=== PATIENT | male | born 1940 | race Caucasian/White ===

== ENCOUNTER → 2017-01-02 | Outpatient (CLI) | payer OTHER ==
[~2017-01-02] MED LIST: CALC-393 PO; CHOL100027 PO; CHOL2000 PO; CLC100 PO; CYAN500T PO; FERR1TAB13 PO; FLM4 PO; FOLI800T PO; LEVO75TA5 PO; MRLP17 PO; VITAMIN B12 PO; ZNTT/150 PO
[2017-01-02 12:23] LABS: BASO % 0.6 %; BASO ABS # 0.04 K/uL (0-0.2); COMPLETE YES; EOS % 1.9 %; HEMATOCRIT 43.3 % (42-52); IG% 0.2 %; LYMPH % 28.8 %; LYMPH ABS # 1.85 K/uL (1.2-3.4); MEAN CELL VOLUME 99.5 fL (80-100); MEAN CORPUSCULAR HEMOGLOBIN 33.8 pg (25-34); MEAN CORPUSCULAR HGB CONC 33.9 g/dl (32-36); MEAN PLATELET VOLUME 9.6 fL (7.4-10.4); MONO % 10.6 %; NEUT % 57.9 %; PLATELET COUNT 229 K/uL (130-400); RED BLOOD COUNT 4.35 M/uL (4.7-6.1); WHITE BLOOD COUNT 6.42 K/uL (4.8-10.8)
[2017-01-02 13:05] LABS: BLOOD UREA NITROGEN 15 mg/dl (7-18); BUN/CREATININE RATIO 16.1 (10-20); CALCIUM 8.5 mg/dl (8.5-10.1); CARBON DIOXIDE 28 mmol/L (21-32); CHLORIDE 109 mmol/L (98-107); CREATININE 0.94 mg/dl (0.60-1.40); GLUCOSE 113 mg/dl (70-99); POTASSIUM 4.1 mmol/L (3.5-5.1); SODIUM 142 mmol/L (136-145)
== END | disposition home or self-care (01) ==
LOC: C.LAB1850 09:56
PROVIDERS: ATTEND Internal Medicine
DX: D64.9 Anemia, unspecified (principal); N20.0 Calculus of kidney

== ENCOUNTER → 2017-01-09 | Outpatient (CLI) | payer OTHER ==
[2017-01-09 14:51] LABS: ALB/GLOB RATIO 1.5 (0.9-2); ALKALINE PHOSPHATASE 60 U/L (45-117); ALT/SGPT 27 U/L (12-78); AST/SGOT 20 U/L (15-37); BLOOD UREA NITROGEN 21 mg/dl (7-18); BUN/CREATININE RATIO 21.4 (10-20); CALCIUM 8.7 mg/dl (8.5-10.1); CARBON DIOXIDE 28 mmol/L (21-32); CHLORIDE 108 mmol/L (98-107); GLUCOSE 95 mg/dl (70-99); MAGNESIUM 2.2 mg/dl (1.8-2.4); POTASSIUM 4.3 mmol/L (3.5-5.1); SODIUM 142 mmol/L (136-145)
[2017-01-09 15:02] LABS: C-REACTIVE PROTEIN < 0.29 mg/dl (0-0.29)
== END | disposition home or self-care (01) ==
LOC: C.LAB1850 12:40
PROVIDERS: ATTEND Internal Medicine
DX: R06.02 Shortness of breath (principal); R19.7 Diarrhea, unspecified

== ENCOUNTER → 2017-03-16 | Outpatient (CLI) | payer OTHER ==
--- NOTE | 2017-03-16 11:55 | DIAGNOSTIC IMAGING REPORT ---
FLUOROSCOPIC SMALL BOWEL FOLLOW-THROUGH CLINICAL HISTORY: Chronic diarrhea. COMPARISON STUDY: Abdominal CT dated 07/30/2015. TECHNIQUE: An abdominal education director radiograph was performed. The patient consumed several of thin barium and a small follow-through was performed. Overhead radiographs and spot compression images were obtained. FINDINGS: The abdominal education director radiograph shows a nonobstructed abdominal bowel gas pattern. Stomach changes seen in the pelvis. There are small pelvic phleboliths. The skeletal structures are osteopenic. The bony structures appear intact. On the small bowel follow-through, there is normal transit time with contrast identified in the colon at 90 minutes. There is a large hiatal hernia, with the majority the stomach located in the right thoracic cavity. The duodenum is normal in configuration. No bowel obstruction is seen. The small bowel mucosal pattern is normal. There is a 12 mm filling defects suggested within a proximal loop of jejunum. This could not the corroborated on the spot compression views and may represent a gas bubble. A polyp is considered less likely. There is no evidence of stricture or annular mass. The distal/terminal ileum are normal in appearance on the spot compression views. Fluoroscopy time: 1.8 minutes. Fluoroscopic images: 9 IMPRESSION: 1. Large hiatal hernia with the majority of the stomach located in the thoracic cavity. 2. No bowel obstruction. 3. There is a 12 mm filling defects suggested within a proximal loop of jejunum. This could not the corroborated on the spot compression views and may represent a gas bubble. A polyp is not excluded. Electronically signed by: Steven Mittal M.D. 03/16/2017 11:54 AM Dictated Date/Time: 03/16/2017 11:46 AM
== END | disposition home or self-care (01) ==
LOC: C.RAD 09:33
PROVIDERS: ATTEND Internal Medicine Gastroenterology
DX: R19.7 Diarrhea, unspecified (principal); K44.9 Diaphragmatic hernia without obstruction or gangrene; K90.0 Celiac disease

== ENCOUNTER → 2017-04-24 | Day surgery (SDC) | payer OTHER ==
[~2017-04-24] VITALS: Ht 177.8 cm; Wt 91.0 kg
[2017-04-24 08:44] VITALS: BP 123/62; PULSE 65; TEMP 36.5; O2SAT 98; Ht 177.8 cm; Wt 91.0 kg
[2017-04-24 12:04] VITALS: BP 114/57; PULSE 57; TEMP 36.4; O2SAT 96
--- NOTE | 2017-04-30 13:33 | OPERATIVE REPORT ---
DATE OF OPERATION: 04/24/2017 PROCEDURE: Hydrogen breath test for lactose intolerance. DESCRIPTION OF PROCEDURE: The patient presented to the medical treatment unit and consumed 25 grams of lactose. The patient had hydrogen levels performed at 60 minute intervals for 200 minutes. His baseline hydrogen was 7 with a CO2 level of 3.2. His maximum hydrogen level during the entire time did not exceed 7 and CO2 remained normal in the 3 range. He reported no symptoms during the test. IMPRESSION: The patient has a negative breath test for lactose intolerance. I attest to the content of the Intraoperative Record and any orders documented therein. Any exception s are noted below.
== END | disposition home or self-care (01) ==
LOC: C.MTU 08:07
PROVIDERS: ATTEND Internal Medicine Gastroenterology
DX: R19.7 Diarrhea, unspecified (principal)

== ENCOUNTER → 2017-05-22 | Outpatient (CLI) | payer OTHER ==
[~2017-05-22] MED LIST changes: -CHOL100027 PO; -CLC100 PO; -FLM4 PO; -MRLP17 PO; -VITAMIN B12 PO
== END | disposition home or self-care (01) ==
LOC: C.MAMM 08:16
PROVIDERS: ATTEND Internal Medicine Gastroenterology
DX: K90.0 Celiac disease (principal); M85.88 Other specified disorders of bone density and structure, other site

== ENCOUNTER → 2017-07-04 | Outpatient (CLI) | payer OTHER ==
[2017-07-04 10:12] LABS: BASO % 0.6 %; BASO ABS # 0.04 K/uL (0-0.2); COMPLETE YES; EOS % 3.1 %; HEMATOCRIT 42.8 % (42-52); IG% 0.2 %; LYMPH % 35.3 %; LYMPH ABS # 2.18 K/uL (1.2-3.4); MEAN CELL VOLUME 98.6 fL (80-100); MEAN CORPUSCULAR HEMOGLOBIN 33.4 pg (25-34); MEAN CORPUSCULAR HGB CONC 33.9 g/dl (32-36); MEAN PLATELET VOLUME 9.8 fL (7.4-10.4); MONO % 12.6 %; NEUT % 48.2 %; PLATELET COUNT 208 K/uL (130-400); RED BLOOD COUNT 4.34 M/uL (4.7-6.1); WHITE BLOOD COUNT 6.18 K/uL (4.8-10.8)
[2017-07-04 10:40] LABS: ALT/SGPT 22 U/L (12-78); AST/SGOT 17 U/L (15-37); BLOOD UREA NITROGEN 21 mg/dl (7-18); BUN/CREATININE RATIO 20.8 (10-20); CALCIUM 8.4 mg/dl (8.5-10.1); CARBON DIOXIDE 25 mmol/L (21-32); CHLORIDE 108 mmol/L (98-107); CREATININE 0.99 mg/dl (0.60-1.40); FERRITIN 68.8 ng/ml (8.0-388.0); GLUCOSE 104 mg/dl (70-99); POTASSIUM 4.1 mmol/L (3.5-5.1); SODIUM 141 mmol/L (136-145)
[2017-07-04 10:43] LABS: ALB/GLOB RATIO 1.3 (0.9-2); ALKALINE PHOSPHATASE 72 U/L (45-117); TOTAL IRON BINDING CAPACITY 275 mcg/dl (250-450)
== END | disposition home or self-care (01) ==
LOC: C.LAB1850 08:46
PROVIDERS: ATTEND Internal Medicine
DX: D64.9 Anemia, unspecified (principal); N20.0 Calculus of kidney; E03.9 Hypothyroidism, unspecified; N40.0 Benign prostatic hyperplasia without lower urinary tract symptoms

== ENCOUNTER → 2017-11-09 | Outpatient (CLI) | payer OTHER ==
[~2017-11-09] MED LIST changes: +RANI150T85 PO; -ZNTT/150 PO
--- NOTE | 2017-11-09 09:19 | DIAGNOSTIC IMAGING REPORT ---
L KNEE 3 VIEWS CLINICAL HISTORY: Left knee pain COMPARISON: None. DISCUSSION: No acute fractures are visualized. There is moderate narrowing of the medial joint compartment. Degenerative changes are present within the patellofemoral joint. There is fragmentation the superior lateral patellar pole. 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 IMPRESSION: 1. No acute fractures 2. Moderate osteoarthritic changes 3. Bipartite patella Electronically signed by: Taco Estrada M.D. 11/09/2017 9:18 AM Dictated Date/Time: 11/09/2017 9:17 AM
== END | disposition home or self-care (01) ==
LOC: C.RAD1850 09:00
PROVIDERS: ATTEND Internal Medicine
DX: M17.12 Unilateral primary osteoarthritis, left knee (principal); Q74.1 Congenital malformation of knee

== ENCOUNTER 2019-02-13 04:45 | Inpatient (IN) ==
[2019-02-13] MEDS ORDERED: GI COCKTAIL ED USE PO ONE (05:08)
[2019-02-13 05:30] LABS: Basophils # (auto) 0.02 K/uL (0-0.2); Basophils % (auto) 0.2 %; Eosinophils # (auto) 0.13 K/uL (0-0.5); Eosinophils % (auto) 1.3 %; Hematocrit (blood only) 42.5 % (42-52); Hemoglobin 14.8 g/dL (14.0-18.0); Immature Granulocytes # (auto) 0.01 K/uL (0.00-0.02); Immature Granulocytes % (auto) 0.1 %; Lymphocytes # (auto) 1.83 K/uL (1.2-3.4); Lymphocytes % (auto) 18.9 %; Mean Corpuscular Hgb Conc 34.8 g/dL (32-36); Mean Corpuscular Volume 99.1 fL (80-100); Mean Platelet Volume 9.5 fL (7.4-10.4); Monocytes # (auto) 0.86 K/uL (0.11-0.59); Monocytes % (auto) 8.9 %; Neutrophils # (auto) 6.84 K/uL (1.4-6.5); Neutrophils % (auto) 70.6 %; Platelet Count 225 K/uL (130-400); RDW Coefficient of Variation 12.2 % (11.5-14.5); RDW Standard Deviation 43.5 fL (36.4-46.3); Red Blood Count 4.29 M/uL (4.7-6.1); White Blood Count 9.69 K/uL (4.8-10.8)
[2019-02-13 05:47] LABS: Alanine Aminotransferase 17 U/L (12-78); Albumin Level 3.8 gm/dl (3.4-5.0); Aspartate Aminotransferase 14 U/L (15-37); BUN Creatinine Ratio 20.9 (10-20); Blood Urea Nitrogen 22 mg/dl (7-18); Carbon Dioxide 26 mmol/L (21-32); Chloride 105 mmol/L (98-107); Creatinine Clr Calc Pharmacy 68.3 ml/min; Est GFR (African American) 80.5; Est GFR (Non-African American) 69.4; Glucose 121 mg/dl (70-99); Potassium 3.9 mmol/L (3.5-5.1); Sodium 138 mmol/L (136-145)
[2019-02-13 05:52] LABS: Albumin Globulin Ratio 1.3 (0.9-2); Alkaline Phosphatase 69 U/L (45-117); Bilirubin,Total 1.1 mg/dl (0.2-1); Globulin 2.9 gm/dl (2.5-4.0); Total Protein 6.7 gm/dl (6.4-8.2); Troponin I < 0.015 ng/ml (0-0.045)
--- NOTE | 2019-02-13 06:52 | XRay Report ---
XR abdomen 2V w PA chest HISTORY: 78 years-old Male epigastric pain/ CP acute epigastric abdominal pain with acute atypical c hest pain COMPARISON: Chest CT of same day TECHNIQUE: PA view the chest with erect and supine views of the abdomen FINDINGS: There is a very large hiatal hernia with majority of the stomach appearing to be within the thoracic cavity. Cardiomediastinal and hilar silhouettes are within normal limits. No pneumothorax, pleural ef fusion or overt pulmonary edema. Right lung base consolidative opacities are likely secondary to comp ressive atelectasis with the hiatal hernia. Degenerative changes of the shoulders and spine. IMPRESSION: Very large hiatal hernia with right lung base atelectasis. The above report was generated using voice recognition software. It may contain grammatical, syntax o r spelling errors. Electronically signed by: Anival Caceres M.D. 02/13/2019 6:51 AM
[2019-02-13 07:04] LABS: Appearance Urine Clear (Clear); Bilirubin Urine Negative (Negative); Blood Urine Negative (Negative); Color Urine Yellow; Glucose Urine UA Negative (Negative); Ketones Urine Trace (Negative); Leukocyte Esterase Urine Negative (Negative); Nitrite Urine Negative (Negative); Protein Urine Negative (Negative); Specific Gravity Urine 1.022 (1.000-1.030); Urobilinogen Urine Negative (Negative); pH Urine 6.5 (4.5-7.5)
--- NOTE | 2019-02-13 08:03 | CT Scan Report ---
CT chest wo con CT DOSE: 716.44 mGy.cm CLINICAL HISTORY: 78 years-old Male with eval hiatal hernia. Acute chest pain with hiatal hernia TECHNIQUE: Multiaxial CT images of the chest were performed without contrast. A dose lowering techni que was utilized adhering to the principles of ALARA. COMPARISON: Acute abdominal series radiographs of same day at 5:40 AM FINDINGS: Heterogeneous appearance of the thyroid. Mildly prominent paratracheal and subcarinal lymph nodes are likely reactive measuring up to 8 mm. Heart is normal in size without pericardial effusion. Coronary arterial calcifications are noted. No thoracic aortic aneurysm. Trace right pleural effusion. No pneumothorax. The left lung is generally clear. There is no overt pu lmonary edema. Benign-appearing 2 mm fissural lymph node about the left major fissure. Linear subsegm ental consolidation about the right upper and lower lobes suggests atelectasis. There are no suspicio us pulmonary nodules or masses. Central airways appear to be patent. There is a very large hiatal hernia with majority of the stomach within the thoracic cavity. The stom ach is debris filled and distended with wall thickening noted at the diaphragmatic hiatus where there is abrupt narrowing (image 227 series 4) about the distal gastric body/antrum. Perigastric inflammat ory stranding is also noted with trace free fluid. Additionally, there are scattered foci of pneumope ritoneum surrounding the hiatal hernia. Additional scattered foci of pneumoperitoneum throughout the liver. Site of perforation is not definitively seen. Renal sinus cysts noted about the left kidney. T here are a few hypodense lesions noted about the liver measuring up to 2.4 cm suggestive of probable cysts. Soft tissues are unremarkable. Multilevel facet arthrosis. Degenerative changes of the shoulde rs are also noted. IMPRESSION: 1. Very large hiatal hernia with the majority of the stomach within the thoracic cavity. The stomach is distended and debris-filled and there is marked narrowing about the distal gastric body/antrum at the diaphragmatic hiatus with associated wall thickening, inflammatory stranding and trace fluid with in this distribution it is suggestive of gastric outlet obstruction. Additionally, small volume pneum operitoneum surrounds the hernia sac extending into the abdominal right upper quadrant suggestive of associated gastric perforation. Surgical consultation is needed. 2. Trace right pleural effusion with compressive atelectasis/scarring about the right lung base. Findings were discussed with Dr. Snyder on 02/13/2019 at 7:55 AM Electronically signed by: Anival Caceres M.D. 02/13/2019 8:01 AM
--- NOTE | 2019-02-13 08:38 | Surgery Consultation ---
Date of Consultation February 13, 2019 Assessment & Plan (1) Hernia, hiatal: Clinically the patient looks well and is not in distress. I have seen the patient and discussed his case with Dr. Snyder and Dr Cole. We do not feel the patient needs emergency operation. Dr. Cole will discuss the case with the medical team and the patient will likely be admitted to the hospital and the decision for surgery will be made depending on the patient's progress. History of Present Illness History of Present Illness Called to see the patient in the emergency room for possible gastric perforation. Patient has a history of known hiatal hernia and recently has been having more reflux and now some pain in the chest. His cardiac work-up is negative for he underwent chest CAT scan which showed a very large hiatal hernia almost the entire stomach in the chest. There is concern for extraluminal gas and possible perforation of the stomach. The patient's vital signs are stable his heart rate is normal his white blood c ell count is normal. Allergies Allergy/AdvReac Type Severity Reaction Status Date / Time No Known Allergies Allergy Verified 02/13/19 05:17 Home Medications Home Medications Medication Instructions Recorded Confirmed Type Macular Health Formula 1 cap PO QAM 01/03/19 02/13/19 History calcium carbonate [Calcium 600] 600 mg PO QAM 01/03/19 02/13/19 History cholecalciferol (vitamin D3) 2,000 unit PO QAM 01/03/19 02/13/19 History [Vitamin D3] cyanocobalamin (vitamin B-12) 500 mcg PO QAM 01/03/19 02/13/19 History [Vitamin B-12] ferrous sulfate [Iron (ferrous 325 mg PO QAM 01/03/19 02/13/19 History sulfate)] folic acid 0.8 mg PO QAM 01/03/19 02/13/19 History levothyroxine 88 mcg PO HS 01/03/19 02/13/19 History ranitidine HCl 150 mg PO HS 01/03/19 02/13/19 History tramadol 50 mg PO Q6H PRN #10 tab 01/08/19 02/13/19 Rx Patient History Medical History Anemia Celiac disease GERD (gastroesophageal reflux disease) History of colon polyps Hypothyroidism Kidney stones Surgical History History of colonoscopy History of esophagogastroduodenoscopy (EGD) History of hammertoe correction bilt feet History of tooth extraction History of umbilical hernia repair Family History Other No family history of adverse response to anesthesia Social History Preferred Language: Nigerian Communication Ability: Effective Beliefs That Will Affect Care: None Current Living Situation: Spouse Feels Safe at Home: Yes Smoking Status: Never smoker Second Hand Exposure: No Hx Alcohol Use: Yes Alcohol type: wine Hx Substance Use: No Review of Systems Review of Systems: All systems reviewed & are unremarkable except as noted in HPI & below Physical Exam Physical Exam: Currently the patient is in his ER bed awake and alert in no distress. He actually appears normal. His vital signs are stable with a normal heart rate. His HEENT exam is grossly normal his neck is supple sclera are anicteric. He is breathing comfortable his heart rate is normal his abdomen sh ows some mild distention . His extremities are warm and well-perfused. He is awake and alert Results & Data Vital Signs (Past 12 Hours) Vital Signs Temp Pulse Pulse Resp BP BP Pulse Ox 02/13/19 07:49 64 17 123/77 96 02/13/19 06:47 88 18 124/78 95 02/13/19 04:51 36.7 C 89 20 144/70 H 95 I have reviewed his CAT scan and report.
--- NOTE | 2019-02-13 08:38 | Emergency Department Note ---
Entered by Leon Hector acting as a scribe for History of Present Illness General Chief complaint: GI Assessment Stated complaint: HEARTBURN Time Seen by Provider: 02/13/19 04:54 Source: patient History of Present Illness Provider complaint: chest pressure Onset (ago): day(s) 6 Location: chest Pain Consistency: + constant Quality: + other (pressure) Relieved By: + none Exacerbated By: + none Associated symptoms: + denies other symptoms; no nausea/vomiting and no shortness of breath The patient is a 78 y/o male who presents to the emergency department for evaluation of intermittent chest pressure that began 6 days ago that became worse last evening. The patient states that he has had a hiatal hernia for years for which he takes a daily medication for management which is normally successful. He notes that this time he has taken two ranitidine without relief of the pressure. The patient reports that he cannot find a position that is comfortable for him. The patient denies nausea, shortness of breath, urinary symptoms, bowel symptoms, leg swelling, and any other symptoms. Home Medications Home Medications Medication Instructions Recorded Confirmed Type Macular Health Formula 1 cap PO COUNTS INCLUDE 234 BEDS AT [facility] 01/03/19 02/13/19 History calcium carbonate [Calcium 600] 600 mg PO COUNTS INCLUDE 234 BEDS AT THE [facility] 01/03/19 02/13/19 History cholecalciferol (vitamin D3) 2,000 unit PO COUNTS INCLUDE 234 BEDS AT THE [facility] 01/03/19 02/13/19 History [Vitamin D3] cyanocobalamin (vitamin B-12) 500 mcg PO COUNTS INCLUDE 234 BEDS AT THE [facility] 01/03/19 02/13/19 History [Vitamin B-12] ferrous sulfate [Iron (ferrous 325 mg PO COUNTS INCLUDE 234 BEDS AT THE [facility] 01/03/19 02/13/19 History sulfate)] folic acid 0.8 mg PO COUNTS INCLUDE 234 BEDS AT THE [facility] 01/03/19 02/13/19 History levothyroxine 88 mcg PO 01/03/19 02/13/19 History ranitidine HCl 150 mg PO 01/03/19 02/13/19 History tramadol 50 mg PO Q6H PRN #10 tab 01/08/19 02/13/19 Rx Allergies Allergy/AdvReac Type Severity Reaction Status Date / Time gluten Allergy Mild Gastrointestinal Verified 02/13/19 08:46 Upset Past Med/Surg History Medical History Anemia Celiac disease GERD (gastroesophageal reflux disease) History of colon polyps Hypothyroidism Kidney stones Surgical History History of colonoscopy History of esophagogastroduodenoscopy (EGD) History of hammertoe correction bilt feet History of tooth extraction History of umbilical hernia repair Family History Father Dementia Mother Breast cancer Other No family history of adverse response to anesthesia Social History Preferred Language: Croatian Communication Ability: Effective Beliefs That Will Affect Care: None Current Living Situation: Spouse 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 Other Information That Helps Us Care for You: No Feels Safe at Home: Yes Safety Concerns: Feels Safe At This Time Smoking Status: Never smoker Second Hand Exposure: No Hx Alcohol Use: Yes (Occasional. ) Alcohol type: wine Hx Substance Use: No Review of Systems See HPI for pertinent positives & negatives. and A total of 10 systems reviewed and were otherwise negative Physical Exam Vital Signs Vital Signs - 24 hr 02/13/19 04:51 02/13/19 05:08 02/13/19 06:47 Temperature 36.7 C Temperature Source Oral Sepsis Recent Fever Within 48 Hours No Sepsis Action Taken by Nursing No Action Required Pulse Rate 89 Pulse Rate [Left Radial] 88 Pulse Rhythm Regular Pulse Rhythm [Left Radial] Pulse Strength Normal Respiratory Rate 20 18 Respiratory Effort / Characteristics Non-Labored Spontaneous Non-Labored Respiratory Depth Normal Normal Respiratory Pattern Regular Regular Blood Pressure 144/70 H Blood Pressure [Left Arm] 124/78 Blood Pressure Mean 94 Blood Pressure Mean [Left Arm] 93 Blood Pressure Position Sitting Blood Pressure Position [Left Arm] Pulse Oximetry 95 95 Oxygen Delivery Method Room Air Room Air 02/13/19 07:49 02/13/19 08:44 Temperature Temperature Source Sepsis Recent Fever Within 48 Hours Sepsis Action Taken by Nursing Pulse Rate Pulse Rate [Left Radial] 64 74 Pulse Rhythm Pulse Rhythm [Left Radial] Regular Pulse Strength Respiratory Rate 17 16 Respiratory Effort / Characteristics Non-Labored Respiratory Depth Normal Respiratory Pattern Regular Blood Pressure Blood Pressure [Left Arm] 123/77 131/77 Blood Pressure Mean Blood Pressure Mean [Left Arm] 92 95 Blood Pressure Position Blood Pressure Position [Left Arm] Sitting Pulse Oximetry 96 96 Oxygen Delivery Method Room Air Room Air HEENT: Head - normocephalic and atraumatic Pupils are equal, round, and reactive to light. Extraocular eye muscles are intact, and sclera are anicteric. Nose - moist nasal mucosa without discharge. Mouth - moist buccal mucosa. Oropharynx is nonerythematous and there is no tonsillar exudate or edema noted. Neck: Supple; no JVD, nuchal rigidity, cervical lymphadenopathy. Heart: Regular rate and rhythm. There is a normal S1 and S2 with no murmurs, clicks, or gallops appreciated. Lungs: Clear to auscultation bilaterally with no wheezes, rales, or rhonchi. Abdomen: Soft, completely nontender, nondistended, with good bowel sounds. There are no palpable pulsatile masses or hepatosplenomegaly. There is no guarding, rigidity, or rebound noted. Extremities: No evidence of cyanosis, clubbing, or edema. There are easily palpable peripheral pulses. Skin: warm and dry with good turgor and no rashes. Course 0502: Past medical records reviewed. The patient was evaluated in room B12. A complete history and physical exam was performed. An IV lock was initiated and labs were drawn as above. A twelve-lead EKG was obtained as described above. The patient had a chest x-ray as described below. 0508: I ordered a GI cocktail ED use 1 dose PO. 0557: I informed the patient that he will need to have a CT done. He states that the GI cocktail did seem to help his symptoms. 0800: I updated the patient on his results. The patient will be kept n.p.o. He was started on a normal saline drip 0801: I spoke with Dr. Janeth RAVI-Surgeon, he will talk with Dr. Mitchell. 0812: I discussed the results with the patient and Dr. Garcia at bedside. Dr. Cole will evaluate the patient for further management. 0840: I discussed the case with Dr. Cole. He has evaluated the patient and will discuss the case with the [facility] for admission. Reevaluation(s) Reevaluation #1: I spoke with Dr. Janeth RAVI-Surgeon, he will talk with Dr. Mitchell. Time: 08:01 Reevaluation #2: Dr. Cole will evaluate the patient for further management. Time: 08:12 Administered Medications Sodium Chloride (Nss 1000ml) 1,000 mls @ 125 mls/hr IV .Q8H PRIYANK Stop: 03/15/19 08:14 Last Admin: 02/13/19 15:51 Dose: 125 mls/hr Documented by: [id number] Infusion: 02/13/19 15:51 Dose: 125 mls/hr Documented by: [id number] Admin: 02/13/19 08:43 Dose: 125 mls/hr Documented by: [id number] Famotidine 20 mg/ Syringe 5 mls @ 2.5 mls/min IV BID PRIYANK Stop: 03/15/19 11:29 Last Admin: 02/13/19 20:17 Dose: 2.5 mls/min Documented by: [id number] Admin: 02/13/19 12:19 Dose: 2.5 mls/min Documented by: [id number] Discontinued Medications Al Hydrox/Mg Hydrox/Simethicone () 1 dose PO ONE ONE Stop: 02/13/19 05:09 Last Admin: 02/13/19 05:21 Dose: 1 dose Documented by: [id number] Medical Decision Making Differential Diagnosis Differential diagnosis: GERD, Esophagitis, cardiac ischemia, hiatal hernia, gastritis. Medical Records Attestation: I reviewed the patient's medical records. Home Medications Current Medication List: was personally reviewed by me Laboratory Data Attestation: I reviewed the patient's lab results. Result diagrams: 02/13/19 05:19 02/13/19 05:19 Lab Results 02/13/19 02/13/19 02/13/19 Range/Units 05:19 05:19 06:55 WBC 9.69 (4.8-10.8) K/uL RBC 4.29 L (4.7-6.1) M/uL Hgb 14.8 (14.0-18.0) g/dL Hct 42.5 (42-52) % MCV 99.1 (80-100) fL MCH 34.5 H (25-34) pg MCHC 34.8 (32-36) g/dL RDW Std Deviation 43.5 (36.4-46.3) fL RDW Coeff of Paula 12.2 (11.5-14.5) % Plt Count 225 (130-400) K/uL MPV 9.5 (7.4-10.4) fL Immature Gran % (Auto) 0.1 % Neut % (Auto) 70.6 % Lymph % (Auto) 18.9 % Lumpkin % (Auto) 8.9 % Eos % (Auto) 1.3 % Baso % (Auto) 0.2 % Immature Gran # (Auto) 0.01 (0.00-0.02) K/uL Neut # (Auto) 6.84 H (1.4-6.5) K/uL Lymph # (Auto) 1.83 (1.2-3.4) K/uL [place]kin # (Auto) 0.86 H (0.11-0.59) K/uL Eos # (Auto) 0.13 (0-0.5) K/uL Baso # (Auto) 0.02 (0-0.2) K/uL Sodium 138 (136-145) mmol/L Potassium 3.9 (3.5-5.1) mmol/L Chloride 105 (98-107) mmol/L Carbon Dioxide 26 (21-32) mmol/L Anion Gap 7.0 (3-11) BUN 22 H (7-18) mg/dl Creatinine 1.04 (0.6-1.4) mg/dl Est Cr Clr Drug Dosing 68.3 ml/min Est GFR ( Amer) 80.5 Est GFR (Non-Af Amer) 69.4 BUN/Creatinine Ratio 20.9 H (10-20) Glucose 121 H (70-99) mg/dl Calcium 9.0 (8.5-10.1) mg/dl Total Bilirubin 1.1 H (0.2-1) mg/dl AST 14 L (15-37) U/L ALT 17 (12-78) U/L Alkaline Phosphatase 69 (45-117) U/L Troponin I < 0.015 (0-0.045) ng/ml Total Protein 6.7 (6.4-8.2) gm/dl Albumin 3.8 (3.4-5.0) gm/dl Globulin 2.9 (2.5-4.0) gm/dl Albumin/Globulin Ratio 1.3 (0.9-2) Lipase 118 (73-393) U/L Urine Color Yellow Urine Appearance Clear (Clear) Urine pH 6.5 (4.5-7.5) Ur Specific Spencer 1.022 (1.000-1.030) Urine Protein Negative (Negative) Urine Glucose (UA) Negative (Negative) Urine Ketones Trace H (Negative) Urine Blood Negative (Negative) Urine Nitrite Negative (Negative) Urine Bilirubin Negative (Negative) Urine Urobilinogen Negative (Negative) Ur Leukocyte Esterase Negative (Negative) Imaging Data Attestation: I personally reviewed and interpreted this imaging study as follows: My Impression: Chest x-ray showed drastically worsened hiatal hernia, with debris frilled stomach. Radiologist's Impression: Radiology results as stated below per my review and the radiologist's interpretation: CT chest wo con CT DOSE: 716.44 mGy.cm CLINICAL HISTORY: 78 years-old Male with eval hiatal hernia. Acute chest pain with hiatal hernia TECHNIQUE: Multiaxial CT images of the chest were performed without contrast. A dose lowering technique was utilized adhering to the principles of ALARA. COMPARISON: Acute abdominal series radiographs of same day at 5:40 AM FINDINGS: Heterogeneous appearance of the thyroid. Mildly prominent paratracheal and subcarinal lymph nodes are likely reactive measuring up to 8 mm. Heart is normal in size without pericardial effusion. Coronary arterial calcifications are noted. No thoracic aortic aneurysm. Trace right pleural effusion. No pneumothorax. The left lung is generally clear. There is no overt pulmonary edema. Benign-appearing 2 mm fissural lymph node about the left major fissure. Linear subsegmental consolidation about the right upper and lower lobes suggests atelectasis. There are no suspicious pulmonary nodules or masses. Central airways appear to be patent. There is a very large hiatal hernia with majority of the stomach within the thoracic cavity. The stomach is debris filled and distended with wall thickening noted at the diaphragmatic hiatus where there is abrupt narrowing (image 227 series 4) about the distal gastric body/antrum. Perigastric inflammatory stranding is also noted with trace free fluid. Additionally, there are scattered foci of pneumoperitoneum surrounding the hiatal hernia. Additional scattered foci of pneumoperitoneum throughout the liver. Site of perforation is not definitively seen. Renal sinus cysts noted about the left kidney. There are a few hypodense lesions noted about the liver measuring up to 2.4 cm suggestive of probable cysts. Soft tissues are unremarkable. Multilevel facet arthrosis. Degenerative changes of the shoulders are also noted. IMPRESSION: 1. Very large hiatal hernia with the majority of the stomach within the thoracic cavity. The stomach is distended and debris-filled and there is marked narrowing about the distal gastric body/antrum at the diaphragmatic hiatus with associated wall thickening, inflammatory stranding and trace fluid within this distribution it is suggestive of gastric outlet obstruction. Additionally, small volume pneumoperitoneum surrounds the hernia sac extending into the abdominal right upper quadrant suggestive of associated gastric perforation. Surgical consulta tion is needed. 2. Trace right pleural effusion with compressive atelectasis/scarring about the right lung base. Findings were discussed with Dr. Snyder on 02/13/2019 at 7:55 AM Electronically signed by: Anival Caceres M.D. 02/13/2019 8:01 AM ECG Data Attestation: I personally reviewed and interpreted this ECG as follows: Indication: chest pain Rate (beats per minute): 81 Rhythm: normal sinus Findings: no acute ischemic change and no ectopy Blood Pressure Blood Pressure Findings: Normal blood pressure MDM Narrative The patient is a 78 y/o male who presents to the emergency department for evaluation of intermittent chest pressure that began 6 days ago that became worse last evening. The patient has a history of hiatal hernia for which she has taken ranitidine regularly for many years. Over the past 6 days, the patient has noticed that his GERD symptoms do not seem to be treated with the ranitidine. He has doubled up his dose with no improvement in his symptoms. On chest x-ray, there was obvious worsening of the hiatal hernia. The patient went for CT scan of the chest which showed significant hiatal hernia with a debris-filled stomach and signs of gastric outlet obstruction. There was questionable pneumoperitoneum. The patient was kept n.p.o. and started on a normal saline drip. This case was discussed emergently with Dr. Garcia and Dr. Cole. They both came to the emergency department to evaluate the patient. The patient will be admitted. Impression & Plan Gastric perforation, Gastric outlet obstruction, Hernia, hiatal Critical Care Time Critical Care Time: Yes Total Critical Care Time: 70 I have personally spent 70 minutes of critical care time in the direct management of this patient. This includes bedside care, interpretation of diagnostic studies, and testing, discussion with consultants, patient, and family members, and other required patient management activities. This 70 minutes is in excess of all separately billable procedures. Discharge Plan Visit Data *Final* Discharge Date/Time: 02/13/19 10:48 Chief Complaint: GI Assessment Stated Complaint: HEARTBURN ED Provider: Alejandrina Snyder Discharge Problem: Gastric perforation, Gastric outlet obstruction, Hernia, hiatal Patient Disposition: Admitted As Inpatient Discharge Instructions Interventions: ED Discharge Assessment Last Done: 02/13/19 10:48 The scribe's documentation has been prepared under my direction and personally reviewed by me in its entirety. I confirm that the note above accurately re flects all work, treatment, procedures, and medical decision making performed by me.
[2019-02-13] MEDS: SODIUM CHLORIDE 0.9% 1000ML 1,000 ML IV SCH ×3 (08:43→23:17)
--- NOTE | 2019-02-13 10:01 | History & Physical Report ---
Date of Service February 13, 2019 Assessment & Plan (1) Hernia, hiatal: - Presented with acute symptoms likely related to hiatal hernia. - CT chest showed very large hiatal hernia with majority of stomach within the thoracic cavity. - Dr. Cole consulted -- will continue to follow, may be require inpt intervention pending hospital course. - Strict NPO; IV fluids at 125 cc/hr. - Will also consult [facility] due to h/o Celiac disease. - EKG pending; does have chronic SOB with exertion, consider cardiology consult for preop work up -- Trop was negative. (2) Celiac disease: - Follows with [facility], will consult as inpt. - Hold home vitamin supplementation due to NPO status. (3) Anemia: - Hgb is currently stable; holding home supplementation while NPO. (4) Hypothyroidism: - Continue Levothyroxine -- 44 mcg IV daily. - TSH was 2.470. (5) GERD (gastroesophageal reflux disease): - Famotidine 20 mg IV BID due to NPO status. (6) Carpal tunnel syndrome: - S/p right carpal tunnel release on 01/08/19. (7) DVT prophylaxis: - SCDs; holding pharmacologic ppx for procedure. Dispo: Med/surg with tele for evaluation/treatment of large hiatal hernia. History of Present Illness Chief Complaint: Abdominal/Chest Pressure Primary Care Provider: Sathya Padron MD Mr. Stern is a 78 year old male with past medical history of Celiac disease, GERD, Hypothyroidism, Carpal Tunnel Syndrome, Hiatal Hernia who presented to the ER with abdominal/chest pressure. He developed insomnia along with chest pressure starting Sunday evening. He had intermittent symptoms over the last few days; pressure started to increase last evening prior to patient presenting to the ER. He denies direct chest pressure but does have chronic shortness of breath -- SOB occurs with exertion, denies SOB at rest. Denies URI symptoms, LE edema, nausea/vomiting, lower abdominal pain, dysuria or hematuria. Pt. is having regular BMs -- last BM was yesterday. 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 ER course: CT chest showed very large hiatal hernia with majority of stomach within the thoracic cavity. Dr. Cole was consulted -- will admit for further evaluation, maintain NPO status and consider surgery as inpatient if necessary. Allergies Allergy/AdvReac Type Severity Reaction Status Date / Time gluten Allergy Mild Gastrointestinal Verified 02/13/19 08:46 Upset Home Medications Home Medications Medication Instructions Recorded Confirmed Type Macular Health Formula 1 cap PO QAM 01/03/19 02/13/19 History calcium carbonate [Calcium 600] 600 mg PO QAM 01/03/19 02/13/19 History cholecalciferol (vitamin D3) 2,000 unit PO [facility] 01/03/19 02/13/19 History [Vitamin D3] cyanocobalamin (vitamin B-12) 500 mcg PO QAM 01/03/19 02/13/19 History [Vitamin B-12] ferrous sulfate [Iron (ferrous 325 mg PO [facility] 01/03/19 02/13/19 History sulfate)] folic acid 0.8 mg PO QAM 01/03/19 02/13/19 History levothyroxine 88 mcg PO HS 01/03/19 02/13/19 History ranitidine HCl 150 mg PO HS 01/03/19 02/13/19 History tramadol 50 mg PO Q6H PRN #10 tab 01/08/19 02/13/19 Rx Past Med/Surg History Medical History Anemia Celiac disease GERD (gastroesophageal reflux disease) History of colon polyps Hypothyroidism Kidney stones Surgical History History of colonoscopy History of esophagogastroduodenoscopy (EGD) History of hammertoe correction bilt feet History of tooth extraction History of umbilical hernia repair Family History Father Dementia Mother Breast cancer Other No family history of adverse response to anesthesia Social History Preferred Language: Pry[place]in[place] Communication Ability: Effective Beliefs That Will Affect Care: None Current Living Situation: Spouse 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 Other Information That Helps Us Care for You: No Feels Safe at Home: Yes Safety Concerns: Feels Safe At This Time Smoking Status: Never smoker Second Hand Exposure: No Hx Alcohol Use: Yes (Occasional. ) Alcohol type: wine Hx Substance Use: No Review of Systems Review of Systems: All systems reviewed & are unremarkable except as noted in HPI & below Constitutional: no fever, no chills, no fatigue, no weakness and no anorexia Ear, Nose, Mouth, Throat: no nasal congestion and no nasal discharge Respiratory: + dyspnea on exertion (Chronic ); no cough, no dyspnea and no wheezing Cardiovascular: + chest pain (Chest pressure related to hernia. ); no chest pain at rest, no chest pain with activity, no radiating jaw, neck or arm pain, no palpitations, no lightheadedness, no syncope and no edema Gastrointestinal: + abdominal pain (Related to hernia. ); no nausea, no vomiting, no constipation and no diarrhea/loose stools Genitourinary: no difficulty urinating Musculoskeletal: no back pain and no joint pain Integumentary: no non-healing lesions Neurologic: no dizziness Allergy / Immunological: no rash Physical Exam Physical Exam: General: Resting comfortably in no apparent distress HEENT: NC/AT; PERRLA with EOMI; [place] conjunctiva, MMM. No erythema of posterior pharynx Neck: Supple and nontender Cardiac: RRR Lungs: CTA bilaterally Abdomen: Bowel normoactive X 4; Mild distention, non tender to light palpation. Extremities: Warm. No edema present Neuro: No focal weakness Skin: No rash Results & Data Vital Signs (Past 12 Hours) Vital Signs Temp Pulse Pulse Resp BP BP Pulse Ox 02/13/19 08:44 74 16 131/77 96 02/13/19 07:49 64 17 123/77 96 02/13/19 06:47 88 18 124/78 95 02/13/19 04:51 36.7 C 89 20 144/70 H 95 Laboratory Results 02/13/19 02/13/19 02/13/19 Range/Units 06:55 05:19 05:19 WBC 9.69 (4.8-10.8) K/uL RBC 4.29 L (4.7-6.1) M/uL Hgb 14.8 (14.0-18.0) g/dL Hct 42.5 (42-52) % MCV 99.1 (80-100) fL MCH 34.5 H (25-34) pg MCHC 34.8 (32-36) g/dL RDW Std Deviation 43.5 (36.4-46.3) fL RDW Coeff of Paula 12.2 (11.5-14.5) % Plt Count 225 (130-400) K/uL MPV 9.5 (7.4-10.4) fL Immature Gran % (Auto) 0.1 % Neut % (Auto) 70.6 % Lymph % (Auto) 18.9 % [place] % (Auto) 8.9 % Eos % (Auto) 1.3 % Baso % (Auto) 0.2 % Immature Gran # (Auto) 0.01 (0.00-0.02) K/uL Neut # (Auto) 6.84 H (1.4-6.5) K/uL Lymph # (Auto) 1.83 (1.2-3.4) K/uL [place] # (Auto) 0.86 H (0.11-0.59) K/uL Eos # (Auto) 0.13 (0-0.5) K/uL Baso # (Auto) 0.02 (0-0.2) K/uL Sodium 138 (136-145) mmol/L Potassium 3.9 (3.5-5.1) mmol/L Chloride 105 (98-107) mmol/L Carbon Dioxide 26 (21-32) mmol/L Anion Gap 7.0 (3-11) BUN 22 H (7-18) mg/dl Creatinine 1.04 (0.6-1.4) mg/dl Est Cr Clr Drug Dosing 68.3 ml/min Est GFR ( Amer) 80.5 Est GFR (Non-Af Amer) 69.4 BUN/Creatinine Ratio 20.9 H (10-20) Glucose 121 H (70-99) mg/dl Calcium 9.0 (8.5-10.1) mg/dl Total Bilirubin 1.1 H (0.2-1) mg/dl AST 14 L (15-37) U/L ALT 17 (12-78) U/L Alkaline Phosphatase 69 (45-117) U/L Troponin I < 0.015 (0-0.045) ng/ml Total Protein 6.7 (6.4-8.2) gm/dl Albumin 3.8 (3.4-5.0) gm/dl Globulin 2.9 (2.5-4.0) gm/dl Albumin/Globulin Ratio 1.3 (0.9-2) Lipase 118 (73-393) U/L Urine Color Yellow Urine Appearance Clear (Clear) Urine pH 6.5 (4.5-7.5) Ur Specific [place] 1.022 (1.000-1.030) Urine Protein Negative (Negative) Urine Glucose (UA) Negative (Negative) Urine Ketones Trace H (Negative) Urine Blood Negative (Negative) Urine Nitrite Negative (Negative) Urine Bilirubin Negative (Negative) Urine Urobilinogen Negative (Negative) Ur Leukocyte Esterase Negative (Negative) Code Status & VTE Plan Code Status FULL CODE VTE Prophylaxis Plan VTE Prophylaxis will be ordered: No Supervising Physician Co-Signing Physician Notes PA Supervision Note: I personally saw and examined the patient. I verified all novak points and agree with CARI Hanks with the following exceptions and/or additions: Patient presenting with worsening feeling of pressure up into his chest and neck and worsening GERD symptoms. He was found on imaging to have a very large hiatal hernia with almost his entire stomach in the intrathoracic region and it was full of stomach contents. There is also question of pneumoperitoneum seen on imaging by radiology. He was seen urgently in consultation with general surgery and then thoracic surgery who did not think he had a surgical emergency, however warranted admission for further observation and likely planned hernia repair. History otherwise as above ROS as Vitals reviewed Gen: AAOx3, NAD HEENT: Anicteric sclerae, EOMI CV: RRR no mgr nl S1S2 Pulm: CTAB no wcr Abd: +BS soft NT ND no masses or hernias palpable Ext: No edema, 2+ DP pulses Skin: No rashes, warm/dry Neuro: Full strength throughout ECG normal sinus rhythm without ischemic changes, normal axis Labs reviewed CT of the chest personally reviewed by me and shows a large intrathoracic stomach mostly in the right side of the thorax 78-year-old male here with hypothyroidism, history of GERD, here with large hiatal hernia that is now symptomatic -Appreciate thoracic surgery and general surgery consultations, GI consultation appreciated as well -Keeping n.p.o., hydrated with IV fluids, IV Pepcid -Planning likely for robotic assisted minimally invasive hiatal hernia repair with thoracic surgery in the next few days. DVT prophylaxis-SCDs PG Care Time/CCT Total # of Minutes Spent Total Time Spent with Patient: Total time spent is greater than 50% in coordination of care (as documented) at patient's floor/unit and/or counseling patient:
[2019-02-13] MEDS ORDERED: ACETAMINOPHEN 65 ML IV PRN (11:13)
[2019-02-13] MEDS ORDERED: FAMOTIDINE 20MG/5ML IV PUSH IV SCH (11:13)
[2019-02-13] MEDS: FAMOTIDINE 20 MG in SYRINGE 3 ML IV SCH ×2 (12:19→20:17)
--- NOTE | 2019-02-13 16:09 | Gastrointestinal Consultation ---
Date of Consultation February 13, 2019 Assessment & Plan (1) Hernia, hiatal: I feel this needs to be fixed prior to discharge or he may experience a surgical emergency. Told patient I feel he needs surgery prior to DC and he wants to proceed. No role for endoscopy in setting of possible gastric p erforation. Timing of surgery per surgeons. Per my discussion with Dr Porter, the PA discussed the case with Dr Cole who will be seeing the patient and considering repair of HH. gastric outlet obstruction--from HH, see above, If develops n/v would place NG and put on LIS celiac disease--well controlled and this diagnosis should have no bearing on decision to proceed with surgery. Gluten free diet when taking po. No additional recommendations and decisions of timing of surgery to made by others so will will sign off. Please call for further questions. History of Present Illness Reason for Consultation: Large Hiatal hernia Requesting Physician: CARI Tellez Attending Physician: Nakita Porter MD History of Present Illness CC reflux HPI Reviewed this EMR and [facility] EMR for GI pertinent data. Pt with longstanding celiac disease (40 years) stable on gluten free diet at present. A couple years ago he was having unexplained diarrhea. An EGD 06/2017 large HH and random duod bx neg for active celiac diseaes. [place] to TI with random bx normall and path neg for microscopic colitis. He was ultimately found to have small bowel bacterial overgrowth which required 2 rounds of abx and no probllems since. Last OV with DR Jimenez 01/2018. He states long history of hiatal hernia with GERD symptoms controlled well on randitine. He states 6 days ago more reflux, early satiety and feeling of fullness up in throat not relieved with incread zantac. No severe pain in abdomen or chest. He came to ER and chest CT c/w distended stomach almost all in chest with narrowing at diaphragm, stomcah full of food/fluid and suggestion of contained gastric perforation. He was seen by general surgery who felt no emergent surgery needed. Allergies Allergy/AdvReac Type Severity Reaction Status Date / Time gluten Allergy Mild Gastrointestinal Verified 02/13/19 08:46 Upset Home Medications Home Medications Medication Instructions Recorded Confirmed Type Macular Health Formula 1 cap PO QAM 01/03/19 02/13/19 History calcium carbonate [Calcium 600] 600 mg PO QAM 01/03/19 02/13/19 History cholecalciferol (vitamin D3) 2,000 unit PO QAM 01/03/19 02/13/19 History [Vitamin D3] cyanocobalamin (vitamin B-12) 500 mcg PO QAM 01/03/19 02/13/19 History [Vitamin B-12] ferrous sulfate [Iron (ferrous 325 mg PO QAM 01/03/19 02/13/19 History sulfate)] folic acid 0.8 mg PO QAM 01/03/19 02/13/19 History levothyroxine 88 mcg PO HS 01/03/19 02/13/19 History ranitidine HCl 150 mg PO HS 01/03/19 02/13/19 History tramadol 50 mg PO Q6H PRN #10 tab 01/08/19 02/13/19 Rx Patient History Medical History Anemia Celiac disease GERD (gastroesophageal reflux disease) History of colon polyps Hypothyroidism Kidney stones Surgical History History of colonoscopy History of esophagogastroduodenoscopy (EGD) History of hammertoe correction bilt feet History of tooth extraction History of umbilical hernia repair Family History Father Dementia Mother Breast cancer Other No family history of adverse response to anesthesia Social History Preferred Language: Irish Communication Ability: Effective Beliefs That Will Affect Care: None Current Living Situation: Spouse 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 Other Information That Helps Us Care for You: No Feels Safe at Home: Yes Safety Concerns: Feels Safe At This Time Smoking Status: Never smoker Second Hand Exposure: No Hx Alcohol Use: Yes (Occasional. ) Alcohol type: wine Hx Substance Use: No Review of Systems Review of Systems: All systems reviewed & are unremarkable except as noted in HPI & below Physical Exam Constitutional: WD/WN, vitals as above Eyes: PERRL, conjunctivae normal, anicteric sclerae ENMT: external ear and nose normal, oropharynx normal Neck: normal visual inspection and trachea midline Respiratory: normal respiratory effort, lungs clear to auscultation Cardiovascular: RRR, no murmur, no edema Gastrointestinal (Abdomen): normal bowel sounds, soft, nontender, no hepatosplenomegaly Neurologic: PERRL, EOMI, accommodation nl, no face palsy, no dysarthria Psychiatric: A+Ox3, euthymic affect Results & Data Vital Signs (Past 12 Hours) Vital Signs Temp Pulse Pulse Resp BP BP Pulse Ox 02/13/19 15:45 66 02/13/19 15:08 36.4 C L 60 20 121/77 96 02/13/19 11:13 36.6 C 57 L 59 L 18 136/75 94 02/13/19 10:19 67 15 118/78 97 02/13/19 08:44 74 16 131/77 96 02/13/19 07:49 64 17 123/77 96 02/13/19 06:47 88 18 124/78 95 02/13/19 04:51 36.7 C 89 20 144/70 H 95
--- NOTE | 2019-02-13 21:31 | Consultation Report ---
DATE OF CONSULTATION: 02/13/2019 REASON FOR CONSULTATION: Large hiatal hernia. 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 There is a question about a perforation in the stomach noted on CT. I was not impressed. I was asked to see this patient in consultation to see whether or not a repair would be offered. I discussed this case in detail with Dr. Garcia as well as Dr. Alejandrina Snyder. I also discussed this with Zainab Sutherland, who has kindly agreed to admit the patient for [facility]'s hospitalist service. Mr. Stern is actually a very healthy 78-year-old male who has been told for many years that he has a large hiatal hernia. He has been treated with H2 blockers, which have worked well for him. Over the last week he had pain which resolved with ranitidine. He took extra doses. This occurred a couple of times until last night when it did not improve. He underwent a CT scan this morning and stated that after drinking the contrast he felt much better when he laid down and the pain resolved. He has a huge hernia. The patient has had no fevers, no chills, no nausea or vomiting. In fact, states he is hungry enough to eat something now. I was asked to evaluate from a surgical standpoint by Dr. Garcia. PAST MEDICAL HISTORY: 1. Questionable history of celiac disease. 2. Gastroesophageal reflux disease with known large hiatal hernia. 3. Anemia. 4. History of colon polyps. 5. Hypothyroidism. 6. History of nephrolithiasis. 7. History of an umbilical hernia. 8. Small bowel bacterial overgrowth. PAST SURGICAL HISTORY: 1. Upper endoscopy. 2. Colonoscopy. 3. History of teeth extraction. 4. Umbilical herniorrhaphy. 5. Correction of hammertoes. 6. Right carpal tunnel release. MEDICATIONS: 1. Synthroid. 2. Ranitidine. 3. Tramadol. 4. Ferrous sulfate. ALLERGIES: No known drug allergies. SOCIAL HISTORY: The patient is originally from [place], attended [employer]; however, he did research and lived near [place], [place]. 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 The patient's 2 sons live out of [facility], one in [place], one in [facility]. The patient has never smoked cigarettes. He does drink wine occasionally. He lives with his . He is physically active. FAMILY MEDICAL HISTORY: His two children and his single granddaughter are healthy. REVIEW OF SYSTEMS: The patient really has been in his usual state of health until the last week as noted in the history of present illness. He has had no weight changes. He has had no diarrhea, nausea, or vomiting. He has had some right leg swelling and was found to have a Estrada cyst. He has been wearing a stocking with good results. He is doing well with his celiac disease which is a bit interesting. He has had diarrhea too, but he was told it was not a celiac disease but bacterial overgrowth and this was treated with p.o. Bactrim, which has helped him. He also has some arthritic complaints but otherwise has no visual or auditory symptoms recently. He has had no skin breakdown. He denies palpitations or chest pain. PHYSICAL EXAMINATION: GENERAL: This is a 5-feet 10-inch 199-pound male who is awake, alert and oriented. HEENT: His extraocular movements are intact. Pupils are equal, round and reactive. Sclerae are anicteric. He has one denture plate, but his other teeth are in place and he has no oral mucosal lesions. Tongue is midline. NECK: Supple. He has no carotid bruits or neck vein distention. LUNGS: Clear. HEART: He has a regular rate and rhythm of his heart. LYMPHATICS: He has no axillary or supraclavicular lymphadenopathy. ABDOMEN: Soft, nontender. He does have bowel sounds. It is a bit protuberant and a bit tympanitic, but nontender. He has no fluid wave. EXTREMITIES: He has good femoral pulses. I can palpate pedal pulses. He has trace edema on the right side with some venous stasis changes in his lower legs, but no wound breakdown. He has no joint effusions. NEUROLOGIC: He is completely intact. ASSESSMENT AND PLAN: Large hiatal hernia. I do not think this patient has a perforation. We will admit him and follow him. I am going to keep him n.p.o. as the stomach is completely full on CT. We will get an x-ray in the morning and follow labs. This patient should be offered a minimally invasive hiatal hernia repair.
[2019-02-14 07:06] LABS: Hematocrit (blood only) 40.6 % (42-52); Hemoglobin 13.7 g/dL (14.0-18.0); Mean Corpuscular Hgb Conc 33.7 g/dL (32-36); Mean Corpuscular Volume 99.8 fL (80-100); Mean Platelet Volume 9.5 fL (7.4-10.4); Platelet Count 190 K/uL (130-400); RDW Coefficient of Variation 12.1 % (11.5-14.5); Red Blood Count 4.07 M/uL (4.7-6.1); White Blood Count 6.62 K/uL (4.8-10.8)
[2019-02-14 07:48] LABS: BUN Creatinine Ratio 14.7 (10-20); Calcium 8.2 mg/dl (8.5-10.1); Creatinine Clr Calc Pharmacy 71.7 ml/min; Est GFR (African American) 85.4; Est GFR (Non-African American) 73.7; Magnesium 2.1 mg/dl (1.8-2.4); Potassium 4.3 mmol/L (3.5-5.1)
[2019-02-14] MEDS: FAMOTIDINE 20 MG in SYRINGE 3 ML IV SCH (07:48)
[2019-02-14] MEDS: SODIUM CHLORIDE 0.9% 1000ML 1,000 ML IV SCH (07:48)
[2019-02-14] MEDS ORDERED: LEVOTHYROXINE SODIUM 44 MCG in SYRINGE 0 ML IV SCH (09:00)
--- NOTE | 2019-02-14 09:06 | XRay Report ---
XR chest 2V routine CLINICAL HISTORY: hiatal hernia dizziness COMPARISON STUDY: 02/13/2019 FINDINGS: Large fixed hiatal hernia. This is unchanged from the prior study. Atelectatic change right base is slightly improved. Left lung remains clear. Pulmonary apices are clear. IMPRESSION: 1. Large fixed hiatal hernia. 2. Atelectasis right base slightly improved from the prior exam. The above report was generated using voice recognition software. It may contain grammatical, syntax or spelling errors. Electronically signed by: Monty Baldwin M.D. 02/14/2019 9:05 AM
--- NOTE | 2019-02-14 14:12 | Hospitalist Progress Note ---
Date of Service February 14, 2019 Assessment & Plan (1) Hernia, hiatal: - Presented with acute symptoms likely related to hiatal hernia. - CT chest showed very large hiatal hernia with majority of stomach within the thoracic cavity. - Dr. Cole consulted -- will continue to follow, may be require inpt intervention. - Strict NPO; IV fluids at 80 cc/hr. - Also consulted [facility], recommend surgery prior to discharge. - EKG with no acute abnormalities; does have chronic SOB with exertion, otherwise no concerning symptoms that would lead to high risk operation. (2) Celiac disease: - Follows with [facility], consulted as noted above. - Hold home vitamin supplementation due to NPO status. (3) Anemia: - Hgb is stable; holding home supplementation while NPO. (4) Hypothyroidism: - Continue Levothyroxine -- 44 mcg IV daily. - TSH was 2.470. (5) GERD (gastroesophageal reflux disease): - Famotidine 20 mg IV BID (NPO status) (6) Carpal tunnel syndrome: - S/p right carpal tunnel release on 01/08/19. (7) DVT prophylaxis: - SCDs; holding pharmacologic ppx for procedure. Dispo: Med/surg with tele for evaluation/treatment of large hiatal hernia. Subjective Pt. is stable overall -- he denies abd pain, chest pressure that occurred at home. He is passing gas but has not had a BM in 2 days. Denies SOB, chest pain, N/V. Review of Systems Review of Systems: All systems reviewed & are unremarkable except as noted in HPI & below Constitutional: no fever, no chills, no fatigue and no weakness Respiratory: no cough, no dyspnea, no dyspnea on exertion and no wheezing Cardiovascular: no chest pain, no palpitations and no edema Gastrointestinal: + constipation; no abdominal pain, no nausea and no vomiting Genitourinary: no difficulty urinating Musculoskeletal: no back pain and no joint pain Integumentary: no non-healing lesions Physical Exam Physical Exam: General: Resting comfortably in no apparent distress HEENT: NC/AT; PERRLA with EOMI; [place] conjunctiva, MMM. No erythema of posterior pharynx Neck: Supple and nontender Cardiac: RRR Lungs: CTA bilaterally Abdomen: Bowel normoactive X 4; Nontender to palpation. Extremities: Warm. No edema present Neuro: No focal weakness Skin: No rash Results & Data Vital Signs (Past 12 Hours) Vital Signs Temp Pulse Pulse Resp BP Pulse Ox 02/14/19 11:49 61 02/14/19 11:24 36.6 C 61 18 117/71 96 02/14/19 07:08 36.8 C 56 L 20 122/74 94 02/14/19 03:19 36.7 C 62 16 108/66 95 Laboratory Results 02/14/19 02/14/19 Range/Units 06:21 06:21 WBC 6.62 (4.8-10.8) K/uL RBC 4.07 L (4.7-6.1) M/uL Hgb 13.7 L (14.0-18.0) g/dL Hct 40.6 L (42-52) % MCV 99.8 (80-100) fL MCH 33.7 (25-34) pg MCHC 33.7 (32-36) g/dL RDW Std Deviation 44.0 (36.4-46.3) fL RDW Coeff of Paula 12.1 (11.5-14.5) % Plt Count 190 (130-400) K/uL MPV 9.5 (7.4-10.4) fL Sodium 141 (136-145) mmol/L Potassium 4.3 (3.5-5.1) mmol/L Chloride 109 H (98-107) mmol/L Carbon Dioxide 28 (21-32) mmol/L Anion Gap 4.0 (3-11) BUN 15 (7-18) mg/dl Creatinine 0.99 (0.6-1.4) mg/dl Est Cr Clr Drug Dosing 71.7 ml/min Est GFR ( Amer) 85.4 Est GFR (Non-Af Amer) 73.7 BUN/Creatinine Ratio 14.7 (10-20) Glucose 73 (70-99) mg/dl Calcium 8.2 L (8.5-10.1) mg/dl Magnesium 2.1 (1.8-2.4) mg/dl PG Care Time/CCT Total # of Minutes Spent Total Time Spent with Patient: Total time spent is greater than 50% in coordination of care (as documented) at patient's floor/unit and/or counseling patient:
--- NOTE | 2019-02-14 18:16 | Discharge Summary ---
Date of Service February 14, 2019 Admission HPI Per Admitting Provider Mr. Stern is a 78 year old male with past medical history of Celiac disease, GERD, Hypothyroidism, Carpal Tunnel Syndrome, Hiatal Hernia who presented to the ER with abdominal/chest pressure. He developed insomnia along with chest pressure starting Sunday evening. He had intermittent symptoms over the last few days; pressure started to increase last evening prior to patient presenting to the ER. He denies direct chest pressure but does have chronic shortness of breath -- SOB occurs with exertion, denies SOB at rest. Denies URI symptoms, LE edema, nausea/vomiting, lower abdominal pain, dysuria or hematuria. Pt. is having regular BMs -- last BM was yesterday. 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 ER course: CT chest showed very large hiatal hernia with majority of stomach within the thoracic cavity. Dr. Cole was consulted -- will admit for further evaluation, maintain NPO status and consider surgery as inpatient if necessary. Admission Exam Per Admitting Provider General: Resting comfortably in no apparent distress HEENT: NC/AT; PERRLA with EOMI; [place] conjunctiva, MMM. No erythema of posterior pharynx Neck: Supple and nontender Cardiac: RRR Lungs: CTA bilaterally Abdomen: Bowel normoactive X 4; Mild distention, non tender to light palpation. Extremities: Warm. No edema present Neuro: No focal weakness Skin: No rash Principal Diagnosis Large Hiatal Hernia Discharge Exam General: Resting comfortably in no apparent distress HEENT: NC/AT; PERRLA with EOMI; [place] conjunctiva, MMM. No erythema of posterior pharynx Neck: Supple and nontender Cardiac: RRR Lungs: CTA bilaterally Abdomen: Bowel normoactive X 4; Nontender to palpation. Extremities: Warm. No edema present Neuro: No focal weakness Skin: No rash Discharge Data Allergies Allergy/AdvReac Type Severity Reaction Status Date / Time gluten Allergy Mild Gastrointestinal Verified 02/13/19 08:46 Upset Consultations 02/13/19 08:15 ED Decision to Admit Stat 02/13/19 09:52 Consult Gastroenterology Routine Consult Thoracic Surgery Routine Ordered Studies 02/13/19 05:56 CT chest wo con Urgent 02/14/19 CXR Hospital Course (1) Hernia, hiatal: Presented with acute symptoms likely related to hiatal hernia. CT chest showed very large hiatal hernia with majority of stomach within the thoracic cavity. Dr. Cole consulted; will f/u for surgery on Sunday02/17/19. Strict NPO at admission; will discharge home on clear liquid diet. Also consulted [facility], appreciate input. EKG with no acute abnormalities; does have chronic SOB with exertion, otherwise no concerning symptoms that would lead to high risk operation. (2) Celiac disease: Follows with [facility], consulted as noted above. Held home vitamin supplementation due to NPO status, resume at discharge. (3) Anemia: Hgb is stable; held home supplementation while inpt. (4) Hypothyroidism: Continued Levothyroxine -- 44 mcg IV daily was provided here but can convert to po med upon discharge TSH was 2.470. (5) GERD (gastroesophageal reflux disease): Famotidine 20 mg IV BID (NPO status) was provided but can take po meds upon discharge (6) Carpal tunnel syndrome: S/p right carpal tunnel release on 01/08/19. (7) DVT prophylaxis: SCDs; held pharmacologic ppx for procedure. Discharged to home on 02/14/19. Will need to f/u for surgery on Sunday. Total Time Total Time Spent Total Time Spent (In Minutes): >30 minutes Total Time Includes: Examination of the Patient, Discharge Planning, Medication Reconciliation, Communication With Other Providers and Other Discharge Plan Discharge Items Patient Disposition: Home - Self-Care Reason For Visit: HIATAL HERNIA Discharge Diagnosis: Large Hiatal Hernia Condition: Fair Discharge Goals: Decrease discomfort, Improve disease control, Improve function, Increase independence and Therapeutic intervention Activity: As commented below Exercise/Sports: Wait until after follow-up appointment Non-emergency contact: Primary Care Provider and Surgeon Call non-emergency contact if: you have any medication questions, your symptoms worsen, your pain is not controlled, your pain is worsening, your pain is un usual for you, your pain is concerning for you and you have a fever Follow-up/Referrals: Sathya Padron MD [Primary Care Provider] - Diet: Clear liquid Addtl Provider Instructions: 1. Large Hiatal Hernia * You will need to follow up for surgery on Sunday02/17/19. * Continue a strict clear liquid diet at home. * Drink plenty of fluids to avoid dehydration. * Continue home medications as prescribed. Prescriptions: Continued levothyroxine 88 mcg Tablet 88 mcg PO HS RF: 0 cyanocobalamin (vitamin B-12) [Vitamin B-12] 500 mcg Tablet 500 mcg PO QAM RF: 0 ferrous sulfate [Iron (ferrous sulfate)] 325 mg (65 mg iron) Tablet 325 mg PO QAM RF: 0 ranitidine HCl 150 mg Tablet 150 mg PO HS RF: 0 folic acid 800 mcg Tablet 0.8 mg PO QAM RF: 0 cholecalciferol (vitamin D3) [Vitamin D3] 2,000 unit Tablet 2,000 unit PO QAM RF: 0 Macular Health Formula 5-1-7.5 mg Capsule 1 cap PO QAM RF: 0 Discontinued calcium carbonate [Calcium 600] 600 mg calcium (1,500 mg) Tablet 600 mg PO QAM RF: 0 tramadol 50 mg tablet 50 mg PO Q6H PRN (Reason: pain) Qty: 10 RF: 0 No Action calcium carbonate [Calcium 600] 600 mg calcium (1,500 mg) Tablet 600 mg PO DAILY RF: 0 Stand-Alone Forms: [facility] Discharge Orders: Discharge Order (Routine); Ordered 02/14/19 Ordered By: Zainab Hanks Admission Data Admit Date/Time: 02/13/19 09:49 Attending Provider: Nakita Porter Admit Provider: Nakita Porter Primary Care Provider: Sathya Padron Other Providers: Watson Cole ; Isidro Rodriguez ; Jonathan Garcia Service: Telemetry Medical Other Interventions: Discharge Summary Assessment (RN) Last Done: 02/14/19 18:16 Pending Studies at Discharge: No DC Date/Time DO NOT enter until pt leaves facility: 02/14/19 19:30 Supervising Physician Co-Signing Physician Notes PA Supervision Note: I personally saw and examined the patient. I verified all novak points and agree with CARI Hanks with the following exceptions and/or additions: Pt feeling very well, no further chest or neck pressure. He is tolerating clear liquids diet. No chest pain or SOB, no abd pain. I discussed his case with Thoracic Surgery-he is stable for dc to home with plans to return for hiatal hernia repair early next week. He is quite active, can easily achieve 4 METs, has no significant cardiac history, and is at average perioperative CV risk for this intermediate risk procedure. Vitals reviewed RRR no mgr CTAB no wcr, breathing unlabored Abd +BS soft NT ND Ext no calf edema or tenderness Stable for dc to home on liquids diet
--- NOTE | 2019-02-14 19:29 | Progress Note ---
DATE: 02/14/2019 I saw the patient today. He feels better. I looked at his x-ray and his stomach is decompressed with less distention and less food. I had a long talk with them. I think this patient can go home. I have scheduled him for a robotic laparoscopic fundoplication and hiatal hernia repair on 02/17/2019. I have given him my cell phone number and told him to call me if he runs into problems, which I do not think he will. I have asked him to limit his diet to clears and a soft diet. He is to resume his other medications. We have him on the schedule in 3 days for this repair. He and I had a long talk about risks and benefits including esophageal perforations, bleeding and gastric distention. He understands. He admittedly is concerned about this and would like it addressed. We will carry this out on 02/17/2019.
== END 2019-02-14 19:30 | disposition home or self-care (01) | DRG 392 ==
LOC: ED 04:45 → 2W 09:49
DX: R06.02 Shortness of breath; K66.8 Other specified disorders of peritoneum; Z79.899 Other long term (current) drug therapy; D64.9 Anemia, unspecified; E03.9 Hypothyroidism, unspecified; K21.9 Gastro-esophageal reflux disease without esophagitis; K44.0 Diaphragmatic hernia with obstruction, without gangrene; K90.0 Celiac disease

== ENCOUNTER 2019-02-17 10:52 | Inpatient (IN) ==
--- NOTE | 2019-02-17 09:28 | Anesthesiology Consultation ---
Date of Service February 17, 2019 Assessment & Plan (1) Encounter for pre-operative examination: Chart Review Chart Review: Acceptable Risk for Surgery Consults Requested none ASA ASA2 Proposed Anesthesia Anesthesia Type: General Risk / Benefits Reviewed With: PT / POA / Parent / Guardian, Accepts Plan and Informed Consent Obtained History Surgery Operation Date: 02/17/19 13:00 Proposed Procedures p Robotic Laparoscopic Fundoplication, Repair of Hiatal Hernia, - Watson Cole MD, FACS s Esophagogastroduodenoscopy - Watson Cole MD, FACS Allergies Allergy/AdvReac Type Severity Reaction Status Date / Time gluten Allergy Mild Gastrointestinal Verified 02/13/19 08:46 Upset Medications Home Medications Medication Instructions Recorded Confirmed Last Taken Macular Health Formula 1 cap PO QA 01/03/19 02/17/19 02/16/19 07:30 cholecalciferol (vitamin D3) 2,000 unit PO QAM 01/03/19 02/17/19 02/16/19 07:30 [Vitamin D3] cyanocobalamin (vitamin B-12) 500 mcg PO QAM 01/03/19 02/17/19 02/16/19 07:30 [Vitamin B-12] ferrous sulfate [Iron (ferrous 325 mg PO QAM 01/03/19 02/17/19 02/16/19 07:30 sulfate)] folic acid 0.8 mg PO QAM 01/03/19 02/17/19 02/16/19 07:30 levothyroxine 88 mcg PO 01/03/19 02/17/19 02/16/19 22:00 ranitidine HCl 150 mg PO 01/03/19 02/17/19 02/16/19 22:00 calcium carbonate [Calcium 600] 600 mg PO DAILY 02/17/19 02/17/19 02/16/19 07:30 Past Medical History Medical History Anemia Celiac disease GERD (gastroesophageal reflux disease) History of colon polyps Hypothyroidism Kidney stones Exercise / Class Metabolic Activity II 4-5 Yardwork/Stairs/Walk up hill Past Family History Family History Father Dementia Mother Breast cancer Other No family history of adverse response to anesthesia Past Surgical History Surgical History History of carpal tunnel surgery of right wrist (Acute) History of colonoscopy History of esophagogastroduodenoscopy (EGD) History of hammertoe correction bilt feet History of tooth extraction History of umbilical hernia repair Past Anesthesia History No Hx of Anesthesia Complications and No Family Hx of Anesthesia Complications History of PONV No Hx of PONV and No Hx of Motion Sickness Social History Smoking Status: Never smoker Hx Alcohol Use: Yes (Occasional. ) Alcohol type: wine alcohol intake frequency: holidays/special occasions only Hx Substance Use: No substance use type: does not use Physical Exam Vital Signs Last Vital Signs Temp 98.2 F 02/17/19 11:28 Pulse 64 02/17/19 11:28 Resp 18 02/17/19 11:28 BP 127/86 02/17/19 11:28 Pulse Ox 94 02/17/19 11:28 ENMT Mouth: no dentition abnormality Thyromental Distance: > or= 3.5 Finger Breadths Mallampati Class: II Neck normal visual inspection Respiratory normal respiratory effort Auscultation: lungs clear to auscultation bilaterally Cardiovascular Rate/Rhythm: regular rate and regular rhythm Vessels: no carotid bruit Testing Laboratory Results Laboratory Tests 02/14/19 02/14/19 06:21 06:21 WBC 6.62 Hgb 13.7 L Plt Count 190 Sodium 141 Potassium 4.3 Chloride 109 H Carbon Dioxide 28 BUN 15 Creatinine 0.99 Glucose 73 Electrocardiogram Date: 02/13/19 Normal sinus rhythm, rate 61 bpm Normal ECG When compared with ECG of 13-FEB-2019 05:08, No significant change was found Confirmed by Paul Van ([id number]) on 02/13/2019 10:33:16 PM Other Testing Chest CT 02/13/19 1. Very large hiatal hernia with the majority of the stomach within the thoracic cavity. The stomach is distended and debris-filled and there is marked narrowing about the distal gastric body/antrum at the diaphragmatic hiatus with associated wall thickening, inflammatory stranding and trace fluid within this distribution it is suggestive of gastric outlet obstruction. Additionally, small volume pneumoperitoneum surrounds the hernia sac extending into the abdominal right upper quadrant suggestive of associated gastric perforation. Surgical consultation is needed. 2. Trace right pleural effusion with compressive atelectasis/scarring about the right lung base.
--- NOTE | 2019-02-17 10:04 | History & Physical Report ---
Date of Service February 17, 2019 Assessment & Plan (1) Hernia, hiatal: I am going to offer this patient a robot-assisted laparoscopic fundoplication. He has minimal symptoms of dysphasia or reflux. We will offer him a repair. We discussed Herberth osteoplasty's as well as gastropexy's. I may offer him a partial or a floppy Naomi complete fundoplication depending on what we see at the time of surgery. He is well aware of the risk including esophageal perforation, bleeding, poor gastric emptying afterwards, and wound infections. We also discussed deep vein thrombosis and the need to ambulate. We discussed the postoperative course and expected outcomes. He understands. We will proceed today on 02/17/2019. 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 Sathya Padron. He is also followed by Dr. Mickey Jimenez from gastroenterology standpoint. Patient has an interesting gastroenterology history. 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 Patient has a known history of a large hiatal hernia. For the last week or so the patient has noted episodes where he gets a tightness in his chest and is unable to swallow. This then resolves. It does not appear that he has torsion radiographically but his symptoms are quite worrisome. A CT scan was performed which suggested a perforation a few days ago however I did not agree and clinically he looks so good that I allowed him to be discharged and brought him back today for an elective robot-assisted laparoscopic fundoplication. He denies dysphasia unless he is having 1 of these episodes. He had this about 3 times in the last 10 days. Otherwise the patient is quite healthy given his age. We are going to offer him a robot-assisted laparoscopic fundoplication. We will determine whether to do a partial or full wrap at the time of surgery. Primary Care Provider: Sathya Padron MD Allergies Allergy/AdvReac Type Severity Reaction Status Date / Time gluten Allergy Mild Gastrointestinal Verified 02/13/19 08:46 Upset Home Medications Home Medications Medication Instructions Recorded Confirmed Type Macular Health Formula 1 cap PO QAM 01/03/19 02/13/19 History cholecalciferol (vitamin D3) 2,000 unit PO QAM 01/03/19 02/13/19 History [Vitamin D3] cyanocobalamin (vitamin B-12) 500 mcg PO QAM 01/03/19 02/13/19 History [Vitamin B-12] ferrous sulfate [Iron (ferrous 325 mg PO QAM 01/03/19 02/13/19 History sulfate)] folic acid 0.8 mg PO QAM 01/03/19 02/13/19 History levothyroxine 88 mcg PO HS 01/03/19 02/13/19 History ranitidine HCl 150 mg PO HS 01/03/19 02/13/19 History Past Med/Surg History Family History Father Dementia Mother Breast cancer Other No family history of adverse response to anesthesia Social History Preferred Language: Czech Communication Ability: Effective Beliefs That Will Affect Care: None Current Living Situation: Spouse 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 Feels Safe at Home: Yes Smoking Status: Never smoker Second Hand Exposure: No Hx Alcohol Use: Yes (Occasional. ) Alcohol type: wine Hx Substance Use: No Review of Systems Review of Systems: All systems reviewed & are unremarkable except as noted in HPI & below I had a long talk with the patient last night on the phone. He has been out of the hospital for about 48 hours. He was quite hungry and I told him to stay on a liquid diet. He had no further episodes of tightness in his chest. He had no palpitations. He denies shortness of breath. He has been having flatus and has moved his bowels. He has had no urinary symptoms. He said no skin breakdown. He had no visual auditory symptoms. Denies any neurologic symptoms such as amorous fugax or transient ischemic attacks. Physical Exam Physical Exam: This is a 5 foot 10 inch 199 pound male who wears glasses. He is awake alert and oriented. Extraocular movements are intact. Pupils equally round reactive. He has no evidence of scleral injection or icterus. He has an upper denture plate but his lower teeth are in good repair. His neck is supple. His tongue is midline. He has no carotid bruits. I detect no supra clavicular cervical lymphadenopathy or neck vein distention. His lungs are completely clear. Specifically, he has good breath sounds in his right base. His abdomen is soft and nontender. He has good bowel sounds. He has no evidence of ascites or hepato-splenomegaly.. He has trace edema of his right lower extremity. He has some fullness in his right popliteal fossa. (The patient has been recently diagnosed with a Estrada's cyst in his right popliteal fossa). He has good peripheral pulses. He also has some mild venous stasis changes in both lower legs but his skin is intact. Neurologically cranial nerves II through XII are intact. He has no focal deficits. He is alert oriented and conversive.
[~2019-02-17 10:52] MED LIST changes: -CALC-393 PO; -CHOL2000 PO; -CYAN500T PO; +DEXAMETHASONE SOD INJ 4 MG/ML VIAL ONE; -FERR1TAB13 PO; -FOLI800T PO; +GLYCOPYRROLATE 0.2 MG/ML VIAL ONE; -LEVO75TA5 PO; +LIDOCAINE HCL 2% 2 ML VIAL/AMP(20MG/ML) INFIL ONE; +MIDAZOLAM HCL 1 MG/ML 2ML VIAL ONE; +NEOSTIGMINE METHYLSULFATE 5 MG/5 ML SYR ONE; +ONDANSETRON INJ 2 MG/ML 2 ML VIAL ONE; +PROPOFOL IV EMULSION 10 MG/ML 20 ML VIAL IV ONE; -RANI150T85 PO; +fentaNYL citrate 100 MCG/2 ML VIAL ONE
[2019-02-17] MEDS ORDERED: SODIUM CHLORIDE 0.9% PF 50 ML VIAL ONE (11:52)
[2019-02-17] MEDS ORDERED: BUPIVACAINE 0.5 % 5 MG/1 ML MPF 30ML VIAL ONE (11:52)
[2019-02-17] MEDS ORDERED: BUPIVACAINE LIPOSOME 1.3% 266 MG/20 ML VIAL ONE (11:52)
[2019-02-17] MEDS ORDERED: MIDAZOLAM HCL 1 MG/ML 2ML VIAL ONE (12:11)
[2019-02-17] MEDS ORDERED: ONDANSETRON INJ 2 MG/ML 2 ML VIAL IV PRN (12:24)
[2019-02-17] MEDS ORDERED: ePHEDrine sulfate 50 MG/ML AMP IV PRN (12:24)
[2019-02-17] MEDS ORDERED: fentaNYL citrate 100 MCG/2 ML VIAL IV PRN (12:24)
[2019-02-17] MEDS ORDERED: ATROPINE SULFATE 0.1 MG/ML 10ML SYR IV PRN (12:24)
[2019-02-17] MEDS ORDERED: CEFAZOLIN 2,000 MG/15 ML IV PUSH IV ONE (12:36)
[2019-02-17] MEDS ORDERED: SUCCINYLCHOLINE CHLORIDE 20 MG/ML 10 ML VIAL ONE (12:38)
[2019-02-17] MEDS ORDERED: PHENYLEPHRINE HCL 10 MG/ML VIAL ONE ×2 (12:40→16:40)
[2019-02-17] MEDS ORDERED: ROCURONIUM BROMIDE 10 MG/ML 5 ML VIAL ONE ×5 (13:23→15:47)
[2019-02-17] MEDS ORDERED: CEFAZOLIN 2000MG 2,000 MG/15 ML SYR IV ONE (13:50)
[2019-02-17] MEDS ORDERED: ONDANSETRON INJ 2 MG/ML 2 ML VIAL ONE (14:48)
[2019-02-17] MEDS ORDERED: fentaNYL citrate 100 MCG/2 ML VIAL ONE (14:49)
[2019-02-17] MEDS ORDERED: ePHEDrine sulfate 50 MG/ML AMP ONE (17:54)
[2019-02-17] MEDS ORDERED: DEXAMETHASONE SOD INJ 4 MG/ML VIAL ONE ×2 (18:14)
--- NOTE | 2019-02-17 18:29 | Post Operative Brief Note ---
Immediate Post Op Note v1 Date of Surgery February 17, 2019 Pre & Post Diagnosis Operation Date: 02/17/19 13:00 Pre-Op Diagnosis: Hiatal Hernia Post-Op Diagnosis: Hiatal Hernia Procedure Operation Date: 02/17/19 13:00 Actual Procedures p Robotic-assisted Laparoscopic Naomi Fundoplication, Repair of Hiatal Hernia with a Bioabsorbable Patch, Gastropexy - Watson Cole MD, FACS s Esophagogastroduodenoscopy - Watson Cole MD, FACS Surgeon Watson Cole MD, FACS Interventional Radiology Tech Camila ALCALA Estimated Blood Loss 50 Findings Consistent with Post-Op Diagnosis Drains Lujan Catheter (16fr lujan catheter placed by ST Evan, without difficulty; lujan demonstrates clear yellow urine. Output measured and recorded by anesthesia. )
[2019-02-17] MEDS ORDERED: METOCLOPRAMIDE HCL INJ 5 MG/ML 2 ML VIAL IV ONE (18:45)
--- NOTE | 2019-02-17 18:58 | XRay Report ---
XR chest 1V portable HISTORY: s/p hiatal hernia repair COMPARISON: Chest 02/14/2019. FINDINGS: The heart is normal in size. Large gas bubble overlying the mediastinum. This measures 20 c m. Trace pneumomediastinum and a small amount of subcutaneous gas within the left neck favors postope rative change. No pneumothorax. Trace left pleural effusion. Hazy appearance to the right mid lung zo ruchi likely due to mass effect from the large gas bubble. IMPRESSION: 1. A 20 cm gas bubble overlying the mediastinum. This may represent a gas-filled cavity status post r epair of the hiatal hernia. Follow-up recommended to exclude the less likely possibility of a residua l hernia. 2. Hazy appearance to the right midlung zone. This favors atelectasis from the mass effect of the lar ge gas bubble. 3. Trace left pleural effusion. 4. Left neck subcutaneous emphysema and trace pneumomediastinum likely postoperative. Electronically signed by: Fitz Martin M.D. 02/17/2019 6:57 PM
--- NOTE | 2019-02-17 19:25 | Anesthesiology Progress Note ---
Date of Service February 17, 2019 Anesthesia Post Procedure Vital Signs Vital Signs: Temp Pulse Pulse Resp BP Pulse Ox 02/17/19 19:15 94 H 23 133/85 99 02/17/19 19:05 93 H 21 141/89 H 98 02/17/19 18:55 96 H 20 129/89 100 02/17/19 18:45 103 H 19 137/99 99 02/17/19 18:37 36.2 C L 106 H 18 131/80 100 02/17/19 11:28 36.8 C 64 18 127/86 94 Transfer of Care Handoff Completed per policy Notes Mental Status: alert / awake / arousable and participated in evaluation Patient Amnestic to Procedure: Yes Nausea / Vomiting: adequately controlled Pain: adequately controlled Airway Patency, RR, SpO2: stable & adequate BP & HR: stable & adequate Hydration State: stable & adequate Anesthetic Complications: no major complications apparent
[2019-02-17] MEDS ORDERED: OXYCODONE HCL IR 5 MG TAB (IMMEDIATE RELEASE) PO PRN (19:50)
[2019-02-17] MEDS: D5W AND 1/2NSS 1,000 ML IV SCH (20:22)
[2019-02-17] MEDS: ACETAMINOPHEN 1,000 MG/100 ML VIAL IV SCH (20:46)
[2019-02-17] MEDS: DOCUSATE SODIUM 100 MG CAP PO SCH (20:55)
[2019-02-17] MEDS: TAMSULOSIN HCL 0.4 MG CAP PO SCH (20:58)
[2019-02-17] MEDS: LEVOTHYROXINE SODIUM 88 MCG TABLET PO SCH (20:58)
[2019-02-17 21:00] LABS: INR 1.1 (0.9-1.1); Prothrombin Time 10.9 Seconds (9.0-12.0)
[2019-02-18] MEDS: ONDANSETRON INJ 2 MG/ML 2 ML VIAL IV SCH ×7 (00:18→23:55)
--- NOTE | 2019-02-18 00:48 | Operative Report ---
DATE OF OPERATION: 02/17/2019 DATE OF PROCEDURE: 02/17/2019 PREOPERATIVE DIAGNOSIS: Large hiatal hernia. POSTOPERATIVE DIAGNOSIS: Incarcerated giant paraesophageal hernia. PROCEDURE PERFORMED: 1. Robotic-assisted laparoscopic repair of paraesophageal hernia. 2. Reinforcement of crural repair with OviTex bioabsorbable mesh. 3. Floppy Naomi fundoplication. 4. Gastropexy. 5. On table esophagoscopy. SURGEON: Watson Cole MD CAMP[place] ATTENDANT: CARI Bateman (Mr. Moncada was present for the entire case and was at the patient's bedside while I was at the console). ANESTHESIA: General anesthesia with endotracheal intubation. 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 About 10 days prior to surgery, he noted pain with difficulty swallowing. He had some mild reflux symptoms chronically. I saw the patient in the hospital last week and set him up for a robot-assisted laparoscopic repair today. The repair was difficult due to the huge size of the hernia also. This was a paraesophageal hernia. His stomach appeared to be volvulized. It did appear to be viable. This was a meticulous takedown of a huge hernia sac. We had plenty of esophagus in the abdomen. We did perform a crural repair. There was some mild tension to this, but he had good tissues along the diaphragmatic crura. I did reinforce this with an OviTex bioabsorbable mesh. I was quite happy and did a floppy Naomi repair; however, when I performed an upper endoscopy even though I was able to get to the GE junction easily, I was unhappy as I felt he may have torsed the stomach. I could not get into the antrum very well. For this reason, I went back and laparoscopically did a gastropexy to the anterior abdominal wall. I then rescoped him and it looked better, although was still some mucosal irregularities along the distal esophagus, especially the stomach; however, it all appeared viable. We did not have a leak. The patient tolerated it well with negligible blood loss and was extubated in the room. DESCRIPTION OF PROCEDURE: The patient was brought to operating room and laid in supine position. General anesthesia induced and endotracheal intubation performed with single lumen tube. After the patient had been prepped and draped, appropriate timeout was called. Six incisions were made. A 12 mm incision was made in the midline above the umbilicus and then another 15 mm incision was made in the left paraumbilical area. Two 8 mm incisions made in the midclavicular line just below the costal margin. Two 5 mm incisions were made more laterally and distally. The one on the right was for the pretzel liver retractor to retract the liver and the left was for the 5 mm grasper. The patient was then placed in a marked reverse Trendelenburg. CO2 was insufflated into the abdomen and the robot was docked. After positioning the liver retractor, we had excellent exposure of a huge hiatal defect. Almost the entire stomach was in the chest and I was a bit surprised to see that it was sigmoid shape and appeared to be volvulized. The tissue appeared good, however. I started off with the vessel sealer and took down the short gastrics and the greater curvature was completely freed up. This brought me down to the left diaphragmatic crura and I took down the sac at this point, and worked my way in and actually we had excellent exposure, I was able to take this down very nicely. I could see the esophagus nicely. Care was taken to avoid injury to this. I then pulled this back. I went around the esophagus and the esophagus was actually in a correct position. We really did not have much of a sliding component to this hernia. I put a [place] drain around this and using retraction, I freed it up far up into the mediastinum. I then took down the all attachments posteriorly and freed up the sac from posteriorly. I then freed up the rather large component of the sac, then went over to the right. I took this off in 3 pieces, but I was able to get this off nicely with care taken to avoid really even manipulating the esophagus very much. We had this completely freed up, we had at least 4-5 cm of esophagus below the crura. Diaphragmatic crura had a huge defect. Using 0 silk, I repaired this in [id number] fashion for about 4 sutures to completely reapproximate this. The repair was under a little more tension due to its size, but it was not too tight. I then cut a piece of OviTex mesh which is absorbable and I sutured it around the repair in a "U" fashion around the new hiatus. At this time, we had freed up plenty of stomach and I was able to do a floppy Naomi, which had 3 sutures. This actually worked out nicely because there was stomach between the patch and the esophagus. I was quite happy with the appearance of this. It laid very nicely, and was under no tension. I then performed an upper endoscopy and I was quite concerned because the mucosa was fairly hemorrhagic at the GE junction; however, upon getting through, I had difficulty retroflexing the scope and seeing the pylorus. It appeared to me that the antrum may have some torsion. For this reason, I used a laparoscope and tacked the stomach to the anterior abdominal wall for gastropexy. I also put one more suture and to make sure we did not have twisting of the GE junction. This was between the right crura and the right fundus wrap. We then assessed this and there was no leaking of air when we insufflated air when we performed the upper endoscopy. Upon looking in the stomach, we were able to retroflex now and the pylorus looked fine and the repair looked fine. Dr. Mikey Maharaj was also present and agreed with this assessment on the endoscopy. We then irrigated out the stomach. We had negligible blood loss. The hernia sac had been delivered off the field. We closed the 12 mm and 15 mm incisions with #1 PDS. All the incisions were then closed with 4-0 Monocryl in running subcuticular fashion. The patient had negligible blood loss and tolerated it well. I attest to the content of the Intraoperative Record and any orders documented therein. Any exceptions are noted below. MADINA
[2019-02-18] MEDS: METOCLOPRAMIDE HCL INJ 5 MG/ML 2 ML VIAL IV SCH ×2 (03:52→13:23)
[2019-02-18] MEDS: ACETAMINOPHEN 1,000 MG/100 ML VIAL IV SCH ×3 (05:35→20:26)
[2019-02-18] MEDS: D5W AND 1/2NSS 1,000 ML IV SCH ×2 (06:51→16:44)
--- NOTE | 2019-02-18 07:05 | XRay Report ---
XR chest 1V portable CLINICAL HISTORY: 78 years-old Male presenting with s/p katty. TECHNIQUE: Portable upright AP view of the chest was obtained. COMPARISON: 02/17/2019. FINDINGS: Atherosclerosis of the aortic arch. Cardiac silhouette enlarged. Low lung volumes. Extensive opacity in the right mid to lower lung and less extensive opacity at the left lung base. Radiolucency project ing over the cardiac silhouette may represent pneumomediastinum, pneumopericardium, or hiatal hernia. No large effusion though trace effusions may be present. No large pneumothorax. Degenerative changes of the left glenohumeral joint. IMPRESSION: 1. Radiolucency projecting over the cardiac silhouette may represent pneumomediastinum, pneumoperica rdium, or, less likely, residual hiatal hernia. As this is decreasing in prominence, decreasing posto perative pneumomediastinum is most likely. 2. Extensive bibasilar atelectasis greater on the right. 3. Possible trace bilateral pleural effusions. Electronically signed by: Terry Abel M.D. 02/18/2019 7:04 AM
--- NOTE | 2019-02-18 07:53 | Anesthesiology Progress Note ---
Date of Service February 18, 2019 Anesthesia Post Procedure Vital Signs Vital Signs: Temp Pulse Pulse Resp BP BP Pulse Ox 02/18/19 07:32 36.9 C 88 16 110/70 93 02/18/19 06:59 37.2 C 79 16 110/64 93 02/18/19 05:35 02/18/19 04:55 116/73 92 02/18/19 04:50 37.2 C 89 16 116/73 89 L 02/18/19 02:55 37 C 86 18 128/73 91 02/18/19 01:05 92 02/18/19 00:50 37 C 83 16 126/71 95 02/18/19 00:20 02/17/19 22:54 36.9 C 99 H 18 113/74 95 02/17/19 22:31 95 02/17/19 22:30 98 H 126/71 83 L 02/17/19 21:50 36.8 C 97 H 17 126/73 95 02/17/19 20:52 36.5 C 103 H 17 133/80 95 02/17/19 20:20 36.6 C 105 H 20 120/71 98 02/17/19 19:50 36.5 C 103 H 20 136/81 99 02/17/19 19:35 36.6 C 99 H 25 H 136/90 99 02/17/19 19:25 95 H 20 135/90 99 02/17/19 19:15 94 H 23 133/85 99 02/17/19 19:05 93 H 21 141/89 H 98 02/17/19 18:55 96 H 20 129/89 100 02/17/19 18:45 103 H 19 137/99 99 02/17/19 18:37 36.2 C L 106 H 18 131/80 100 02/17/19 11:28 36.8 C 64 18 127/86 94 Pulse Ox 02/18/19 07:32 02/18/19 06:59 02/18/19 05:35 91 02/18/19 04:55 02/18/19 04:50 02/18/19 02:55 02/18/19 01:05 02/18/19 00:50 02/18/19 00:20 92 02/17/19 22:54 02/17/19 22:31 02/17/19 22:30 02/17/19 21:50 02/17/19 20:52 02/17/19 20:20 02/17/19 19:50 99 02/17/19 19:35 02/17/19 19:25 02/17/19 19:15 02/17/19 19:05 02/17/19 18:55 02/17/19 18:45 02/17/19 18:37 02/17/19 11:28 Pain Intensity Abdomen: Pain Intensity: 0 Upper Chest: Pain Intensity: 0 Notes Mental Status: alert / awake / arousable and participated in evaluation Patient Amnestic to Procedure: Yes Nausea / Vomiting: adequately controlled Pain: adequately controlled Airway Patency, RR, SpO2: stable & adequate BP & HR: stable & adequate Hydration State: stable & adequate Anesthetic Complications: no major complications apparent and Pt Satisfied with anesthetic care
--- NOTE | 2019-02-18 08:51 | Fluoroscopy Report ---
SINGLE CONTRAST ESOPHAGRAM CLINICAL HISTORY: Postoperative examination. History of hiatal hernia with gastric volvulus status p ost surgical repair. COMPARISON STUDY: Chest CT dated 02/13/2019. TECHNIQUE: A single contrast esophagram is performed with the patient consuming several sepsis of Opt iray 300. Multiple spot images of the esophagus are acquired at a lateral chest radiograph is include d. FINDINGS: The patient swallowed Optiray without difficulty. The esophagus appears distended, and ther e is delayed clearance of contrast from the distal esophagus. The gastroesophageal junction is patent . There is a large gastric bubble which contains an air contrast level. This appears to be located at the level of the diaphragm posterior to the heart, and the exact location in relationship to the deep phragm is unclear. There is delayed clearance from the proximal stomach. The distal stomach and duode num do fill with contrast. There is no evidence of leakage. Pneumoperitoneum is noted on the lateral chest view. Fluoroscopy time: 1.2 minutes. Fluoroscopic images: 11 IMPRESSION: 1. There is distention of the esophagus which does completely clear of contrast. 2. No leakage is seen postoperatively. 3. There is a large gastric bubble which contains an air contrast level. This appears to be located a t the level of the diaphragm and posterior to the heart, and the exact location in relationship to th e diaphragm cannot be delineated. This was discussed with the surgeon at the time of the examination and the patient will undergo CT for further assessment. Electronically signed by: Steven Mittal M.D. 02/18/2019 8:49 AM
--- NOTE | 2019-02-18 09:47 | CT Scan Report ---
CT SCAN OF THE CHEST WITHOUT IV CONTRAST CLINICAL HISTORY: Hiatal hernia with gastric volvulus status post surgical repair. COMPARISON STUDY: Chest CT dated 02/13/2019. Chest x-ray dated 02/18/2019. Esophagram dated 02/18/2019. TECHNIQUE: CT scan of the thorax was performed from the thoracic inlet to the upper abdomen. Images are reviewed in the axial, sagittal, and coronal planes. IV contrast was not administered for this ex amination. A dose lowering technique was utilized adhering to the principles of ALARA. The examinati on is degraded by streak artifact from contrast within the stomach. CT DOSE: 750.84 mGycm FINDINGS: Esophagus and stomach: The esophagus is distended and contains an air contrast level. The gastroesoph ageal junction is located above the diaphragm. There appears to be a large hiatal hernia with an air contrast level, with over half the stomach apparently located above the diaphragm. The distal stomac h is clearly located below the diaphragm and the duodenum is normal in configuration. There is wall t hickening of the stomach at the esophageal hiatus. Enteric contrast is seen within the duodenum and p roximal small bowel loops. There is questionable extraluminal contrast versus unusual artifact seen a long the diaphragm bilaterally on axial images #[id number], left greater than right. Thyroid: Imaged portions of the thyroid gland are normal in size and attenuation. Thoracic aorta: The thoracic aorta is normal in caliber and demonstrates bovine variant arch anatomy. Heart: The heart is enlarged and without pericardial effusion. There is pneumopericardium. The nicholson ry arteries are densely calcified. The pulmonary trunk is dilated measuring up to 4.0 cm in diameter. This suggests pulmonary artery hypertension. Lungs and pleural spaces: Evaluation of the lung parenchyma is degraded by motion artifact. There are trace left and small right pleural effusions with dense bibasilar consolidation. The right pleural e ffusion appears hyperdense. Foci of hyperdense contrast are present within the lung parenchyma bilate rally, likely related to aspiration. Mediastinum: There are numerous small foci of pneumomediastinum which extends into the lower neck. No mediastinal adenopathy is seen. Bianca: Not well assessed without IV contrast. Axillae: There is no axillary lymphadenopathy. Upper abdomen: The partially imaged kidneys demonstrate cortical atrophy. Numerous parapelvic cysts a re seen on the left. Pneumoperitoneum is identified below the diaphragm. A 2.3 cm cyst is again seen in the left hepatic lobe. Skeletal structures: The skeletal structures are osteopenic. Degenerative change and hyperkyphosis ar e noted in the thoracic spine. 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 No lytic or blasti c bony lesions are seen. IMPRESSION: 1. The esophagus is distended and the gastroesophageal junction is located above the diaphragm. 2. The proximal stomach is distended with an air contrast level. Although difficult to definitively l ocalize, this appears to be located above the diaphragm and is concerning for recurrent hiatal hernia . 3. The distal stomach and duodenum are located below the diaphragm, and there is contrast within the distal stomach and visualized proximal small bowel. 4. There is questionable artifact versus a small amount of extraluminal contrast seen bilaterally tori ng the diaphragm. No clear site of leakage is identified, and given the degree of motion on the exami nation artifact is favored. Clinical correlation will be essential. 5. There are small right and trace left pleural effusions. The right pleural effusion appears hyperde nse, likely representing blood products. 6. Pneumomediastinum, pneumopericardium, and pneumoperitoneum are identified. These are likely expect ed postoperative findings. 7. There is dense bibasilar consolidation which likely represents atelectasis. Hyperdensity within th e atelectatic lung is new from previous and may represent aspirated contrast. 8. There is wall thickening with surrounding inflammation involving the stomach at the level of the d iaphragm. This is likely an expected postoperative finding. 9. Cardiomegaly with evidence of pulmonary artery hypertension. 10. Additional findings as above. Electronically signed by: Steven Mittal M.D. 02/18/2019 9:46 AM
[2019-02-18] MEDS: DOCUSATE SODIUM 100 MG CAP PO SCH ×2 (10:34→20:29)
[2019-02-18] MEDS: ENOXAPARIN INJ 40 MG/0.4 ML SYR SQ SCH (10:34)
[2019-02-18] MEDS: MoRPHine SULFATE 2 MG/ML CARP IV PRN ×4 (13:20→23:59)
[2019-02-18] MEDS ORDERED: SODIUM CHLORIDE 0.9% 1000ML 500 ML IV ONE (13:39)
--- NOTE | 2019-02-18 17:12 | Progress Note ---
DATE: 02/18/2019 Mr. Stern was seen today. He has been ambulating in the hallway. He is on room air now. He is hungry and has tolerated liquids. We obtained a barium swallow which shows no evidence of extravasation. There is no hold up in the GE junction. This patient had a huge hernia. We repaired his diaphragmatic hernia and the hiatus came together nicely; we did patch this. It appears now part of the stomach is above the hiatus; however, we did a lot of dissection in there and I think we need to let this settle down. He has no reflux currently. I am going to let him settle down and keep him on clear liquids for the next day or so. We will check an x-ray tomorrow. I had a long talk with the patient and his . Depending on how things look if we were going to take him back and re-repair this diaphragmatic hernia I would want to do it sooner rather than later; however, I am not convinced we have that. I reviewed these films with multiple radiologists and it is not quite clear, although it certainly appears to be above the diaphragm. It is important to remember the diaphragmatic hiatus is abnormal. He also looks quite good. We will check an x-ray with labs in the morning.
[2019-02-18] MEDS: LEVOTHYROXINE SODIUM 88 MCG TABLET PO SCH (20:30)
[2019-02-18] MEDS: TAMSULOSIN HCL 0.4 MG CAP PO SCH (20:30)
[2019-02-19] MEDS: D5W AND 1/2NSS 1,000 ML IV SCH (01:27)
[2019-02-19] MEDS: MoRPHine SULFATE 2 MG/ML CARP IV PRN ×2 (04:36→22:43)
[2019-02-19] MEDS: ONDANSETRON INJ 2 MG/ML 2 ML VIAL IV SCH ×3 (04:36→13:13)
[2019-02-19] MEDS: ACETAMINOPHEN 1,000 MG/100 ML VIAL IV SCH ×3 (05:26→20:26)
[2019-02-19 05:50] LABS: Hematocrit (blood only) 38.7 % (42-52); Hemoglobin 13.5 g/dL (14.0-18.0); Mean Corpuscular Hgb Conc 34.9 g/dL (32-36); Mean Platelet Volume 9.7 fL (7.4-10.4); Platelet Count 161 K/uL (130-400); RDW Coefficient of Variation 12.6 % (11.5-14.5); RDW Standard Deviation 44.8 fL (36.4-46.3); Red Blood Count 3.95 M/uL (4.7-6.1); White Blood Count 24.76 K/uL (4.8-10.8)
[2019-02-19] MEDS ORDERED: ALBUTEROL 0.083% NEBU SOLN 3 ML VIAL NEB STA (06:45)
[2019-02-19] MEDS ORDERED: FUROSEMIDE 20 MG in SYRINGE 0 ML IV ONE (06:52)
--- NOTE | 2019-02-19 07:10 | XRay Report ---
SINGLE VIEW CHEST CLINICAL HISTORY: Status post Naomi fundoplication. FINDINGS: An AP, portable, upright chest radiograph is compared to chest x-ray and chest CT dated 02/18. The examination is degraded by portable technique and patient rotation. The cardiomediastinal silhouette is unremarkable noting pneumopericardium. There are layering pleural effusions with bibas ilar consolidation. No pneumothorax is seen. The skeletal structures are osteopenic. The bony thorax is grossly intact. 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 Intraperitoneal free air is se en below the right hemidiaphragm. Subcutaneous emphysema is noted on the left chest wall. A large gas tric bubble projects posterior to the heart. IMPRESSION: 1. A large gastric bubble projects posterior to the cardiac silhouette. 2. Layering pleural effusions with bibasilar consolidation. Electronically signed by: Steven Mittal M.D. 02/19/2019 7:09 AM
[2019-02-19 07:25] LABS: BUN Creatinine Ratio 19.7 (10-20); Calcium 8.5 mg/dl (8.5-10.1); Est GFR (African American) 69.1; Est GFR (Non-African American) 59.6; Potassium 4.3 mmol/L (3.5-5.1)
[2019-02-19] MEDS: DOCUSATE SODIUM 100 MG CAP PO SCH ×2 (08:04→20:26)
[2019-02-19] MEDS: ENOXAPARIN INJ 40 MG/0.4 ML SYR SQ SCH (08:04)
[2019-02-19] MEDS ORDERED: FUROSEMIDE 40 MG/4 ML VIAL IV ONE ×2 (08:09→08:26)
[2019-02-19] MEDS ORDERED: ASPIRIN CHEW 324 MG PO STA (08:10)
[2019-02-19] MEDS ORDERED: ASPIRIN 81 MG CHEW ONE (08:13)
[2019-02-19] MEDS ORDERED: AMIODARONE 150MG / 100ML D5W IV ONE (08:24)
[2019-02-19] MEDS ORDERED: AMIODARONE 360MG / 200ML D5W IV ONE (08:25)
[2019-02-19] MEDS ORDERED: MIDAZOLAM HCL 1 MG/ML 2ML VIAL ONE (08:25)
[2019-02-19] MEDS ORDERED: HEPARIN SOD (PORCINE) 1000 UNIT/ML 10 ML VIAL ONE (08:25)
[2019-02-19] MEDS ORDERED: NiCARDipine HCL INJ 2.5 MG/ML 10 ML AMP ONE (08:25)
[2019-02-19] MEDS ORDERED: fentaNYL citrate 100 MCG/2 ML VIAL ONE (08:25)
--- NOTE | 2019-02-19 08:34 | Cardiology Consultation ---
Date of Consultation February 19, 2019 Assessment & Plan (1) ST elevation MD (STEMI): He became diaphoretic with worsening shortness of breath this morning and has ST elevations throughout the precordium. Concerning for ST-elevation myocardial infarction. mft, Dr. Bruce, was immediately notified and he is being taken emergently to the greens laborer for coronary angiography. Risks and benefits of cardiac catheterization were discussed with him in detail, including PCI. He was agreeable to undergo the procedure. Aspirin 324 mg p.o. x1 given stat. Stat echo ordered and performed at the bedside. Cardiac catheterization was performed by Dr. Bruce and he was found to have [id number] nonobstructive CAD, without occlusive lesion. ECG findings may be due to pericardial inflammation. (2) Acute diastolic CHF (congestive heart failure): He appears hypervolemic and in mild distress. Lasix 40 mg IV x1 given while on the third floor just prior to transfer to the greens laborer. LVEDP was mildly elevated in the greens laborer. He was given additional Lasix IV 40 mg while in the greens laborer. (3) Ventricular tachycardia: Brief episodes of nonsustained ventricular tachycardia noted during echocardiogram. Would recommend beta-neil. Check electrolytes. (4) Atrial fibrillation with rapid ventricular response: He appeared to be in atrial fibrillation based on echo telemetry. Recommend repeating ECG and placed on telemetry following cardiac catheterization. Consider amiodarone IV, which can be done in the cardiac catheterization lab with Dr. Bruce. This occurred during the echocardiogram as he was in sinus rhythm earlier this morning during ECG. Could be postop AFib or due to his acute process this morning. When he returned to the ICU, telemetry demonstrated sinus tachycardia. Would continue IV amiodarone today and will consider transitioning to p.o. and the next day or so depending on a arrhythmia burden. Amiodarone will not likely be a long-term medication but possibly over the next 1-2 months for postop atrial fibrillation. (5) SOB (shortness of breath): He appears to be in acute diastolic CHF, which could be related to ischemia based on ECG findings. Cardiac catheterization as noted above. Diuretic given as above. Disposition: Highly complex medical issues. Patient care was discussed with Dr. Cole. Patient's , Ana Paula, was noted via telephone personally to let her know that he was going to the cardiac catheterization lab. Cardiology will co ntinue to follow. Recommended ICU following cardiac catheterization. Addendum: Following cardiac catheterization, while in the ICU, he appeared much more comfortable and was starting to diurese. He was noted to be in sinus rhythm. His was present at the bedside. Any questions were answered. Patient care also discussed with nursing staff and Mr. Marshall other critical care team. 65 minutes critical care time spent, with the majority of that time spent coordinating care including recommending/coordinating emergent cardiac catheterization. History of Present Illness Reason for Consultation: Diaphoresis and ECG changes Requesting Physician: Dr. Cole Attending Physician: Watson Cole MD, [facility] History of Present Illness Mr. Stern is a pleasant 78-year-old gentleman who was admitted on 02/17/2019 for hiatal hernia repair, who underwent robotic assisted laparoscopic repair of paraesophageal hernia and Naomi fundoplication. He had been diagnosed with incarcerated giant paraesophageal hernia. He underwent his surgical procedure on 02/17/2019. This morning he was found to be diaphoretic and short of breath by nursing staff. He underwent an ECG which demonstrated anterior ST elevations but otherwise sinus tachycardia. ST elevations were new compared to 02/13/2019 ECG. Within minutes of the consultation, he was evaluated and was found to be sitting upright in bed with some degree of respiratory distress. His oxygen saturation was acceptable on supplemental oxygen. He stated that he hurt all over. He specifically mentioned his left shoulder and his back. He denied chest discomfort. When asked how long he has been in pain, he stated that he has been in pain it would not further specify. He acknowledged that he was short of breath but states that he has been short of breath, once again not specifying when it acutely worsened. He was diaphoretic. He stated that he cannot get comfortable. He denied history of cardiac dise ase, hypertension, dyslipidemia, or diabetes. Stat echo was ordered immediately when his ECG was noted. Dr. Bruce of interventional Cardiology was also notified of the ECG findings. While we were coordinating care for the greens laborer, the stat echo was being performed. LV systolic function looks normal on preliminary review. Review of systems: As above. Review of systems otherwise negative/unremarkable. Family history: No known premature CAD. Social history: He denies tobacco, alcohol, or drug abuse. He is and lives at home with his . Two sons. Unaccompanied. Allergies Allergy/AdvReac Type Severity Reaction Status Date / Time gluten Allergy Mild Gastrointestinal Verified 02/13/19 08:46 Upset Home Medications Home Medications Medication Instructions Recorded Confirmed Type Macular Health Formula 1 cap PO QAM 01/03/19 02/17/19 History cholecalciferol (vitamin D3) 2,000 unit PO QAM 01/03/19 02/17/19 History [Vitamin D3] cyanocobalamin (vitamin B-12) 500 mcg PO QAM 01/03/19 02/17/19 History [Vitamin B-12] ferrous sulfate [Iron (ferrous 325 mg PO QAM 01/03/19 02/17/19 History sulfate)] folic acid 0.8 mg PO QAM 01/03/19 02/17/19 History levothyroxine 88 mcg PO HS 01/03/19 02/17/19 History ranitidine HCl 150 mg PO HS 01/03/19 02/17/19 History calcium carbonate [Calcium 600] 600 mg PO DAILY 02/17/19 02/17/19 History Patient History Medical History Anemia Celiac disease GERD (gastroesophageal reflux disease) History of colon polyps Hypothyroidism Kidney stones Surgical History History of carpal tunnel surgery of right wrist (Acute) History of colonoscopy History of esophagogastroduodenoscopy (EGD) History of hammertoe correction bilt feet History of tooth extraction History of umbilical hernia repair Family History Father Dementia Mother Breast cancer Other No family history of adverse response to anesthesia Social History Preferred Language: Kuwaiti Communication Ability: Effective Beliefs That Will Affect Care: None marital status: Current Living Situation: Spouse 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 Other Information That Helps Us Care for You: No Feels Safe at Home: Yes Safety Concerns: Feels Safe At This Time Smoking Status: Never smoker Second Hand Exposure: No Hx Alcohol Use: Yes Alcohol type: wine Hx Substance Use: No Physical Exam Physical Exam: Gen.: Mild respiratory distress. Alert. HEENT: Anicteric sclera. Neck: Difficult exam. No bruits. Normal carotid upstrokes bilaterally. Cardiac: PMI was nonpalpable. No ventricular heave. Regular. Normal S1-S2. No audible murmurs, rubs, or gallops. Pulmonary: Decreased breath sounds at bases, right moreso than left. Mild expiratory wheezing diffusely. Abdomen: Soft, nontender, nondistended, with hypo-active bowel sounds. No bruits noted. Extremities: 2+ radial pulses bilaterally. 2+ posterior tibialis pulses bilaterally. No edema or cyanosis. No palpable cords Psychiatric: Affect appears appropriate. Results & Data Vital Signs (Past 12 Hours) Vital Signs Temp Pulse Resp BP BP Pulse Ox Pulse Ox 02/19/19 07:06 36.6 C 102 H 22 123/78 92 02/19/19 06:52 108 H 22 91 02/19/19 06:44 109 H 30 H 91 02/18/19 23:45 93 02/18/19 23:35 93 02/18/19 23:30 36.8 C 97 H 18 118/85 89 L Laboratory Results Laboratory Results - last 24 hr 02/19/19 02/19/19 02/19/19 05:31 05:38 05:38 WBC 24.76 H RBC 3.95 L Hgb 13.5 L Hct 38.7 L MCV 98.0 MCH 34.2 H MCHC 34.9 RDW Std Deviation 44.8 RDW Coeff of Paula 12.6 Plt Count 161 MPV 9.7 Sodium 136 Potassium 4.3 Chloride 105 Carbon Dioxide 24 Anion Gap 7.0 BUN 23 H Creatinine 1.18 Est Cr Clr Drug Dosing 55.0 Est GFR ( Amer) 69.1 Est GFR (Non-Af Amer) 59.6 BUN/Creatinine Ratio 19.7 Glucose 155 H Calcium 8.5 Magnesium 1.7 L Troponin I 0.021 Diagnostic Findings ECG personally reviewed: ECG 02/19/2019 at 7:22 a.m.: Sinus tachycardia with PACs at [address] elevation, new from 02/13/2019. ECG 02/19/2019 at 7:23 a.m.: Sinus tachycardia with PACs at [address] elevation. Cardiac 02/19/2019: Mid LAD 30-40%. Mild diffuse disease within circumflex. Mid to distal RCA 20-30%. LVEDP 17. Atrial fibrillation with rapid ventricular response. Medications Administered Current Inpatient Medications Docusate Sodium (Colace) 100 mg PO BID [facility] Stop: 03/19/19 20:59 Last Admin: 02/19/19 08:04 Dose: 100 mg Documented by: Enoxaparin Sodium (Lovenox) 40 mg SQ QAM [facility]IYANK Stop: 03/20/19 08:59 Last Admin: 02/19/19 08:04 Dose: 40 mg Documented by: Acetaminophen (Ofirmev) 1,000 mg in 100 mls @ 400 mls/hr IV Q8H PRIYANK; Protocol Stop: 03/19/19 20:59 Last Infusion: 02/19/19 05:44 Dose: Infused Documented by: Levothyroxine Sodium (Synthroid) 88 mcg PO [facility] Stop: 03/19/19 20:59 Last Admin: 02/18/19 20:30 Dose: 88 mcg Documented by: Morphine Sulfate (Morphine Sulfate) 1 - 2 mg IV Q1H PRN PRN Reason: Pain Stop: 03/03/19 19:49 Last Admin: 02/19/19 04:36 Dose: 2 mg Documented by: Ondansetron HCl (Zofran) 4 mg IV Q4 [facility] Stop: 03/20/19 00:00 Last Admin: 02/19/19 08:04 Dose: 4 mg Documented by: Oxycodone HCl (Roxicodone Immediate Rel) 5 mg PO Q6H PRN PRN Reason: Pain Stop: 03/03/19 19:49 Last Admin: 02/18/19 10:36 Dose: 5 mg Documented by: Ranitidine HCl (Zantac) 150 mg PO [facility] Stop: 03/19/19 20:59 Last Admin: 02/18/19 20:30 Dose: 150 mg Documented by: Tamsulosin HCl (Flomax) 0.4 mg PO [facility] Stop: 03/19/19 20:59 Last Admin: 02/18/19 20:30 Dose: 0.4 mg Documented by:
--- NOTE | 2019-02-19 08:48 | Post Anesthesia Assessment ---
Date of Service February 19, 2019 Post Sedation Assessment Vital Signs Temp Pulse Resp BP BP Pulse Ox Pulse Ox 02/19/19 07:06 36.6 C 102 H 22 123/78 92 02/19/19 06:52 108 H 22 91 02/19/19 06:44 109 H 30 H 91 02/18/19 23:45 93 02/18/19 23:35 93 02/18/19 23:30 36.8 C 97 H 18 118/85 89 L 02/18/19 19:12 37.1 C 105 H 20 129/80 95 02/18/19 15:43 36.4 C L 93 H 17 131/76 94 02/18/19 11:08 36.7 C 81 17 118/68 96 Recovery Score Activity: Moves 4 extremities Respiration: Deep Breath/Cough Circulation: +/-20% PreAnes Value Consciousness: Arouseable (by name) Oxygen Saturation: O2 needed for >90% Post Anesthesia Score: 8 Discharge Sedation Level of Care: Fast Track Phase II Post Sedation Plan On clinical assessment, the patient appears to have tolerated the sedation without complications. Patient is recovering as anticipated. Patient will continue to be monitored by nursing and may be discharged when sedation discharge criteria are met per below protocol. Upon Completions of procedure and additional 15 minutes continue every 5 minute vital signs and the P.A.R. score; then discharge to a Phase I or Fast Track to Phase II per the following guidelines: * Discharge Patient to appropriate Phase II area if PAR is 8 or greater or return to pre- procedure baseline. The post - procedure orders will be as directed. * If PAR score is less than 8 or not return to pre-procedure baseline then patient will follow Phase I monitoring till PAR is reached for Phase II. The Phase I may be done in procedure room or may call to secure a Phase I area. * If naloxone or flumazenil are used for reversal, hold in Phase I for continued monitoring from when last reversal dose was given for a minimum of 60 minutes or longer pending the nurse and/or physician discretion of patient condition before discharge to Phase II. Please call the Sedation Physician to re-evaluate and complete post-note for discharge to Phase II area. Do NOT discharge from procedure sedation or Phase 1 until post- sedation evaluation note is complete by procedure /sedation MD Sedation Discharge Instructions to be given to the patient at discharge to home.
--- NOTE | 2019-02-19 08:48 | Pre Anesthesia Assessment ---
Date of Service February 19, 2019 Pre Sedation Assessment Vital Signs Temp Pulse Resp BP BP Pulse Ox Pulse Ox 02/19/19 07:06 36.6 C 102 H 22 123/78 92 02/19/19 06:52 108 H 22 91 02/19/19 06:44 109 H 30 H 91 02/18/19 23:45 93 02/18/19 23:35 93 02/18/19 23:30 36.8 C 97 H 18 118/85 89 L 02/18/19 19:12 37.1 C 105 H 20 129/80 95 02/18/19 15:43 36.4 C L 93 H 17 131/76 94 02/18/19 11:08 36.7 C 81 17 118/68 96 Cardiovascular RRR, no murmur, no edema Respiratory normal respiratory effort, lungs clear to auscultation Pre-Sedation Airway Assessment Smoking Status: Never smoker Hx Sleep Apnea: No Hx Difficult Intubation: No Short, Thick Neck: No Thyromental Distance: > or= 3.5 Finger Breadths Oral Cavity: + WNL Mallampati Class: II Procedure Planning Contraindications for Sedation: none Current Medications Reviewed: Yes Notes The planned sedation has been discussed with the patient. Informed Consent was obtained. I have identified the patient, determined the appropriateness of sedation and have assessed the patient immediately prior to the procedure. All medicine(s) and interventions are by my order.
--- NOTE | 2019-02-19 08:58 | Cardiac Catheterization ---
Cardiac Cath Procedure Full Procedure Date February 19, 2019 Pre-Procedure Diagnosis Pre-Procedure Diagnosis: STEMI AUC Score AUC Score: 9 Post-Procedure Diagnosis Post-Procedure Diagnosis: Moderate CAD Procedure(s) Performed Procedure(s) Performed: Coronary Angiography and Left Heart Cath Wet Wash Assembler Silas Bruce MD Bead Flipper(s) Isaiah Estimated Blood Loss Estimated Blood Loss: 5 Medication(s) Medication(s): Fentanyl, Heparin, Lidocaine 1%, Nicardipine, Nitroglycerin and Versed Summary of Findings Indication: Suspected ACS Access: 6Fr slender right radial artery Catheters: [place] Findings: LM: Calcified, luminal irregularities LAD: Moderate caliber vessel, heavily calcified, 30-40% mid segment disease, distal luminal irregularities LCx: Moderate caliber, mild diffuse disease. RCA: Dominant, proximal to mid luminal irregularities, 20-30% late-mid to distal stenosis. RPDA without significant disease LVEDP: 17 Summary: 1. Mild to moderate non-obstructive coronary artery disease 2. Borderline elevated LV filling pressures. 3. Atrial fibrillation with RVR Recommendations: - Given 40 IV lasix in medical lab technologist - Started on IV amiodarone - Transfer to ICU for further management Hemodynamics Rest Ao:: -- Final Ao: -- LV: -- Recommendations Recommendations: Medical Therapy and/or Counseling Specimens Specimens: None Radiation Exposure (mGy) 570 Contrast (mls) 40 Fluids (cc crystalloids) Fluids (cc crystalloids): none Drains Drains: moderate Anesthesia none Procedural Complication(s) None Disposition ICU ACC Data: Leakage Tester Cardiac Status Clinical evaluation leading to the procedure CAD Presenation: STEMI Anginal Classification: CCS IV Heart Failure: No Cardiogenic Shock within 24 Hours: No Cardiac Arrest within 24 Hours: No Imaging Studies Past 6 Months: Yes Stress Studies Past 6 Months: No Diagnostic Physicians Name: Silas Bruce MD Status: Emergency Closure Device Percutaneous Entry Location: Radial Closure Device: Radial Band Recommendations: Medical Therapy and/or Counseling Intraprocedure Events Significant Disection: No Perforation: No
[2019-02-19 09:10] LABS: Magnesium 1.7 mg/dl (1.8-2.4); Troponin I 0.021 ng/ml (0-0.045)
[2019-02-19] MEDS ORDERED: MAGNESIUM SULFATE / D5W 1 GM/100 ML BAG IV ONE (09:30)
--- NOTE | 2019-02-19 09:56 | Critical Care Consultation ---
Date of Consultation February 19, 2019 Assessment & Plan (1) Admitted to intensive care unit: Reason Critically Ill: STEMI requiring Coronary Angiography and Left Heart Cath PLAN: NEURO ICU CAM: NEGATIVE -No other acute concerns CARDIO -ECHO read pending -Acute diastolic CHF- IV Lasix 40 mg x2. Will cont monitor volume status and diurese as needed -Afib with RVR- per Cardiology, appeared to be in Afib on ECHO tele. Unclear etiology: post op vs acute. Received IV Amio in laboratory specialist, will cont. Will cont monitor on tele. Repeat EKG in AM. NSR at present -V tach- noted brief episodes, nonsustained during ECHO. Will cont monitor on tele as above. Can consider BB moving forward if persists PULM -Sating well on 4L Oxymask. Normally does not use supplemental O2 at home. Will titrate to maintain O2>92% -SOB from AM resolved, likely 2/2 acute diastolic CHF. Now s/p Lasix x2 as above -No other acute concerns GI -GERD- Cont Zantac 150 -No other acute concerns RENAL/ -Cr Stable, at baseline -No lyte abnormalities, cont trend daily -No other acute concerns ID -No concern for infectious etiology at present -Cont monitor fever curve. Afebrile at present -No other acute concerns HEME -Stable H/H. No concern for acute bleeding. Will cont trend daily -No other acute concerns ENDO -Hyperglycemia ICU protocol -Hypothyroidism- cont synthroid 88 mcg LINES: PIV x2, Hughes DVT Prophylaxis: Lovenox Full Code Dispo: ICU Supervising Physician Co-Signing Physician Notes Dr. Ramires was resident physician during care of patient. I separately evaluated patient for novak portions of the history and the exam. I was present during the critical portion of medical decision making, and I discussed the case with the resident. I generally agree with the findings and plan. S/P cardiac cath s/p post-oper hiatal hernia repair. Afib initially with conversion to normal sinus later. History of Present Illness Attending Physician: Watson Cole MD, FACS 78 y/o M with known h/o large hiatal hernia. The week leading up to admission, pt had noted episodes where he gets a tightness in his chest and is unable to swallows, which then resolves. Pt underwent elective robot-assisted laparoscopic fundoplication 7/8. Today 02/19, reports that pt became diaphoretic with worsening SOB this morning and EKG revealed that he had ST elevations throughout the precordium. Concerning for ST-elevation myocardial infarction. rheostat assembler, Dr. Bruce, was immediately notified and pt was taken emergently to the laboratory specialist for coronary angiography. Cath revealed mild to moderate non-obstructive coronary artery disease, borderline elevated LV filling pressures. Pt given 40 mg IV Lasix in laboratory specialist (also given 40 before going down to laboratory specialist), started on IV amiodarone for A fib w/ RVR, and transferred to ICU for further management. In ICU, pt states that he feels much improved from this AM. Denies any CP, palpitations, SOB, dyspnea, orthopnea, syncope. Pt has no other acute concerns or complaints. Allergies Allergy/AdvReac Type Severity Reaction Status Date / Time gluten Allergy Mild Gastrointestinal Verified 02/13/19 08:46 Upset Home Medications Home Medications Medication Instructions Recorded Confirmed Type Macular Health Formula 1 cap PO QAM 01/03/19 02/17/19 History cholecalciferol (vitamin D3) 2,000 unit PO QAM 01/03/19 02/17/19 History [Vitamin D3] cyanocobalamin (vitamin B-12) 500 mcg PO QAM 01/03/19 02/17/19 History [Vitamin B-12] ferrous sulfate [Iron (ferrous 325 mg PO QAM 01/03/19 02/17/19 History sulfate)] folic acid 0.8 mg PO QAM 01/03/19 02/17/19 History levothyroxine 88 mcg PO HS 01/03/19 02/17/19 History ranitidine HCl 150 mg PO HS 01/03/19 02/17/19 History calcium carbonate [Calcium 600] 600 mg PO DAILY 02/17/19 02/17/19 History Patient History Medical History Anemia Celiac disease GERD (gastroesophageal reflux disease) History of colon polyps Hypothyroidism Kidney stones Surgical History History of carpal tunnel surgery of right wrist (Acute) History of colonoscopy History of esophagogastroduodenoscopy (EGD) History of hammertoe correction bilt feet History of tooth extraction History of umbilical hernia repair Family History Father Dementia Mother Breast cancer Other No family history of adverse response to anesthesia Social History Preferred Language: Arabic Communication Ability: Effective Beliefs That Will Affect Care: None marital status: Current Living Situation: Spouse 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 Other Information That Helps Us Care for You: No Feels Safe at Home: Yes Safety Concerns: Feels Safe At This Time Smoking Status: Never smoker Second Hand Exposure: No Hx Alcohol Use: Yes Alcohol type: wine Hx Substance Use: No Review of Systems Review of Systems: A 10 pt ROS was reviewed and is unremarkable unless otherwise noted in HPI and below. Physical Exam Constitutional: WD/WN, vitals as above ENMT: external ear and nose normal, oropharynx normal Respiratory: normal respiratory effort, lungs clear to auscultation Cardiovascular: RRR, no murmur, no edema Gastrointestinal (Abdomen): normal bowel sounds, soft, nontender, no hepatosplenomegaly Skin: no rashes, warm and dry Psychiatric: A+Ox3, euthymic affect Lymphatic: mild venous stasis changes in LE b/l Results & Data Vital Signs (Past 12 Hours) Vital Signs Temp Pulse Resp BP BP Pulse Ox Pulse Ox 02/19/19 09:14 115 H 24 107/69 94 02/19/19 08:59 36.9 C 103 H 18 144/93 H 95 02/19/19 07:06 36.6 C 102 H 22 123/78 92 02/19/19 06:52 108 H 22 91 02/19/19 06:44 109 H 30 H 91 02/18/19 23:45 93 02/18/19 23:35 93 02/18/19 23:30 36.8 C 97 H 18 118/85 89 L Laboratory Results Laboratory Results - last 24 hr 02/19/19 02/19/19 02/19/19 05:31 05:38 05:38 WBC 24.76 H RBC 3.95 L Hgb 13.5 L Hct 38.7 L MCV 98.0 MCH 34.2 H MCHC 34.9 RDW Std Deviation 44.8 RDW Coeff of Paula 12.6 Plt Count 161 MPV 9.7 Sodium 136 Potassium 4.3 Chloride 105 Carbon Dioxide 24 Anion Gap 7.0 BUN 23 H Creatinine 1.18 Est Cr Clr Drug Dosing 55.0 Est GFR ( Amer) 69.1 Est GFR (Non-Af Amer) 59.6 BUN/Creatinine Ratio 19.7 Glucose 155 H Calcium 8.5 Magnesium 1.7 L Troponin I 0.021 Medications Administered Current Inpatient Medications Docusate Sodium (Colace) 100 mg PO BID [facility] Stop: 03/19/19 20:59 Last Admin: 02/19/19 08:04 Dose: 100 mg Documented by: Enoxaparin Sodium (Lovenox) 40 mg SQ QAM [facility] Stop: 03/20/19 08:59 Last Admin: 02/19/19 08:04 Dose: 40 mg Documented by: Acetaminophen (Ofirmev) 1,000 mg in 100 mls @ 400 mls/hr IV Q8H [facility]; Protocol Stop: 03/19/19 20:59 Last Infusion: 02/19/19 05:44 Dose: Infused Documented by: Magnesium Sulfate/Dextrose (Magnesium Sulfate / D5w) 1 gm in 100 mls @ 100 mls/hr IV ONE ONE Stop: 02/19/19 10:29 Levothyroxine Sodium (Synthroid) 88 mcg PO [facility] Stop: 03/19/19 20:59 Last Admin: 02/18/19 20:30 Dose: 88 mcg Documented by: Morphine Sulfate (Morphine Sulfate) 1 - 2 mg IV Q1H PRN PRN Reason: Pain Stop: 03/03/19 19:49 Last Admin: 02/19/19 04:36 Dose: 2 mg Documented by: Ondansetron HCl (Zofran) 4 mg IV Q4 [facility] Stop: 03/20/19 00:00 Last Admin: 02/19/19 08:04 Dose: 4 mg Documented by: Oxycodone HCl (Roxicodone Immediate Rel) 5 mg PO Q6H PRN PRN Reason: Pain Stop: 03/03/19 19:49 Last Admin: 02/18/19 10:36 Dose: 5 mg Documented by: Ranitidine HCl (Zantac) 150 mg PO [facility] Stop: 03/19/19 20:59 Last Admin: 02/18/19 20:30 Dose: 150 mg Documented by: Tamsulosin HCl (Flomax) 0.4 mg PO [facility] Stop: 03/19/19 20:59 Last Admin: 02/18/19 20:30 Dose: 0.4 mg Documented by: Resident Activity Tracking Resident Involvement: Resident Care Provided Care Provided: Adult Hospital Medicine
--- NOTE | 2019-02-19 10:09 | Anesthesiology Progress Note ---
Date of Service February 19, 2019 Subjective I spoke with the patient and his after his cardiac catheterization. The patient was resting in bed, and he did not appear to be in distress. The patient stated that he was continuing to have trouble taking deep breaths. He denied any pain. He otherwise had no complaints. The patient will be kept in ICU for closer monitoring. Physical Exam Vital Signs: Last Vital Signs Temp 98.4 F 02/19/19 08:59 Pulse 104 H 02/19/19 09:29 Resp 20 02/19/19 09:29 BP 118/82 02/19/19 09:29 Pulse Ox 95 02/19/19 09:29 Results & Data Medications Administered Docusate Sodium (Colace) 100 mg PO BID [facility] Stop: 03/19/19 20:59 Last Admin: 02/19/19 08:04 Dose: 100 mg Documented by: [id number] Admin: 02/18/19 20:29 Dose: 100 mg Documented by: [id number] Admin: 02/18/19 10:34 Dose: 100 mg Documented by: [id number] Admin: 02/17/19 20:55 Dose: 100 mg Documented by: [id number] Enoxaparin Sodium (Lovenox) 40 mg SQ QAM [facility] Stop: 03/20/19 08:59 Last Admin: 02/19/19 08:04 Dose: 40 mg Documented by: [id number] Admin: 02/18/19 10:34 Dose: 40 mg Documented by: [id number] Acetaminophen (Ofirmev) 1,000 mg in 100 mls @ 400 mls/hr IV Q8H [facility]; Protocol Stop: 03/19/19 20:59 Last Infusion: 02/19/19 05:44 Dose: 0 mls/hr Documented by: [id number] Admin: 02/19/19 05:26 Dose: 400 mls/hr Documented by: [id number] Infusion: 02/18/19 20:48 Dose: 0 mls/hr Documented by: [id number] Admin: 02/18/19 20:26 Dose: 400 mls/hr Documented by: [id number] Infusion: 02/18/19 13:52 Dose: 0 mls/hr Documented by: [id number] Admin: 02/18/19 13:32 Dose: 400 mls/hr Documented by: [id number] Infusion: 02/18/19 06:10 Dose: 0 mls/hr Documented by: [id number] Admin: 02/18/19 05:35 Dose: 400 mls/hr Documented by: [id number] Infusion: 02/17/19 21:06 Dose: 0 mls/hr Documented by: [id number] Admin: 02/17/19 20:46 Dose: 400 mls/hr Documented by: [id number] Levothyroxine Sodium (Synthroid) 88 mcg PO HS [facility] Stop: 03/19/19 20:59 Last Admin: 02/18/19 20:30 Dose: 88 mcg Documented by: [id number] Admin: 02/17/19 20:58 Dose: 88 mcg Documented by: [id number] Morphine Sulfate (Morphine Sulfate) 1 - 2 mg IV Q1H PRN PRN Reason: Pain Stop: 03/03/19 19:49 Last Admin: 02/19/19 04:36 Dose: 2 mg Documented by: [id number] Admin: 02/18/19 23:59 Dose: 2 mg Documented by: [id number] Admin: 02/18/19 20:36 Dose: 2 mg Documented by: [id number] Admin: 02/18/19 15:50 Dose: 2 mg Documented by: [id number] Admin: 02/18/19 13:20 Dose: 2 mg Documented by: [id number] Ondansetron HCl (Zofran) 4 mg IV Q4 [facility] Stop: 03/20/19 00:00 Last Admin: 02/19/19 08:04 Dose: 4 mg Documented by: [id number] Admin: 02/19/19 04:36 Dose: 4 mg Documented by: [id number] Admin: 02/18/19 23:55 Dose: 4 mg Documented by: [id number] Admin: 02/18/19 20:17 Dose: 4 mg Documented by: [id number] Admin: 02/18/19 15:50 Dose: 4 mg Documented by: [id number] Admin: 02/18/19 13:20 Dose: Not Given Documented by: [id number] Admin: 02/18/19 10:34 Dose: 4 mg Documented by: [id number] Admin: 02/18/19 03:52 Dose: 4 mg Documented by: [id number] Admin: 02/18/19 00:18 Dose: 4 mg Documented by: [id number] Oxycodone HCl (Roxicodone Immediate Rel) 5 mg PO Q6H PRN PRN Reason: Pain Stop: 03/03/19 19:49 Last Admin: 02/18/19 10:36 Dose: 5 mg Documented by: [id number] Ranitidine HCl (Zantac) 150 mg PO [facility] Stop: 03/19/19 20:59 Last Admin: 02/18/19 20:30 Dose: 150 mg Documented by: [id number] Admin: 02/17/19 20:56 Dose: 150 mg Documented by: [id number] Tamsulosin HCl (Flomax) 0.4 mg PO [facility] Stop: 03/19/19 20:59 Last Admin: 02/18/19 20:30 Dose: 0.4 mg Documented by: [id number] Admin: 02/17/19 20:58 Dose: Not Given Documented by: [id number]
[2019-02-19] MEDS ORDERED: POLYETHYLENE (MIRALAX) 17 GM PACK PO PRN (12:11)
[2019-02-19] MEDS ORDERED: AMIODARONE IV BOLUS / DRIP IV STA (14:17)
[2019-02-19] MEDS: AMIODARONE / D5W 360 MG/200 ML BAG IV SCH (14:32)
[2019-02-19] MEDS ORDERED: ONDANSETRON INJ 2 MG/ML 2 ML VIAL IV PRN (15:20)
--- NOTE | 2019-02-19 17:04 | Progress Note ---
DATE: 02/19/2019 I saw Mr. Stern early this morning after the nurse called and told me that he had become hypoxic. We did an EKG and he was in sinus rhythm, but had some precordial ST elevations, which were quite concerning. The patient was diaphoretic and was requiring more oxygen. X-ray was not much different, although he appeared to have a bit more fluid on the right. It should be noted that the patient has been swallowing clear liquids. It is also very important to note on this patient's chest x-ray that the contrast in his stomach has completely emptied. Dr. Van kindly took this patient to the cath suite and cathed him and his coronaries were clean. I discussed this in detail with the patient and his . The patient is currently in the intensive care unit but has just finished lunch and looks better to me. We are diuresing him and he is responding quite nicely. We will keep a close eye on Mr. Stern. I do not think we are going to end up taking him back to the operating room, but I will see how he looks over the next few days. I am quite encouraged by the fact that he is not having reflux and is swallowing well. MADINA
[2019-02-19] MEDS: LEVOTHYROXINE SODIUM 88 MCG TABLET PO SCH (20:23)
[2019-02-19] MEDS: TAMSULOSIN HCL 0.4 MG CAP PO SCH (20:24)
[2019-02-20] MEDS: AMIODARONE / D5W 360 MG/200 ML BAG IV SCH ×2 (01:47→14:24)
[2019-02-20] MEDS: ACETAMINOPHEN 1,000 MG/100 ML VIAL IV SCH ×2 (04:35→13:00)
[2019-02-20 05:32] LABS: BUN Creatinine Ratio 23.6 (10-20); Calcium 8.4 mg/dl (8.5-10.1); Creatinine Clr Calc Pharmacy 52.8 ml/min; Est GFR (African American) 65.7; Est GFR (Non-African American) 56.7; Potassium 4.1 mmol/L (3.5-5.1)
[2019-02-20 07:42] LABS: Hematocrit (blood only) 35.5 % (42-52); Hemoglobin 12.5 g/dL (14.0-18.0); Mean Corpuscular Volume 97.3 fL (80-100); Mean Platelet Volume 10.1 fL (7.4-10.4); Platelet Count 156 K/uL (130-400); RDW Coefficient of Variation 12.7 % (11.5-14.5); RDW Standard Deviation 45.1 fL (36.4-46.3); Red Blood Count 3.65 M/uL (4.7-6.1); White Blood Count 19.25 K/uL (4.8-10.8)
--- NOTE | 2019-02-20 07:42 | Critical Care Progress Note ---
Date of Service February 20, 2019 Assessment & Plan (1) Admitted to intensive care unit: Reason Critically Ill: STEMI requiring Coronary Angiography and Left Heart Cath PLAN: NEURO ICU CAM: NEGATIVE -No other acute concerns CARDIO -ECHO read pending -Acute diastolic CHF- IV Lasix 40 mg x2. Will cont monitor volume status and diurese as needed -Afib with RVR- per Cardiology, appeared to be in Afib on ECHO tele. Unclear etiology: post op vs acute. 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 Will cont monitor on tele. Repeat EKG in AM. NSR at present -V tach- noted brief episodes, nonsustained during ECHO. Will cont monitor on tele as above. -Start 3.125 of Coreg BID -Continue IV amiodarone at present moment, defer decision to continue to cardiology PULM -Sating well on 4L Oxymask. Normally does not use supplemental O2 at home. Will titrate to maintain O2>92% Suspect patient may be aspirating secondary to eating too quickly. -Discussed with Dr. Cole, patient passed barium swallow and barium no longer on chest x-ray today I think he just has delayed gastric emptying GI -GERD- Cont Zantac 150 -No other acute concerns -Reglan 10 mg p.o. 3 times daily for 1 week in hopes to assist with gastric emptying Constipation -Dulcolax and MiraLAX today RENAL/ -Cr Stable, at baseline -No lyte abnormalities, cont trend daily -No other acute concerns ID -Possible mediastinal air however patient had surgical procedure in area we will continue to observe HEME -Stable H/H. No concern for acute bleeding. Will cont trend daily -No other acute concerns -Lovenox DVT prophylaxis ENDO -Hyperglycemia ICU protocol -Hypothyroidism- cont synthroid 88 mcg LINES: PIV x2, Hughes DVT Prophylaxis: Lovenox Full Code Dispo: Patient stable for downgrade out of ICU Supervising Physician Co-Signing Physician Notes Dr. Ramires was resident physician during care of patient. I separately evaluated patient for novak portions of the history and the exam. I was present during the critical portion of medical decision making, and I discussed the case with the resident. I generally agree with the findings and plan. S/P cardiac cath s/p post-operative hiatal hernia repair. Afib initially with conversion to normal sinus later. Clinical update 1515: Updated family, and patient with regards to concern for chemical pneumonitis with aspiration and needing to allow time for patient to move food down his esophagus and to remain upright for at least 30 minutes after meals and snacks. Will remain on amiodarone started Coreg 3.125, he is able to speak in complete sentences tolerating nasal cannula and is stable for downgrade to telemetry status. Subjective Complaint of shortness of breath and pain with swallowing. Physical Exam Constitutional: WD/WN, vitals as above ENMT: external ear and nose normal, oropharynx normal Respiratory: normal respiratory effort, lungs clear to auscultation Cardiovascular: RRR, no murmur, no edema Gastrointestinal (Abdomen): normal bowel sounds, soft, nontender, no hepatosplenomegaly Skin: no rashes, warm and dry Psychiatric: A+Ox3, euthymic affect Results & Data Vital Signs (Past 12 Hours) Vital Signs Temp Pulse Resp BP Pulse Ox 02/20/19 06:00 74 19 99/57 L 96 02/20/19 05:00 36.9 C 79 21 112/63 93 02/20/19 04:00 76 20 111/65 95 02/20/19 03:00 76 24 102/63 97 02/20/19 02:00 80 21 130/68 94 02/20/19 01:00 73 29 H 105/61 95 02/20/19 00:00 72 25 H 97/63 L 95 02/19/19 23:00 37 C 80 19 108/65 93 02/19/19 22:00 81 23 112/65 94 02/19/19 21:30 82 22 94 02/19/19 21:01 93 H 27 H 138/74 93 02/19/19 20:00 82 19 100/61 94 Resident Activity Tracking Resident Involvement: Resident Care Provided Care Provided: Adult Hospital Medicine
[2019-02-20 08:02] LABS: Mean Corpuscular Hgb Conc 35.2 g/dL (32-36)
[2019-02-20 08:03] LABS: Basophils # (auto) 0.01 K/uL (0-0.2); Basophils % (auto) 0.1 %; Immature Granulocytes # (auto) 0.56 K/uL (0.00-0.02); Immature Granulocytes % (auto) 2.9 %; Lymphocytes # (auto) 0.95 K/uL (1.2-3.4); Lymphocytes % (auto) 4.9 %; Monocytes # (auto) 1.71 K/uL (0.11-0.59); Monocytes % (auto) 8.9 %; Neutrophils # (auto) 16.02 K/uL (1.4-6.5); Neutrophils % (auto) 83.2 %
--- NOTE | 2019-02-20 08:47 | XRay Report ---
XR chest 1V portable CLINICAL HISTORY: Shortness of breath. Recent hiatal hernia repair. COMPARISON STUDY: Chest CT February 18, 2019 and chest radiograph February 19, 2019. FINDINGS: Oral contrast is noted within portions of the colon from previous swallow. Lucency projecti ng over the cardiac silhouette likely reflects gas within the stomach which was shown on prior exam. Pneumomediastinum has diminished. There is no pneumothorax. There are small bilateral pleural effusio ns with perihilar and bibasilar airspace opacities which have progressed. IMPRESSION: 1. Interval decrease in pneumomediastinum. Lucency projecting of the cardiac silhouette likely reflec ts gas within the stomach which was shown on prior exam. 2. Increasing perihilar and bibasilar airspace opacities which may reflect pneumonia, pulmonary edema or atelectasis. 3. Small bilateral pleural effusions. Electronically signed by: Cristian Miller M.D. 02/20/2019 8:46 AM
[2019-02-20] MEDS: ENOXAPARIN INJ 40 MG/0.4 ML SYR SQ SCH (09:15)
[2019-02-20] MEDS: DOCUSATE SODIUM 100 MG CAP PO SCH ×2 (09:22→21:28)
[2019-02-20] MEDS ORDERED: BISACODYL 5 MG TABEC PO ONE (11:41)
[2019-02-20] MEDS ORDERED: SOD PHOSPHATE/SOD BIPHOSPHATE ENEMA 132 ML BTL PR STA (11:41)
--- NOTE | 2019-02-20 13:59 | Cardiology Progress Note ---
Date of Service February 20, 2019 Assessment & Plan (1) Acute diastolic CHF (congestive heart failure): LVEDP was only mildly elevated yesterday. He remains 6.2 L positive throughout his hospital stay in regards to fluid balance. Will give another dose of Lasix 40 mg IV x1. Would try to keep slightly negative fluid balance. Monitor renal function and electrolytes closely. His degree of LVEDP, does not match his chest x-ray and degree of symptoms that he exhibited yesterday. Low-sodium diet. Strict I&Os. Daily weights. (2) Ventricular tachycardia: Brief episodes of nonsustained ventricular tachycardia noted during echocardiogram. Low-dose beta-neil initiated today by critical care team. (3) Atrial fibrillation with rapid ventricular response: Noted on telemetry on 02/19/2019. He converted to sinus rhythm on amiodarone. Continue IV amiodarone for today. Will likely convert to p.o. tomorrow and probably continue treatment for 1-2 months following hospitalization. Atrial fibrillation may be due to postoperative state. Anticoagulation therapy not necessary at this time in this regard. (4) SOB (shortness of breath): Likely multifactorial. There is concern for pneumonitis, when discussing with Dr. Jimenez of the critical care team. Mildly elevated LVEDP and positive fluid balance, however LVEDP elevation would not likely account for his degree of distress yesterday or his chest x-ray findings. Will give another dose of Lasix today. Monitor renal function and electrolytes carefully. Disposition: Cardiology will continue to follow. Patient care discussed with Dr. Jimenez of the critical care team. (5) ST elevation: Subjective His breathing is a bit worse now than it was yesterday afternoon, but overall still better than yesterday morning. He denies chest pain, syncope, near- syncope, palpitations, or edema. Spoke with Dr. Jimenez of the critical care team who stated that while eating, it was noted that he was coughing yesterday and there was concern for aspiration. Patient has also not had a bowel movement for greater than 1 week. Review of systems: As above. Physical Exam Physical Exam: Gen.: Mild respiratory distress. Alert. HEENT: Anicteric sclera. Neck: no significant JVD. Cardiac: Regular. Normal S1-S2. No audible murmurs, rubs, or gallops. Pulmonary: Decreased breath sounds at bases, right moreso than left. Mild expiratory wheezing diffusely. Abdomen: Soft, nontender, nondistended. Abdomen is quiet. No bruits noted. Extremities: No edema or cyanosis. No palpable cords Psychiatric: Affect appears appropriate. Results & Data Vital Signs (Past 12 Hours) Vital Signs Temp Pulse Resp BP Pulse Ox 02/20/19 11:00 88 22 124/65 94 02/20/19 10:00 88 25 H 107/64 94 02/20/19 09:00 88 32 H 118/74 93 02/20/19 08:00 36.6 C 92 H 30 H 93 02/20/19 07:00 78 26 H 116/74 92 02/20/19 06:00 74 19 99/57 L 96 02/20/19 05:00 36.9 C 79 21 112/63 93 02/20/19 04:00 76 20 111/65 95 02/20/19 03:00 76 24 102/63 97 02/20/19 02:00 80 21 130/68 94 Intake & Output 02/18/19 02/19/19 02/20/19 02/21/19 06:59 06:59 06:59 06:59 Intake Total 4200 / 4200 2788.333 / 2788.333 2067.875 / 2067.875 340 / 340 Output Total 930 / 930 600 / 600 1450 / 1450 180 / 180 Balance 3270 / 3270 2188.333 / 2188.333 617.875 / 617.875 160 / 160 Weight 86.863 kg 91.8 kg Laboratory Results Laboratory Results - last 24 hr 02/19/19 02/19/19 02/20/19 15:05 20:46 04:49 WBC RBC Hgb Hct MCV MCH MCHC RDW Std Deviation RDW Coeff of Paula Plt Count MPV Immature Gran % (Auto) Neut % (Auto) Lymph % (Auto) [place] % (Auto) Eos % (Auto) Baso % (Auto) Immature Gran # (Auto) Neut # (Auto) Lymph # (Auto) [place] # (Auto) Eos # (Auto) Baso # (Auto) Sodium 133 L Potassium 4.1 Chloride 101 Carbon Dioxide 25 Anion Gap 7.0 BUN 29 H Creatinine 1.23 Est Cr Clr Drug Dosing 52.8 Est GFR ( Amer) 65.7 Est GFR (Non-Af Amer) 56.7 BUN/Creatinine Ratio 23.6 H Glucose 116 H POC Glucose 114 H Calcium 8.4 L Magnesium 2.0 Troponin I 0.025 02/20/19 02/20/19 04:55 11:41 WBC 19.25 H RBC 3.65 L Hgb 12.5 L Hct 35.5 L MCV 97.3 MCH 34.2 H MCHC 35.2 RDW Std Deviation 45.1 RDW Coeff of Paula 12.7 Plt Count 156 MPV 10.1 Immature Gran % (Auto) 2.9 Neut % (Auto) 83.2 Lymph % (Auto) 4.9 [place] % (Auto) 8.9 Eos % (Auto) 0.0 Baso % (Auto) 0.1 Immature Gran # (Auto) 0.56 H Neut # (Auto) 16.02 H Lymph # (Auto) 0.95 L [place] # (Auto) 1.71 H Eos # (Auto) 0.00 Baso # (Auto) 0.01 Sodium Potassium Chloride Carbon Dioxide Anion Gap BUN Creatinine Est Cr Clr Drug Dosing Est GFR ( Amer) Est GFR (Non-Af Amer) BUN/Creatinine Ratio Glucose POC Glucose 106 H Calcium Magnesium Troponin I Diagnostic Findings Chest x-ray 02/20/2019 personally reviewed: Airspace opacities. As per Radiology there is interval decrease in pneumomediastinum. Increasing Perihilar and bibasilar airspace opacities. Small bilateral pleural effusions. Telemetry personally reviewed: Sinus rhythm. No arrhythmia. Echo 02/19/2019: Normal LV size, wall motion, systolic function. EF 65-70%. Mild LVH. No significant valvular abnormalities visualized. Medications Administered Current Inpatient Medications Carvedilol (Coreg) 3.125 mg PO BID [facility] Stop: 03/22/19 20:59 Docusate Sodium (Colace) 100 mg PO BID [facility] Stop: 03/19/19 20:59 Last Admin: 02/20/19 09:22 Dose: 100 mg Documented by: Enoxaparin Sodium (Lovenox) 40 mg SQ QAM [facility] Stop: 03/20/19 08:59 Last Admin: 02/20/19 09:15 Dose: 40 mg Documented by: Acetaminophen (Ofirmev) 1,000 mg in 100 mls @ 400 mls/hr IV Q8H [facility]; Protocol Stop: 03/19/19 20:59 Last Infusion: 02/20/19 13:24 Dose: Infused Documented by: Amiodarone HCl/Dextrose (Nexterone / D5w) 360 mg in 200 mls @ 16.667 mls/hr IV .Q12H [facility] Stop: 03/21/19 14:24 Last Admin: 02/20/19 01:47 Dose: 0.5 mg/min, 16.7 mls/hr Documented by: Furosemide 40 mg/ Syringe 4 mls @ 4 mls/min IV ONE ONE Stop: 02/20/19 13:53 Levothyroxine Sodium (Synthroid) 88 mcg PO [facility] Stop: 03/19/19 20:59 Last Admin: 02/19/19 20:23 Dose: 88 mcg Documented by: Morphine Sulfate (Morphine Sulfate) 1 - 2 mg IV Q1H PRN PRN Reason: Pain Stop: 03/03/19 19:49 Last Admin: 02/19/19 22:43 Dose: 2 mg Documented by: Ondansetron HCl (Zofran) 4 mg IV Q4 PRN PRN Reason: Nausea Stop: 03/20/19 00:00 Oxycodone HCl (Roxicodone Immediate Rel) 5 mg PO Q6H PRN PRN Reason: Pain Stop: 03/03/19 19:49 Last Admin: 02/18/19 10:36 Dose: 5 mg Documented by: Polyethylene Glycol (Miralax Powder Packet) 17 gm PO DAILY PRN PRN Reason: Constipation Stop: 03/21/19 12:10 Last Admin: 02/19/19 20:26 Dose: 17 gm Documented by: Ranitidine HCl (Zantac) 150 mg PO [facility] Stop: 03/19/19 20:59 Last Admin: 02/19/19 20:23 Dose: 150 mg Documented by: Tamsulosin HCl (Flomax) 0.4 mg PO [facility] Stop: 03/19/19 20:59 Last Admin: 02/19/19 20:24 Dose: 0.4 mg Documented by:
[2019-02-20] MEDS ORDERED: FUROSEMIDE 40 MG in SYRINGE 0 ML IV ONE (14:15)
--- NOTE | 2019-02-20 19:30 | Progress Note ---
DATE: 02/20/2019 Mr. Stern has a few problems. He has complained of shortness of breath. He has no difficulty swallowing. He occasionally will have coughing, but I do not believe this patient is aspirating. We saw no evidence of that on the barium swallow. He has been in a sinus rhythm since yesterday; still on an amiodarone drip. I had a long talk with the patient and his . He has hypoactive bowel sounds, but his x-ray shows he has air in his colon. He did respond to a Fleet enema with a very hard bowel movement. This has happened to him in the past. He has asked another enema be given and we will comply. X-ray shows that he still has decreased lung volumes and small pleural effusions, but his gastric bubble is smaller. I am still concerned about his abdomen, but at this point there is just not enough evidence for me to do anything more aggressive such as take him back and I do not think a CAT scan would be helpful. He had atrial fibrillation yesterday and had a long operation 3 days ago. I think that we should give him time to recover from this. I discussed this in detail with the patient and his .
[2019-02-20] MEDS ORDERED: LORazepam 0.25 MG/0.5 ML VIAL IV STA (21:11)
[2019-02-20] MEDS ORDERED: LORazepam 0.25 MG/0.5 ML VIAL IV PRN (21:12)
[2019-02-20] MEDS: LEVOTHYROXINE SODIUM 88 MCG TABLET PO SCH (21:28)
[2019-02-20] MEDS: TAMSULOSIN HCL 0.4 MG CAP PO SCH (21:28)
[2019-02-20] MEDS: CARVEDILOL 3.125 MG TAB PO SCH (21:29)
[2019-02-21] MEDS: AMIODARONE / D5W 360 MG/200 ML BAG IV SCH ×2 (01:40→13:55)
[2019-02-21 06:28] LABS: Basophils # (auto) 0.01 K/uL (0-0.2); Hematocrit (blood only) 37.6 % (42-52); Hemoglobin 13.8 g/dL (14.0-18.0); Immature Granulocytes # (auto) 0.06 K/uL (0.00-0.02); Immature Granulocytes % (auto) 0.3 %; Lymphocytes % (auto) 2.3 %; Mean Corpuscular Volume 95.7 fL (80-100); Mean Platelet Volume 10.5 fL (7.4-10.4); Monocytes # (auto) 1.87 K/uL (0.11-0.59); Monocytes % (auto) 8.7 %; Neutrophils # (auto) 19.15 K/uL (1.4-6.5); Neutrophils % (auto) 88.7 %; Platelet Count 200 K/uL (130-400); RDW Coefficient of Variation 12.8 % (11.5-14.5); RDW Standard Deviation 44.6 fL (36.4-46.3); Red Blood Count 3.93 M/uL (4.7-6.1); White Blood Count 21.59 K/uL (4.8-10.8)
[2019-02-21 06:30] LABS: Mean Corpuscular Hgb Conc 36.7 g/dL (32-36)
[2019-02-21 06:37] LABS: BUN Creatinine Ratio 31.1 (10-20); Calcium 9.3 mg/dl (8.5-10.1); Creatinine Clr Calc Pharmacy 62.2 ml/min; Est GFR (African American) 71.2; Est GFR (Non-African American) 61.5; Potassium 3.9 mmol/L (3.5-5.1)
--- NOTE | 2019-02-21 07:03 | History & Physical Bridge Note ---
Date of Service February 21, 2019 History & Physical Bridge Note I have examined the patient, reviewed the History & Physical and in the interval since the performance of the History & Physical I have noted the following changes of clinical significance: no changes noted
--- NOTE | 2019-02-21 07:17 | XRay Report ---
XR chest 1V portable HISTORY: 78 years-old Male post-op postoperative exam. No acute chest complaints COMPARISON: Chest radiograph 02/20/2019 TECHNIQUE: Portable AP view of the chest FINDINGS: Cardiac silhouette is enlarged. Decreased pneumomediastinum. Hypoinflated lungs. Small pleural effusi ons with persistent perihilar and bibasilar opacities. No definite pneumothorax identified. Lucency p rojecting over the central chest is likely air within the stomach. Degenerative changes of the should ers and spine. IMPRESSION: 1. Cardiomegaly with hypoinflation. 2. Small pleural effusions with unchanged perihilar and bibasilar opacities. 3. Trace pneumomediastinum. The above report was generated using voice recognition software. It may contain grammatical, syntax o r spelling errors. Electronically signed by: Anival Caceres M.D. 02/21/2019 7:15 AM
[2019-02-21] MEDS: POTASSIUM CHLORIDE 10 MEQ in D5W AND 1/2NSS 1,000 ML IV SCH (07:32)
[2019-02-21] MEDS: DOCUSATE SODIUM 100 MG CAP PO SCH ×2 (07:32→20:27)
[2019-02-21] MEDS: CARVEDILOL 3.125 MG TAB PO SCH ×2 (07:32→20:27)
--- NOTE | 2019-02-21 07:56 | XRay Report ---
KUB CLINICAL HISTORY: confirm placement of NG COMPARISON STUDY: Abdominal series February 13, [address] February 18, 2019. FINDINGS: Oral contrast within portions of the colon from prior barium swallow is noted. The colon is mildly distended. Nasogastric tube is coiled projecting over the left lower hemithorax. When correla ting with prior CT, tip is likely within the intrathoracic portion of the stomach. Bibasilar opacitie s and bilateral effusions are partially imaged on this exam. Lucency projects over the lower mediasti num. IMPRESSION: 1. Nasogastric tube coiled with tip projecting over the left lower hemithorax. Tip likely within the intrathoracic portion of the stomach. 2. Mild colonic distention. Electronically signed by: Cristian Miller M.D. 02/21/2019 7:54 AM
[2019-02-21] MEDS: ENOXAPARIN INJ 40 MG/0.4 ML SYR SQ SCH (09:47)
--- NOTE | 2019-02-21 15:52 | Critical Care Progress Note ---
Date of Service February 21, 2019 Assessment & Plan (1) Acute respiratory failure with hypoxia: NEURO ICU CAM: NEGATIVE -No other acute concerns CARDIO -ECHO read pending -Acute diastolic CHF- IV Lasix 40 mg x2. Will cont monitor volume status and diurese as needed -Afib with RVR- per Cardiology, appeared to be in Afib on ECHO tele. no indication for systemic anticoagulation -3.125 of Coreg BID -Continue IV amiodarone per cardiology PULM -Sating well on 4L Oxymask. Normally does not use supplemental O2 at home. Will titrate to maintain O2>92% abd distended. Gas in colon on KUB -Discussed with Dr. Cole, NG placed to assist with decompression GI -GERD- Cont Zantac 150 -No other acute concerns -Reglan 10 mg p.o. 3 times daily for 1 week in hopes to assist with gastric emptying Constipation -GI consult ordered by Dr. Cole RENAL/ -Cr Stable, at baseline ENDO -Hyperglycemia ICU protocol -Hypothyroidism- cont synthroid 88 mcg LINES: PIV x2, Hughes DVT Prophylaxis: Lovenox Full Code I discussed with Dr. Cole. Patient mildly increased work of breathing yesterday, however, oxygen requirements unchanged. I agree with decompression of stomach, and constipation may be early ileus, and this can certainly compromise his respiratory mechanics. Cough present. Critical Care will sign off, please call for any changes in patient condition or continued respiratory compromise. Present on Admission?: No Subjective I was asked to see the patient today for increasing work of breathing. Slept poorly last night. Review of Systems Respiratory: as per Subjective / HPI, + cough, + pain on inspiration and + pain with cough Cardiovascular: + chest pain with activity Gastrointestinal: + constipation pain with swallowing Physical Exam Respiratory: normal respiratory effort and + tactile fremitus; no respiratory distress, no labored breathing, no retractions, does not use accessory muscles, no hyperresonance to percussion, no cough, not tachypneic, no grunting, no tripod positioning, no stridor and no paradoxical chest wall movement Auscultation: + bronchovesicular breath sounds Cardiovascular: Rate/Rhythm: regular rate Heart Sounds: normal S1 and normal S2 Musculoskeletal: +1 edema Results & Data Vital Signs (Past 12 Hours) Vital Signs Temp Pulse Pulse Resp BP BP Pulse Ox 02/21/19 15:11 36.8 C 88 24 130/83 93 02/21/19 11:35 36.9 C 89 28 H 131/80 91 02/21/19 08:00 86 02/21/19 07:07 37.1 C 92 H 25 H 108/74 92 02/21/19 04:40 37.3 C 88 22 125/77 92
--- NOTE | 2019-02-21 17:11 | Cardiology Progress Note ---
Date of Service February 21, 2019 Assessment & Plan (1) Acute diastolic CHF (congestive heart failure): LVEDP was only mildly elevated yesterday. He remains 6.3 L positive throughout his hospital stay in regards to fluid balance. Would be cautious with IV fluid administration. Will give another dose of Lasix 40 mg IV x1 now. Would try to keep his fluid balance negative each day. Monitor renal function and electrolytes closely. His degree of LVEDP during cardiac catheterization, does not match his chest x-ray and degree of symptoms that he has exhibited. Low-sodium diet. Strict I&Os. Daily weights. (2) Ventricular tachycardia: Brief episodes of nonsustained ventricular tachycardia noted during echocardiogram. Beta-neil currently on hold as he is NPO. He is also on amiodarone. (3) Atrial fibrillation with rapid ventricular response: Noted on telemetry on 02/19/2019. He converted to sinus rhythm on amiodarone. Recommend transitioning to p.o. amiodarone when okay with primary service. Would recommend amiodarone 200 mg twice daily for now but if he has recurrent atrial fibrillation, would continue loading dose. Because he is currently NPO, discussed with Dr. Cole, can continue IV amiodarone today. Atrial fibrillation may be due to postoperative state. Anticoagulation therapy not necessary at this time in this regard. (4) SOB (shortness of breath): Likely multifactorial. There is concern for pneumonitis, when discussing with Dr. Jimenez of the critical care team yesterday. Mildly elevated LVEDP and positive fluid balance, however LVEDP elevation would not likely account for his degree of distress yesterday or his chest x-ray findings. Will give another dose of Lasix today as he does appear mildly hypervolemic on exam and has positive fluid balance during this hospital stay of 6.3 L. Monitor renal function and electrolytes carefully. Disposition: I will be away from hospital for the next 2 days, please call Dr. Jaramillo for any questions or concerns. Patient care discussed with nursing staff and Dr. Cole. (5) ST elevation: Subjective He continues to feel short of breath. Overnight he had chest pain and worsening shortness of breath. Since then he has had an NG-tube placed to suction. He feels a little bit better with this. He has been receiving IV fluids throughout the day. He is now NPO. He denies syncope, near-syncope, palpitations, or worsening edema. Review of systems: As above. Physical Exam Physical Exam: Gen.: Mild respiratory distress. Alert. HEENT: Anicteric sclera. Neck: Mild JVD. Cardiac: Regular. Normal S1-S2. No audible murmurs, rubs, or gallops. Pulmonary: Decreased breath sounds at bases to mid lung holloway, right more so than left. Abdomen: Soft, nontender, nondistended. Abdomen is quiet. No bruits noted. Extremities: Trace bilateral lower extremity edema. No cyanosis. Psychiatric: Affect appears appropriate. Results & Data Vital Signs (Past 12 Hours) Vital Signs Temp Pulse Pulse Resp BP Pulse Ox 02/21/19 15:11 36.8 C 88 24 130/83 93 02/21/19 11:35 36.9 C 89 28 H 131/80 91 02/21/19 08:00 86 02/21/19 07:07 37.1 C 92 H 25 H 108/74 92 Intake & Output 02/19/19 02/20/19 02/21/19 02/22/19 06:59 06:59 06:59 06:59 Intake Total 2788.333 / 2788.333 2067.875 / 2067.875 1328.153 / 1328.153 282.082 / 282.082 Output Total 600 / 600 1450 / 1450 1156 / 1156 250 / 250 Balance 2188.333 / 2188.333 617.875 / 617.875 172.153 / 172.153 32.082 / 32.082 Weight 91.8 kg Laboratory Results Laboratory Results - last 24 hr 02/21/19 02/21/19 05:39 06:13 WBC 21.59 H RBC 3.93 L Hgb 13.8 L Hct 37.6 L MCV 95.7 MCH 35.1 H MCHC 36.7 H RDW Std Deviation 44.6 RDW Coeff of Paula 12.8 Plt Count 200 MPV 10.5 H Immature Gran % (Auto) 0.3 Neut % (Auto) 88.7 Lymph % (Auto) 2.3 [place] % (Auto) 8.7 Eos % (Auto) 0.0 Baso % (Auto) 0.0 Immature Gran # (Auto) 0.06 H Neut # (Auto) 19.15 H Lymph # (Auto) 0.50 L [place] # (Auto) 1.87 H Eos # (Auto) 0.00 Baso # (Auto) 0.01 Sodium 135 L Potassium 3.9 Chloride 102 Carbon Dioxide 27 Anion Gap 6.0 BUN 36 H Creatinine 1.15 Est Cr Clr Drug Dosing 62.2 Est GFR ( Amer) 71.2 Est GFR (Non-Af Amer) 61.5 BUN/Creatinine Ratio 31.1 H Glucose 125 H Calcium 9.3 Diagnostic Findings Telemetry personally reviewed: Sinus rhythm. Chest x-ray 02/21/2019: Hypoinflation. Small pleural effusions with perihilar and bibasilar opacities per Radiology.: ECG 02/21/2019: Normal sinus rhythm [address] elevation. Medications Administered Current Inpatient Medications Carvedilol (Coreg) 3.125 mg PO BID PRIYANK Stop: 03/22/19 20:59 Last Admin: 02/21/19 07:32 Dose: Not Given Documented by: Docusate Sodium (Colace) 100 mg PO BID PRIYANK Stop: 03/19/19 20:59 Last Admin: 02/21/19 07:32 Dose: Not Given Documented by: Enoxaparin Sodium (Lovenox) 40 mg SQ QAM [facility] Stop: 03/20/19 08:59 Last Admin: 02/21/19 09:47 Dose: 40 mg Documented by: Amiodarone HCl/Dextrose (Nexterone / D5w) 360 mg in 200 mls @ 16.667 mls/hr IV .Q12H [facility] Stop: 03/21/19 14:24 Last Admin: 02/21/19 13:55 Dose: 0.5 mg/min, 16.7 mls/hr Documented by: Lorazepam (Ativan) 0.25 mg in 0.5 mls @ 0.5 mls/min IV Q8H PRN PRN Reason: Anxiety Stop: 03/22/19 21:11 Potassium Chloride 10 meq/ (Dextrose/Sodium Chloride) 1,005 mls @ 80 mls/hr IV .[id number] [facility] Stop: 03/23/19 06:59 Last Admin: 02/21/19 07:32 Dose: 80 mls/hr Documented by: Levothyroxine Sodium 44 mcg/ (Syringe) 2.2 mls @ 2 mls/min IV HS PRIYANK Stop: 03/23/19 20:59 Ranitidine HCl 50 mg/ Dextrose 102 mls @ 200 mls/hr IV Q12 PRIYANK Stop: 03/23/19 08:59 Last Infusion: 02/21/19 10:52 Dose: Infused Documented by: Furosemide 40 mg/ Syringe 4 mls @ 4 mls/min IV ONE ONE Stop: 02/21/19 17:05 Ondansetron HCl (Zofran) 4 mg IV Q4 PRN PRN Reason: Nausea Stop: 03/20/19 00:00 Oxycodone HCl (Roxicodone Immediate Rel) 5 mg PO Q6H PRN PRN Reason: Pain Stop: 03/03/19 19:49 Last Admin: 02/18/19 10:36 Dose: 5 mg Documented by: Polyethylene Glycol (Miralax Powder Packet) 17 gm PO DAILY PRN PRN Reason: Constipation Stop: 03/21/19 12:10 Last Admin: 02/19/19 20:26 Dose: 17 gm Documented by: Tamsulosin HCl (Flomax) 0.4 mg PO [facility] Stop: 03/19/19 20:59 Last Admin: 02/20/19 21:28 Dose: 0.4 mg Documented by:
--- NOTE | 2019-02-21 17:13 | Progress Note ---
DATE: 02/21/2019 Mr. Stern was seen early this morning. The nurses called, they were quite concerned about him. On 4 liters of O2, his sats were in the low 90s; however, he simply could not catch his breath subjectively despite Ativan. He did not complain of pain. I am quite concerned about him on postoperative day #4. He has a distended abdomen, but has air all the way down to the colon. There is no evidence of a pneumothorax. The patient has been swallowing well; however, it appears that he may be getting a bit dry with BUN, creatinine and hemoglobin going up. For this reason, an NG tube was placed. Even though we have not drained much fluid, I believe it has drained air because he feels better. I had a very long discussion with the patient and his . He is moving air, but not as well as we would like. His abdomen is soft and his incisions are clean. He has a heart rate in the 80s and is in sinus rhythm. He did have a temperature of 37.3, his blood pressure has been fine. We made him n.p.o. after the NG tube was placed and started IV fluids on him. I remain quite concerned about him, but I do not think there is an indication to return this patient to the operating room and discussed this in detail with the patient and his . We will have Dr. Jimenez continue to follow him and continue to watch him in the intensive care setting.
[2019-02-21] MEDS ORDERED: FUROSEMIDE 40 MG in SYRINGE 0 ML IV ONE (17:15)
--- NOTE | 2019-02-21 17:58 | Consultation Report ---
DATE OF CONSULTATION: 02/21/2019 GASTROINTESTINAL CONSULTATION REASON FOR EVALUATION: Shortness of breath and gas distention following fundoplication. HISTORY OF PRESENT ILLNESS: The patient is a 78-year-old who had a known large hiatal hernia with symptoms consistent with intermittent gastric torsion. He has had periods of time where he was unable to swallow and he underwent a robotic-assisted laparoscopic fundoplication and repair of a diaphragmatic hernia on 02/17. Two days ago, the patient began experiencing shortness of breath and was in atrial fibrillation. This resolved with amiodarone, which he continues. He also had some intermittent episodes of ventricular tachycardia, which resolved and he is now taking a beta neil. He underwent an urgent cardiac cath, which showed some lypr-ox-wllsdwjw coronary disease but no blockages or evidence of an acute ND. He continues to be short of breath and was transferred to the intensive care unit, but is now back in the monitored unit. He continues to be short of breath. X-rays of the abdomen showed colonic distention in the transverse, splenic flexure and descending colon, but no major gas in the stomach or small intestine. He had a nasogastric tube placed earlier today in the right nostril. Subsequent KUB showed the tip of the nasogastric tube to be coiled back in the esophagus and not entering the stomach and the nasogastric output today has been very minimal. Also of note is that when he started having shortness of breath, his white count has gone up to the 20,000 range. PAST MEDICAL HISTORY: Remarkable for celiac disease and small bowel bacterial overgrowth, hypothyroidism, acid reflux. MEDICATIONS AT HOME: Vitamin D, vitamin B12, iron, folic acid, thyroxine and ranitidine. ALLERGIES: GLUTEN. FAMILY HISTORY: Mother has dementia, mother had breast cancer. SOCIAL HISTORY: The patient is and lives with his spouse. 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 Never smoked. Drinks alcohol occasionally. CURRENT REVIEW OF SYSTEMS: Shortness of breath at rest and surgical incisional pain. PHYSICAL EXAMINATION: GENERAL: The patient appears short of breath at rest. VITAL SIGNS: Respiratory rate is 24, blood pressure is 130/83, pulse 88, O2 saturation is 93% with a 5-liter nasal cannula in place. Fluid balance over the last 5 days is +6.2 liters. White count is 21.59, hemoglobin 13.8, platelets are 200,000. On physical exam, I tried to reposition his nasogastric tube into the stomach, but it would not pass through the lower esophageal sphincter and I eventually removed it as there is not really any gas in his stomach on his x-rays. NECK: Shows significantly distended jugular veins in the upright position. ABDOMEN: Shows robotic incisions which are clean and dry. There is just mild surgical tenderness throughout the abdomen. The abdomen is slightly distended but not markedly so. IMPRESSION AND PLAN: The patient has had some shortness of breath and some cardiac arrhythmias following his surgery. These cardiac arrhythmias have been corrected. He does appear to be volume overloaded based on his fluid balances recorded as well as his neck vein distention on physical examination. His chest x-ray, however, does not really show a lot of pulmonary edema. I am not overtly impressed with the amount of air in his digestive tract. There is some in the transverse and left side of the colon, but it is not a large amount that I would expect would cause this degree of shortness of breath. Since there is nothing in his upper digestive tract gas-henriquez, I have recommended discontinuing the nasogastric tube and placing a rectal tube to see if that will help decompress some of his gas in the lower digestive tract. We will recheck his abdominal film tomorrow and recommend continuing fluid diuresis per cardiology. I will continue to follow the patient.
[2019-02-21] MEDS: TAMSULOSIN HCL 0.4 MG CAP PO SCH (20:27)
[2019-02-21] MEDS: LEVOTHYROXINE SODIUM 44 MCG in SYRINGE 0 ML IV SCH (21:23)
[2019-02-21] MEDS ORDERED: MoRPHine SULFATE 2 MG/ML CARP ONE (22:38)
[2019-02-22] MEDS: AMIODARONE / D5W 360 MG/200 ML BAG IV SCH ×2 (02:01→13:48)
[2019-02-22 06:35] LABS: Hematocrit (blood only) 35.6 % (42-52); Hemoglobin 12.7 g/dL (14.0-18.0); Mean Corpuscular Hgb Conc 35.7 g/dL (32-36); Mean Corpuscular Volume 95.2 fL (80-100); Platelet Count 202 K/uL (130-400); RDW Coefficient of Variation 13.1 % (11.5-14.5); RDW Standard Deviation 45.2 fL (36.4-46.3); Red Blood Count 3.74 M/uL (4.7-6.1); White Blood Count 16.91 K/uL (4.8-10.8)
[2019-02-22 07:07] LABS: Albumin Level 2.1 gm/dl (3.4-5.0); BUN Creatinine Ratio 48.3 (10-20); Calcium 9.4 mg/dl (8.5-10.1); Creatinine Clr Calc Pharmacy 72.3 ml/min; Est GFR (African American) 86.5; Est GFR (Non-African American) 74.6; Phosphorus 2.4 mg/dl (2.5-4.9); Potassium 3.8 mmol/L (3.5-5.1)
--- NOTE | 2019-02-22 07:24 | XRay Report ---
XR KUB/Abdomen 1 view CLINICAL HISTORY: 78 years-old Male presenting with assess GI gas. TECHNIQUE: Single supine view of the abdomen was obtained. COMPARISON: 02/21/2019. FINDINGS: Gaseous distended bowel injecting over the epigastrium and mediastinum likely large hiatal hernia. Or al contrast noted within the large bowel, which is mildly distended. The ascending colon measures 10 cm in diameter.. No bowel obstruction. Suture material projects over the pelvis and right lower quadr ant likely indicating prior hernia repair. No gross pneumoperitoneum align for supine technique. The nasogastric tube has been removed. Allowing for bowel gas and stool, no calcifications to suggest nephrolithiasis. Degenerative changes of the spine. Pleural effusions greater on the right. Basilar atelectasis suspec heber also greater on the right. IMPRESSION: 1. Large hiatal hernia. 2. No bowel obstruction. Findings may suggest colonic ileus though the apparent degree of distention could be due to magnification. 3. Removal of the nasogastric tube. 4. Bilateral pleural effusions and bibasilar atelectasis right greater than left. Electronically signed by: Terry Abel M.D. 02/22/2019 7:22 AM
[2019-02-22] MEDS: DOCUSATE SODIUM 100 MG CAP PO SCH ×2 (08:19→21:13)
[2019-02-22] MEDS: CARVEDILOL 3.125 MG TAB PO SCH ×2 (08:19→20:30)
[2019-02-22] MEDS: ENOXAPARIN INJ 40 MG/0.4 ML SYR SQ SCH ×2 (08:21→09:07)
[2019-02-22] MEDS ORDERED: IOVERSOL 100ml IV PRN (08:54)
--- NOTE | 2019-02-22 09:23 | CT Scan Report ---
CT abd pelvis IV con only CLINICAL HISTORY: 78 years-old Male presenting with Abdominal distension/resp distress. TECHNIQUE: Multidetector CT of the abdomen and pelvis was performed after the administration of intra venous contrast. IV contrast: 94 mL of Optiray 320. One or more dose lowering techniques were used co nsistent with the principles of ALARA (as low as reasonably achievable), including automatic exposure control, mA or kV adjustment to individual patient size, and/or use of iterative reconstruction. COMPARISON: 07/30/2015. CT DOSE (mGy.cm): The estimated cumulative dose is 1892.23. FINDINGS: Pediatric Physiatrist topogram: Unremarkable. Lung bases: The left atrium is moderately compressed along the posterior wall.. Coronary artery calci fication. Resolution of pneumopericardium. An air-fluid level within the posterior mediastinum is con tiguous with the presumed recurrent hernia. Moderate right and [id number] left pleural effusio ns. Extensive bibasilar atelectasis which has increased from prior. Liver: Normal morphology. Multiple well-defined lesions likely hepatic cysts. Patent hepatic vasculat ure. Biliary: No intrahepatic or extrahepatic biliary ductal dilatation. Hyperdensity within the gallbladd er could suggest underlying gallbladder sludge. No evidence of tension within the physiologically dis tended gallbladder. Trace wall thickening likely also within the physiologic range. Pancreas: Moderate parenchymal atrophy. Spleen: Normal. Adrenal glands: Normal. Kidneys and ureters: Multiple parapelvic cysts on the left. Simple cyst in the right kidney. No nephr olithiasis or hydronephrosis. Ureters nondistended. Bladder: Bladder incompletely decompressed with a Hughes catheter. Circumferential bladder wall thicke tata suggested. Intraluminal gas related to catheterization. Pelvic organs: Prostate enlargement likely secondary to benign prostatic hyperplasia. Bowel: A rectal tube is in place, which abnormally distends the rectal wall and a splayed configurati on best appreciated on sagittal reformatted image. Presumably the wall is intact though severely thin anna. An intact wall is not definitively confirmed, however, the absence of surrounding inflammatory c hange suggests an intact wall. Oral contrast has transited to the left colon. Distention of the trans verse and right colon. The appendix is not visualized. Small bowel is also nonobstructed. Large recur rent hiatal hernia. The gastric wall within the thoracic cavity is severely thinned concerning for pe rforation. There is focal narrowing presumably at the diaphragmatic hiatus at the C series 7 image 71 ). Peritoneal cavity: Trace fluid in the pelvis is high density raising concern for dilute extravasated oral contrast. No free intraperitoneal gas though there is gas along the inguinal canals and superfic ially in the lower abdominal wall. Lymph nodes: No enlarged lymph nodes in the abdomen or pelvis. Vasculature: Atherosclerosis of the normal caliber abdominal aorta. IVC patent. Abdominal wall: Few foci of gas in the inferior abdominal wall as mentioned which are not contained w ithin the inguinal canals. Additional sites of infiltration in the subcutaneous tissue of anterior ab dominal wall may relate to medication menstruation. Mild body wall edema is noted. Musculoskeletal: Degenerative changes of the spine. IMPRESSION: 1. Recurrent large hiatal hernia. Air-fluid level within the posterior mediastinum contiguous with t he presumed recurrent hernia is suspicious for a gastric perforation of the herniated portion. 2. Bibasilar pleural effusions and extensive atelectasis with mass effect on the heart. 3. High density fluid in the pelvis. This can be seen in the setting of hemoperitoneum or extravasat ed oral contrast. This is favored to represent extravasated oral contrast though the site of extravas ation is not evident. 4. Unusual appearance of the rectal tube which distends the rectal wall. The configuration is concer tata for perforation of the rectum though there is no secondary inflammatory evidence to suggest perf oration. More likely this is distending the rectum and thinning the wall. 5. No bowel obstruction. Mildly distended colon may suggest colonic ileus. 6. Gallbladder sludge or vicarious excretion of contrast. Electronically signed by: Terry Abel M.D. 02/22/2019 9:21 AM
--- NOTE | 2019-02-22 09:32 | CT Scan Report ---
CT chest w con CLINICAL HISTORY: 78 years-old Male presenting with Worsening respiratory distress. TECHNIQUE: Multidetector CT imaging of the chest was performed after the administration of intravenou s contrast. IV contrast: 94 mL of Optiray 320. One or more dose lowering techniques were used consist ent with the principles of ALARA (as low as reasonably achievable), including automatic exposure cont rol, mA or kV adjustment to individual patient size, and/or use of iterative reconstruction. COMPARISON: 02/18/2019. CT DOSE (mGy.cm): The estimated cumulative dose is 1892.23 mGy.cm. FINDINGS: Shook Machine Operator topogram: Unremarkable. Soft tissues: Normal thyroid and thoracic inlet. No axillary, supraclavicular, mediastinal, or hilar lymphadenopathy. Trace atherosclerosis of the aorta. Main pulmonary artery enlarged measuring 3.9 cm in diameter. There is anterior displacement of the heart with mildly increased mass effect on the pos terior wall of the left atrium. Coronary artery calcification. Trace residual pneumopericardium. Sign ificant interval increase in bilateral pleural effusions, moderate on the right and small to moderate on the left. There is also a loculated air-fluid level in the posterior mediastinum. The reported Ni ssen hernia repair appears to have failed with recurrent herniation of the stomach. However, the intr athoracic portion of the stomach demonstrates an abnormal wall with pathologic thinning highly suspic ious for perforation. Furthermore, the continuity of the air-fluid level in the posterior mediastinum is further evidence of gastric perforation. It is difficult to connect the hernia sac with the dista l esophagus. Infiltration at the aortic hiatus may be postsurgical. Lungs and airways: No pneumothorax. The appearance of the airways may relate to an expiratory phase o f respiration versus mass effect from the hernia sac. Interval development of extensive atelectasis i ncreased over the degree of atelectasis on the prior exam primarily affecting the lower lobes. No foc al infiltrate in the aerated portion of the lungs. Musculoskeletal: Degenerative changes of the glenohumeral joints and spine. IMPRESSION: 1. Recurrent hernia sac with large air-fluid level in the posterior mediastinum/hernia sac. These fi ndings combined with an abnormally thin walled appearance of the intrathoracic stomach are highly con cerning for gastric perforation. Surgical consultation is advised. 2. Bilateral pleural effusions and increased bibasilar atelectasis. 3. Slight increased mass effect on the left atrium with persistent anterior displacement of the hear t. Near complete resolution of pneumopericardium. 4. Pulmonary artery hypertension. 5. Please see separately dictated CT of the abdomen and pelvis for additional findings that require attention. These findings were discussed with Dr. Carlos by Dr. Abel on 02/22/2019 9:31 AM. Electronically signed by: Terry Abel M.D. 02/22/2019 9:31 AM
--- NOTE | 2019-02-22 09:35 | Critical Care Progress Note ---
Date of Service February 22, 2019 Assessment & Plan (1) Admitted to intensive care unit: Reason Critically Ill: Acute respiratory failure PLAN: NEURO ICU CAM: NEGATIVE -No other acute concerns CARDIO -ECHO reviewed -Acute diastolic CHF- Remains over 6L positive fluid balance. Will cont monitor volume status and diurese as needed -Afib with RVR- per Cardiology, appeared to be in Afib on ECHO tele. No indication for systemic anticoagulation -3.125 of Coreg BID on hold while NPO -Continue IV amiodarone per cardiology PULM -Oxygen requirements have largely remained unchanged; however, pt noted to have increased WOB/SOB. This is likely multifactorial: constipation/early ileus, fluid overload -PleurX placed today to drain large right-sided fluid collection. Pt states that breathing is 'a lot better' s/p procedure -starting IV Zosyn, pleural fluid cx pending -Sating well on 6L Oxymask. Normally does not use supplemental O2 at home. Will titrate to maintain O2>92% -abd distended. Gas in colon on KUB -Discussed with GI, rectal tube to help decompress some of gas in lower digestive tract. Will likely remove soon given that it is in a difficult anatomic location as seen on CT GI -low sodium diet (when not NPO) given fluid balance -GERD- Cont Zantac 150 -Reglan 10 mg p.o. 3 times daily for 1 week in hopes to assist with gastric emptying RENAL/ -Cr Stable, at baseline ID -Zosyn as above -Cont trend fever curve. Afebrile at present ENDO -Hyperglycemia ICU protocol -Hypothyroidism- cont synthroid 88 mcg LINES: PIV x2, Hughes DVT Prophylaxis: Lovenox Full Code DISPO: ICU Supervising Physician Co-Signing Physician Notes Dr. Ramires was resident physician during care of patient. I separately evaluated patient for novak portions of the history and the exam. I was present during the critical portion of medical decision making, and I discussed the case with the resident. I generally agree with the findings and plan. I have personally spent 40 minutes of critical care time in the direct management of this patient. This is a life/limb threatening event. This includes time spent evaluating patient, direct bedside care, chart review, placing orders, interpretation of diagnostic studies, discussion with consultants, patient, and/or family members regarding treatment decisions, as well as other required patient management activities. This time is exclusive of all separately billable procedures, and teaching time and separate from and in addition to any other critical care service time. Subjective 78 y/o M found in bed this AM resting comfortably in NAD. No acute overnight events. Reports breathing feels about the same as yesterday. Pt does still appear to be belly breathing, sating well. PleurX done today, pt tolerated well. States that breathing much improved s/p procedure. No other acute concerns or complaints. Review of Systems Review of Systems: All systems reviewed & are unremarkable except as noted in HPI & below Physical Exam Constitutional: WD/WN, vitals as above ENMT: external ear and nose normal, oropharynx normal Respiratory: belly breathing Cardiovascular: RRR, no murmur, no edema Gastrointestinal (Abdomen): normal bowel sounds, soft, nontender, no hepatosplenomegaly Skin: no rashes, warm and dry Psychiatric: A+Ox3, euthymic affect Results & Data Vital Signs (Past 12 Hours) Vital Signs Temp Pulse Resp BP Pulse Ox 02/22/19 07:36 36.8 C 83 28 H 152/89 H 91 02/22/19 03:30 36.4 C L 77 26 H 110/72 94 02/21/19 23:02 37.0 C 86 34 H 138/83 92 Laboratory Results Laboratory Results - last 24 hr 02/22/19 02/22/19 05:58 05:58 WBC 16.91 H RBC 3.74 L Hgb 12.7 L Hct 35.6 L MCV 95.2 MCH 34.0 MCHC 35.7 RDW Std Deviation 45.2 RDW Coeff of Paula 13.1 Plt Count 202 MPV 10.0 Sodium 137 Potassium 3.8 Chloride 101 Carbon Dioxide 27 Anion Gap 9.0 BUN 48 H Creatinine 0.98 Est Cr Clr Drug Dosing 72.3 Est GFR ( Amer) 86.5 Est GFR (Non-Af Amer) 74.6 BUN/Creatinine Ratio 48.3 H Glucose 130 H Calcium 9.4 Phosphorus 2.4 L Albumin 2.1 L Medications Administered Current Inpatient Medications Carvedilol (Coreg) 3.125 mg PO BID [facility] Stop: 03/22/19 20:59 Last Admin: 02/22/19 08:19 Dose: Not Given Documented by: Docusate Sodium (Colace) 100 mg PO BID PRIYANK Stop: 03/19/19 20:59 Last Admin: 02/22/19 08:19 Dose: Not Given Documented by: Enoxaparin Sodium (Lovenox) 40 mg SQ QAM PRIYANK Stop: 03/20/19 08:59 Last Admin: 02/22/19 09:07 Dose: Not Given Documented by: Amiodarone HCl/Dextrose (Nexterone / D5w) 360 mg in 200 mls @ 16.667 mls/hr IV .Q12H PRIYANK Stop: 03/21/19 14:24 Last Admin: 02/22/19 02:01 Dose: 0.5 mg/min, 16.7 mls/hr Documented by: Lorazepam (Ativan) 0.25 mg in 0.5 mls @ 0.5 mls/min IV Q8H PRN PRN Reason: Anxiety Stop: 03/22/19 21:11 Potassium Chloride 10 meq/ (Dextrose/Sodium Chloride) 1,005 mls @ 80 mls/hr IV .[id number] [facility] Stop: 03/23/19 06:59 Last Admin: 02/22/19 09:42 Dose: Not Given Documented by: Levothyroxine Sodium 44 mcg/ (Syringe) 2.2 mls @ 2 mls/min IV HS [facility] Stop: 03/23/19 20:59 Last Admin: 02/21/19 21:23 Dose: 2 mls/min Documented by: Ranitidine HCl 50 mg/ Dextrose 102 mls @ 200 mls/hr IV Q12 PRIYANK Stop: 03/23/19 08:59 Last Infusion: 02/22/19 09:07 Dose: Infused Documented by: Ioversol (Optiray 320 100ml) 94 ml IV ONCE PRN PRN Reason: Interaction Checking Stop: 02/26/19 08:53 Last Admin: 02/22/19 08:55 Dose: 94 ml Documented by: Morphine Sulfate (Morphine Sulfate) 1 - 2 mg IV Q1H PRN PRN Reason: Shortness Of Breath Stop: 03/07/19 22:24 Ondansetron HCl (Zofran) 4 mg IV Q4 PRN PRN Reason: Nausea Stop: 03/20/19 00:00 Oxycodone HCl (Roxicodone Immediate Rel) 5 mg PO Q6H PRN PRN Reason: Pain Stop: 03/03/19 19:49 Last Admin: 02/18/19 10:36 Dose: 5 mg Documented by: Polyethylene Glycol (Miralax Powder Packet) 17 gm PO DAILY PRN PRN Reason: Constipation Stop: 03/21/19 12:10 Last Admin: 02/19/19 20:26 Dose: 17 gm Documented by: Tamsulosin HCl (Flomax) 0.4 mg PO HS PRIYANK Stop: 03/19/19 20:59 Last Admin: 02/21/19 20:27 Dose: Not Given Documented by: PG Care Time/CCT Critical Care Time: Yes Total Critical Care Time: 40 Resident Activity Tracking Resident Involvement: Resident Care Provided Care Provided: Adult Hospital Medicine
[2019-02-22] MEDS: POTASSIUM CHLORIDE 10 MEQ in D5W AND 1/2NSS 1,000 ML IV SCH ×2 (09:41→09:42)
[2019-02-22] MEDS: NORMOSOL-R 1,000 ML IV SCH (10:12)
--- NOTE | 2019-02-22 10:51 | Progress Note ---
DATE: 02/22/2019 ADDENDUM: I have reviewed the CT scan of the chest, abdomen and pelvis with Dr. Abel and Dr. Isidro Jimenez. Dr Cole is in the OR w another pt.I requested the patient be transferred to the unit this morning after my clinical examination and consultation. The repeat CT scan of the chest, abdomen and pelvis could suggest a gastric perforation given that the air-fluid level shows a very poorly demarcated line and border with the gastric silhouette with an air-fluid level spanning the posterior mediastinum /and/or pleural space. .This could reside in the pleural space itself thus would require drainage and diagnostic evaluation(transudate vs exudate?) I wonder about a micro- perforation from recurrent volvulous and torsion (an ischemic cause for perforation), but would like to run the films by Dr. Cole. He is in the operating room currently. I spoke with Dr. Jimenez who will be discussing the case with Dr. Cole momentarily. The bilateral pleural effusions with compressive atelectasis are no doubt contributing to his worsening respiratory distress. The rectal tube also appears to be in a somewhat difficult anatomic location and probably needs to be removed. In any event, I suspect the patient may require an exploratory procedure or at the very least a thoracentesis on the right or pleurx catheter placement or even thorascopic procedure. If the fluid is not sterile than the source and etiology of the bacterial seeding would warrant further scrutiny. MADINA
[2019-02-22] MEDS: MoRPHine SULFATE 2 MG/ML CARP IV PRN ×2 (12:11→20:38)
--- NOTE | 2019-02-22 12:14 | XRay Report ---
XR chest 1V portable CLINICAL HISTORY: 78 years-old Male presenting with s/p pleurx. TECHNIQUE: Portable upright AP view of the chest was obtained. COMPARISON: 02/21/2019. FINDINGS: There has been interval placement of a right pleural drain gas and fluid containing collection projec ting over the mid chest. Low lung volumes. Prominence of the thoracic aorta and cardiac silhouette as on prior. Extensive right mid to lower lung opacity with poor aeration as well as left lower lung op acity with poor aeration. No large pneumothorax. Degenerative changes of the shoulders and spine. Mil dly distended gas containing colon below the diaphragm. IMPRESSION: 1. Interval placement of a right pleural catheter within the gas and fluid containing thoracic colle ction. 2. Extensive bibasilar atelectasis. Electronically signed by: Terry Abel M.D. 02/22/2019 12:12 PM
--- NOTE | 2019-02-22 12:34 | Progress Note ---
DATE: 02/22/2019 Mr. Stern was seen today. Dr. Carlos kindly evaluated him and is concerned. We have discussed this. I have also discussed this with Dr. Jaramillo and Dr. Van from cardiology standpoint. Dr. Carlos saw him and has moved him down to the intensive care unit. I would have to disagree that the patient has evidence of a gastric perforation. His stomach looks very good to me. I am more concerned about his esophagus. We are going to drain this large right-sided fluid collection. It is actually in the mediastinum, but it is pushing on his lung. I am going to place a PleurX catheter and attached it to a Pleur-evac. I had a long discussion with the patient and his and his son. He actually does not look as bad now as he did this morning. The patient does wax and wane. It is also important to note that the patient has no small bowel dilatation. He does have some colonic dilatation with some contrast in his colon, but his stomach is completely decompressed. I tacked his stomach to the abdominal wall and this looks very good going up to the wrap. If the patient does have a perforation, it is from his esophagus which is concerning; however, this fluid has been there since right after surgery and was still at its base, although I think it has been causing a problem. I am going to drain this today after reviewing his CT scan. The patient, his and his son are in agreement.
--- NOTE | 2019-02-22 13:10 | Progress Note ---
DATE: 02/22/2019 SUBJECTIVE: The patient developed worsening shortness of breath this morning and was transferred to the intensive care unit. He had a chest and abdomen CT scan, which was interpreted by the radiologist, showing herniation of the stomach into the chest; however, the surgeon has demonstrated on the films that the stomach is tacked to the anterior abdominal wall and that the space is evacuated in the chest appears to be the hernia sac that has not been decompressed by expanding lung now that his stomach has been moved down to the abdominal cavity. The patient underwent a thoracentesis and placement of a chest tube at the bedside by Dr. Cole this morning. He had some brown liquid removed from this apparent hernia sac post-chest tube. Chest x-ray does show some decompression of that space with the chest tube in a drain site. There was fair amount of air that was evacuated from the site as well. The patient continues to be short of breath and having some right-sided chest pain at the time and will be getting some IV morphine. IMPRESSION: The patient has residual hernia sac in the chest cavity with air and fluid in it that it was tapped this morning and a chest tube left in place to drain it. Hopefully, the lung will expand into the space and will be able to breathe better. It does not appear that the stomach has herniated back into the chest as previously interpreted on the films. The fluid that was removed will be sent for analysis and I will continue to follow the patient.
[2019-02-22 13:12] LABS: Amylase Pleural Fluid 14 U/L; Glucose Pleural Fluid < 1 mg/dl; LDH Pleural Fluid 2482 U/L; Total Protein Pleural Fluid 3.3 g/dl
[2019-02-22 13:38] LABS: Appearance Pleural Fluid CLOUDY; Color Pleural Fluid AMBER; Mononuclear WBC Pleural 15.6 %; Polynuclear WBC Pleural 84.4 %; RBC Pleural Fluid (A) < 3000 /uL; Source Pleural Fluid RIGHT LUNG; WBC Pleural Fluid (A) 23 /uL
[2019-02-22] MEDS ORDERED: PIPERACILL/TAZOBAC CONSULT ACTIVE PRN (14:03)
[2019-02-22] MEDS ORDERED: PIPERACILLIN/TAZOBACTAM 3.375 GM in DEXTROSE 5% 100 ML IV SCH (14:15)
[2019-02-22] MEDS ORDERED: PIPERACILLIN/TAZOBACTAM 4.5 GM in DEXTROSE 5% 100 ML IV ONE (14:45)
[2019-02-22 20:06] LABS: iSTAT Allen Test Pass; iSTAT Arterial Blood Gas HCO3 29 meg/L (19-24); iSTAT Arterial Blood Gas pCO2 37 mmHg (35-46); iSTAT Arterial Blood Gas pH 7.51 (7.35-7.45); iSTAT Carbon Dioxide 31 mEq/l (24-31); iSTAT Hematocrit 34 % (42-52); iSTAT Hemoglobin 11.6 g/dl (14.0-18.0); iSTAT Potassium 3.4 mEq/L (3.3-5.0); iSTAT Site L Radial; iSTAT Sodium 135 mEq/L (135-144)
[2019-02-22] MEDS: PIPERACILLIN/TAZOBACTAM 4.5 GM in DEXTROSE 5% 100 ML IV SCH (20:16)
[2019-02-22] MEDS: LEVOTHYROXINE SODIUM 44 MCG in SYRINGE 0 ML IV SCH (20:35)
[2019-02-22] MEDS ORDERED: BISACODYL 10 MG SUPP PR STA (20:49)
[2019-02-22] MEDS: TAMSULOSIN HCL 0.4 MG CAP PO SCH (21:11)
--- NOTE | 2019-02-22 21:14 | Consultation Report ---
DATE OF CONSULTATION: 02/22/2019 REASON FOR CONSULTATION: Recent dyspnea post repair of paraesophageal hernia. 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 The patient states he has had a hiatal hernia for many years, was on ranitidine successfully, but the 2 tablets did not relieve his symptoms, and he became uncomfortable. He was short of breath at that time as well and had this chest pressure and was seen in the Emergency Room. Had a past history of anemia, celiac disease, GERD, colonic polyps, hypothyroidism and renal lithiasis as well as having undergone hammertoe correction for both feet and umbilical hernia repair. Initially, GI cocktail was given to him without efficacy and initially Dr. Jonathan Garcia of [facility] physician group general surgery and Dr. Cole was consulted. CAT scan of the chest done initially showed a very large hiatal hernia with the majority of the stomach within the thoracic cavity. The stomach was distended with debris filled material with marked narrowing about distal gastric body/antrum at the diaphragmatic hiatus with associated wall thickening, inflammatory stranding and trace fluid within this distribution suggestive of gastric outlet obstruction, small volume pneumoperitoneum surrounding the hernia sac extending into the abdominal right upper quadrant was noted suggestive of associated gastric perforation. Trace right pleural effusion with compressive atelectasis at the right lung base was noted. 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 The patient was admitted onto the hospitalist service. Dr. Cole did not feel the patient had had a gastric perforation. Dr. Isidro Rodriguez from GI was consulted. He did not feel there was a role for endoscopy for possible gastric perforation at that time. On 02/14/2019, the patient underwent decompression with less distention and was scheduled for robotic laparoscopic fundoplication and hiatal hernia repair on 02/17/2019. He was evaluated by anesthesia without issue on 02/17/2019 and admitted back to the hospital on 02/17/2019 for the procedure. Other alternatives including Herberth osteoplasty or gastropexy was also offered. Procedure was carried out with repair of the hiatal hernia and a laparoscopic Naomi fundoplication performed with a Bioabsorbable patch and gastropexy with EGD performed on 02/17/2019 at 1300. There was reinforcement of the crural repair with OviTex bioabsorbable mesh. The repair was difficult due to the size of the paraesophageal hernia. The stomach appeared to be volvulized, but viable with a meticulous takedown of the huge hernia sac performed. A crural repair was performed. The EGD was performed post repair with no difficulty or signs of gastric outlet obstruction. The EGD was performed because of concerns that the mucosa was hemorrhagic at the GE junction and he felt that the antrum may have had some torsion and thus used laparoscope to tack the stomach to the anterior abdominal wall for gastropexy. A suture was also utilized to make sure there was no twisting at the GE junction. That suture was between the right crura and the right fundus wrap. Postoperatively, the patient was mildly tachycardic. Saturations appeared adequate low flow O2. He was ambulating in the hallway later on within 24 hours, felt hungry. There was concern that the stomach appeared above the hiatus upon a possible diaphragmatic hernia, but it was unclear whether that existed. The patient was then seen on the by Dr. Van from cardiology when he became diaphoretic with worsening shortness of breath that morning with ST elevation throughout the precordium. Dr. Bruce was notified. 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 Aspirin was given. He found mild to moderate nonobstructive coronary artery disease without occlusive lesion. EKG findings were felt to be secondary to pericardial inflammation. He appeared to be hypovolemic and in mild distress, was given IV Lasix and the LVEDP was mildly elevated in the fish hatchery laborer. He had brief episodes of nonsustained ventricular tachycardia and treated with beta blockade. He also appeared to be in atrial fibrillation with a rapid ventricular response and amiodarone IV therapy was considered. When he was taken back to ICU, he was in sinus tachycardia. IV amiodarone was continued. He is also felt to be in acute diastolic CHF, seem more comfortable in the ICU setting, diuresis remained in sinus rhythm. The patient became further hypoxic on 02/19/2019. On 02/20/2019, he remained 6.2 liters positive with fluid balance, was given additional Lasix and nonsustained brief episode of ventricular tachycardia was noted, treated with beta blockade. Dr. Jimenez and the critical care team saw him, there was a question of pneumonitis. The patient has been quite short of breath ever since, he states since surgery, but certainly within the past 48 hours period. He has had 1 bowel movement apparently since surgery. Dr. Jimenez saw patient back in the ICU on 02/21. Rectal tube was recommended. The patient has become progressively more hypoxic, is currently on a 6 liter OxyMask now with saturations in the mid to high 80 percentile range. He is using accessory muscles of respiration and is clearly exhibiting labored breathing. He is unable to move without exertional dyspnea. The patient has been distended on this postoperative day 5. He has been swallowing, although he has an NG tube in place. He is afebrile. There was a question of whether patient should be taken back to the OR and I was asked to see patient in consultation by Dr. Cole. For details of past medical history, medications, family and social history, I refer you to current and past record. PHYSICAL EXAMINATION: GENERAL: Reveals well-developed, well-nourished white male. Tachypneic dyspneic at rest, lying flat, appearing quite apprehensive, struggling with his respirations. VITAL SIGNS: Blood pressure 152/89, pulse 83 and regular, respiratory rate 28-36, temperature 36.8, O2 sat 86-91% on 6 liters OxyMask. SKIN: Without lesion. HEENT: Atraumatic, normocephalic, PERRLA, EOMI. Conjunctivae pale. Sclerae nonicteric. LUNGS: Decreased breath sounds at both bases with some dullness. CARDIAC: Tachycardic rhythm. I do not appreciate a gallop. Left upper extremity is markedly swollen up to the shoulder with excellent pulse. ABDOMEN: Soft, protuberant distention, hypoactive bowel sounds. EXTREMITIES: Trace pedal edema everywhere else except the left upper extremity. NEUROLOGIC: Intact. LABORATORY DATA: CT scan of 02/18/2019 shows esophagus is distended and the GE junction is located above the diaphragm, the proximal stomach is distended with an air contrast level. The distal stomach and duodenum were located below the diaphragm. Small right and left pleural effusions are noted with pneumomediastinum and pneumopericardium and pneumoperitoneum, dense basilar consolidation, likely representing atelectasis is noted. White count 16,000, H&H 12.7 and 35.6, BUN 48, creatinine 0.98. Chest x-ray and CT scan as noted. ASSESSMENT: A 78-year-old white male recently underwent (postoperative day #5) status post laparoscopic Naomi fundoplication also with nonobstructive coronary disease. Apparently, EKG changes consistent with pericarditis and now with worsening dyspnea and now using accessory muscles of respiration, progressive hypoxemia. It is questionable whether the hiatal hernia remains but with no obvious bowel obstruction, ? colonic ileus but withsuggestion of bilateral (R>L) pleural effusions and bibasilar atelectasis is noted, worsening prerenal azotemia with positive fluid balance and worsening edema. The patient clearly is showing exhibiting signs of acute respiratory distress and suspect he is developing respiratory failure. My suspicion is patient may have a diaphragmatic hernia at this point perhaps a recurrence of the gastric volvulus, but will need to be transferred back to ICU and may need support with mechanical ventilation, perhaps even requiring additional surgical intervention. Will discuss further with Dr. Cole. MADINA
--- NOTE | 2019-02-22 23:10 | Operative Report ---
DATE OF OPERATION: 02/22/2019 DATE OF SURGERY: 02/22/2019 PREOPERATIVE DIAGNOSIS: Collection in hernia space, right chest. POSTOPERATIVE DIAGNOSIS: Collection in hernia space, right chest. PROCEDURE: Insertion of right PleurX catheter. SURGEON: Watson Cole MD PIPELINE DISPATCHER: Adan Ramires MD ANESTHESIA: Local. SPECIFICS OF PROCEDURE: After a long discussion with the patient, his son and his , we turned the patient into the left lateral decubitus position with his right chest up. At about the level of the scapular tip more medial, he was prepped and draped in usual sterile fashion. After appropriate timeout had been called and Dr. Ramires and I were both gowned and gloved with mask, we anesthetized the selected area using 1% Xylocaine with epinephrine 25 gauge needle. A large bore needle was then used to enter the cavity and we got some air, but also some dark brownish fluid. A guidewire was inserted through the needle and the needle removed. A 1 cm incision was made. Approximately 10 cm anterior to this, another 1 cm incision was made after anesthetizing with 1% Xylocaine with 25-gauge needle. A long needle was used to anesthetize subcutaneous tissues between these two. A tunneler was attached to PleurX catheter and dragged from the anterior to posterior incision. An introducer sheath with an inner cannula was slid over the guidewire into the cavity and then the inner cannula guidewire removed and the PleurX catheter inserted into the cavity and the peelaway catheter removed. Two separate 3-0 silk sutures were used to close the posterior incision and 2-0 silk suture was used to anchor the catheter to the patient's skin anteriorly. Approximately, 500 mL of a dark serous fluid was drained. I did not notice an odor. He then had some reexpansion pain, and we stopped. The PleurX catheter was attached to a Altagracia suction device. We put sterile dressings with antimicrobials dressing on it and an x-ray showed we had drained much of this. He had some pain with reexpansion. Saturations were maintained throughout the procedure. I attest to the content of the Intraoperative Record and any orders documented therein. Any exceptions are noted below. MADINA
[2019-02-23] MEDS: NORMOSOL-R 1,000 ML IV SCH ×2 (00:57→12:33)
[2019-02-23] MEDS: AMIODARONE / D5W 360 MG/200 ML BAG IV SCH ×2 (00:58→12:34)
[2019-02-23] MEDS ORDERED: BISACODYL 10 MG SUPP PR ONE (02:56)
[2019-02-23] MEDS ORDERED: BISACODYL 10 MG SUPP PR STA (02:57)
[2019-02-23] MEDS: MoRPHine SULFATE 2 MG/ML CARP IV PRN ×3 (03:06→22:45)
[2019-02-23] MEDS: PIPERACILLIN/TAZOBACTAM 4.5 GM in DEXTROSE 5% 100 ML IV SCH ×3 (04:10→20:57)
[2019-02-23 04:51] LABS: Basophils # (auto) 0.01 K/uL (0-0.2); Basophils % (auto) 0.1 %; Hemoglobin 12.1 g/dL (14.0-18.0); Immature Granulocytes % (auto) 1.6 %; Lymphocytes # (auto) 0.54 K/uL (1.2-3.4); Lymphocytes % (auto) 4.4 %; Mean Corpuscular Hgb Conc 34.6 g/dL (32-36); Mean Corpuscular Volume 94.3 fL (80-100); Mean Platelet Volume 9.9 fL (7.4-10.4); Monocytes # (auto) 2.18 K/uL (0.11-0.59); Monocytes % (auto) 17.9 %; Neutrophils # (auto) 9.24 K/uL (1.4-6.5); Platelet Count 204 K/uL (130-400); RDW Coefficient of Variation 13.4 % (11.5-14.5); RDW Standard Deviation 46.5 fL (36.4-46.3); Red Blood Count 3.71 M/uL (4.7-6.1); White Blood Count 12.17 K/uL (4.8-10.8)
[2019-02-23 05:09] LABS: Albumin Level 1.9 gm/dl (3.4-5.0); BUN Creatinine Ratio 42.5 (10-20); Calcium 8.8 mg/dl (8.5-10.1); Creatinine Clr Calc Pharmacy 77.1 ml/min; Est GFR (African American) 93.3; Est GFR (Non-African American) 80.5; Potassium 3.9 mmol/L (3.5-5.1)
[2019-02-23 05:41] LABS: Albumin Globulin Ratio 0.5 (0.9-2); Bilirubin,Total 1.3 mg/dl (0.2-1); Globulin 3.6 gm/dl (2.5-4.0); Phosphorus 2.7 mg/dl (2.5-4.9); Total Protein 5.5 gm/dl (6.4-8.2)
[2019-02-23] MEDS: DOCUSATE SODIUM 100 MG CAP PO SCH ×2 (07:43→21:06)
[2019-02-23] MEDS: CARVEDILOL 3.125 MG TAB PO SCH ×2 (07:43→20:58)
[2019-02-23] MEDS: ENOXAPARIN INJ 40 MG/0.4 ML SYR SQ SCH (07:54)
--- NOTE | 2019-02-23 07:58 | Critical Care Progress Note ---
Date of Service February 23, 2019 Assessment & Plan (1) Admitted to intensive care unit: Reason Critically Ill: Acute respiratory failure PLAN: NEURO ICU CAM: NEGATIVE -No other acute concerns CARDIO -ECHO reviewed -Acute diastolic CHF- Remains over 6L positive fluid balance. Will cont monitor volume status and diurese as needed -Afib with RVR- per Cardiology, appeared to be in Afib on ECHO tele. No indication for systemic anticoagulation -3.125 of Coreg BID on hold while NPO -Continue IV amiodarone per cardiology PULM -Oxygen requirements have largely remained unchanged; however, pt noted to have increased WOB/SOB. This is likely multifactorial: constipation/early ileus, fluid overload -PleurX placed today to drain large right-sided fluid collection. Pt states that breathing is 'a lot better' s/p procedure -starting IV Zosyn, pleural fluid cx shows gram variable bacilli thus far -Sating well on HFNC. Normally does not use supplemental O2 at home. Will titrate to maintain O2>92% -abd distended. Gas in colon on KUB -rectal tube removed today GI -low sodium diet (when not NPO) given fluid balance -GERD- Cont Zantac 150 -Reglan 10 mg p.o. 3 times daily for 1 week in hopes to assist with gastric emptying. Will also encourage pt to move, PT/OT placed. Will consider enema moving forward -Hypoalbuminemia- 2 doses 5% albumin today RENAL/ -Cr Stable, at baseline -Normosol at 80 ID -Zosyn as above -Cont trend fever curve. Afebrile at present ENDO -Hyperglycemia ICU protocol -Hypothyroidism- cont synthroid 88 mcg LINES: PIV x2, Hughes DVT Prophylaxis: Lovenox Full Code DISPO: ICU Supervising Physician Co-Signing Physician Notes Dr. Ramires was resident physician during care of patient. I separately evaluated patient for novak portions of the history and the exam. I was present during the critical portion of medical decision making, and I discussed the case with the resident. I generally agree with the findings and plan. Discussed with Dr. Cole, continue drainage out of thoracic drain. Respiratory status appears mildly improved compared to yesterday.At ICU care continue antibiotics. I have personally spent 35 minutes of critical care time in the direct ma nagement of this patient. This is a life/limb threatening event. This includes time spent evaluating patient, direct bedside care, chart review, placing orders, interpretation of diagnostic studies, discussion with consultants, patient, and/or family members regarding treatment decisions, as well as other required patient management activities. This time is exclusive of all separately billable procedures, and teaching time and separate from and in addition to any other critical care service time. Subjective 78 y/o M found in bed this AM resting comfortably in NAD. No reported acute overnight events. States that he feels breathing is easier today compared to yesterday. 1600 mL total drained thus far after PleurX insertion yesterday. No other acute concerns or complaints. Review of Systems Review of Systems: All systems reviewed & are unremarkable except as noted in HPI & below Physical Exam Constitutional: WD/WN, vitals as above ENMT: external ear and nose normal, oropharynx normal Respiratory: belly breathing, improved Cardiovascular: RRR, no murmur, no edema Gastrointestinal (Abdomen): normal bowel sounds, soft, nontender, no hepatosplenomegaly Skin: no rashes, warm and dry Psychiatric: A+Ox3, euthymic affect Results & Data Vital Signs (Past 12 Hours) Vital Signs Temp Pulse Pulse Resp BP Pulse Ox 02/23/19 06:01 63 14 96 02/23/19 06:00 62 13 106/62 96 02/23/19 05:01 63 13 98 02/23/19 05:00 64 13 111/69 96 02/23/19 04:01 63 13 97 02/23/19 04:00 65 14 97/65 L 97 02/23/19 03:59 64 16 97 02/23/19 03:13 71 22 94 02/23/19 03:12 36.6 C 71 25 H 121/71 94 02/23/19 02:01 64 16 99 02/23/19 02:00 65 16 112/66 98 02/23/19 01:00 67 17 123/71 97 02/23/19 00:11 68 18 93 02/23/19 00:01 37.1 C 69 16 94 02/23/19 00:00 68 14 121/82 94 02/22/19 23:00 70 15 118/77 93 02/22/19 22:01 71 14 95 02/22/19 22:00 70 14 122/67 95 07/13/19 21:01 72 14 96 02/22/19 21:00 72 14 115/70 95 02/22/19 20:51 76 02/22/19 20:20 77 22 95 02/22/19 20:01 78 24 93 02/22/19 20:00 36.6 C 78 25 H 131/79 94 Laboratory Results Laboratory Results - last 24 hr 02/22/19 02/22/19 02/22/19 12:10 16:05 19:52 WBC RBC Hgb POC Hgb 11.6 L Hct POC Hct 34 L MCV MCH MCHC RDW Std Deviation RDW Coeff of Paula Plt Count MPV Immature Gran % (Auto) Neut % (Auto) Lymph % (Auto) [place] % (Auto) Eos % (Auto) Baso % (Auto) Immature Gran # (Auto) Neut # (Auto) Lymph # (Auto) [place] # (Auto) Eos # (Auto) Baso # (Auto) Sample Site L Radial POC pH 7.51 H* POC pCO2 37 POC pO2 52 L POC HCO3 29 H POC Total CO2 31 POC Base Excess 6.0 H Dav Test Pass O2 Delivery Device SimpleMask POC Sodium 135 Sodium POC Potassium 3.4 Potassium Chloride Carbon Dioxide Anion Gap BUN Creatinine Est Cr Clr Drug Dosing Est GFR ( Amer) Est GFR (Non-Af Amer) BUN/Creatinine Ratio Glucose POC Glucose 102 H Calcium Phosphorus Total Bilirubin AST ALT Alkaline Phosphatase NT-Pro-B Natriuret Pep Total Protein Albumin Globulin Albumin/Globulin Ratio Pleural Fluid Source RIGHT LUNG Pleural Color SANDRA Pleural Appearance CLOUDY Pleural WBC 23 Pleural RBC < 3000 Pleural Polynuclear % 84.4 Pleural Mononuclear % 15.6 Pleural Total Protein 3.3 Pleural LDH 2482 Pleural Glucose < 1 Pleural Amylase 14 02/22/19 02/23/19 02/23/19 20:14 04:28 04:28 WBC 12.17 H RBC 3.71 L Hgb 12.1 L POC Hgb Hct 35.0 L POC Hct MCV 94.3 MCH 32.6 MCHC 34.6 RDW Std Deviation 46.5 H RDW Coeff of Paula 13.4 Plt Count 204 MPV 9.9 Immature Gran % (Auto) 1.6 Neut % (Auto) 76.0 Lymph % (Auto) 4.4 [place] % (Auto) 17.9 Eos % (Auto) 0.0 Baso % (Auto) 0.1 Immature Gran # (Auto) 0.20 H Neut # (Auto) 9.24 H Lymph # (Auto) 0.54 L [place] # (Auto) 2.18 H Eos # (Auto) 0.00 Baso # (Auto) 0.01 Sample Site POC pH POC pCO2 POC pO2 POC HCO3 POC Total CO2 POC Base Excess Dav Test O2 Delivery Device POC Sodium Sodium 138 POC Potassium Potassium 3.9 Chloride 102 Carbon Dioxide 31 Anion Gap 5.0 BUN 39 H Creatinine 0.92 Est Cr Clr Drug Dosing 77.1 Est GFR ( Amer) 93.3 Est GFR (Non-Af Amer) 80.5 BUN/Creatinine Ratio 42.5 H Glucose 122 H POC Glucose Calcium 8.8 Phosphorus 2.7 Total Bilirubin 1.3 H AST 14 L ALT 42 Alkaline Phosphatase 51 NT-Pro-B Natriuret Pep 642 Total Protein 5.5 L Albumin 1.9 L Globulin 3.6 Albumin/Globulin Ratio 0.5 L Pleural Fluid Source Pleural Color Pleural Appearance Pleural WBC Pleural RBC Pleural Polynuclear % Pleural Mononuclear % Pleural Total Protein Pleural LDH Pleural Glucose Pleural Amylase Medications Administered Current Inpatient Medications Carvedilol (Coreg) 3.125 mg PO BID PRIYANK Stop: 03/22/19 20:59 Last Admin: 02/23/19 07:43 Dose: Not Given Documented by: Docusate Sodium (Colace) 100 mg PO BID PRIYANK Stop: 03/19/19 20:59 Last Admin: 02/23/19 07:43 Dose: Not Given Documented by: Enoxaparin Sodium (Lovenox) 40 mg SQ QAM PRIYANK Stop: 03/20/19 08:59 Last Admin: 02/23/19 07:54 Dose: 40 mg Documented by: Amiodarone HCl/Dextrose (Nexterone / D5w) 360 mg in 200 mls @ 16.667 mls/hr IV .Q12H PRIYANK Stop: 03/21/19 14:24 Last Admin: 02/23/19 00:58 Dose: 0.5 mg/min, 16.7 mls/hr Documented by: Lorazepam (Ativan) 0.25 mg in 0.5 mls @ 0.5 mls/min IV Q8H PRN PRN Reason: Anxiety Stop: 03/22/19 21:11 Levothyroxine Sodium 44 mcg/ (Syringe) 2.2 mls @ 2 mls/min IV HS PRIYANK Stop: 03/23/19 20:59 Last Admin: 02/22/19 20:35 Dose: 2 mls/min Documented by: Ranitidine HCl 50 mg/ Dextrose 102 mls @ 200 mls/hr IV Q12 PRIYANK Stop: 03/23/19 08:59 Last Infusion: 02/23/19 08:33 Dose: Infused Documented by: Parenteral Electrolytes (Normosol-R) 1,000 mls @ 80 mls/hr IV .[id number] [facility] Stop: 03/24/19 10:14 Last Admin: 02/23/19 00:57 Dose: 80 mls/hr Documented by: Piperacillin Sod/Tazobactam (Sod 4.5 gm/ Dextrose) 120 mls @ 30 mls/hr IV Q8H [facility]; Protocol Stop: 03/01/19 19:59 Last Infusion: 02/23/19 07:55 Dose: Infused Documented by: Ioversol (Optiray 320 100ml) 94 ml IV ONCE PRN PRN Reason: Interaction Checking Stop: 02/26/19 08:53 Last Admin: 02/22/19 08:55 Dose: 94 ml Documented by: Metoclopramide HCl (Reglan) 10 mg IV Q8H [facility] Stop: 02/25/19 01:01 Miscellaneous Information (Consult) 1 ea N/A UD PRN PRN Reason: Consult Stop: 03/24/19 14:02 Morphine Sulfate (Morphine Sulfate) 1 - 2 mg IV Q1H PRN PRN Reason: Shortness Of Breath Stop: 03/07/19 22:24 Last Admin: 02/23/19 03:06 Dose: 2 mg Documented by: Ondansetron HCl (Zofran) 4 mg IV Q4 PRN PRN Reason: Nausea Stop: 03/20/19 00:00 Oxycodone HCl (Roxicodone Immediate Rel) 5 mg PO Q6H PRN PRN Reason: Pain Stop: 03/03/19 19:49 Last Admin: 02/18/19 10:36 Dose: 5 mg Documented by: Polyethylene Glycol (Miralax Powder Packet) 17 gm PO DAILY PRN PRN Reason: Constipation Stop: 03/21/19 12:10 Last Admin: 02/19/19 20:26 Dose: 17 gm Documented by: Tamsulosin HCl (Flomax) 0.4 mg PO HS PRIYANK Stop: 03/19/19 20:59 Last Admin: 02/22/19 21:11 Dose: Not Given Documented by: Resident Activity Tracking Resident Involvement: Resident Care Provided Care Provided: Adult Hospital Medicine
[2019-02-23] MEDS: METOCLOPRAMIDE HCL INJ 5 MG/ML 2 ML VIAL IV SCH ×3 (09:47→20:58)
--- NOTE | 2019-02-23 10:56 | Progress Note ---
DATE: 02/23/2019 HISTORY OF PRESENT ILLNESS: The patient is reporting much less shortness of breath today and no pain. He had a chest tube placed into the hernia sac in his right side of his chest yesterday when he was having so much trouble breathing. Chest and abdominal CT yesterday showed a large fluid filled cavity in the right side of the chest where the stomach had been. The stomach was in the abdomen intact to the anterior abdominal wall. The fluid that was removed was dark brown in color and appears to be transudate, is growing mixed bacteria and the patient is on Zosyn now. He has had 500 mL removed initially and another 1100 mL out overnight from this chest tube. He has not had anything to eat or drink since and will be getting a barium swallow tomorrow. OBJECTIVE: VITAL SIGNS: Show blood pressure 105/70, pulse 64, respirations down to 17. He is afebrile. Oxygen saturation is 97% on nasal oxygen. His fluid balance today is -600 mL. NECK: Neck veins are much less distended than they were previously. EXTREMITIES: Ankles showed only trace edema. ABDOMEN: Shows robotic scars that are healing. There is no tenderness. Chest x-ray today shows that the right-sided chest cavity still there with a tube curled in the cavity. Abdomen shows some gas in left side of his colon and contrast in left side of the colon. IMPRESSION AND PLAN: The patient is breathing better. Hernia sac is being drained and he is being covered with Zosyn for mixed bacteria. Cultures are pending. We will get a barium swallow tomorrow. He is on Reglan to try to improve his intestinal motility. If that does not work, then tomorrow he may benefit from an enema. The rectal tube has been removed. We will continue to follow the patient.
[2019-02-23] MEDS ORDERED: ALBUMIN 5% 250 ML IV ONE ×2 (11:00→18:00)
--- NOTE | 2019-02-23 11:23 | Progress Note ---
DATE: 02/23/2019 SUBJECTIVE: The patient was seen today. He was much more comfortable after having this drain placed yesterday. He denies pain. He is growing out a Gram negative bacilli from this fluid. He has remained afebrile. His white count is down to just over 12,000. His x-ray is better; however, he still has some pleural fluid it appears and I am concerned about this bacteria. By definition, he has a mediastinitis. It has been drained by the PleurX, which drained not only 500 mL or so when we started, but has drained another 1100 mL since that time. The patient was placed high flow nasal cannula last night. It was much more comfortable, he was able to sleep. PHYSICAL EXAMINATION: His vital signs are stable. His heart rate has been in the 60s without any evidence of ectopy. He remains on the amiodarone drip. He does sound better, although he still has rhonchi and decreased breath sounds on the right. ASSESSMENT AND PLAN: Postoperative day #6 status post repair of large paraesophageal hernia with respiratory distress afterwards. This does not appear to be due to any perforation, but I am going to check a barium swallow tomorrow to see. We are going to let him have clear water today. The PleurX catheter appears to be in correct position. It is in the space where the hernia was. This patient needs a thoracoscopy with widely opening of the space and cleaning this out; however, I do not think he is ready for that now. He is on 25 liters per minute high flow nasal cannula with 95% saturations, 50% FIO2. I would like to let this get a bit better. I have discussed this patient with Dr. Mickey Jimenez from Gastroenterology, Dr. Justin Jaramillo from Cardiology, and Dr. Sathya Carlos from Pulmonary. I have also discussed with the nursing staff. At this point, he appears better to me than yesterday and I would like to see him continue to improve.
--- NOTE | 2019-02-23 12:15 | Progress Note ---
DATE: 02/23/2019 Chart reviewed, patient examined. ASSESSMENT AND SUBJECTIVE: Much improved since PleurX catheter insertion and drainage of close to 1600 mL of serosanguineous and clearly exudative fluid. Improved oxygenation, although remains on Vapotherm high flow currently with adequate saturation, but exhibiting no signs of respiratory distress. The patient was started on IV Zosyn pending cultures with a Gram stain suggesting an infected pleural fluid.(Gram negative bacilli seen on Gram stain) I spoke with Dr. Cole at length concerning what transpired yesterday upon transfer to the unit. The patient is also being followed by Dr. Jimenez and Dr. Jimenez who both saw the patient in consultation. Barium swallow will be ordered for tomorrow and possible video-assisted thoracoscopy be done this week to better evaluate the right pleural space where the drainage catheter resides.(to be exact in the residual henia sac) A chest x-ray today shows more fluid residing in the fissure, but no longer is that air fluid level visible. There is a small amount of fluid on the left with basilar atelectasis as well, but all in all the film looks much better. Gram negative bacilli is seen in that fluid and the real question is how the pleural fluid got seeded and from where. Could we dealing with a microperforation of the stomach ? It is unclear, although that would seem less likely. EUGENED
--- NOTE | 2019-02-23 12:27 | XRay Report ---
SINGLE VIEW CHEST CLINICAL HISTORY: Respiratory distress. FINDINGS: An AP, portable, upright chest radiograph is compared to chest x-ray and chest CT dated 02/10. The examination is degraded by portable technique and patient rotation. The cardiomediastina l silhouette is unremarkable. A pleural catheter at the right lung base is unchanged from previous. T here are bilateral pleural effusions with associated bibasilar consolidation. This is unchanged from yesterday. No pneumothorax is seen. The skeletal structures are osteopenic. The bony thorax is grossl y intact. 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 The stomach projects posterior to the h eart. Enteric contrast is noted in the colon in the left upper quadrant. IMPRESSION: 1. A pleural catheter the right lung base is unchanged in position. 2. Bilateral pleural effusions with associated consolidation are again noted and not significantly ch anged from yesterday. Electronically signed by: Steven Mittal M.D. 02/23/2019 12:26 PM
[2019-02-23] MEDS: LEVOTHYROXINE SODIUM 44 MCG in SYRINGE 0 ML IV SCH (21:05)
[2019-02-24] MEDS: NORMOSOL-R 1,000 ML IV SCH ×2 (00:43→19:15)
[2019-02-24] MEDS: AMIODARONE / D5W 360 MG/200 ML BAG IV SCH ×3 (00:43→23:33)
[2019-02-24] MEDS: PIPERACILLIN/TAZOBACTAM 4.5 GM in DEXTROSE 5% 100 ML IV SCH ×3 (03:49→19:14)
[2019-02-24] MEDS: MoRPHine SULFATE 2 MG/ML CARP IV PRN (03:51)
[2019-02-24 04:43] LABS: INR 1.2 (0.9-1.1); Prothrombin Time 11.9 Seconds (9.0-12.0)
[2019-02-24 04:52] LABS: Creatinine Clr Calc Pharmacy 82.1 ml/min; Est GFR (African American) 101.1; Est GFR (Non-African American) 87.2
[2019-02-24 04:56] LABS: Phosphorus 2.8 mg/dl (2.5-4.9); Troponin I < 0.015 ng/ml (0-0.045)
[2019-02-24 06:42] LABS: Basophils # (auto) 0.02 K/uL (0-0.2); Basophils % (auto) 0.2 %; Hematocrit (blood only) 34.7 % (42-52); Hemoglobin 12.1 g/dL (14.0-18.0); Immature Granulocytes # (auto) 0.36 K/uL (0.00-0.02); Immature Granulocytes % (auto) 2.8 %; Lymphocytes # (auto) 0.84 K/uL (1.2-3.4); Lymphocytes % (auto) 6.4 %; Mean Corpuscular Hgb Conc 34.9 g/dL (32-36); Mean Corpuscular Volume 94.3 fL (80-100); Mean Platelet Volume 9.9 fL (7.4-10.4); Monocytes # (auto) 1.58 K/uL (0.11-0.59); Monocytes % (auto) 12.1 %; Neutrophils # (auto) 10.23 K/uL (1.4-6.5); Neutrophils % (auto) 78.5 %; Platelet Count 241 K/uL (130-400); RDW Coefficient of Variation 13.5 % (11.5-14.5); RDW Standard Deviation 46.8 fL (36.4-46.3); Red Blood Count 3.68 M/uL (4.7-6.1); White Blood Count 13.03 K/uL (4.8-10.8)
[2019-02-24 06:45] LABS: Blood Urea Nitrogen 31 mg/dl (7-18); Calcium 8.6 mg/dl (8.5-10.1); Chloride 102 mmol/L (98-107); Glucose 122 mg/dl (70-99); Potassium 3.4 mmol/L (3.5-5.1); Sodium 139 mmol/L (136-145)
--- NOTE | 2019-02-24 08:39 | Critical Care Progress Note ---
Date of Service February 24, 2019 Assessment & Plan (1) Acute respiratory failure with hypoxia: Reason Critically Ill: 78-year-old male s/p Naomi fundoplication for a hiatial hernia 02/17, and with MA s/p cardiac cath on 02/19 who is currently in respiratory distress secondary to suspected esophageal perforation. NEURO -[facility] ICU:NEGATIVE -Continue PRN oxy, morphine for pain CARDIAC -Echo 02/19-showed no wall motion abnormalities, EF 65-70%, mild concentric LVH. -Cardiac cath 02/19- showed mild-moderate nonobstructive CAD. -EKG currently normal sinus rhythm, Qtc:475 -Historically in a. fib with rvr. Hold Coreg. No systemic anticoagulation for it. -Continue amiodarone IV. RESPIRATORY -Pt still with significant SOB today. -Improving, and weaning O2 as tolerated -s/p right-sided PleurX placement--draining Serratia contaminated pleural fluid. -Continue Zosyn. -Barium swallow 02/24-small aspiration noted but no sajan extravasation noted; CT recommended. -CTA chest 02/24-shows small-mod bilat pleural effusions, lower lobe atelectasis/consolidation. Also suggests possible esophageal perforation. -Pt taken to OR once more for RVATS with washout and possible EGD with stent placement. GI -NPO except for ice chips -continue Reglan and Ranitidine, zofran as needed. RENAL//LYTES - -Potassium decreased today-replaced with KCl -Otherwise, no significant electrolyte derangement. -Continue maintenance fluids ENDO -ICU hyperglycemia protocol -Hypothyroidism- cont IV levothyroxine HEME -H&H stable -WBC still elevated, though downtrended from admission -will continue to monitor ID -On Zosyn for tolentino-sensitive Serratia infection of pleural effusion -Started on Caspofungin given new contrast extravasation and possible perforation. -Fungal cultures pending. INTEGUMENTARY -No concerns at this time LINES/IV ACCESS -PIVs intact. DVT PROPHYLAXIS -Lovenox 40mg SQ Thank you for allowing us to be part of this patient's care. Please refer to Dr. Jimenez's documentation for any further recommendations. Supervising Physician Co-Signing Physician Notes Dr. Thomason was resident physician during care of patient. I separately evaluated patient for novak portions of the history and the exam. I was present during the critical portion of medical decision making, and I discussed the case with the resident. I generally agree with the findings and plan. Underwent barium swallow and CT scan this morning. Concern for extravasation of contrast. Plan to go to the operating room this afternoon.Continue current antibiotic regimen. Paroxysmal atrial fibrillation, currently normal sinus rhythm no systemic anticoagulation only DVT prophylaxis at this time. Weaning oxygen as tolerated currently decreased oxygen requirements compared to yesterday.Currently n.p.o. Continue maintenance fluids at this time. Continue with Zosyn antibiotic coverage will expand antifungals to include caspofungin. Add fungal blood culture I have personally spent 45 minutes of critical care time in the direct management of this patient. This is a life/limb threatening event. This includes time spent evaluating patient, direct bedside care, chart review, placing orders, interpretation of diagnostic studies, discussion with consultants, patient, and/or family members regarding treatment decisions, as well as other required patient management activities. This time is exclusive of all separately billable procedures, and teaching time and separate from and in addition to any other critical care service time. Clinical update: 1800 patient returned from operating room in discontinuity. Discussed with anesthesiology at bedside I also discussed with Dr. Cole. I have personally spent 50 minutes of critical care time in the direct management of this patient. This is a life/limb threatening event. This includes time spent evaluating patient, direct bedside care, chart review, placing orders, interpretation of diagnostic studies, discussion with consultants, patient, and/or family members regarding treatment decisions, as well as other required patient management activities. This time is exclusive of all separately billable procedures, and teaching time and separate from and in addition to any other critical care service time. Subjective Pt states he does not feel well; complains of SOB. Also states that the K+ cub[place]. Review of Systems Review of Systems: All systems reviewed & are unremarkable except as noted in HPI & below Physical Exam Physical Exam: General: Alert, oriented. Uncomfortable, in distress HEENT: Nasal cannula in nares Chest: Nontender to palpation. CV: RRR Resp: Breath sounds clear but decreased at bases bilaterally, increased effort of breathing. Abdomen: Soft, nontender, No guarding. Extremities: Trace edema in lower extremities bilaterally. Results & Data Vital Signs (Past 12 Hours) Vital Signs Temp Pulse Pulse Resp BP Pulse Ox 02/24/19 07:44 71 18 94 02/24/19 06:01 68 16 94 02/24/19 06:00 69 18 120/73 95 02/24/19 05:50 71 22 93 02/24/19 05:00 68 15 99/61 L 96 02/24/19 04:01 74 21 93 02/24/19 04:00 74 19 111/71 94 02/24/19 03:01 70 33 H 94 02/24/19 03:00 36.5 C 71 42 H 129/66 94 02/24/19 02:19 71 21 93 02/24/19 02:01 70 20 93 02/24/19 02:00 70 22 114/61 94 02/24/19 01:00 69 28 H 114/59 L 94 02/24/19 00:01 69 28 H 94 02/24/19 00:00 36.5 C 69 31 H 99/57 L 95 02/23/19 23:01 73 29 H 94 02/23/19 23:00 73 28 H 116/63 94 02/23/19 22:53 78 22 95 02/23/19 22:01 77 22 95 02/23/19 22:00 78 24 134/70 95 02/23/19 21:00 77 21 132/70 95 Laboratory Results Laboratory Results - last 24 hr 02/24/19 02/24/19 02/24/19 04:15 04:15 04:15 WBC 13.03 H RBC 3.68 L Hgb 12.1 L Hct 34.7 L MCV 94.3 MCH 32.9 MCHC 34.9 RDW Std Deviation 46.8 H RDW Coeff of Paula 13.5 Plt Count 241 MPV 9.9 Immature Gran % (Auto) 2.8 Neut % (Auto) 78.5 Lymph % (Auto) 6.4 [place] % (Auto) 12.1 Eos % (Auto) 0.0 Baso % (Auto) 0.2 Immature Gran # (Auto) 0.36 H Neut # (Auto) 10.23 H Lymph # (Auto) 0.84 L [place] # (Auto) 1.58 H Eos # (Auto) 0.00 Baso # (Auto) 0.02 PT 11.9 INR 1.2 H Sodium 139 Potassium 3.4 L Chloride 102 Carbon Dioxide TNP Anion Gap TNP BUN 31 H Creatinine 0.79 Est Cr Clr Drug Dosing 82.1 Est GFR ( Amer) 101.1 Est GFR (Non-Af Amer) 87.2 BUN/Creatinine Ratio 39.0 H Glucose 122 H POC Glucose Calcium 8.6 Phosphorus 2.8 Troponin I < 0.015 02/24/19 11:42 WBC RBC Hgb Hct MCV MCH MCHC RDW Std Deviation RDW Coeff of Paula Plt Count MPV Immature Gran % (Auto) Neut % (Auto) Lymph % (Auto) [place] % (Auto) Eos % (Auto) Baso % (Auto) Immature Gran # (Auto) Neut # (Auto) Lymph # (Auto) [place] # (Auto) Eos # (Auto) Baso # (Auto) PT INR Sodium Potassium Chloride Carbon Dioxide Anion Gap BUN Creatinine Est Cr Clr Drug Dosing Est GFR ( Amer) Est GFR (Non-Af Amer) BUN/Creatinine Ratio Glucose POC Glucose 125 H Calcium Phosphorus Troponin I Medications Administered Home Medications [facility] Formula 1 cap PO [facility] 01/03/19 [History Confirmed 02/17/19] cholecalciferol (vitamin D3) [Vitamin D3] 2,000 unit PO QA 01/03/19 [History Confirmed 02/17/19] cyanocobalamin (vitamin B-12) [Vitamin B-12] 500 mcg PO QA 01/03/19 [History Confirmed 02/17/19] ferrous sulfate [Iron (ferrous sulfate)] 325 mg PO QAM 01/03/19 [History Confirmed 02/17/19] folic acid 0.8 mg PO [facility] 01/03/19 [History Confirmed 02/17/19] levothyroxine 88 mcg PO 01/03/19 [History Confirmed 02/17/19] ranitidine HCl 150 mg PO 01/03/19 [History Confirmed 02/17/19] calcium carbonate [Calcium 600] 600 mg PO DAILY 02/17/19 [History Confirmed 02/17/19] Active Medications Carvedilol (Coreg) 3.[address] [facility] Stop: 03/22/19 20:59 Last Admin: 02/24/19 11:30 Dose: Not Given Documented by: Docusate Sodium (Colace) [address] [facility] Stop: 03/19/19 20:59 Last Admin: 02/24/19 09:38 Dose: Not Given Documented by: Enoxaparin Sodium (Lovenox) 40 mg SQ QAM [facility] Stop: 03/20/19 08:59 Last Admin: 02/24/19 09:47 Dose: 40 mg Documented by: Amiodarone HCl/Dextrose (Nexterone / D5w) 360 mg in 200 mls @ 16.667 mls/hr IV .Q12H [facility] Stop: 03/21/19 14:24 Last Admin: 02/24/19 12:23 Dose: 0.5 mg/min, 16.7 mls/hr Documented by: Lorazepam (Ativan) 0.25 mg in 0.5 mls @ 0.5 mls/min IV Q8H PRN PRN Reason: Anxiety Stop: 03/22/19 21:11 Levothyroxine Sodium 44 mcg/ (Syringe) 2.2 mls @ 2 mls/min IV HS [facility] Stop: 03/23/19 20:59 Last Admin: 02/23/19 21:05 Dose: 2 mls/min Documented by: Ranitidine HCl 50 mg/ Dextrose 102 mls @ 200 mls/hr IV Q12 [facility] Stop: 03/23/19 08:59 Last Infusion: 02/24/19 10:25 Dose: Infused Documented by: Parenteral Electrolytes (Normosol-R) 1,000 mls @ 80 mls/hr IV .[id number] [facility] Stop: 03/24/19 10:14 Last Admin: 02/24/19 00:43 Dose: 80 mls/hr Documented by: Piperacillin Sod/Tazobactam (Sod 4.5 gm/ Dextrose) 120 mls @ 30 mls/hr IV Q8H [facility]; Protocol Stop: 03/01/19 19:59 Last Admin: 02/24/19 12:13 Dose: 30 mls/hr Documented by: Caspofungin 50 mg/ Sodium (Chloride) 260 mls @ 260 mls/hr IV DAILY@1200 [facility]; Protocol Stop: 03/27/19 11:59 Ioversol (Optiray 320 100ml) 94 ml IV ONCE PRN PRN Reason: Interaction Checking Stop: 02/26/19 08:53 Last Admin: 02/22/19 08:55 Dose: 94 ml Documented by: Metoclopramide HCl (Reglan) 10 mg IV Q8H [facility] Stop: 02/25/19 01:01 Last Admin: 02/24/19 11:25 Dose: 10 mg Documented by: Miscellaneous Information (Consult) 1 ea N/A UD PRN PRN Reason: Consult Stop: 03/24/19 14:02 Morphine Sulfate (Morphine Sulfate) 1 - 2 mg IV Q1H PRN PRN Reason: Shortness Of Breath Stop: 03/07/19 22:24 Last Admin: 02/24/19 03:51 Dose: 2 mg Documented by: Ondansetron HCl (Zofran) 4 mg IV Q4 PRN PRN Reason: Nausea Stop: 03/20/19 00:00 Oxycodone HCl (Roxicodone Immediate Rel) 5 mg PO Q6H PRN PRN Reason: Pain Stop: 03/03/19 19:49 Last Admin: 02/18/19 10:36 Dose: 5 mg Documented by: Polyethylene Glycol (Miralax Powder Packet) 17 gm PO DAILY PRN PRN Reason: Constipation Stop: 03/21/19 12:10 Last Admin: 02/19/19 20:26 Dose: 17 gm Documented by: Tamsulosin HCl (Flomax) 0.4 mg PO HS [facility] Stop: 03/19/19 20:59 Last Admin: 02/22/19 21:11 Dose: Not Given Documented by: PG Care Time/CCT Critical Care Time: Yes Total Critical Care Time: 95
[2019-02-24] MEDS: DOCUSATE SODIUM 100 MG CAP PO SCH (09:38)
--- NOTE | 2019-02-24 09:38 | XRay Report ---
XR chest 2V routine CLINICAL HISTORY: Status post the son fundoplication. Pleural effusion. COMPARISON STUDY: 02/23/2019 FINDINGS: The right-sided Pleurx catheter remains unchanged in position. The lateral views suggest a small loculated right-sided hydropneumothorax. There are small pleural effusions. There are basilar a telectatic changes. There is a midline gas collections suspicious for a hiatal hernia. There is no ov ert failure.[ IMPRESSION: 1. Small right-sided hydropneumothorax 2. No change in the position of the right-sided Pleurx catheter 3. Small left pleural effusion 4. Gas collection posterior to the stomach, likely secondary to a hiatal hernia 5. Basilar opacities likely atelectatic Electronically signed by: Taco Estrada M.D. 02/24/2019 9:36 AM
[2019-02-24] MEDS: POTASSIUM CHLORIDE / WTR 10 MEQ/100 ML PLCT IV SCH ×2 (09:46→11:24)
[2019-02-24] MEDS: ENOXAPARIN INJ 40 MG/0.4 ML SYR SQ SCH (09:47)
--- NOTE | 2019-02-24 09:47 | Fluoroscopy Report ---
FL barium swallow CLINICAL HISTORY: Status post Naomi fundoplication. Evaluate for perforation COMPARISON STUDY: Chest CT dated 02/22/2019, barium swallow dated 02/18/2019 FLUOROSCOPY TIME: 63 seconds. NUMBER OF FLUOROSCOPIC IMAGES: 10 FINDINGS: The patient was administered dilute water-soluble contrast. There is a small amount of aspi ration and the study was terminated. There is a large gastric bubble which appears to lie above the d iaphragm. A recurrent hiatal hernia is suspected. No definite extravasation is identified. There is b asilar atelectasis/consolidation. If further evaluation is desired, a CT scan of the chest would be s uggested. IMPRESSION: 1. Technically limited study 2. A recurrent hiatal hernia is suspected 3. No definite extravasation Electronically signed by: Taco Estrada M.D. 02/24/2019 9:45 AM
--- NOTE | 2019-02-24 11:11 | CT Scan Report ---
CT chest wo con CLINICAL HISTORY: hiatal hernia repair; ? Contrast extravasation COMPARISON STUDY: 02/22/2019 CT DOSE: TECHNIQUE: CT of the thorax was performed from the thoracic inlet to the lung bases. Images were acq uired following the oral ingestion of dilute Optiray 300. Images are reviewed in the axial, sagittal, and coronal planes. IV contrast was not administered for this examination. A dose lowering techniqu e was utilized adhering to the principles of ALARA. FINDINGS: Thyroid: Imaged portions of the thyroid gland are normal in appearance. Thoracic aorta: The ascending thoracic aorta measures 36 mm. Heart: The heart is mildly enlarged. There are coronary artery calcifications. There is a trace peric ardial effusion. Lungs and pleural spaces: There is a right-sided Pleurx catheter present. There are nnaed-ti-hilnfiul bilateral pleural effusions. There are bilateral lower lobe atelectatic changes. There are foci of i ncreased density within the right lower lobe consistent with aspirated contrast. There are small locu les of air present within the right pleural space. Mediastinum: Mediastinal lymph nodes are the upper limits of normal in size. There is an 18 cm energy scheduler ior mediastinal air-fluid collection containing orally administered contrast. As this structure does not demonstrate definitive gastric wall, and given that the stomach is visualized below the diaphragm , the findings are concerning for a perforation with a posterior mediastinal collection. Bianca: Clear. Axilla: Clear. Upper abdomen: Partially visualized upper abdominal viscera is within normal limits. Skeletal structures: There are no lytic or blastic osseous lesions. IMPRESSION: 1. 18 cm posterior mediastinal air-fluid collection containing orally administered contrast. Given th at this structure does not demonstrate definitive gastric wall, and given that the stomach is visuali zed below the diaphragm, the findings are concerning for perforation with a posterior mediastinal col lection 2. [id number] bilateral pleural effusions with lower lobe atelectasis/consolidation 3. Right-sided Pleurx catheter. Electronically signed by: Taco Estrada M.D. 02/24/2019 11:10 AM
[2019-02-24] MEDS: METOCLOPRAMIDE HCL INJ 5 MG/ML 2 ML VIAL IV SCH ×2 (11:25→18:58)
[2019-02-24] MEDS: CARVEDILOL 3.125 MG TAB PO SCH (11:30)
[2019-02-24] MEDS ORDERED: CASPOFUNGIN 70 MG in SODIUM CHLORIDE 0.9% 250 ML IV STA (11:35)
[2019-02-24] MEDS ORDERED: fentaNYL citrate 100 MCG/2 ML VIAL ONE (12:23)
--- NOTE | 2019-02-24 12:24 | Surgery Progress Note ---
Date of Service February 24, 2019 Assessment & Plan (1) Hernia, hiatal: -pt. underwent robotic repair of hiatal hernia with fundoplication on 02/17/19 -right pleural effusion noted post-op: -pleurex catheter placed adn fluid cultures, which grew Serratia (tolentino- sensitive, pt. receiving IV zosyn) -pt. has had multiple swallowing studies/CT scan post-op -concern has ivana noted for possible rupture of hiatal hernia repair or contrast extravasation, however most recent chest CT scan from today (performed with oral contrast) showed stomach is below diaphragm however concern noted for large fluid collection on right posterior mediastinum raising concern for leak -due to CT scan findings plan is to take pt. to OR today for RVATS with washout, possible EGD with stent -family has been updated multiple times in via phone and in person Subjective Pt. denies abdominal pain or N/V. Passing small amount of flatus. He does note SOB with exertion Physical Exam Constitutional: + ill appearing Respiratory: BS are decreased at right base Gastrointestinal (Abdomen): soft, non-tender to palpation Musculoskeletal: no calf tenderness Results & Data Vital Signs (Past 12 Hours) Vital Signs Temp Pulse Pulse Resp BP Pulse Ox 02/24/19 07:44 71 18 94 02/24/19 06:01 68 16 94 02/24/19 06:00 69 18 120/73 95 02/24/19 05:50 71 22 93 02/24/19 05:00 68 15 99/61 L 96 02/24/19 04:01 74 21 93 02/24/19 04:00 74 19 111/71 94 02/24/19 03:01 70 33 H 94 02/24/19 03:00 36.5 C 71 42 H 129/66 94 02/24/19 02:19 71 21 93 02/24/19 02:01 70 20 93 02/24/19 02:00 70 22 114/61 94 02/24/19 01:00 69 28 H 114/59 L 94
[2019-02-24] MEDS ORDERED: BUPIVACAINE 0.5 % 5 MG/1 ML MPF 30ML VIAL ONE (12:30)
[2019-02-24] MEDS ORDERED: SODIUM CHLORIDE 0.9% PF 50 ML VIAL ONE (12:31)
[2019-02-24] MEDS ORDERED: BUPIVACAINE LIPOSOME 1.3% 266 MG/20 ML VIAL ONE (12:31)
--- NOTE | 2019-02-24 12:45 | History & Physical Bridge Note ---
Date of Service February 24, 2019 History & Physical Bridge Note I have examined the patient, reviewed the History & Physical and in the interval since the performance of the History & Physical I have noted the following changes of clinical significance: no changes noted
--- NOTE | 2019-02-24 12:49 | Cardiology Progress Note ---
Date of Service February 24, 2019 Assessment & Plan (1) Acute diastolic CHF (congestive heart failure): He initially appeared to be in acute diastolic CHF and had mildly elevated LVEDP. There was initial improvement with IV diuretics but his breathing otherwise has remained an issue. He has had pleural fluid removed which is growing Serratia. (2) Ventricular tachycardia: Brief episodes of nonsustained ventricular tachycardia noted during echocardiogram. He is also on amiodarone. (3) Atrial fibrillation with rapid ventricular response: Noted on telemetry on 02/19/2019. He converted to sinus rhythm on amiodarone. Recommend transitioning to amiodarone 200 mg p.o. b.i.d. when able, to be determined by primary service/critical care team. Anticoagulation therapy not necessary for postop atrial fibrillation. (4) SOB (shortness of breath): Not likely due to heart failure at this point. When reviewing chart, it appears as though he will be going back to operating room today. As per primary service, pulmonology, and critical care team. Disposition: Cardiology will follow peripherally. Please call with any other questions or concerns in the meantime. I will be away from the hospital tomorrow but Dr. Fisher will be covering. Please call him with any questions or concerns. Patient care discussed today with Dr. Jimenez of the critical care team. (5) ST elevation: Subjective He was seen today after returning from radiologic testing. He visibly appears short of breath. He states that his breathing has worsened this morning and he felt better overnight and he attributes this to pain medication that relaxed his breathing. He feels a sloshing in his chest ever since drinking barium earlier this morning. He denies actual chest pain. He denies syncope, palpitations, edema, or bleeding. He has been receiving small amounts of maintenance IV fluids. He has been evaluated by pulmonology and is currently in the ICU. Right pleurex catheter in place. Review of systems: As above. Physical Exam Physical Exam: Gen.: Mildly tachypneic. Alert. HEENT: Anicteric sclera. Neck: No definite JVD however difficult exam as he is tachypneic. Cardiac: Regular. Normal S1-S2. No audible murmurs, rubs, or gallops. Pulmonary: Decreased breath sounds. Abdomen: Abdomen is quiet. No bruits noted. Extremities: No significant edema. No cyanosis. Psychiatric: Affect appears appropriate. Results & Data Vital Signs (Past 12 Hours) Vital Signs Temp Pulse Pulse Resp BP BP Pulse Ox 02/24/19 12:24 36.9 C 70 22 139/82 93 02/24/19 07:44 71 18 94 02/24/19 06:01 68 16 94 02/24/19 06:00 69 18 120/73 95 02/24/19 05:50 71 22 93 02/24/19 05:00 68 15 99/61 L 96 02/24/19 04:01 74 21 93 02/24/19 04:00 74 19 111/71 94 02/24/19 03:01 70 33 H 94 02/24/19 03:00 36.5 C 71 42 H 129/66 94 02/24/19 02:19 71 21 93 02/24/19 02:01 70 20 93 02/24/19 02:00 70 22 114/61 94 02/24/19 01:00 69 28 H 114/59 L 94 Intake & Output 02/22/19 02/23/19 02/24/19 02/25/19 06:59 06:59 06:59 06:59 Intake Total 1394.749 / 6445.273 1089.483 / 0243.864 5815.053 / 3479.053 516.833 / 516.833 Output Total 900 / 900 2200 / 2200 1575 / 1575 Balance 494.749 / 494.749 -484.517 / -378.441 6488.053 / 1904.053 516.833 / 516.833 Weight 89.9 kg 86.1 kg 86.8 kg Laboratory Results Laboratory Results - last 24 hr 02/24/19 02/24/19 02/24/19 04:15 04:15 04:15 WBC 13.03 H RBC 3.68 L Hgb 12.1 L Hct 34.7 L MCV 94.3 MCH 32.9 MCHC 34.9 RDW Std Deviation 46.8 H RDW Coeff of Paula 13.5 Plt Count 241 MPV 9.9 Immature Gran % (Auto) 2.8 Neut % (Auto) 78.5 Lymph % (Auto) 6.4 [place] % (Auto) 12.1 Eos % (Auto) 0.0 Baso % (Auto) 0.2 Immature Gran # (Auto) 0.36 H Neut # (Auto) 10.23 H Lymph # (Auto) 0.84 L [place] # (Auto) 1.58 H Eos # (Auto) 0.00 Baso # (Auto) 0.02 PT 11.9 INR 1.2 H Sodium 139 Potassium 3.4 L Chloride 102 Carbon Dioxide TNP Anion Gap TNP BUN 31 H Creatinine 0.79 Est Cr Clr Drug Dosing 82.1 Est GFR ( Amer) 101.1 Est GFR (Non-Af Amer) 87.2 BUN/Creatinine Ratio 39.0 H Glucose 122 H POC Glucose Calcium 8.6 Phosphorus 2.8 Troponin I < 0.015 02/24/19 11:42 WBC RBC Hgb Hct MCV MCH MCHC RDW Std Deviation RDW Coeff of Paula Plt Count MPV Immature Gran % (Auto) Neut % (Auto) Lymph % (Auto) [place] % (Auto) Eos % (Auto) Baso % (Auto) Immature Gran # (Auto) Neut # (Auto) Lymph # (Auto) [place] # (Auto) Eos # (Auto) Baso # (Auto) PT INR Sodium Potassium Chloride Carbon Dioxide Anion Gap BUN Creatinine Est Cr Clr Drug Dosing Est GFR ( Amer) Est GFR (Non-Af Amer) BUN/Creatinine Ratio Glucose POC Glucose 125 H Calcium Phosphorus Troponin I Diagnostic Findings Telemetry personally reviewed: Sinus rhythm. ECG personally reviewed: ECG 02/24/2019: Sinus rhythm 72 bpm. QTC acceptable. Medications Administered Current Inpatient Medications Carvedilol (Coreg) 3.125 mg PO BID [facility] Stop: 03/22/19 20:59 Last Admin: 02/24/19 11:30 Dose: Not Given Documented by: Docusate Sodium (Colace) 100 mg PO BID [facility] Stop: 03/19/19 20:59 Last Admin: 02/24/19 09:38 Dose: Not Given Documented by: Enoxaparin Sodium (Lovenox) 40 mg SQ QAM [facility] Stop: 03/20/19 08:59 Last Admin: 02/24/19 09:47 Dose: 40 mg Documented by: Amiodarone HCl/Dextrose (Nexterone / D5w) 360 mg in 200 mls @ 16.667 mls/hr IV .Q12H [facility] Stop: 03/21/19 14:24 Last Admin: 02/24/19 12:23 Dose: 0.5 mg/min, 16.7 mls/hr Documented by: Lorazepam (Ativan) 0.25 mg in 0.5 mls @ 0.5 mls/min IV Q8H PRN PRN Reason: Anxiety Stop: 03/22/19 21:11 Levothyroxine Sodium 44 mcg/ (Syringe) 2.2 mls @ 2 mls/min IV HS [facility] Stop: 03/23/19 20:59 Last Admin: 02/23/19 21:05 Dose: 2 mls/min Documented by: Ranitidine HCl 50 mg/ Dextrose 102 mls @ 200 mls/hr IV Q12 [facility] Stop: 03/23/19 08:59 Last Infusion: 02/24/19 10:25 Dose: Infused Documented by: Parenteral Electrolytes (Normosol-R) 1,000 mls @ 80 mls/hr IV .[id number] [facility] Stop: 03/24/19 10:14 Last Admin: 02/24/19 00:43 Dose: 80 mls/hr Documented by: Piperacillin Sod/Tazobactam (Sod 4.5 gm/ Dextrose) 120 mls @ 30 mls/hr IV Q8H [facility]; Protocol Stop: 03/01/19 19:59 Last Admin: 02/24/19 12:13 Dose: 30 mls/hr Documented by: Caspofungin 50 mg/ Sodium (Chloride) 260 mls @ 260 mls/hr IV DAILY@1200 [facility]; Protocol Stop: 03/27/19 11:59 Ioversol (Optiray 320 100ml) 94 ml IV ONCE PRN PRN Reason: Interaction Checking Stop: 02/26/19 08:53 Last Admin: 02/22/19 08:55 Dose: 94 ml Documented by: Metoclopramide HCl (Reglan) 10 mg IV Q8H [facility] Stop: 02/25/19 01:01 Last Admin: 02/24/19 11:25 Dose: 10 mg Documented by: Miscellaneous Information (Consult) 1 ea N/A UD PRN PRN Reason: Consult Stop: 03/24/19 14:02 Morphine Sulfate (Morphine Sulfate) 1 - 2 mg IV Q1H PRN PRN Reason: Shortness Of Breath Stop: 03/07/19 22:24 Last Admin: 02/24/19 03:51 Dose: 2 mg Documented by: Ondansetron HCl (Zofran) 4 mg IV Q4 PRN PRN Reason: Nausea Stop: 03/20/19 00:00 Oxycodone HCl (Roxicodone Immediate Rel) 5 mg PO Q6H PRN PRN Reason: Pain Stop: 03/03/19 19:49 Last Admin: 02/18/19 10:36 Dose: 5 mg Documented by: Polyethylene Glycol (Miralax Powder Packet) 17 gm PO DAILY PRN PRN Reason: Constipation Stop: 03/21/19 12:10 Last Admin: 02/19/19 20:26 Dose: 17 gm Documented by: Tamsulosin HCl (Flomax) 0.4 mg PO HS [facility] Stop: 03/19/19 20:59 Last Admin: 02/22/19 21:11 Dose: Not Given Documented by:
--- NOTE | 2019-02-24 13:04 | Anesthesiology Consultation ---
Date of Service February 24, 2019 Assessment & Plan Chart Review Chart Review: Acceptable Risk for Surgery and Patient NOT seen in Pre Admission Testing Consults Requested none ASA [id number] Proposed Anesthesia Anesthesia Type: General Anesthesia Line Insertion: Arterial line and Central Venous Catheter Risk / Benefits Reviewed With: PT / POA / Parent / Guardian, Accepts Plan and Informed Consent Obtained History Surgery Operation Date: 02/17/19 13:00 Proposed Procedures p Robotic Laparoscopic Fundoplication, Repair of Hiatal Hernia, - Watson Cole MD, FACS s Esophagogastroduodenoscopy - Watson Cole MD, FACS Operation Date: 02/19/19 08:00 Proposed Procedures p Cardiac Cath Procedure - Ayan Bruce MD Operation Date: 02/24/19 16:25 Proposed Procedures p Right Video Assisted Thoracoscopy with Drainage of Mediastinal Fluid - Watson Cole MD, FACS Height/Weight Height: 5 ft 10 in Weight: 86.8 kg Allergies Allergy/AdvReac Type Severity Reaction Status Date / Time gluten Allergy Mild Gastrointestinal Verified 02/13/19 08:46 Upset Medications Home Medications Medication Instructions Recorded Confirmed Last Taken Macular Health Formula 1 cap PO [facility] 01/03/19 02/17/19 02/16/19 07:30 cholecalciferol (vitamin D3) 2,000 unit PO [facility] 01/03/19 02/17/19 02/16/19 07:30 [Vitamin D3] cyanocobalamin (vitamin B-12) 500 mcg PO QA 01/03/19 02/17/19 02/16/19 07:30 [Vitamin B-12] ferrous sulfate [Iron (ferrous 325 mg PO [facility] 01/03/19 02/17/19 02/16/19 07:30 sulfate)] folic acid 0.8 mg PO QAM 01/03/19 02/17/19 02/16/19 07:30 levothyroxine 88 mcg PO 01/03/19 02/17/19 02/16/19 22:00 ranitidine HCl 150 mg PO 01/03/19 02/17/19 02/16/19 22:00 calcium carbonate [Calcium 600] 600 mg PO DAILY 02/17/19 02/17/19 02/16/19 07:30 Active Medications Generic Name Dose Route Start Last Admin Trade Name Freq PRN Reason Stop Dose Admin Carvedilol 3.125 mg 02/20/19 21:00 02/24/19 11:30 Coreg PO 03/22/19 20:59 Not Given BID PRIYANK Docusate Sodium 100 mg 02/17/19 21:00 02/24/19 09:38 Colace PO 03/19/19 20:59 Not Given BID PRIYANK Enoxaparin Sodium 40 mg 02/18/19 09:00 02/24/19 09:47 Lovenox SQ 03/20/19 08:59 40 mg QAM PRIYANK Administration Amiodarone HCl/Dextrose 360 mg in 200 mls @ 16.667 mls/hr 02/19/19 14:25 02/24/19 12:23 Nexterone / D5w IV 03/21/19 14:24 0.5 mg/min .Q12H PRIYANK 16.7 mls/hr Administration 0.5 MG/MIN Levothyroxine Sodium 44 mcg/ 2.2 mls @ 2 mls/min 02/21/19 21:00 02/23/19 21:05 Syringe IV 03/23/19 20:59 2 mls/min HS PRIYANK Administration Ranitidine HCl 50 mg/ Dextrose 102 mls @ 200 mls/hr 02/21/19 09:00 02/24/19 10:25 IV 03/23/19 08:59 Infused Q12 PRIYANK Infusion Parenteral Electrolytes 1,000 mls @ 80 mls/hr 02/22/19 10:15 02/24/19 00:43 Normosol-R IV 03/24/19 10:14 80 mls/hr .[id number] PRIYANK Administration Piperacillin Sod/Tazobactam 120 mls @ 30 mls/hr 02/22/19 20:00 02/24/19 12:13 Sod 4.5 gm/ Dextrose IV 03/01/19 19:59 30 mls/hr Q8H PRIYANK Administration Protocol Ioversol 94 ml 02/22/19 08:54 02/22/19 08:55 Optiray 320 100ml IV 02/26/19 08:53 94 ml ONCE PRN Administration Interaction Checking Metoclopramide HCl 10 mg 02/23/19 09:00 02/24/19 11:25 Reglan IV 02/25/19 01:01 10 mg Q8H PRIYANK Administration Morphine Sulfate 1 - 2 mg 02/21/19 22:25 02/24/19 03:51 Morphine Sulfate IV 03/07/19 22:24 2 mg Q1H PRN Administration Shortness Of Breath Oxycodone HCl 5 mg 02/17/19 19:50 02/18/19 10:36 Roxicodone Immediate Rel PO 03/03/19 19:49 5 mg Q6H PRN Administration Pain Polyethylene Glycol 17 gm 02/19/19 12:11 02/19/19 20:26 Miralax Powder Packet PO 03/21/19 12:10 17 gm DAILY PRN Administration Constipation Tamsulosin HCl 0.4 mg 02/17/19 21:00 02/22/19 21:11 Flomax PO 03/19/19 20:59 Not Given HS PRIYANK NPO Date Last Intake of Fluids: 02/23/19 Time Last Intake of Fluids: 22:30 Last Intake of Fluids Comment: barium Date Last Intake of Solids: 02/19/19 Time Last Intake of Solids: 21:30 Past Medical History Medical History Arrhythmia Respiratory failure following surgery Anemia Celiac disease GERD (gastroesophageal reflux disease) History of colon polyps Hypothyroidism Kidney stones Exercise / Class Metabolic Activity IV < 2 Limit ADL/Bedbound Past Family History Family History Father Dementia Mother Breast cancer Other No family history of adverse response to anesthesia Past Surgical History Surgical History History of carpal tunnel surgery of right wrist (Acute) History of colonoscopy History of esophagogastroduodenoscopy (EGD) History of hammertoe correction bilt feet History of tooth extraction History of umbilical hernia repair Past Anesthesia History No Hx of Anesthesia Complications and No Family Hx of Anesthesia Complications History of PONV No Hx of PONV and No Hx of Motion Sickness Social History Smoking Status: Never smoker Hx Alcohol Use: Yes Alcohol type: wine alcohol intake frequency: holidays/special occasions only Hx Substance Use: No substance use type: does not use Physical Exam Vital Signs Last Vital Signs Temp 36.9 C 02/24/19 12:24 Pulse 70 02/24/19 12:24 Resp 22 02/24/19 12:24 BP 139/82 02/24/19 12:24 Pulse Ox 93 02/24/19 12:24 Constitutional not obese ENMT Mouth: no dentition abnormality Thyromental Distance: > or= 3.5 Finger Breadths Mallampati Class: II Neck normal visual inspection and trachea midline; neck extension not limited Respiratory + uses accessory muscles Auscultation: + diminished lung sounds and + crackles Cardiovascular Rate/Rhythm: regular rate and regular rhythm Heart Sounds: no murmur Vessels: no carotid bruit Musculoskeletal Spine: normal cervical ROM Neurologic moves all extremities Motor/Sensory: no sensory deficit Psychiatric Orientation: alert and oriented x 3 Testing Laboratory Results 02/24/19 04:15 02/24/19 04:15 PT 11.9 Seconds (9.0-12.0) 02/24/19 04:15 INR 1.2 (0.9-1.1) H 02/24/19 04:15 Blood Type B Positive 02/17/19 12:13 Antibody Screen NEGATIVE 02/17/19 12:13 02/22/19 12:10 Gram Stain - Final Pleural Fluid Aerobic and Anaerobic Culture - Preliminary Serratia marcescens Gram negative bacilli 02/24/19 11:42 POC Glucose 125 H Electrocardiogram Date: 02/24/19 Findings: + NSR @ (at 72;NS ST abnormalities) Chest X-Ray Date: 02/24/19 Findings: + atelectasis (bibasilar), + pleural effusion (small left) and + other (small right hydropneumothorax;)
--- NOTE | 2019-02-24 13:17 | Progress Note ---
DATE: 02/24/2019 Mr. Stern was seen today. He had a pretty quiet night. In fact, he looks better to me than I have seen him since the surgery. He is on nasal cannula currently. He stated that he had a fairly stable night. He started getting a bit more pain. The patient underwent a barium swallow which showed dye in this cavity which was concerning to me. We then repeated a CT scan after discussing this with Dr. Estrada and it appears that the esophagus communicates with this cavity. I think the stomach is in its proper position. I am afraid of an esophageal perforation. I had a very long discussion with the patient and his and his son. I have explained that he has an esophageal perforation which is a catastrophic development. We are going to go in and drain this thoracoscopically. I see no abnormalities below the diaphragm. I explained the possibilities where we would see the esophageal perforation and repair although I doubt that would be possible. The other possibility would be placing an esophageal stent. Finally, the last option would be to not see a perforation at all or/and simply drain the area widely. The patient and his family understand the dire circumstances of her in. They also understand that there could be multiple complications from this. We will discuss this after the surgery. We are getting ready to take him. MADINA
[2019-02-24] MEDS ORDERED: SODIUM CHLORIDE 0.9% 250 ML IV PRN (14:15)
--- NOTE | 2019-02-24 14:36 | Anesthesiology Progress Note ---
Date of Service February 24, 2019 At 1430 I've spoken w/ Steven Marshall PA-C regarding Mr Stern requiring post op mechanical ventilation and intubation.He concurs and will have a ventilator set up and ready. Physical Exam Vital Signs: Last Vital Signs Temp 36.9 C 02/24/19 12:24 Pulse 71 02/24/19 13:00 Resp 29 H 02/24/19 13:00 BP 129/73 02/24/19 13:00 Pulse Ox 93 02/24/19 13:00 Results & Data Medications Administered Carvedilol (Coreg) 3.125 mg PO BID PRIYANK Stop: 03/22/19 20:59 Last Admin: 02/24/19 11:30 Dose: Not Given Documented by: [id number] Admin: 02/23/19 20:58 Dose: 3.125 mg Documented by: [id number] Admin: 02/23/19 07:43 Dose: Not Given Documented by: [id number] Admin: 02/22/19 20:30 Dose: 3.125 mg Documented by: [id number] Admin: 02/22/19 08:19 Dose: Not Given Documented by: [id number] Admin: 02/21/19 20:27 Dose: Not Given Documented by: [id number] Admin: 02/21/19 07:32 Dose: Not Given Documented by: [id number] Admin: 02/20/19 21:29 Dose: 3.125 mg Documented by: [id number] Docusate Sodium (Colace) 100 mg PO BID PRIYANK Stop: 03/19/19 20:59 Last Admin: 02/24/19 09:38 Dose: Not Given Documented by: [id number] Admin: 02/23/19 21:06 Dose: 100 mg Documented by: [id number] Admin: 02/23/19 07:43 Dose: Not Given Documented by: [id number] Admin: 02/22/19 21:13 Dose: 100 mg Documented by: [id number] Admin: 02/22/19 08:19 Dose: Not Given Documented by: [id number] Admin: 02/21/19 20:27 Dose: Not Given Documented by: [id number] Admin: 02/21/19 07:32 Dose: Not Given Documented by: [id number] Admin: 02/20/19 21:28 Dose: 100 mg Documented by: [id number] Admin: 02/20/19 09:22 Dose: 100 mg Documented by: [id number] Admin: 02/19/19 20:26 Dose: 100 mg Documented by: [id number] Admin: 02/19/19 08:04 Dose: 100 mg Documented by: [id number] Admin: 02/18/19 20:29 Dose: 100 mg Documented by: [id number] Admin: 02/18/19 10:34 Dose: 100 mg Documented by: [id number] Admin: 02/17/19 20:55 Dose: 100 mg Documented by: [id number] Enoxaparin Sodium (Lovenox) 40 mg SQ QAM PRIYANK Stop: 03/20/19 08:59 Last Admin: 02/24/19 09:47 Dose: 40 mg Documented by: [id number] Admin: 02/23/19 07:54 Dose: 40 mg Documented by: [id number] Admin: 02/22/19 09:07 Dose: Not Given Documented by: [id number] Admin: 02/21/19 09:47 Dose: 40 mg Documented by: [id number] Admin: 02/20/19 09:15 Dose: 40 mg Documented by: [id number] Admin: 02/19/19 08:04 Dose: 40 mg Documented by: [id number] Admin: 02/18/19 10:34 Dose: 40 mg Documented by: [id number] Amiodarone HCl/Dextrose (Nexterone / D5w) 360 mg in 200 mls @ 16.667 mls/hr IV .Q12H PRIYANK Stop: 03/21/19 14:24 Last Admin: 02/24/19 12:23 Dose: 0.5 mg/min, 16.7 mls/hr Documented by: [id number] Cosigned by: [id number] Infusion: 02/24/19 12:23 Dose: 0.5 mg/min, 16.7 mls/hr Documented by: [id number] Cosigned by: [id number] Infusion: 02/24/19 07:28 Dose: 0.5 mg/min, 16.7 mls/hr Documented by: [id number] Cosigned by: [id number] Admin: 02/24/19 00:43 Dose: 0.5 mg/min, 16.7 mls/hr Documented by: [id number] Cosigned by: [id number] Infusion: 02/24/19 00:33 Dose: 0.5 mg/min, 16.7 mls/hr Documented by: [id number] Cosigned by: [id number] Admin: 02/23/19 12:34 Dose: 0.5 mg/min, 16.7 mls/hr Documented by: [id number] Cosigned by: [id number] Infusion: 02/23/19 12:34 Dose: 0.5 mg/min, 16.7 mls/hr Documented by: [id number] Cosigned by: [id number] Admin: 02/23/19 00:58 Dose: 0.5 mg/min, 16.7 mls/hr Documented by: [id number] Cosigned by: [id number] Infusion: 02/23/19 00:58 Dose: 0.5 mg/min, 16.7 mls/hr Documented by: [id number] Cosigned by: [id number] Admin: 02/22/19 13:48 Dose: 0.5 mg/min, 16.7 mls/hr Documented by: [id number] Cosigned by: [id number] Infusion: 02/22/19 13:48 Dose: 0.5 mg/min, 16.7 mls/hr Documented by: [id number] Cosigned by: [id number] Admin: 02/22/19 02:01 Dose: 0.5 mg/min, 16.7 mls/hr Documented by: [id number] Cosigned by: [id number] Infusion: 02/22/19 01:54 Dose: 0.5 mg/min, 16.7 mls/hr Documented by: [id number] Cosigned by: [id number] Admin: 02/21/19 13:55 Dose: 0.5 mg/min, 16.7 mls/hr Documented by: [id number] Cosigned by: [id number] Infusion: 02/21/19 13:55 Dose: 0 mg/min, 0 mls/hr Documented by: [id number] Cosigned by: [id number] Infusion: 02/21/19 12:27 Dose: 0 mg/min, 0 mls/hr Documented by: [id number] Cosigned by: [id number] Admin: 02/21/19 01:40 Dose: 0.5 mg/min, 16.7 mls/hr Documented by: [id number] Cosigned by: [id number] Infusion: 02/21/19 01:40 Dose: 0.5 mg/min, 16.7 mls/hr Documented by: [id number] Cosigned by: [id number] Infusion: 02/20/19 23:10 Dose: 0.5 mg/min, 16.7 mls/hr Documented by: [id number] Cosigned by: [id number] Infusion: 02/20/19 15:40 Dose: 0.5 mg/min, 16.7 mls/hr Documented by: [id number] Cosigned by: [id number] Admin: 02/20/19 14:24 Dose: 0.5 mg/min, 16.7 mls/hr Documented by: [id number] Cosigned by: [id number] Infusion: 02/20/19 13:46 Dose: 0.5 mg/min, 16.7 mls/hr Documented by: [id number] Cosigned by: [id number] Admin: 02/20/19 01:47 Dose: 0.5 mg/min, 16.7 mls/hr Documented by: [id number] Cosigned by: [id number] Infusion: 02/20/19 01:47 Dose: 0.5 mg/min, 16.7 mls/hr Documented by: [id number] Cosigned by: [id number] Admin: 02/19/19 14:32 Dose: 0.5 mg/min, 16.7 mls/hr Documented by: [id number] Cosigned by: [id number] Levothyroxine Sodium 44 mcg/ (Syringe) 2.2 mls @ 2 mls/min IV HS PRIYANK Stop: 03/23/19 20:59 Last Admin: 02/23/19 21:05 Dose: 2 mls/min Documented by: [id number] Admin: 02/22/19 20:35 Dose: 2 mls/min Documented by: [id number] Admin: 02/21/19 21:23 Dose: 2 mls/min Documented by: [id number] Ranitidine HCl 50 mg/ Dextrose 102 mls @ 200 mls/hr IV Q12 PRIYANK Stop: 03/23/19 08:59 Last Infusion: 02/24/19 10:25 Dose: 0 mls/hr Documented by: [id number] Admin: 02/24/19 09:53 Dose: 200 mls/hr Documented by: [id number] Infusion: 02/23/19 23:21 Dose: 0 mls/hr Documented by: [id number] Admin: 02/23/19 20:57 Dose: 200 mls/hr Documented by: [id number] Infusion: 02/23/19 08:33 Dose: 0 mls/hr Documented by: [id number] Admin: 02/23/19 07:55 Dose: 200 mls/hr Documented by: [id number] Infusion: 02/22/19 21:11 Dose: 0 mls/hr Documented by: [id number] Admin: 02/22/19 20:16 Dose: 200 mls/hr Documented by: [id number] Infusion: 02/22/19 09:07 Dose: 0 mls/hr Documented by: [id number] Admin: 02/22/19 08:21 Dose: 200 mls/hr Documented by: [id number] Infusion: 02/21/19 22:01 Dose: 0 mls/hr Documented by: [id number] Admin: 02/21/19 21:30 Dose: 200 mls/hr Documented by: [id number] Infusion: 02/21/19 10:52 Dose: 0 mls/hr Documented by: [id number] Admin: 02/21/19 09:46 Dose: 200 mls/hr Documented by: [id number] Parenteral Electrolytes (Normosol-R) 1,000 mls @ 80 mls/hr IV .[id number] PRIYANK Stop: 03/24/19 10:14 Last Admin: 02/24/19 00:43 Dose: 80 mls/hr Documented by: [id number] Infusion: 02/24/19 00:43 Dose: 80 mls/hr Documented by: [id number] Admin: 02/23/19 12:33 Dose: 80 mls/hr Documented by: [id number] Infusion: 02/23/19 12:33 Dose: 80 mls/hr Documented by: [id number] Admin: 02/23/19 00:57 Dose: 80 mls/hr Documented by: [id number] Infusion: 02/23/19 00:57 Dose: 60 mls/hr Documented by: [id number] Admin: 02/22/19 10:12 Dose: 60 mls/hr Documented by: [id number] Piperacillin Sod/Tazobactam (Sod 4.5 gm/ Dextrose) 120 mls @ 30 mls/hr IV Q8H [facility]; Protocol Stop: 03/01/19 19:59 Last Admin: 02/24/19 12:13 Dose: 30 mls/hr Documented by: [id number] Infusion: 02/24/19 07:50 Dose: 0 mls/hr Documented by: [id number] Admin: 02/24/19 03:49 Dose: 30 mls/hr Documented by: [id number] Infusion: 02/24/19 01:03 Dose: 0 mls/hr Documented by: [id number] Admin: 02/23/19 20:57 Dose: 30 mls/hr Documented by: [id number] Infusion: 02/23/19 16:15 Dose: 0 mls/hr Documented by: [id number] Admin: 02/23/19 12:33 Dose: 30 mls/hr Documented by: [id number] Infusion: 02/23/19 07:55 Dose: 0 mls/hr Documented by: [id number] Admin: 02/23/19 04:10 Dose: 30 mls/hr Documented by: [id number] Infusion: 02/23/19 00:57 Dose: 0 mls/hr Documented by: [id number] Admin: 02/22/19 20:16 Dose: 30 mls/hr Documented by: [id number] Ioversol (Optiray 320 100ml) 94 ml IV ONCE PRN PRN Reason: Interaction Checking Stop: 02/26/19 08:53 Last Admin: 02/22/19 08:55 Dose: 94 ml Documented by: [id number] Metoclopramide HCl (Reglan) 10 mg IV Q8H PRIYANK Stop: 02/25/19 01:01 Last Admin: 02/24/19 11:25 Dose: 10 mg Documented by: [id number] Admin: 02/23/19 20:58 Dose: 10 mg Documented by: [id number] Admin: 02/23/19 17:06 Dose: 10 mg Documented by: [id number] Admin: 02/23/19 09:47 Dose: 10 mg Documented by: [id number] Morphine Sulfate (Morphine Sulfate) 1 - 2 mg IV Q1H PRN PRN Reason: Shortness Of Breath Stop: 03/07/19 22:24 Last Admin: 02/24/19 03:51 Dose: 2 mg Documented by: [id number] Admin: 02/23/19 22:45 Dose: 2 mg Documented by: [id number] Admin: 02/23/19 12:34 Dose: 2 mg Documented by: [id number] Admin: 02/23/19 03:06 Dose: 2 mg Documented by: [id number] Admin: 02/22/19 20:38 Dose: 2 mg Documented by: [id number] Admin: 02/22/19 12:11 Dose: 2 mg Documented by: [id number] Oxycodone HCl (Roxicodone Immediate Rel) 5 mg PO Q6H PRN PRN Reason: Pain Stop: 03/03/19 19:49 Last Admin: 02/18/19 10:36 Dose: 5 mg Documented by: [id number] Polyethylene Glycol (Miralax Powder Packet) 17 gm PO DAILY PRN PRN Reason: Constipation Stop: 03/21/19 12:10 Last Admin: 02/19/19 20:26 Dose: 17 gm Documented by: [id number] Tamsulosin HCl (Flomax) 0.4 mg PO HS PRIYANK Stop: 03/19/19 20:59 Last Admin: 02/22/19 21:11 Dose: Not Given Documented by: [id number] Admin: 02/21/19 20:27 Dose: Not Given Documented by: [id number] Admin: 02/20/19 21:28 Dose: 0.4 mg Documented by: [id number] Admin: 02/19/19 20:24 Dose: 0.4 mg Documented by: [id number] Admin: 02/18/19 20:30 Dose: 0.4 mg Documented by: [id number] Admin: 02/17/19 20:58 Dose: Not Given Documented by: [id number]
[2019-02-24] MEDS ORDERED: CISATRACURIUM BESYLATE IV SOLN 2 MG/ML 10 ML VIAL IV ONE ×2 (14:38)
[2019-02-24] MEDS ORDERED: ETOMIDATE 2 MG/ML 20 ML VIAL IV ONE (14:38)
[2019-02-24] MEDS ORDERED: VASOPRESSIN 20 UNIT/ML VIAL ONE (14:38)
[2019-02-24] MEDS ORDERED: PHENYLEPHRINE 100MCG/ML 5ML SYR ONE (14:38)
[2019-02-24] MEDS ORDERED: PROPOFOL IV EMULSION 10 MG/ML 20 ML VIAL IV ONE (14:38)
[2019-02-24] MEDS ORDERED: SUCCINYLCHOLINE CHLORIDE 20 MG/ML 10 ML VIAL ONE (14:43)
[2019-02-24] MEDS ORDERED: ALBUMIN HUMAN 5% 12.5 GM/250 ML VIAL IV ONE (14:56)
[2019-02-24 16:32] LABS: Allen Test Pos (Pos); HCO3 ABG 27 mmol/L (19-24); Oxygen Saturation ABG 95.3 % (90-95); PCO2 ABG 45 mmHg (35-46); PO2 ABG 80 mm/Hg (80-95)
[2019-02-24] MEDS ORDERED: EPINEPHrine INJ 1 MG/ML AMP ONE (16:40)
[2019-02-24] MEDS ORDERED: SODIUM CHLORIDE 0.9% INJ 10 ML VIAL ONE (16:40)
[2019-02-24] MEDS ORDERED: MIDAZOLAM HCL 1 MG/ML 2ML VIAL ONE ×2 (16:41→17:11)
--- NOTE | 2019-02-24 17:31 | Post Operative Brief Note ---
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 Procedure Operation Date: 02/24/19 16:25 Actual Procedures p Right Video Assisted Thoracoscopy with Drainage of Mediastinal Fluid, Esophagogastroduodenoscopy, Esophagoscopy Takedown of Lysis of Adhesion, Laparotomy, Resection of Distal Esophagus and Fundus - Watson Cole MD, FACS Surgeon Watson Cole MD, FACS Co-surgeon: Dr Myron Langley MD FACS Childhood [employer] Camila ALCALA Estimated Blood Loss 500 Findings Consistent with Post-Op Diagnosis Drains Chest Tube (32 macanese curved, 24 f thal), Lujan Catheter (from inpatient floor, draining concentrated dark orange urine, anesthesia to monitor urine output during surgery), Eliseo-Tripathi Drain (10 flat) and Other (16 macanese lujan)
--- NOTE | 2019-02-24 18:01 | XRay Report ---
KUB CLINICAL HISTORY: Missing needle. COMPARISON STUDY: KUB and CT of the abdomen pelvis February 22, 2019. FINDINGS: No unexpected radiopaque foreign bodies are noted within the mid to lower chest or abdomen. There are skin alicia. Chest tube is noted. Surgical drains are in place. There is oral contrast wi thin portions of the colon from prior swallow. Mild small bowel dilatation is noted. IMPRESSION: No unexpected radiopaque foreign bodies. Electronically signed by: Cristian Miller M.D. 02/24/2019 5:59 PM
[2019-02-24] MEDS ORDERED: fentaNYL citrate 100 MCG/2 ML VIAL IV PRN (18:23)
[2019-02-24] MEDS ORDERED: EPINEPHrine 2 MG in DEXTROSE 5% 250 ML IV STA (18:23)
--- NOTE | 2019-02-24 18:55 | XRay Report ---
XR chest 1V portable CLINICAL HISTORY: Thoracotomy. Chest radiograph and chest CT performed earlier today. COMPARISON STUDY: No previous studies for comparison. FINDINGS: Tip of endotracheal tube is 3.9 cm above the joaquin. 2 right-sided chest tubes are in place . There is a small right basilar pneumothorax. There is no evidence for pulmonary edema. A left pleur al effusion with left basilar opacity persists. Cardiomediastinal silhouette is stable. The KUB will be reported separately. There is mild right infrahilar opacity. Left subclavian central line is in pl abad. IMPRESSION: 1. Tip of endotracheal tube 3.9 cm above the joaquin. 2. 2 right-sided chest tubes in place. Small right basilar pneumothorax. 3. Small to moderate left pleural effusion with bibasilar opacities, greater on the left. Electronically signed by: Cristian Miller M.D. 02/24/2019 6:54 PM
[2019-02-24 18:56] LABS: Hematocrit (blood only) 35.7 % (42-52); Hemoglobin 12.4 g/dL (14.0-18.0)
--- NOTE | 2019-02-24 18:57 | XRay Report ---
KUB CLINICAL HISTORY: j tube COMPARISON STUDY: KUB performed earlier today. FINDINGS: There is contrast within portions of the colon and rectum from previous swallow. Surgical d rain is in place. There is mild small bowel distention. A feeding tube is noted. Tip projects over th e right mid abdomen. Positioning is difficult to determine on this single AP projection. IMPRESSION: Tip of feeding tube projects over the right mid abdomen. Exact position is difficult to determine on this AP projection. Electronically signed by: Cristian Miller M.D. 02/24/2019 6:56 PM
[2019-02-24] MEDS: ACETAMINOPHEN 1,000 MG/100 ML VIAL IV SCH (19:15)
[2019-02-24] MEDS: NOREPINEPHRINE BIT INJ 8 MG in DEXTROSE 5% 500 ML IV SCH ×2 (19:16→23:33)
[2019-02-24 19:18] LABS: BUN Creatinine Ratio 43.8 (10-20); Calcium 7.9 mg/dl (8.5-10.1); Creatinine Clr Calc Pharmacy 84.3 ml/min; Est GFR (African American) 102.2; Est GFR (Non-African American) 88.1; Phosphorus 4.3 mg/dl (2.5-4.9)
[2019-02-24 19:36] LABS: Fibrinogen 470 mg/dl (184-400); INR 1.4 (0.9-1.1); Partial Thromboplastin Ratio 1.3; Partial Thromboplastin Time 34.5 Seconds (21.0-31.0); Prothrombin Time 14.1 Seconds (9.0-12.0)
[2019-02-24] MEDS: MIDAZOLAM HCL 1 MG/ML 2ML VIAL IV PRN ×2 (19:47→23:33)
--- NOTE | 2019-02-24 19:49 | Anesthesiology Progress Note ---
Date of Service February 24, 2019 Anesthesia Post Procedure Vital Signs Vital Signs: Temp Pulse Pulse Resp BP BP BP 02/24/19 19:37 87 18 02/24/19 18:30 36.0 C L 77 23 82/61 L 02/24/19 18:25 88 21 86/57 L 02/24/19 18:20 77 21 83/65 L 02/24/19 18:15 79 78 14 81/64 L 02/24/19 18:10 79 14 92/74 L 02/24/19 18:05 80 14 88/62 L 02/24/19 18:00 80 14 75/56 L 02/24/19 17:56 80 21 74/57 L 02/24/19 13:00 71 29 H 129/73 02/24/19 12:30 71 25 H 02/24/19 12:24 36.9 C 70 22 139/82 02/24/19 12:01 71 26 H 02/24/19 12:00 71 31 H 139/82 02/24/19 11:30 71 29 H 02/24/19 11:01 70 29 H 02/24/19 11:00 70 29 H 133/85 02/24/19 10:42 70 22 02/24/19 10:01 65 21 02/24/19 10:00 72 25 H 116/70 02/24/19 09:30 79 35 H 02/24/19 09:03 85 25 H 161/95 H 02/24/19 09:00 81 28 H 02/24/19 08:58 83 36 H 02/24/19 08:01 36.7 C 72 23 02/24/19 08:00 72 25 H 124/81 02/24/19 07:44 71 18 02/24/19 07:30 68 16 02/24/19 07:01 71 25 H 02/24/19 07:00 71 21 129/76 02/24/19 06:01 68 16 02/24/19 06:00 69 18 120/73 02/24/19 05:50 71 22 02/24/19 05:00 68 15 99/61 L 02/24/19 04:01 74 21 02/24/19 04:00 74 19 111/71 02/24/19 03:01 70 33 H 02/24/19 03:00 36.5 C 71 42 H 129/66 02/24/19 02:19 71 21 02/24/19 02:01 70 20 02/24/19 02:00 70 22 114/61 02/24/19 01:00 69 28 H 114/59 L 02/24/19 00:01 69 28 H 02/24/19 00:00 36.5 C 69 31 H 99/57 L 02/23/19 23:01 73 29 H 02/23/19 23:00 73 28 H 116/63 02/23/19 22:53 78 22 02/23/19 22:01 77 22 02/23/19 22:00 78 24 134/70 02/23/19 21:00 77 21 132/70 02/23/19 20:01 77 29 H 02/23/19 20:00 36.8 C 78 28 H 138/75 Pulse Ox 02/24/19 19:37 100 02/24/19 18:30 95 02/24/19 18:25 94 02/24/19 18:20 95 02/24/19 18:15 93 02/24/19 18:10 95 02/24/19 18:05 92 02/24/19 18:00 92 02/24/19 17:56 95 02/24/19 13:00 93 02/24/19 12:30 93 02/24/19 12:24 93 02/24/19 12:01 94 02/24/19 12:00 94 02/24/19 11:30 91 02/24/19 11:01 95 02/24/19 11:00 95 02/24/19 10:42 96 02/24/19 10:01 95 02/24/19 10:00 97 02/24/19 09:30 94 02/24/19 09:03 93 02/24/19 09:00 02/24/19 08:58 02/24/19 08:01 92 02/24/19 08:00 93 02/24/19 07:44 94 02/24/19 07:30 95 02/24/19 07:01 94 02/24/19 07:00 94 02/24/19 06:01 94 02/24/19 06:00 95 02/24/19 05:50 93 02/24/19 05:00 96 02/24/19 04:01 93 02/24/19 04:00 94 02/24/19 03:01 94 02/24/19 03:00 94 02/24/19 02:19 93 02/24/19 02:01 93 02/24/19 02:00 94 02/24/19 01:00 94 02/24/19 00:01 94 02/24/19 00:00 95 02/23/19 23:01 94 02/23/19 23:00 94 02/23/19 22:53 95 02/23/19 22:01 95 02/23/19 22:00 95 02/23/19 21:00 95 02/23/19 20:01 92 02/23/19 20:00 93 Pain Intensity Abdomen: Pain Intensity: 0 Upper Chest: Pain Intensity: 6 Generalized: Pain Intensity: 0 Transfer of Care Handoff Completed per policy Notes Mental Status: see notes below Nausea / Vomiting: adequately controlled Pain: adequately controlled Airway Patency, RR, SpO2: stable & adequate BP & HR: stable & adequate and see Notes below Hydration State: stable & adequate and see Notes below Anesthetic Complications: no major complications apparent Notes: Major thoracoabdominal reexploration was performed by surgeons with gastrectomy. During case, hypotension was encountered suspected due to mechanical compression of the heart/IVC combined with spontaneous return of AFib with RVR in the 110-120s. His hypotension and oxygenation were managed with vasoactive agents, fluids, and transfusion, guided by serial blood gasses. Except in short intervals, MAP was able to be maintained at > or = 50. The surgeons and anesthesiologist were in frequent communication regarding the patient's status. Towards the end of the case, the patient regained normal sinus rhythm in the 80s, which significantly improved hemodynamics. Ventilator weaning was not planned for the end of this complicated case. At the case end, the patient was maintained on low level drips of epinephrine, norepinephrine, and vasopressin. His MAP was >60. He was saturating 98% on 100% FiO2. The intraoperative course was communicated to the ICU attending and a central line was placed in ICU. Remainder of ventilator and hemodynamic support will be managed by critical care medicine.
[2019-02-24 19:56] LABS: Magnesium 2.1 mg/dl (1.8-2.4)
[2019-02-24] MEDS: fentaNYL citrate 100 MCG/2 ML VIAL IV PRN ×3 (20:36→23:33)
[2019-02-24] MEDS: LEVOTHYROXINE SODIUM 44 MCG in SYRINGE 0 ML IV SCH (20:38)
[2019-02-24 21:47] LABS: iSTAT Arterial Blood Gas HCO3 22 meg/L (19-24); iSTAT Arterial Blood Gas pCO2 32 mmHg (35-46); iSTAT Arterial Blood Gas pH 7.45 (7.35-7.45); iSTAT Carbon Dioxide 23 mEq/l (24-31); iSTAT Site Art Line
[2019-02-24] MEDS ORDERED: NORMOSOL-R 500 ML IV ONE (22:00)
[2019-02-24] MEDS ORDERED: Nursing to Pharmacy Communication ONE (22:03)
--- NOTE | 2019-02-25 00:15 | Operative Report ---
DATE OF OPERATION: 02/24/2019 PREOPERATIVE DIAGNOSES: 1. Apparent esophageal perforation. 2. Status post robot-assisted laparoscopic paraesophageal hernia repair with floppy Naomi fundoplication and gastropexy. 3. Atrial fibrillation. POSTOPERATIVE DIAGNOSES: 1. Esophageal perforation and necrosis of a portion of fundus. 2. Intraoperative rapid atrial fibrillation. 3. Mediastinitis. PROCEDURES: 1. Esophagoscopy. 2. Right thoracoscopy with takedown of adhesions. 3. Right thoracotomy with lysis of adhesions and freeing up of mediastinal pleura. 4. Laparotomy with takedown of a hiatal hernia repair. 5. Esophagogastrectomy with ligation of the esophagus at the level of the azygos and resection of proximal stomach. 6. Gastrostomy tube. 7. Jejunostomy tube. SURGEON: Watson Cole MD COSURGEON: Daniel Sun MD STRIPPER SOFT PLASTIC SURGEON: CARI Bateman ANESTHESIA: General anesthesia, endotracheal intubation. INDICATION FOR PROCEDURE AND FINDINGS: This patient is a 78-year-old male who had intermittent gastric torsion in his chest. It appeared that he had simply a very large hiatal hernia; however, symptoms were consistent with torsion. One week ago today on 02/17/2019, I took the patient to the operating room and performed a robot-assisted laparoscopic takedown of this huge paraesophageal hernia which appeared to be torsing. The patient had a huge hernial sac and I took this out and performed an uncomplicated Naomi fundoplication. I did place a small patch posteriorly and reapproximated the crura. When I performed on-table esophagoscopy, I was a bit concerned because it appeared that he may have problems with his antrum so rather than risk a gastric torsion, I did a gastropexy and tacked the stomach to the anterior wall. He did well with the operation with negligible blood loss and awakened without difficulty. He had a quiet night and the following morning, we did perform a study. It was felt at that time that the patient may have a reherniated stomach; however, I did not agree with the radiologist. We saw no evidence of leak and we started him on liquids, which he tolerated. The patient noted pain and his hernia sac got larger which was quite concerning to me. Fortunately, he went to rapid atrial fibrillation which he did not tolerate well. He finally settled down and after much discussion, I was concerned about the size of the sac and I placed a catheter 48 hours ago and drained a large amount of fluid. I felt these were just sac contents. However, he grew out Serratia marcescens so I made plans to take him to the operating room and do a thoracoscopy and widely debride this area and open up his mediastinum. This morning, we got another barium swallow and he had a free flow into the sac which was quite concerning. We did not see this on the barium swallow, but we saw around on the CT scan. His course was quite concerning so I brought the patient to the operating room this afternoon and did on-table esophagoscopy and I could see that he had evidence of esophageal perforation distally and also evidence of a necrotic stomach proximally. For this reason, I opened up his abdomen. I felt that we should reduce his stomach; however, this portion of the stomach was very small and when I went into the chest, he had a very large sac; however, I believe this appeared to me to be thickened mediastinal pleura. It was very difficult due to inflammation so I had to convert the thoracoscopy to a thoracotomy and then upon opening this, we freed this up and I was quite concerned about this sac which I felt at first maybe the stomach. Having said that, I left the scope in place when I performed the esophagostomy and I could feel it at the GE junction. For this reason, I asked Dr. Daniel Sun to assist. Dr. Sun came in and we felt that it would probably be best to reopen the abdomen, which we did. Upon opening the abdomen itself, the hiatal repair was intact. We finally freed up the sac and freed up the stomach and we could see that there actually was a perforation of the stomach. A knuckle of the fundus had gotten up into the left anterior aspect of the hiatus and necrosed a portion of the fundus. The mediastinal pleura was quite thickened and initially I thought this was a stomach; however, we cut all of this out and this was not the stomach at all. It was thickened pleura, which we removed. The patient became quite unstable. He went to rapid atrial fibrillation and dropped his pressure and would not respond to fluids, blood and medications. We thought he may arrest on the table and for that reason, I stapled across his esophagus below the azygos and we pulled the esophagus and the portion of the proximal stomach out through the abdomen and quickly performed a resection of the necrotic portion. We left a good deal of the stomach intact. A gastrostomy tube was placed as well as a jejunostomy tube very quickly and we closed. After returning back in the supine position, we converted back into sinus rhythm and his pressure while still low was better. I had a very long discussion with the family on multiple occasions. They understand the gravity of the situation. DESCRIPTION OF PROCEDURE: The patient was brought in to the operating room and laid in supine position. General anesthesia was induced and endotracheal intubation was performed with a single lumen tube. The patient was having some respiratory distress and had difficulty lying flat. After being intubated, I then inserted the esophagoscope. Proximal esophagus looked fine. However, in coming down into the distal esophagus, we came upon the area that had blackened mucosa. It appeared we were in the stomach. At this point, I then left the scope in place to turn the light off and left it in position. We then turned the patient in left lateral decubitus position and the right chest was prepped and draped in usual sterile fashion after we removed the PleurX catheter. Through the more anterior incision of the PleurX catheter, I placed a 5 mm port. In fact, going in, it could be seen there was some fluid which was suctioned out and then we saw there was a large area with some darkened tissue that we removed a great deal from the pleural surface both the lung and the chest wall and got down, we easily identified the diaphragmatic sulci, cleaned out everything in the chest and then went down and there was a huge sac. Initially, I felt this maybe the stomach; however, the esophagoscope was then placed distally. For this reason, after freeing all this up, I started to get down to the hiatus. It was very difficult. I placed a working port anteriorly and opened this about 4 cm and I was able to get thoracoscopic instruments down and retract the diaphragm away and free this up. It still was not clear to me that this was not stomach that we were dealing with. For this reason, I opened up the chest more and put a retractor in. I had to open this up even more and then finally freed up this entire area. We were quite concerned about the appearance of this and it was difficult to get down to the esophagus. When I felt we were at the esophageal hiatus, I felt that we should open the abdomen. Dr. Sun had scrubbed in by this time and the abdomen was opened from the xiphoid down to the supraumbilical area and upon going in, we did not see much fluid and upon going into the stomach, the intraabdominal looked pretty good. However, upon going up, the stomach was stuck. We ended up opening up the hiatus completely by taking out the sutures and I was able to get my hand up enough for my left hand and my right hand to touch. It was still very difficult due to all the adhesion, we finally got the entire sac down and upon delivering the stomach, it could be seen that it appeared that the knuckle of the fundus had come up into the anterolateral aspect on the left and was present above the hiatus. This was only a couple of centimeters. Unfortunately, this is the area which necrosed. There also appeared to have necrosed a portion of the esophagus. This was what we were seeing with the esophagoscope. The patient then became quite unstable. We were going to perhaps fashion a repair and perhaps do a pull up stomach to cover this defect after resecting a portion of the fundus, but the area was a bit larger than I would have liked for that and in addition, the patient was quite unstable with pressure that would not respond to vasopressors, blood or fluids. I thought he would arrest on the table. For this reason, I quickly used Endo-NINA and stapled across the esophagus and the azygos area. Upon pulling down the esophagus, we then quickly resected the esophagogastric junction and a portion of the fundus. There was still a good deal of stomach left. Dr. Sun then quickly performed a gastrostomy tube and jejunostomy tube while I finished irrigating out the chest. I quickly closed the hiatus with #1 vicryl and closed the right thoracotomy incision and placed 2 chest tubes. A 32-Lao right angle chest tube was placed as well as 24-Lao straight chest tube. The lungs expanded very nicely after we had freed everything up. I the closed the incision using #1 PDS x2 to reapproximate the ribs. A 0 Vicryl was used to close the muscle layers and then skin clips were used to approximate the wound edges. This was attached to the [facility]. Dr. Sun had quickly performed a gastrostomy tube and a jejunostomy tube. This went very nicely and this all looked quite good at the end. We then quickly closed. The patient was still quite unstable. After turning him supine, it could be seen that the patient actually converted back to sinus rhythm and he was better. He had been on parenteral amiodarone and finally converted after he was in the supine position. He was still rather unstable hemodynamically. I went to talk to the family in detail about what had transpired and came back to close. The patient was still quite unstable upon his transfer back to the intensive care unit remaining on the ventilator. I attest to the content of the Intraoperative Record and any orders documented therein. Any exceptions are noted below. MTDD
[2019-02-25 00:45] LABS: Hematocrit (blood only) 35.8 % (42-52); Hemoglobin 12.3 g/dL (14.0-18.0)
[2019-02-25] MEDS: fentaNYL citrate 100 MCG/2 ML VIAL IV PRN ×9 (00:55→19:57)
[2019-02-25] MEDS ORDERED: NORMOSOL-R 250 ML IV ONE (01:46)
[2019-02-25] MEDS: MIDAZOLAM HCL 1 MG/ML 2ML VIAL IV PRN ×4 (01:57→19:57)
[2019-02-25] MEDS: NORMOSOL-R 1,000 ML IV SCH ×2 (01:57→08:25)
[2019-02-25] MEDS: ACETAMINOPHEN 1,000 MG/100 ML VIAL IV SCH ×3 (02:57→19:20)
[2019-02-25] MEDS: PIPERACILLIN/TAZOBACTAM 4.5 GM in DEXTROSE 5% 100 ML IV SCH ×3 (03:13→19:19)
[2019-02-25 03:41] LABS: iSTAT Arterial Blood Gas HCO3 22 meg/L (19-24); iSTAT Arterial Blood Gas pCO2 34 mmHg (35-46); iSTAT Arterial Blood Gas pH 7.43 (7.35-7.45); iSTAT Carbon Dioxide 23 mEq/l (24-31); iSTAT Site Art Line
[2019-02-25 04:40] LABS: Albumin Level 1.7 gm/dl (3.4-5.0); BUN Creatinine Ratio 31.4 (10-20); Bilirubin Direct 3.9 mg/dl (0-0.2); Calcium 7.6 mg/dl (8.5-10.1); Creatinine Clr Calc Pharmacy 53.2 ml/min; Est GFR (African American) 66.3; Est GFR (Non-African American) 57.2; Magnesium 2.3 mg/dl (1.8-2.4); Potassium 3.6 mmol/L (3.5-5.1)
[2019-02-25 04:49] LABS: Bilirubin,Total 5.2 mg/dl (0.2-1); Phosphorus 3.9 mg/dl (2.5-4.9); Total Protein 4.1 gm/dl (6.4-8.2)
[2019-02-25] MEDS: NOREPINEPHRINE BIT INJ 8 MG in DEXTROSE 5% 500 ML IV SCH ×3 (05:17→21:29)
[2019-02-25 06:15] LABS: Hematocrit (blood only) 32.7 % (42-52); Hemoglobin 11.7 g/dL (14.0-18.0); Mean Corpuscular Hgb Conc 35.8 g/dL (32-36); Mean Corpuscular Volume 89.6 fL (80-100); Mean Platelet Volume 9.9 fL (7.4-10.4); Nucleated RBC # (auto) 0.06 K/uL (0-0); Nucleated RBC % (auto) 0.2 %; Platelet Count 250 K/uL (130-400); RDW Coefficient of Variation 15.4 % (11.5-14.5); RDW Standard Deviation 50.1 fL (36.4-46.3); Red Blood Count 3.65 M/uL (4.7-6.1); White Blood Count 29.02 K/uL (4.8-10.8)
[2019-02-25 06:50] LABS: Basophils # (auto) 0.05 K/uL (0-0.2); Basophils % (auto) 0.2 %; Echinocytes 1+; Immature Granulocytes # (auto) 0.41 K/uL (0.00-0.02); Immature Granulocytes % (auto) 1.4 %; Lymphocytes # (auto) 0.64 K/uL (1.2-3.4); Lymphocytes % (auto) 2.2 %; Monocytes # (auto) 0.62 K/uL (0.11-0.59); Monocytes % (auto) 2.1 %; Neutrophils % (auto) 94.1 %; Toxic Granulation 1+
--- NOTE | 2019-02-25 07:30 | XRay Report ---
XR chest 1V portable CLINICAL HISTORY: [facility] dyspnea COMPARISON STUDY: 02/24/2019 FINDINGS: Endotracheal tube 4 cm above the joaquin. Small bilateral pleural effusions. Right basilar d rainage catheters unchanged. No significant postprocedural pneumothorax. IMPRESSION: 1. Stable exam compared to the prior study. 2. Tubes and lines in good position. 3. Right basilar drainage catheters unchanged with no evidence for pneumothorax. The above report was generated using voice recognition software. It may contain grammatical, syntax or spelling errors. Electronically signed by: Monty Baldwin M.D. 02/25/2019 7:29 AM
--- NOTE | 2019-02-25 08:01 | Critical Care Progress Note ---
Date of Service February 25, 2019 Assessment & Plan (1) Acute respiratory failure with hypoxia: Reason Critically Ill: 78-year-old male s/p Naomi fundoplication for a hiatial hernia 02/17 who is currently critically ill s/p esophageal perforation repair 02/24, after requiring pressor support during surgery. NEURO -[facility] ICU:NEGATIVE -Continue PRN oxy, morphine for pain CARDIAC -discontinuing amiodarone since pt in sinus rhythm and consistently converts out of a fib (one less med interaction). -on pressors (Epi, NE) for hypotension, will attempt to wean. -will transduce CVPs, increase as needed fluid requirements -Echo 02/19-showed no wall motion abnormalities, EF 65-70%, mild concentric LVH. -Cardiac cath 02/19- showed mild-moderate nonobstructive CAD. -EKG 02/24-normal sinus rhythm, Qtc:475 -Historically in a. fib with rvr. Hold Coreg. No systemic anticoagulation for it. RESPIRATORY -Pt currently intubated, on ventilator post esophageal perforation repair. Required pressor support during surgery; a fib with rvr and spontaneous sinus rhythm conversion. -s/p right-sided PleurX placement--draining Serratia contaminated pleural fluid. Continue Zosyn, empiric caspofungin. -Barium swallow 02/24-small aspiration noted but no sajan extravasation noted; CT recommended. -CTA chest 02/24-shows small-mod bilat pleural effusions, lower lobe atelectasis/consolidation. Also suggests possible esophageal perforation. GI -Pt with esophageal perforation after hiatial hernia surgery. -Repair done and pt with now esophageal pouch, G and J tubes in place. -S/P partial esophagectomy and gastrectomy. -NPO -continue Reglan and Ranitidine, zofran as needed. RENAL//LYTES - -25% Albumin 25g x1 given today -Thiamine and Vit C daily -No significant electrolyte derangement. -Continue maintenance fluids ENDO -ICU hyperglycemia protocol -Hypothyroidism- cont IV levothyroxine HEME -H&H stable -WBC still elevated, though downtrended from admission -will continue to monitor ID -Continue Zosyn and Caspofungin -On Zosyn for tolentino-sensitive Serratia infection of pleural effusion -Started on Caspofungin given new contrast extravasation and possible perforation. -Fungal cultures pending. INTEGUMENTARY -No concerns at this time LINES/IV ACCESS -PIVs intact. -Central line -J and G tube -Chest tubes -lujan DVT PROPHYLAXIS -Lovenox 40mg SQ Thank you for allowing us to be part of this patient's care. Please refer to Dr. Jimenez's documentation for any further recommendations. Supervising Physician Co-Signing Physician Notes Dr. Thomason was resident physician during care of patient. I separately evaluated patient for novak portions of the history and the exam. I was present during the critical portion of medical decision making, and I discussed the case with the resident. I generally agree with the findings and plan. Discussed on multidisciplinary rounds, I discussed the patient with Dr. Cole. Discontinuing amiodarone for less medication interactions as patient has consistently converted out of atrial fibrillation and is currently in normal sinus rhythm. Bump in creatinine which is not unexpected given hypotension yesterday. Weaning from vasoactive medication currently will transduce CVP and liberalize fluid requirements. Patient has significant vasoactive medication requirements and significant hemodynamic effects that precludes safe extubation today. Esophageal pouch and patient is currently discontinuity. Patient remains critically ill. I have personally spent 50 minutes of critical care time in the direct management of this patient. This is a life/limb threatening event. This includes time spent evaluating patient, direct bedside care, chart review, placing orders, interpretation of diagnostic studies, discussion with consultants, patient, and/or family members regarding treatment decisions, as well as other required patient management activities. This time is exclusive of all separately billable procedures, and teaching time and separate from and in addition to any other critical care service time. Subjective Pt awake and alert this AM. Still intubated but trying to talk around the tube. Family present at bedside. Review of Systems Review of Systems: Unobtainable due to endotracheal tube Physical Exam Physical Exam: General: Awake, Alert. HEENT: Pt intubated Chest: Nontender to palpation. CV: RRR Resp: Breath sounds clear on front. Abdomen: Soft, tender, No guarding. Extremities: SCDs on lower extremities. Results & Data Vital Signs (Past 12 Hours) Vital Signs Temp Pulse Pulse Resp BP BP BP 02/25/19 06:00 37.3 C 98 H 13 108/58 L 118/70 02/25/19 05:08 99 H 13 02/25/19 05:00 96 H 12 110/58 L 115/67 02/25/19 04:00 37.4 C 95 H 12 110/51 L 115/67 02/25/19 03:00 99 H 12 99/53 L 106/71 02/25/19 02:13 98 H 14 02/25/19 02:00 98 H 15 106/55 L 120/71 02/25/19 01:00 37.2 C 100 H 17 104/71 02/25/19 00:00 36.9 C 98 H 101 H 13 117/71 02/24/19 23:00 36.7 C 99 H 15 87/55 L 02/24/19 22:30 96 H 14 131/79 02/24/19 22:15 96 H 02/24/19 22:00 96 H 97/60 L 02/24/19 21:45 98 H 20 02/24/19 21:44 98 H 17 02/24/19 21:31 99 H 107/66 02/24/19 21:30 101 H 02/24/19 21:15 99 H 02/24/19 21:01 96 H 02/24/19 21:00 96 H 120/79 02/24/19 20:30 97 H 22 144/64 H Pulse Ox 02/25/19 06:00 97 02/25/19 05:08 96 02/25/19 05:00 97 02/25/19 04:00 96 02/25/19 03:00 96 02/25/19 02:13 98 02/25/19 02:00 98 02/25/19 01:00 99 02/25/19 00:00 96 02/24/19 23:00 98 02/24/19 22:30 97 02/24/19 22:15 96 02/24/19 22:00 95 02/24/19 21:45 98 02/24/19 21:44 98 02/24/19 21:31 100 02/24/19 21:30 100 02/24/19 21:15 100 02/24/19 21:01 99 02/24/19 21:00 100 02/24/19 20:30 100 Laboratory Results Laboratory Results - last 24 hr 02/24/19 02/24/19 02/24/19 14:15 15:20 18:44 WBC RBC Hgb Hct MCV MCH MCHC RDW Std Deviation RDW Coeff of Paula Plt Count MPV Immature Gran % (Auto) Neut % (Auto) Lymph % (Auto) Marion % (Auto) Eos % (Auto) Baso % (Auto) Immature Gran # (Auto) Neut # (Auto) Lymph # (Auto) Marion # (Auto) Eos # (Auto) Baso # (Auto) Absolute Nucleated RBC Nucleated RBC % (auto) Toxic Granulation Echinocytes PT 14.1 H INR 1.4 H APTT 34.5 H PTT Ratio 1.3 Fibrinogen 470 H Heparin Anti-Xa, LM Wt Specimen Type Sample Site Patient Temperature POC pH POC pCO2 POC pO2 POC HCO3 POC Total CO2 POC Base Excess O2 Sat Pulse Oximetry ABG pH 7.40 ABG pH (Temp Correct) ABG pCO2 45 ABG pCO2 (Temp Corrct ABG pO2 80 POC ABG pO2 at Pt Temp ABG HCO3 27 H POC ABG O2 Sat ABG O2 Saturation 95.3 H ABG Base Excess 2.0 H Dav Test Pos Barometric Pressure 734.0 Oxygen Given 100% O2 Delivery Device POC O2 Rate Minute Ventilation Vent Mode Tidal Volume End Tidal CO2 PEEP Sodium Potassium Chloride Carbon Dioxide Anion Gap BUN Creatinine Est Cr Clr Drug Dosing Est GFR ( Amer) Est GFR (Non-Af Amer) BUN/Creatinine Ratio Glucose POC Glucose (other) Lactate Calcium Ionized Calcium Phosphorus Magnesium Total Bilirubin Direct Bilirubin AST ALT Alkaline Phosphatase Total Protein Albumin Blood Type B Positive Antibody Screen NEGATIVE Crossmatch See Detail 02/24/19 02/24/19 02/24/19 18:44 18:44 18:44 WBC RBC Hgb 12.4 L Hct 35.7 L MCV MCH MCHC RDW Std Deviation RDW Coeff of Paula Plt Count MPV Immature Gran % (Auto) Neut % (Auto) Lymph % (Auto) Marion % (Auto) Eos % (Auto) Baso % (Auto) Immature Gran # (Auto) Neut # (Auto) Lymph # (Auto) Marion # (Auto) Eos # (Auto) Baso # (Auto) Absolute Nucleated RBC Nucleated RBC % (auto) Toxic Granulation Echinocytes PT INR APTT PTT Ratio Fibrinogen Heparin Anti-Xa, LM Wt Specimen Type Sample Site Patient Temperature POC pH POC pCO2 POC pO2 POC HCO3 POC Total CO2 POC Base Excess O2 Sat Pulse Oximetry ABG pH ABG pH (Temp Correct) ABG pCO2 ABG pCO2 (Temp Corrct ABG pO2 POC ABG pO2 at Pt Temp ABG HCO3 POC ABG O2 Sat ABG O2 Saturation ABG Base Excess Dav Test Barometric Pressure Oxygen Given O2 Delivery Device POC O2 Rate Minute Ventilation Vent Mode Tidal Volume End Tidal CO2 PEEP Sodium 139 Potassium Chloride 106 Carbon Dioxide 26 Anion Gap 7.0 BUN 34 H Creatinine 0.77 Est Cr Clr Drug Dosing 84.3 Est GFR ( Amer) 102.2 Est GFR (Non-Af Amer) 88.1 BUN/Creatinine Ratio 43.8 H Glucose 150 H POC Glucose (other) Lactate Calcium 7.9 L Ionized Calcium 1.10 L Phosphorus 4.3 D Magnesium Total Bilirubin Direct Bilirubin AST ALT Alkaline Phosphatase Total Protein Albumin Blood Type Antibody Screen Crossmatch 02/24/19 02/24/19 02/24/19 18:44 18:44 18:49 WBC RBC Hgb Hct MCV MCH MCHC RDW Std Deviation RDW Coeff of Paula Plt Count MPV Immature Gran % (Auto) Neut % (Auto) Lymph % (Auto) Marion % (Auto) Eos % (Auto) Baso % (Auto) Immature Gran # (Auto) Neut # (Auto) Lymph # (Auto) Marion # (Auto) Eos # (Auto) Baso # (Auto) Absolute Nucleated RBC Nucleated RBC % (auto) Toxic Granulation Echinocytes PT INR APTT PTT Ratio Fibrinogen Heparin Anti-Xa, LM Wt Specimen Type Sample Site Patient Temperature POC pH POC pCO2 POC pO2 POC HCO3 POC Total CO2 POC Base Excess O2 Sat Pulse Oximetry ABG pH ABG pH (Temp Correct) ABG pCO2 ABG pCO2 (Temp Corrct ABG pO2 POC ABG pO2 at Pt Temp ABG HCO3 POC ABG O2 Sat ABG O2 Saturation ABG Base Excess Dav Test Barometric Pressure Oxygen Given O2 Delivery Device POC O2 Rate Minute Ventilation Vent Mode Tidal Volume End Tidal CO2 PEEP Sodium Potassium 4.0 D Chloride Carbon Dioxide Anion Gap BUN Creatinine Est Cr Clr Drug Dosing Est GFR ( Amer) Est GFR (Non-Af Amer) BUN/Creatinine Ratio Glucose POC Glucose (other) 152 H Lactate 2.1 H* Calcium Ionized Calcium Phosphorus Magnesium 2.1 Total Bilirubin Direct Bilirubin AST ALT Alkaline Phosphatase Total Protein Albumin Blood Type Antibody Screen Crossmatch 02/24/19 02/25/19 02/25/19 21:33 00:38 00:38 WBC RBC Hgb 12.3 L Hct 35.8 L MCV MCH MCHC RDW Std Deviation RDW Coeff of Paula Plt Count MPV Immature Gran % (Auto) Neut % (Auto) Lymph % (Auto) Marion % (Auto) Eos % (Auto) Baso % (Auto) Immature Gran # (Auto) Neut # (Auto) Lymph # (Auto) Marion # (Auto) Eos # (Auto) Baso # (Auto) Absolute Nucleated RBC Nucleated RBC % (auto) Toxic Granulation Echinocytes PT INR APTT PTT Ratio Fibrinogen Heparin Anti-Xa, LM Wt Specimen Type Sample Site Art Line Patient Temperature 36.7 POC pH 7.45 POC pCO2 32 L POC pO2 176 H POC HCO3 22 POC Total CO2 23 L POC Base Excess -2.0 O2 Sat Pulse Oximetry ABG pH ABG pH (Temp Correct) 7.456 H ABG pCO2 ABG pCO2 (Temp Corrct 32 L ABG pO2 POC ABG pO2 at Pt Temp 174 ABG HCO3 POC ABG O2 Sat 100.0 H ABG O2 Saturation ABG Base Excess Dav Test NA Barometric Pressure Oxygen Given O2 Delivery Device Ventilator POC O2 Rate 14 Minute Ventilation 9 Vent Mode Tidal Volume 500 End Tidal CO2 PEEP 5 Sodium Potassium Chloride Carbon Dioxide Anion Gap BUN Creatinine Est Cr Clr Drug Dosing Est GFR ( Amer) Est GFR (Non-Af Amer) BUN/Creatinine Ratio Glucose POC Glucose (other) Lactate 3.4 H* Calcium Ionized Calcium Phosphorus Magnesium Total Bilirubin Direct Bilirubin AST ALT Alkaline Phosphatase Total Protein Albumin Blood Type Antibody Screen Crossmatch 02/25/19 02/25/19 02/25/19 03:27 03:27 04:12 WBC RBC Hgb Hct MCV MCH MCHC RDW Std Deviation RDW Coeff of Paula Plt Count MPV Immature Gran % (Auto) Neut % (Auto) Lymph % (Auto) Marion % (Auto) Eos % (Auto) Baso % (Auto) Immature Gran # (Auto) Neut # (Auto) Lymph # (Auto) Marion # (Auto) Eos # (Auto) Baso # (Auto) Absolute Nucleated RBC Nucleated RBC % (auto) Toxic Granulation Echinocytes PT INR APTT PTT Ratio Fibrinogen Heparin Anti-Xa, LM Wt Specimen Type Sample Site Art Line Art Line Patient Temperature POC pH 7.43 7.43 POC pCO2 34 L 34 L POC pO2 82 82 POC HCO3 22 22 POC Total CO2 23 L 23 L POC Base Excess -2.0 -2.0 O2 Sat Pulse Oximetry ABG pH ABG pH (Temp Correct) 7.421 ABG pCO2 ABG pCO2 (Temp Corrct 35 ABG pO2 POC ABG pO2 at Pt Temp 85 ABG HCO3 POC ABG O2 Sat 96.0 H 96.0 H ABG O2 Saturation ABG Base Excess Dav Test NA NA Barometric Pressure Oxygen Given O2 Delivery Device Ventilator Ventilator POC O2 Rate 12 12 Minute Ventilation 7.9 7.9 Vent Mode Tidal Volume 500 500 End Tidal CO2 PEEP 5 5 Sodium 134 L Potassium 3.6 Chloride 99 Carbon Dioxide 24 Anion Gap 11.0 BUN 38 H Creatinine 1.22 D Est Cr Clr Drug Dosing 53.2 Est GFR ( Amer) 66.3 Est GFR (Non-Af Amer) 57.2 BUN/Creatinine Ratio 31.4 H Glucose 251 H POC Glucose (other) Lactate Calcium 7.6 L Ionized Calcium Phosphorus 3.9 Magnesium 2.3 Total Bilirubin 5.2 H D Direct Bilirubin 3.9 H AST 45 H ALT 37 Alkaline Phosphatase 32 L Total Protein 4.1 L D Albumin 1.7 L Blood Type Antibody Screen Crossmatch 02/25/19 02/25/19 02/25/19 04:12 06:03 06:03 WBC 29.02 H RBC 3.65 L Hgb 11.7 L Hct 32.7 L MCV 89.6 MCH 32.1 MCHC 35.8 RDW Std Deviation 50.1 H RDW Coeff of Paula 15.4 H Plt Count 250 MPV 9.9 Immature Gran % (Auto) 1.4 Neut % (Auto) 94.1 Lymph % (Auto) 2.2 Marion % (Auto) 2.1 Eos % (Auto) 0.0 Baso % (Auto) 0.2 Immature Gran # (Auto) 0.41 H Neut # (Auto) 27.30 H Lymph # (Auto) 0.64 L Marion # (Auto) 0.62 H Eos # (Auto) 0.00 Baso # (Auto) 0.05 Absolute Nucleated RBC 0.06 H Nucleated RBC % (auto) 0.2 Toxic Granulation 1+ Echinocytes 1+ PT INR APTT PTT Ratio Fibrinogen Heparin Anti-Xa, LM Wt Specimen Type Sample Site Patient Temperature POC pH POC pCO2 POC pO2 POC HCO3 POC Total CO2 POC Base Excess O2 Sat Pulse Oximetry ABG pH ABG pH (Temp Correct) ABG pCO2 ABG pCO2 (Temp Corrct ABG pO2 POC ABG pO2 at Pt Temp ABG HCO3 POC ABG O2 Sat ABG O2 Saturation ABG Base Excess Dav Test Barometric Pressure Oxygen Given O2 Delivery Device POC O2 Rate Minute Ventilation Vent Mode Tidal Volume End Tidal CO2 PEEP Sodium Potassium Chloride Carbon Dioxide Anion Gap BUN Creatinine Est Cr Clr Drug Dosing Est GFR ( Amer) Est GFR (Non-Af Amer) BUN/Creatinine Ratio Glucose POC Glucose (other) Lactate 3.1 H* Calcium Ionized Calcium 1.00 L Phosphorus Magnesium Total Bilirubin Direct Bilirubin AST ALT Alkaline Phosphatase Total Protein Albumin Blood Type Antibody Screen Crossmatch 02/25/19 02/25/19 02/25/19 06:06 09:33 10:29 WBC RBC Hgb Hct MCV MCH MCHC RDW Std Deviation RDW Coeff of Paula Plt Count MPV Immature Gran % (Auto) Neut % (Auto) Lymph % (Auto) Marion % (Auto) Eos % (Auto) Baso % (Auto) Immature Gran # (Auto) Neut # (Auto) Lymph # (Auto) Marion # (Auto) Eos # (Auto) Baso # (Auto) Absolute Nucleated RBC Nucleated RBC % (auto) Toxic Granulation Echinocytes PT INR APTT PTT Ratio Fibrinogen Heparin Anti-Xa, LM Wt Specimen Type Arterial Sample Site Art Line Patient Temperature 36.7 POC pH 7.45 POC pCO2 33 L POC pO2 94 POC HCO3 23 POC Total CO2 24 POC Base Excess -1.0 O2 Sat Pulse Oximetry 97 ABG pH ABG pH (Temp Correct) 7.46 H ABG pCO2 ABG pCO2 (Temp Corrct 33 L ABG pO2 POC ABG pO2 at Pt Temp 93 ABG HCO3 POC ABG O2 Sat 98.0 H ABG O2 Saturation ABG Base Excess Dav Test Not Performed Barometric Pressure Oxygen Given O2 Delivery Device Ventilator POC O2 Rate 12 Minute Ventilation 10 Vent Mode PRVAC Tidal Volume 500 End Tidal CO2 30 PEEP 5 Sodium Potassium Chloride Carbon Dioxide Anion Gap BUN Creatinine Est Cr Clr Drug Dosing Est GFR ( Amer) Est GFR (Non-Af Amer) BUN/Creatinine Ratio Glucose POC Glucose (other) 265 H 263 H Lactate Calcium Ionized Calcium Phosphorus Magnesium Total Bilirubin Direct Bilirubin AST ALT Alkaline Phosphatase Total Protein Albumin Blood Type Antibody Screen Crossmatch 02/25/19 02/25/19 02/25/19 11:52 12:26 12:26 WBC RBC Hgb Hct MCV MCH MCHC RDW Std Deviation RDW Coeff of Paula Plt Count MPV Immature Gran % (Auto) Neut % (Auto) Lymph % (Auto) Marion % (Auto) Eos % (Auto) Baso % (Auto) Immature Gran # (Auto) Neut # (Auto) Lymph # (Auto) Marion # (Auto) Eos # (Auto) Baso # (Auto) Absolute Nucleated RBC Nucleated RBC % (auto) Toxic Granulation Echinocytes PT INR APTT PTT Ratio Fibrinogen Heparin Anti-Xa, LM Wt Pending Specimen Type Sample Site Patient Temperature POC pH POC pCO2 POC pO2 POC HCO3 POC Total CO2 POC Base Excess O2 Sat Pulse Oximetry ABG pH ABG pH (Temp Correct) ABG pCO2 ABG pCO2 (Temp Corrct ABG pO2 POC ABG pO2 at Pt Temp ABG HCO3 POC ABG O2 Sat ABG O2 Saturation ABG Base Excess Dav Test Barometric Pressure Oxygen Given O2 Delivery Device POC O2 Rate Minute Ventilation Vent Mode Tidal Volume End Tidal CO2 PEEP Sodium Potassium Chloride Carbon Dioxide Anion Gap BUN Creatinine Est Cr Clr Drug Dosing Est GFR ( Amer) Est GFR (Non-Af Amer) BUN/Creatinine Ratio Glucose POC Glucose (other) 208 H Lactate 3.1 H* Calcium Ionized Calcium Phosphorus Magnesium Total Bilirubin Direct Bilirubin AST ALT Alkaline Phosphatase Total Protein Albumin Blood Type Antibody Screen Crossmatch 02/25/19 13:11 WBC RBC Hgb Hct MCV MCH MCHC RDW Std Deviation RDW Coeff of Paula Plt Count MPV Immature Gran % (Auto) Neut % (Auto) Lymph % (Auto) Marion % (Auto) Eos % (Auto) Baso % (Auto) Immature Gran # (Auto) Neut # (Auto) Lymph # (Auto) Marion # (Auto) Eos # (Auto) Baso # (Auto) Absolute Nucleated RBC Nucleated RBC % (auto) Toxic Granulation Echinocytes PT INR APTT PTT Ratio Fibrinogen Heparin Anti-Xa, LM Wt Specimen Type Sample Site Patient Temperature POC pH POC pCO2 POC pO2 POC HCO3 POC Total CO2 POC Base Excess O2 Sat Pulse Oximetry ABG pH ABG pH (Temp Correct) ABG pCO2 ABG pCO2 (Temp Corrct ABG pO2 POC ABG pO2 at Pt Temp ABG HCO3 POC ABG O2 Sat ABG O2 Saturation ABG Base Excess Dav Test Barometric Pressure Oxygen Given O2 Delivery Device POC O2 Rate Minute Ventilation Vent Mode Tidal Volume End Tidal CO2 PEEP Sodium Potassium Chloride Carbon Dioxide Anion Gap BUN Creatinine Est Cr Clr Drug Dosing Est GFR ( Amer) Est GFR (Non-Af Amer) BUN/Creatinine Ratio Glucose POC Glucose (other) 177 H Lactate Calcium Ionized Calcium Phosphorus Magnesium Total Bilirubin Direct Bilirubin AST ALT Alkaline Phosphatase Total Protein Albumin Blood Type Antibody Screen Crossmatch Medications Administered Home Medications Macular Health Formula 1 cap PO QAM 01/03/19 [History Confirmed 02/17/19] cholecalciferol (vitamin D3) [Vitamin D3] 2,000 unit PO QAM 01/03/19 [History Confirmed 02/17/19] cyanocobalamin (vitamin B-12) [Vitamin B-12] 500 mcg PO QAM 01/03/19 [History Confirmed 02/17/19] ferrous sulfate [Iron (ferrous sulfate)] 325 mg PO QAM 01/03/19 [History Confirmed 02/17/19] folic acid 0.8 mg PO QAM 01/03/19 [History Confirmed 02/17/19] levothyroxine 88 mcg PO HS 01/03/19 [History Confirmed 02/17/19] ranitidine HCl 150 mg PO HS 01/03/19 [History Confirmed 02/17/19] calcium carbonate [Calcium 600] 600 mg PO DAILY 02/17/19 [History Confirmed 02/17/19] Active Medications Dextrose (Dextrose 50%) 25 - 50 ml IV UD PRN; Protocol PRN Reason: Hypoglycemia Protocol Stop: 03/27/19 08:59 Enoxaparin Sodium (Lovenox) 40 mg SQ QAM [facility] Stop: 03/20/19 08:59 Last Admin: 02/25/19 08:58 Dose: 40 mg Documented by: Fentanyl Citrate (Fentanyl Citrate) 100 mcg IV Q1H PRN PRN Reason: Severe Pain (7,8,9,10) Stop: 03/10/19 18:22 Last Admin: 02/25/19 11:22 Dose: 100 mcg Documented by: Glucagon (Glucagen) 1 mg IM UD PRN; Protocol PRN Reason: Hypoglycemia Protocol Stop: 03/27/19 08:59 Glucose (Glucose 40%) 15 - 30 gm PO UD PRN; Protocol PRN Reason: Hypoglycemia Protocol Stop: 03/27/19 08:59 Glucose (Dex4 Glucose) 4 - 8 tabs PO UD PRN; Protocol PRN Reason: Hypoglycemia Protocol Stop: 03/27/19 08:59 Levothyroxine Sodium 44 mcg/ (Syringe) 2.2 mls @ 2 mls/min IV HS [facility] Stop: 03/23/19 20:59 Last Admin: 02/24/19 20:38 Dose: 2 mls/min Documented by: Parenteral Electrolytes (Normosol-R) 1,000 mls @ 100 mls/hr IV .Q10H [facility] Stop: 03/24/19 10:14 Last Infusion: 02/25/19 10:39 Dose: 80 mls/hr Documented by: Piperacillin Sod/Tazobactam (Sod 4.5 gm/ Dextrose) 120 mls @ 30 mls/hr IV Q8H [facility]; Protocol Stop: 03/01/19 19:59 Last Admin: 02/25/19 12:09 Dose: 30 mls/hr Documented by: Caspofungin 50 mg/ Sodium (Chloride) 260 mls @ 260 mls/hr IV DAILY@1200 [facility]; Protocol Stop: 03/27/19 11:59 Last Infusion: 02/25/19 13:10 Dose: Infused Documented by: Epinephrine HCl 4 mg/ Dextrose 254 mls @ 0 mls/hr IV .Q0M [facility]; Protocol Stop: 03/26/19 18:22 Last Titration: 02/25/19 13:10 Dose: Infused Documented by: Norepinephrine Bitartrate 8 mg (/ Dextrose) 508 mls @ 57.87 mls/hr IV .Q8H47M [facility]; Protocol Stop: 03/26/19 18:22 Last Titration: 02/25/19 13:10 Dose: 0.175 mcg/kg/min, 57.9 mls/hr Documented by: Acetaminophen (Ofirmev) 1,000 mg in 100 mls @ 400 mls/hr IV Q8H [facility] Stop: 03/26/19 18:59 Last Infusion: 02/25/19 11:59 Dose: Infused Documented by: Thiamine HCl 100 mg/ Syringe 10 mls @ 2 mls/min IV QAM [facility] Stop: 03/27/19 08:59 Last Admin: 02/25/19 08:59 Dose: 2 mls/min Documented by: Ascorbic Acid 1,500 mg/ Sodium (Chloride) 103 mls @ 206 mls/hr IV QAM [facility] Stop: 03/27/19 08:59 Last Infusion: 02/25/19 10:39 Dose: Infused Documented by: Insulin Human Regular 250 (units/ Sodium Chloride) 250 mls @ 3.5 mls/hr IV .Q24H [facility]; Protocol Stop: 03/27/19 08:59 Last Titration: 02/25/19 13:05 Dose: 3.5 units/hr, 3.5 mls/hr Documented by: Famotidine 20 mg/ Syringe 5 mls @ 2.5 mls/min IV DAILY [facility] Stop: 03/28/19 08:59 Insulin Aspart (Novolog Flexpen) 0 units SC ACHS [facility] Stop: 03/27/19 11:29 Last Admin: 02/25/19 12:05 Dose: Not Given Documented by: Ioversol (Optiray 320 100ml) 94 ml IV ONCE PRN PRN Reason: Interaction Checking Stop: 02/26/19 08:53 Last Admin: 02/22/19 08:55 Dose: 94 ml Documented by: Midazolam HCl (Versed) 2 mg IV Q2H PRN PRN Reason: agitation/anxiety Stop: 03/26/19 18:22 Last Admin: 02/25/19 09:07 Dose: 2 mg Documented by: Miscellaneous (Carbohydrates For Hypoglycemia) 15 - 30 gm PO PRN PRN PRN Reason: Hypoglycemia Treatment Stop: 03/27/19 08:59 Miscellaneous Information (Consult) 1 ea N/A UD PRN PRN Reason: Consult Stop: 03/24/19 14:02 Miscellaneous Information (Consult Glycemic Management Pharmacy) 1 ea N/A UD PRN PRN Reason: Consult Stop: 03/27/19 08:57 Morphine Sulfate (Morphine Sulfate) 1 - 2 mg IV Q1H PRN PRN Reason: Shortness Of Breath Stop: 03/07/19 22:24 Last Admin: 02/24/19 03:51 Dose: 2 mg Documented by: Ondansetron HCl (Zofran) 4 mg IV Q4 PRN PRN Reason: Nausea Stop: 03/20/19 00:00 PG Care Time/CCT Critical Care Time: Yes Total Critical Care Time: 50
[2019-02-25] MEDS ORDERED: NORMOSOL-R 500 ML IV ONE (08:20)
[2019-02-25] MEDS ORDERED: PHYTONADIONE 2.5 MG in SODIUM CHLORIDE 0.9% 50 ML IV ONE (08:30)
[2019-02-25] MEDS: ENOXAPARIN INJ 40 MG/0.4 ML SYR SQ SCH (08:58)
[2019-02-25] MEDS ORDERED: PHARMACY GLYCEMIC MGMT CONSULT PRN (08:58)
[2019-02-25] MEDS: ALBUMIN 25% 50 ML IV SCH ×2 (08:59→10:05)
[2019-02-25] MEDS: THIAMINE HCL 100 MG in SYRINGE 9 ML IV SCH (08:59)
[2019-02-25] MEDS ORDERED: GLUCAGON FOR INJ 1 MG VIAL IM PRN (09:00)
[2019-02-25] MEDS ORDERED: FAMOTIDINE 20 MG in SYRINGE 3 ML IV SCH (09:00)
[2019-02-25] MEDS ORDERED: INSULIN REGULAR 250 UNITS in SODIUM CHLORIDE 0.9% 247.5 ML IV SCH (09:00)
[2019-02-25] MEDS ORDERED: GLUCOSE 10 TABS/TUBE PO PRN (09:00)
[2019-02-25] MEDS ORDERED: DEXTROSE 50% 50 ML SYRINGE IV PRN (09:00)
[2019-02-25] MEDS ORDERED: NovoLIN-R BOLUS FROM BAG IV ONE (09:00)
[2019-02-25] MEDS ORDERED: CARBOHYDRATES FOR HYPOGLYCEMIA PO PRN (09:00)
[2019-02-25] MEDS ORDERED: GLUCOSE 40% GEL 15 GM TUBE PO PRN (09:00)
[2019-02-25 09:38] LABS: iSTAT Art Bld Gas pCO2 Correct 32 mmHg (35-46); iSTAT Art Bld Gas pH Corrected 7.456 (7.35-7.45)
[2019-02-25 09:39] LABS: Patient Temperature 36.7
[2019-02-25] MEDS: ASCORBIC ACID 1,500 MG in 0.9 % SODIUM CHLORIDE 100 ML IV SCH (10:04)
[2019-02-25 10:08] LABS: iSTAT Art Bld Gas pCO2 Correct 33 mmHg (35-46); iSTAT Arterial Blood Gas HCO3 23 meg/L (19-24); iSTAT Arterial Blood Gas pCO2 33 mmHg (35-46); iSTAT Arterial Blood Gas pH 7.45 (7.35-7.45); iSTAT Carbon Dioxide 24 mEq/l (24-31)
[2019-02-25 10:09] LABS: iSTAT Allen Test Not Performed; iSTAT Sample Type Arterial; iSTAT Site Art Line
[2019-02-25 10:10] LABS: iSTAT SpO2 97
[2019-02-25 10:11] LABS: Patient Temperature 36.7; iSTAT Art Bld Gas pH Corrected 7.46 (7.35-7.45)
--- NOTE | 2019-02-25 10:27 | Pharmacy Report ---
Glycemic Control Consultation - Date of Service February 25, 2019 - Scope Scope: Glycemic Pharmacist consulted on 02/25/19 for glycemic control and to write orders per [facility] inpatient glycemic control protocol - Objective Weight: 93.7 kg Accuchecks BSG (last 24hrs): 02/24/19 02/24/19 02/24/19 11:42 18:44 18:49 Glucose 150 H POC Glucose 125 H POC Glucose (other) 152 H 02/25/19 02/25/19 04:12 06:06 Glucose 251 H POC Glucose POC Glucose (other) 265 H Laboratory Data (last 24hrs): 02/24/19 02/24/19 02/25/19 18:44 18:44 04:12 Potassium 4.0 D 3.6 Carbon Dioxide 26 24 Anion Gap 7.0 11.0 Creatinine 0.77 1.22 D Est Cr Clr Drug Dosing 84.3 53.2 - Recent Pertinent Medications Outpatient Anti-diabetic Regimen: * None * A1c = on order for 02/26/19 The patient is currently receiving: * No insulin Risk Factors for Insulin Resistance: * Steroids: methylprednisolone 80 mg IV x1 overriden in OR 02/24 * Infection: GI - on Zosyn and caspofungin * Pressors: norepinephrine and epinephrine * Recent Surgery: POD 1 s/p significant intra-abdominal surgery * Diet: NPO * Mechanical Ventilation: Yes - Assessment & Plan Assessment & Plan: ASSESSMENT: * 78 yo M with no known history of diabetes with stress-induced hyperglycemia. Patient is critically ill in ICU. * Based on number and severity of stressors and BSG >180 mg/dL, patient will be started on insulin drip * Discussed at ICU rounds - will maintain patient on insulin drip for now. No transition attempt to be made at this time. PLAN FOR INPATIENT GLYCEMIC CONTROL: * Starting IV insulin infusion per severe stress protocol * Goal Range 140 - 180 mg/dl * In the critical care setting, continuous IV insulin infusion has been shown to be the best method for achieving glycemic targets. * Please note that the plan above was derived based on current level of insulin resistance and hospital stress. These recommendations are appropriate for inpatient admission only. Plan of care upon discharge will need to be reassessed to avoid potential outpatient hypo/hyperglycemia. Thank you.
[2019-02-25] MEDS ORDERED: CALCIUM GLUCONATE 10% 1,000 MG in SODIUM CHLORIDE 0.9% 50 ML IV STA (10:55)
[2019-02-25] MEDS ORDERED: POTASSIUM ACETATE 20 MEQ in SODIUM CHLORIDE 0.9% 250 ML IV ONE (11:00)
[2019-02-25 11:12] LABS: iSTAT Art Bld Gas pCO2 Correct 35 mmHg (35-46); iSTAT Art Bld Gas pH Corrected 7.421 (7.35-7.45); iSTAT Arterial Blood Gas HCO3 22 meg/L (19-24); iSTAT Arterial Blood Gas pCO2 34 mmHg (35-46); iSTAT Arterial Blood Gas pH 7.43 (7.35-7.45); iSTAT Carbon Dioxide 23 mEq/l (24-31); iSTAT Site Art Line
[2019-02-25] MEDS: INSULIN ASPART 100 UNITS/ML 3 ML PEN SC SCH ×3 (12:05→21:28)
[2019-02-25] MEDS: CASPOFUNGIN 50 MG in SODIUM CHLORIDE 0.9% 250 ML IV SCH (12:08)
--- NOTE | 2019-02-25 14:12 | Anesthesiology Progress Note ---
Date of Service February 25, 2019 Anesthesia Post Procedure Vital Signs Vital Signs: Temp Pulse Pulse Resp BP BP BP 02/25/19 12:05 89 13 02/25/19 07:56 101 H 16 02/25/19 06:00 37.3 C 98 H 13 108/58 L 118/70 02/25/19 05:08 99 H 13 02/25/19 05:00 96 H 12 110/58 L 115/67 02/25/19 04:00 37.4 C 95 H 12 110/51 L 115/67 02/25/19 03:00 99 H 12 99/53 L 106/71 02/25/19 02:13 98 H 14 02/25/19 02:00 98 H 15 106/55 L 120/71 02/25/19 01:00 37.2 C 100 H 17 104/71 02/25/19 00:00 36.9 C 98 H 101 H 13 117/71 02/24/19 23:00 36.7 C 99 H 15 87/55 L 02/24/19 22:30 96 H 14 131/79 02/24/19 22:15 96 H 02/24/19 22:00 96 H 97/60 L 02/24/19 21:45 98 H 20 02/24/19 21:44 98 H 17 02/24/19 21:31 99 H 107/66 02/24/19 21:30 101 H 02/24/19 21:15 99 H 02/24/19 21:01 96 H 02/24/19 21:00 96 H 120/79 02/24/19 20:30 97 H 22 144/64 H 02/24/19 20:00 95 H 125/68 02/24/19 19:37 87 18 02/24/19 19:30 86 116/67 02/24/19 19:02 95 H 28 H 130/80 02/24/19 19:00 94 H 30 H 132/78 02/24/19 18:58 94 H 24 112/83 02/24/19 18:56 93 H 24 134/75 02/24/19 18:54 93 H 26 H 122/82 02/24/19 18:52 96 H 25 H 108/85 02/24/19 18:50 89 20 124/86 02/24/19 18:48 89 22 120/80 02/24/19 18:46 85 19 110/84 02/24/19 18:44 82 20 101/70 02/24/19 18:42 76 30 H 79/55 L 02/24/19 18:40 73 25 H 52/38 L 02/24/19 18:39 72 19 69/44 L 02/24/19 18:36 78 19 79/54 L 02/24/19 18:34 77 23 85/56 L 02/24/19 18:30 36.0 C L 77 77 22 82/61 L 82/61 L 02/24/19 18:25 88 21 86/57 L 02/24/19 18:20 77 21 83/65 L 02/24/19 18:15 79 78 14 81/64 L 02/24/19 18:10 79 14 92/74 L 02/24/19 18:05 80 14 88/62 L 02/24/19 18:00 80 14 75/56 L 02/24/19 17:56 80 21 74/57 L Pulse Ox 02/25/19 12:05 94 02/25/19 07:56 97 02/25/19 06:00 97 02/25/19 05:08 96 02/25/19 05:00 97 02/25/19 04:00 96 02/25/19 03:00 96 02/25/19 02:13 98 02/25/19 02:00 98 02/25/19 01:00 99 02/25/19 00:00 96 02/24/19 23:00 98 02/24/19 22:30 97 02/24/19 22:15 96 02/24/19 22:00 95 02/24/19 21:45 98 02/24/19 21:44 98 02/24/19 21:31 100 02/24/19 21:30 100 02/24/19 21:15 100 02/24/19 21:01 99 02/24/19 21:00 100 02/24/19 20:30 100 02/24/19 20:00 100 02/24/19 19:37 100 02/24/19 19:30 100 02/24/19 19:02 95 02/24/19 19:00 95 02/24/19 18:58 96 02/24/19 18:56 95 02/24/19 18:54 95 02/24/19 18:52 95 02/24/19 18:50 02/24/19 18:48 02/24/19 18:46 02/24/19 18:44 95 02/24/19 18:42 95 02/24/19 18:40 94 02/24/19 18:39 02/24/19 18:36 96 02/24/19 18:34 93 02/24/19 18:30 95 02/24/19 18:25 94 02/24/19 18:20 95 02/24/19 18:15 93 02/24/19 18:10 95 02/24/19 18:05 92 02/24/19 18:00 02/24/19 17:56 95 Pain Intensity Abdomen: Pain Intensity: 0 Upper Chest: Pain Intensity: 6 Generalized: Pain Intensity: 0 Notes Patient Amnestic to Procedure: Yes Nausea / Vomiting: adequately controlled Pain: improving with treatment Airway Patency, RR, SpO2: stable & adequate BP & HR: stable & adequate Hydration State: stable & adequate Anesthetic Complications: no major complications apparent Notes: 02/25/2019-The patient remains on the ventilator. Hemodynamically stable on epinephrine and norepinephrine infusion. ICU staff indicates that the patient is responding appropriately to commands. No major anesthetic related complications at this time
[2019-02-25] MEDS ORDERED: CALCIUM CHLORIDE 10% 10 ML SYR IV ONE (14:54)
[2019-02-25 14:59] LABS: iSTAT Art Bld Gas pCO2 Correct 36 mmHg (35-46); iSTAT Art Bld Gas pH Corrected 7.455 (7.35-7.45); iSTAT Arterial Blood Gas HCO3 25 meg/L (19-24); iSTAT Arterial Blood Gas pCO2 36 mmHg (35-46); iSTAT Arterial Blood Gas pH 7.45 (7.35-7.45); iSTAT Carbon Dioxide 26 mEq/l (24-31); iSTAT Site Art Line
[2019-02-25] MEDS ORDERED: NORMOSOL-R 1,000 ML IV ONE ×2 (15:35→16:56)
[2019-02-25 16:34] LABS: Albumin Level 1.7 gm/dl (3.4-5.0); BUN Creatinine Ratio 32.9 (10-20); Calcium 7.4 mg/dl (8.5-10.1); Creatinine Clr Calc Pharmacy 64.5 ml/min; Est GFR (African American) 73.6; Est GFR (Non-African American) 63.5; Magnesium 2.4 mg/dl (1.8-2.4); Potassium 3.5 mmol/L (3.5-5.1)
--- NOTE | 2019-02-25 16:37 | Gastroenterology Progress Note ---
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 ischemic, supportive care elevated WBC--per others, likely from ischemic stomach, hopefully will improve since that has been resected other problems per critical care and surgery. Subjective cc f/u s/p surgery HPI Dr Jimenez signed out patient for me to see today. Son in room for H and P. Discussed with nursing and patient will wake up and respond to commands ( did not try to wake him). Urine output reasonable and pressor support is coming down. He is intubated. 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 Noted elevated TB and WBC today. Review of Systems Review of Systems: Unobtainable due to endotracheal tube Physical Exam Constitutional: WD/WN, vitals as above Respiratory: normal respiratory effort, lungs clear to auscultation Cardiovascular: Heart Sounds: no murmur Gastrointestinal (Abdomen): abdomen soft, pos bs, no guarding nor rebound Psychiatric: intubated, no awake for me Results & Data Vital Signs (Past 12 Hours) Vital Signs Temp Pulse Pulse Resp BP BP Pulse Ox 02/25/19 14:56 89 13 94 02/25/19 12:05 89 13 94 02/25/19 07:56 101 H 16 97 02/25/19 06:00 37.3 C 98 H 13 108/58 L 118/70 97 02/25/19 05:08 99 H 13 96 02/25/19 05:00 96 H 12 110/58 L 115/67 97
[2019-02-25 16:40] LABS: Albumin Globulin Ratio 0.8 (0.9-2); Bilirubin,Total 2.7 mg/dl (0.2-1); Phosphorus 2.9 mg/dl (2.5-4.9); Total Protein 3.7 gm/dl (6.4-8.2)
--- NOTE | 2019-02-25 17:08 | Progress Note ---
DATE: 02/25/2019 Mr. 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 He has improved. We have cut his oxygen down and we are weaning off the inotropes. He appears to be neurologically intact. I have had multiple discussions with the family today. His white count today is 29,020, hemoglobin of 11.7. His creatinine today is up to 1.22 from 0.77 yesterday; however, when he arrived in the hospital it was 1.04. BUN is still a bit elevated. It was 22 preoperatively and is 38 now. Sodium is 135 today. His carbon dioxide is 24; however, his lactate was high at 3.1. It was 3.1 earlier this morning and 3.4 yesterday. His urine output has been very good today. Airway pressures are low. I had a long talk with the patient and his family. I thought his x-ray looked a bit better today. He still has air in his colon; however, his right lung looks fully expanded. He does have an effusion on the left. ASSESSMENT AND PLAN: Postoperative day 8/postoperative day 1. Mr. Stern is very ill. I have had multiple discussions with the patient's family. He has a blind esophageal pouch and I do not want to leave this like this. I have explained to the patient that we may perform an esophagostomy at the very least. If he improves and we get him extubated and wean all of his inotropes off I may take him back to the operating room later this week and do an esophagogastrostomy as I believe we have enough stomach left to sew this into the chest. Having said that, the patient is quite ill and I may not want him to undergo that extensive operation. At the very least, we would have an esophagostomy and get him well enough to reevaluate for a colon interposition or possibly an esophagogastrostomy. At any rate, we discussed this in some detail and I think he has improved a great deal over the last 24 hours. We will see how he looks tomorrow. MADINA
[2019-02-25] MEDS ORDERED: ALBUMIN 25% 50 ML IV ONE (19:49)
[2019-02-25 21:18] LABS: iSTAT Art Bld Gas pCO2 Correct 29 mmHg (35-46); iSTAT Art Bld Gas pH Corrected 7.479 (7.35-7.45); iSTAT Arterial Blood Gas HCO3 22 meg/L (19-24); iSTAT Arterial Blood Gas pCO2 30 mmHg (35-46); iSTAT Arterial Blood Gas pH 7.47 (7.35-7.45); iSTAT Carbon Dioxide 23 mEq/l (24-31); iSTAT Site Art Line
[2019-02-25] MEDS: LEVOTHYROXINE SODIUM 44 MCG in SYRINGE 0 ML IV SCH (21:25)
[2019-02-25] MEDS ORDERED: ALBUMIN 25% 50 ML IV SCH (21:45)
[2019-02-26] MEDS: INSULIN ASPART 100 UNITS/ML 3 ML PEN SC SCH ×6 (00:57→23:52)
[2019-02-26] MEDS: fentaNYL citrate 100 MCG/2 ML VIAL IV PRN ×5 (01:02→19:49)
[2019-02-26] MEDS: MIDAZOLAM HCL 1 MG/ML 2ML VIAL IV PRN ×2 (01:02→04:42)
[2019-02-26] MEDS: ALBUMIN 25% 50 ML IV SCH ×2 (01:03→06:03)
[2019-02-26] MEDS: ACETAMINOPHEN 1,000 MG/100 ML VIAL IV SCH ×3 (02:40→19:42)
[2019-02-26] MEDS: NORMOSOL-R 1,000 ML IV SCH ×3 (02:41→16:52)
[2019-02-26 02:45] LABS: iSTAT Arterial Blood Gas HCO3 25 meg/L (19-24); iSTAT Arterial Blood Gas pCO2 37 mmHg (35-46); iSTAT Arterial Blood Gas pH 7.44 (7.35-7.45); iSTAT Carbon Dioxide 26 mEq/l (24-31); iSTAT Site Art Line
[2019-02-26] MEDS: PIPERACILLIN/TAZOBACTAM 4.5 GM in DEXTROSE 5% 100 ML IV SCH ×3 (04:02→19:43)
[2019-02-26] MEDS ORDERED: NORMOSOL-R 500 ML IV ONE (04:30)
[2019-02-26 04:42] LABS: Albumin Level 1.8 gm/dl (3.4-5.0); BUN Creatinine Ratio 33.7 (10-20); Calcium 7.1 mg/dl (8.5-10.1); Creatinine Clr Calc Pharmacy 78.5 ml/min; Est GFR (African American) 93.3; Est GFR (Non-African American) 80.5; Magnesium 2.6 mg/dl (1.8-2.4); Potassium 3.3 mmol/L (3.5-5.1)
[2019-02-26 04:54] LABS: INR 1.1 (0.9-1.1); Partial Thromboplastin Ratio 1.6; Partial Thromboplastin Time 43.9 Seconds (21.0-31.0); Prothrombin Time 11.5 Seconds (9.0-12.0)
[2019-02-26 05:16] LABS: Albumin Globulin Ratio 0.9 (0.9-2); Bilirubin,Total 2.6 mg/dl (0.2-1); Phosphorus 2.1 mg/dl (2.5-4.9); Total Protein 3.8 gm/dl (6.4-8.2)
[2019-02-26] MEDS ORDERED: POTASSIUM PHOS 3 MMOL/1 ML INFUSION IV STA ×2 (05:24→16:45)
[2019-02-26 06:00] LABS: Hematocrit (blood only) 21.2 % (42-52); Hemoglobin 7.7 g/dL (14.0-18.0); Mean Corpuscular Hgb Conc 36.3 g/dL (32-36); Mean Corpuscular Volume 89.1 fL (80-100); Mean Platelet Volume 9.2 fL (7.4-10.4); Platelet Count 185 K/uL (130-400); RDW Coefficient of Variation 15.2 % (11.5-14.5); RDW Standard Deviation 49.4 fL (36.4-46.3); Red Blood Count 2.38 M/uL (4.7-6.1); White Blood Count 23.74 K/uL (4.8-10.8)
[2019-02-26] MEDS ORDERED: POTASSIUM PHOSPHATE 15 MMOL in SODIUM CHLORIDE 0.9% 250 ML IV ONE ×2 (06:15→17:00)
[2019-02-26] MEDS ORDERED: SODIUM CHLORIDE 0.9% 250 ML IV PRN (06:17)
[2019-02-26 06:22] LABS: Basophils # (auto) 0.02 K/uL (0-0.2); Basophils % (auto) 0.1 %; Eosinophils # (auto) 0.01 K/uL (0-0.5); Immature Granulocytes % (auto) 0.8 %; Lymphocytes # (auto) 0.72 K/uL (1.2-3.4); Monocytes % (auto) 2.9 %; Neutrophils # (auto) 22.09 K/uL (1.4-6.5); Neutrophils % (auto) 93.2 %; RBC Morphology Unremarkable
[2019-02-26 06:35] LABS: Estimated Average Glucose 123 mg/dl; Hemoglobin A1C 5.9 % (4.5-5.6)
--- NOTE | 2019-02-26 07:00 | XRay Report ---
XR chest 1V portable CLINICAL HISTORY: Respiratory failure COMPARISON STUDY: 02/25/2019 FINDINGS: There is a left subclavian central venous catheter unchanged in position. There is an endot ariana tube 2.5 cm above the joaquin. 2 right-sided chest tubes are visualized. There is no pneumotho rax. The heart is enlarged. There is radiographic evidence of mild pulmonary vascular congestion. The re is a left pleural effusion with associated left basilar atelectasis/consolidation. Given the diffe rences in technique, the chest is felt to be stable. Arthritic changes are again evident within the s houlders.[ IMPRESSION: Stable findings Electronically signed by: Taco Estrada M.D. 02/26/2019 6:57 AM
--- NOTE | 2019-02-26 08:21 | Progress Note ---
DATE: 02/26/2019 Mr. Stern was seen today. He looks a bit better to me. He is on 35% FiO2. We were able to get him off the Levophed last night, but had to resume it. Hemoglobin 27.7, so we were giving him a unit of blood, which should help. The patient's white count is down to 23,740. Platelet count is stable. His BUN and creatinine are improved at 31 and 0.92. He appears to be a bit jaundiced and his bilirubin is 2.6. However, his LFTs are within normal limits. He did require fluid resuscitation yesterday, but is improving. I had a long talk with the patient's sons who were at bedside. We discussed possibly putting him back together, but I do not think that would be henriquez at this point. He is still on the vent, he is still on Levophed 48 hours after surgery. We would like to get him extubated and get him as stable as we can. An x-ray was seen today and he is draining very little. He does have a pleural effusion on the left, but really his right is pretty clear. Still he does have air in his colon. We are going to start tube feeds today. His abdomen is soft. I do hear some hypoactive bowel sounds. He is moving air well. We will try to get him off the ventilator today. I think we are simply going to offer him an esophagostomy and then we will let him recover. We will plan on reestablishing enteric continuity in the future.
--- NOTE | 2019-02-26 08:38 | Critical Care Progress Note ---
Date of Service February 26, 2019 Assessment & Plan (1) Acute respiratory failure with hypoxia: Reason Critically Ill: 78-year-old male s/p Naomi fundoplication for a hiatial hernia 02/17 who is currently critically ill s/p esophageal perforation repair 02/24, after requiring pressor support during surgery. NEURO -[facility] ICU:NEGATIVE -Continue PRN oxy, morphine for pain CARDIAC -discontinuing amiodarone since pt in sinus rhythm and consistently converts out of a fib (one less med interaction). -on pressors (Epi, NE) for hypotension, continue attempt to wean. -will transduce CVPs, goal of 10, increase fluid requirements as needed. -Echo 02/19-showed no wall motion abnormalities, EF 65-70%, mild concentric LVH. -Cardiac cath 02/19- showed mild-moderate nonobstructive CAD. -EKG 02/24-normal sinus rhythm, Qtc:475 -Historically in a. fib with rvr. Hold Coreg. No systemic anticoagulation for it. RESPIRATORY -Pt currently intubated, on ventilator post esophageal perforation repair. Extubation discussions. -Required pressor support during surgery; a fib with rvr and spontaneous sinus rhythm conversion. -s/p right-sided PleurX placement--draining Serratia contaminated pleural fluid. Continue Zosyn, empiric caspofungin. -Barium swallow 02/24-small aspiration noted but no sajan extravasation noted; CT recommended. -CTA chest 02/24-shows small-mod bilat pleural effusions, lower lobe atelecta sis/consolidation. Also suggests possible esophageal perforation. GI -will start J-tube feeds. -Pt with esophageal perforation after hiatial hernia surgery. -Repair done and pt with now esophageal pouch, G and J tubes in place. -S/P partial esophagectomy and gastrectomy. -continue Reglan and Ranitidine, zofran as needed. RENAL//LYTES - -Pt edematous, third spacing. -Receiving fluids and albumin -K+ and phos replaced today -Thiamine and Vit C daily -will continue to monitor ENDO -ICU hyperglycemia protocol -Hypothyroidism- cont IV levothyroxine HEME -H&H decreased this AM, possible dilutional component--transfused 1U of blood. Will continue to trend. -WBC still elevated -will continue to monitor ID -Continue Zosyn and Caspofungin -On Zosyn for tolentino-sensitive Serratia infection of pleural effusion -Started on Caspofungin given contrast extravasation and possible perforation. -Fungal cultures pending. INTEGUMENTARY -No concerns at this time LINES/IV ACCESS -PIVs intact. -Central line -J and G tube -Chest tubes -lujan DVT PROPHYLAXIS -Lovenox 40mg SQ Thank you for allowing us to be part of this patient's care. Please refer to Dr. Jimenez's documentation for any further recommendations. Supervising Physician Co-Signing Physician Notes Dr. Thomason was resident physician during care of patient. I separately evaluated patient for novak portions of the history and the exam. I was present during the critical portion of medical decision making, and I discussed the case with the resident. I generally agree with the findings and plan. Patient was discussed in multidisciplinary rounds Patient continues to improve, he is minimal oxygen requirements and has a reassuring RSBI. I had an extensive discussion with Dr. Cole regarding the risks and benefits of extubation. My overlying concern is with blind esophageal pouch he would be at risk for aspiration. Dr. Cole advised me if he were to receive a spit fistula at this time it would preclude certain to reconstruction possibilities I would most likely require colonic transposition which would be much more technically difficult as well as stressful for the patient and I am in agreement with this. Further the patient is alert oriented and should be able to manage his secretions. Therefore the risk of having a definitive drainage of the esophagus and thereby precluding some forms of revision is higher than the risk of aspiration in a patient who is alert and oriented and should be able to manage his secretions. I advised the patient's family members of this medical decision making and they were in agreement as well. Patient was subsequently extubated and was both managing his secretions and able to maintain airway patency. Ultimately the patient was transferred to [facility] for further management. I was advised of this via my overnight team. I have personally spent 85 minutes of critical care time in the direct management of this patient. This is a life/limb threatening event. This includes time spent evaluating patient, direct bedside care, chart review, placing orders, interpretation of diagnostic studies, discussion with consultants, patient, and/or family members regarding treatment decisions, as well as other required patient management activities. This time is exclusive of all separately billable procedures, and teaching time and separate from and in addition to any other critical care service time. Subjective Pt currently intubated in bed. Awake periodically. Review of Systems Review of Systems: Unobtainable due to endotracheal tube Physical Exam Physical Exam: General: Resting in bed. HEENT: Pt intubated. Chest: Nontender to palpation. CV: RRR Resp: Breath sounds clear on front. Abdomen: Soft, diffusely tender, No guarding. Extremities: Extremities (hands and feet) edematous, SCDs on lower extremities. Results & Data Vital Signs (Past 12 Hours) Vital Signs Temp Pulse Pulse Resp BP BP BP 02/26/19 06:57 36.9 C 74 16 100/56 L 02/26/19 05:21 78 15 02/26/19 05:00 37.0 C 73 16 120/48 L 91/56 L 02/26/19 04:00 37 C 72 71 14 98/51 L 141/48 H 103/55 L 02/26/19 03:45 71 102/54 L 02/26/19 03:30 70 101/54 L 02/26/19 03:15 69 96/52 L 02/26/19 03:00 73 70 16 95/55 L 82/77 L 96/52 L 02/26/19 02:45 73 98/57 L 02/26/19 02:30 73 95/55 L 02/26/19 02:20 73 12 02/26/19 02:15 74 97/58 L 02/26/19 02:01 76 02/26/19 02:00 78 127/71 02/26/19 01:45 77 119/68 02/26/19 01:30 80 115/65 02/26/19 01:15 83 106/61 02/26/19 01:00 78 78 14 127/67 138/55 L 119/68 02/26/19 00:45 75 123/69 02/26/19 00:30 80 125/67 02/26/19 00:15 82 120/69 02/26/19 00:01 81 02/26/19 00:00 80 80 14 121/69 103/67 125/67 02/25/19 23:45 80 120/66 02/25/19 23:30 82 13 125/63 02/25/19 23:15 80 122/64 02/25/19 23:00 80 81 14 116/66 109/57 L 116/66 02/25/19 22:45 81 120/64 02/25/19 22:30 80 116/65 02/25/19 22:15 80 117/66 02/25/19 22:01 80 02/25/19 22:00 37 C 80 79 14 113/64 101/71 113/64 02/25/19 21:45 80 107/61 02/25/19 21:30 79 112/60 02/25/19 21:15 78 109/60 02/25/19 21:00 79 76 12 116/66 116/66 105/94 02/25/19 20:45 78 105/61 02/25/19 20:30 80 97/55 L 02/25/19 20:15 83 87/51 L 02/25/19 20:02 86 15 02/25/19 20:01 86 02/25/19 20:00 37 C 85 80 12 116/64 86/77 L 97/55 L 02/25/19 19:45 85 118/63 02/25/19 19:30 84 119/67 02/25/19 19:15 83 113/67 Pulse Ox 02/26/19 06:57 94 02/26/19 05:21 95 02/26/19 05:00 93 02/26/19 04:00 97 02/26/19 03:45 97 02/26/19 03:30 97 02/26/19 03:15 97 02/26/19 03:00 97 02/26/19 02:45 97 02/26/19 02:30 98 02/26/19 02:20 99 02/26/19 02:15 98 02/26/19 02:01 98 02/26/19 02:00 98 02/26/19 01:45 97 02/26/19 01:30 97 02/26/19 01:15 97 02/26/19 01:00 97 02/26/19 00:45 97 02/26/19 00:30 97 02/26/19 00:15 97 02/26/19 00:01 97 02/26/19 00:00 97 02/25/19 23:45 97 02/25/19 23:30 97 02/25/19 23:15 96 02/25/19 23:00 96 07/16/19 22:45 97 02/25/19 22:30 97 02/25/19 22:15 97 02/25/19 22:01 97 02/25/19 22:00 97 02/25/19 21:45 97 02/25/19 21:30 97 02/25/19 21:15 98 02/25/19 21:00 97 02/25/19 20:45 97 02/25/19 20:30 95 02/25/19 20:15 96 02/25/19 20:02 95 02/25/19 20:01 95 02/25/19 20:00 95 02/25/19 19:45 96 02/25/19 19:30 96 02/25/19 19:15 96 Laboratory Results Laboratory Results - last 24 hr 02/24/19 02/24/19 02/25/19 14:15 21:33 03:27 WBC RBC Hgb Hct MCV MCH MCHC RDW Std Deviation RDW Coeff of Paula Plt Count MPV Immature Gran % (Auto) Neut % (Auto) Lymph % (Auto) [place] % (Auto) Eos % (Auto) Baso % (Auto) Immature Gran # (Auto) Neut # (Auto) Lymph # (Auto) [place] # (Auto) Eos # (Auto) Baso # (Auto) RBC Morphology PT INR APTT PTT Ratio Heparin Anti-Xa, LM Wt Specimen Type Sample Site Art Line Patient Temperature 36.7 POC pH 7.43 POC pCO2 34 L POC pO2 82 POC HCO3 22 POC Total CO2 23 L POC Base Excess -2.0 O2 Sat Pulse Oximetry ABG pH (Temp Correct) 7.456 H 7.421 ABG pCO2 (Temp Corrct 32 L 35 POC ABG pO2 at Pt Temp 174 85 POC ABG O2 Sat 96.0 H Dav Test NA O2 Delivery Device Ventilator POC O2 Rate 12 Minute Ventilation 7.9 Vent Mode Tidal Volume 500 End Tidal CO2 PEEP 5 Sodium Potassium Chloride Carbon Dioxide Anion Gap BUN Creatinine Est Cr Clr Drug Dosing Est GFR ( Amer) Est GFR (Non-Af Amer) BUN/Creatinine Ratio Glucose POC Glucose (other) Estimat Average Glucose Hemoglobin A1c Lactate Calcium Ionized Calcium Phosphorus Magnesium Total Bilirubin AST ALT Alkaline Phosphatase Total Protein Albumin Globulin Albumin/Globulin Ratio Blood Type B Positive Antibody Screen NEGATIVE Crossmatch See Detail 02/25/19 02/25/19 02/25/19 09:33 10:29 11:52 WBC RBC Hgb Hct MCV MCH MCHC RDW Std Deviation RDW Coeff of Paula Plt Count MPV Immature Gran % (Auto) Neut % (Auto) Lymph % (Auto) [place] % (Auto) Eos % (Auto) Baso % (Auto) Immature Gran # (Auto) Neut # (Auto) Lymph # (Auto) [place] # (Auto) Eos # (Auto) Baso # (Auto) RBC Morphology PT INR APTT PTT Ratio Heparin Anti-Xa, LM Wt Specimen Type Arterial Sample Site Art Line Patient Temperature 36.7 POC pH 7.45 POC pCO2 33 L POC pO2 94 POC HCO3 23 POC Total CO2 24 POC Base Excess -1.0 O2 Sat Pulse Oximetry 97 ABG pH (Temp Correct) 7.46 H ABG pCO2 (Temp Corrct 33 L POC ABG pO2 at Pt Temp 93 POC ABG O2 Sat 98.0 H Dav Test Not Performed O2 Delivery Device Ventilator POC O2 Rate 12 Minute Ventilation 10 Vent Mode PRVAC Tidal Volume 500 End Tidal CO2 30 PEEP 5 Sodium Potassium Chloride Carbon Dioxide Anion Gap BUN Creatinine Est Cr Clr Drug Dosing Est GFR ( Amer) Est GFR (Non-Af Amer) BUN/Creatinine Ratio Glucose POC Glucose (other) 263 H 208 H Estimat Average Glucose Hemoglobin A1c Lactate Calcium Ionized Calcium Phosphorus Magnesium Total Bilirubin AST ALT Alkaline Phosphatase Total Protein Albumin Globulin Albumin/Globulin Ratio Blood Type Antibody Screen Crossmatch 02/25/19 02/25/19 02/25/19 12:26 12:26 13:11 WBC RBC Hgb Hct MCV MCH MCHC RDW Std Deviation RDW Coeff of Paula Plt Count MPV Immature Gran % (Auto) Neut % (Auto) Lymph % (Auto) [place] % (Auto) Eos % (Auto) Baso % (Auto) Immature Gran # (Auto) Neut # (Auto) Lymph # (Auto) [place] # (Auto) Eos # (Auto) Baso # (Auto) RBC Morphology PT INR APTT PTT Ratio Heparin Anti-Xa, LM Wt < 0.10 Specimen Type Sample Site Patient Temperature POC pH POC pCO2 POC pO2 POC HCO3 POC Total CO2 POC Base Excess O2 Sat Pulse Oximetry ABG pH (Temp Correct) ABG pCO2 (Temp Corrct POC ABG pO2 at Pt Temp POC ABG O2 Sat Dav Test O2 Delivery Device POC O2 Rate Minute Ventilation Vent Mode Tidal Volume End Tidal CO2 PEEP Sodium Potassium Chloride Carbon Dioxide Anion Gap BUN Creatinine Est Cr Clr Drug Dosing Est GFR ( Amer) Est GFR (Non-Af Amer) BUN/Creatinine Ratio Glucose POC Glucose (other) 177 H Estimat Average Glucose Hemoglobin A1c Lactate 3.1 H* Calcium Ionized Calcium Phosphorus Magnesium Total Bilirubin AST ALT Alkaline Phosphatase Total Protein Albumin Globulin Albumin/Globulin Ratio Blood Type Antibody Screen Crossmatch 02/25/19 02/25/19 02/25/19 14:00 14:45 15:05 WBC RBC Hgb Hct MCV MCH MCHC RDW Std Deviation RDW Coeff of Paula Plt Count MPV Immature Gran % (Auto) Neut % (Auto) Lymph % (Auto) [place] % (Auto) Eos % (Auto) Baso % (Auto) Immature Gran # (Auto) Neut # (Auto) Lymph # (Auto) [place] # (Auto) Eos # (Auto) Baso # (Auto) RBC Morphology PT INR APTT PTT Ratio Heparin Anti-Xa, LM Wt Specimen Type Sample Site Art Line Patient Temperature POC pH 7.45 POC pCO2 36 POC pO2 85 POC HCO3 25 H POC Total CO2 26 POC Base Excess 1.0 O2 Sat Pulse Oximetry ABG pH (Temp Correct) 7.455 H ABG pCO2 (Temp Corrct 36 POC ABG pO2 at Pt Temp 83 POC ABG O2 Sat 97.0 H Dav Test NA O2 Delivery Device Ventilator POC O2 Rate 12 Minute Ventilation 7.3 Vent Mode Tidal Volume 500 End Tidal CO2 PEEP 5 Sodium Potassium Chloride Carbon Dioxide Anion Gap BUN Creatinine Est Cr Clr Drug Dosing Est GFR ( Amer) Est GFR (Non-Af Amer) BUN/Creatinine Ratio Glucose POC Glucose (other) 160 H 139 H Estimat Average Glucose Hemoglobin A1c Lactate Calcium Ionized Calcium Phosphorus Magnesium Total Bilirubin AST ALT Alkaline Phosphatase Total Protein Albumin Globulin Albumin/Globulin Ratio Blood Type Antibody Screen Crossmatch 02/25/19 02/25/19 02/25/19 15:59 15:59 16:01 WBC RBC Hgb Hct MCV MCH MCHC RDW Std Deviation RDW Coeff of Paula Plt Count MPV Immature Gran % (Auto) Neut % (Auto) Lymph % (Auto) [place] % (Auto) Eos % (Auto) Baso % (Auto) Immature Gran # (Auto) Neut # (Auto) Lymph # (Auto) [place] # (Auto) Eos # (Auto) Baso # (Auto) RBC Morphology PT INR APTT PTT Ratio Heparin Anti-Xa, LM Wt Specimen Type Sample Site Patient Temperature POC pH POC pCO2 POC pO2 POC HCO3 POC Total CO2 POC Base Excess O2 Sat Pulse Oximetry ABG pH (Temp Correct) ABG pCO2 (Temp Corrct POC ABG pO2 at Pt Temp POC ABG O2 Sat Dav Test O2 Delivery Device POC O2 Rate Minute Ventilation Vent Mode Tidal Volume End Tidal CO2 PEEP Sodium 136 Potassium 3.5 Chloride 102 Carbon Dioxide 27 Anion Gap 7.0 BUN 37 H Creatinine 1.12 Est Cr Clr Drug Dosing 64.5 Est GFR ( Amer) 73.6 Est GFR (Non-Af Amer) 63.5 BUN/Creatinine Ratio 32.9 H Glucose 121 H POC Glucose (other) Estimat Average Glucose Hemoglobin A1c Lactate 1.7 Calcium 7.4 L Ionized Calcium Cancelled Phosphorus 2.9 D Magnesium 2.4 Total Bilirubin 2.7 H AST 32 ALT 25 Alkaline Phosphatase 26 L Total Protein 3.7 L Albumin 1.7 L Globulin 2.0 L Albumin/Globulin Ratio 0.8 L Blood Type Antibody Screen Crossmatch 02/25/19 02/25/19 02/25/19 16:07 16:31 17:06 WBC RBC Hgb Hct MCV MCH MCHC RDW Std Deviation RDW Coeff of Paula Plt Count MPV Immature Gran % (Auto) Neut % (Auto) Lymph % (Auto) [place] % (Auto) Eos % (Auto) Baso % (Auto) Immature Gran # (Auto) Neut # (Auto) Lymph # (Auto) [place] # (Auto) Eos # (Auto) Baso # (Auto) RBC Morphology PT INR APTT PTT Ratio Heparin Anti-Xa, LM Wt Specimen Type Sample Site Patient Temperature POC pH POC pCO2 POC pO2 POC HCO3 POC Total CO2 POC Base Excess O2 Sat Pulse Oximetry ABG pH (Temp Correct) ABG pCO2 (Temp Corrct POC ABG pO2 at Pt Temp POC ABG O2 Sat Dav Test O2 Delivery Device POC O2 Rate Minute Ventilation Vent Mode Tidal Volume End Tidal CO2 PEEP Sodium Potassium Chloride Carbon Dioxide Anion Gap BUN Creatinine Est Cr Clr Drug Dosing Est GFR ( Amer) Est GFR (Non-Af Amer) BUN/Creatinine Ratio Glucose POC Glucose (other) 124 H 109 H Estimat Average Glucose Hemoglobin A1c Lactate Calcium Ionized Calcium 1.00 L Phosphorus Magnesium Total Bilirubin AST ALT Alkaline Phosphatase Total Protein Albumin Globulin Albumin/Globulin Ratio Blood Type Antibody Screen Crossmatch 02/25/19 02/25/19 02/25/19 17:26 18:02 18:41 WBC RBC Hgb Hct MCV MCH MCHC RDW Std Deviation RDW Coeff of Paula Plt Count MPV Immature Gran % (Auto) Neut % (Auto) Lymph % (Auto) [place] % (Auto) Eos % (Auto) Baso % (Auto) Immature Gran # (Auto) Neut # (Auto) Lymph # (Auto) [place] # (Auto) Eos # (Auto) Baso # (Auto) RBC Morphology PT INR APTT PTT Ratio Heparin Anti-Xa, LM Wt Specimen Type Sample Site Patient Temperature POC pH POC pCO2 POC pO2 POC HCO3 POC Total CO2 POC Base Excess O2 Sat Pulse Oximetry ABG pH (Temp Correct) ABG pCO2 (Temp Corrct POC ABG pO2 at Pt Temp POC ABG O2 Sat Dav Test O2 Delivery Device POC O2 Rate Minute Ventilation Vent Mode Tidal Volume End Tidal CO2 PEEP Sodium Potassium Chloride Carbon Dioxide Anion Gap BUN Creatinine Est Cr Clr Drug Dosing Est GFR ( Amer) Est GFR (Non-Af Amer) BUN/Creatinine Ratio Glucose POC Glucose (other) 106 H 109 H 111 H Estimat Average Glucose Hemoglobin A1c Lactate Calcium Ionized Calcium Phosphorus Magnesium Total Bilirubin AST ALT Alkaline Phosphatase Total Protein Albumin Globulin Albumin/Globulin Ratio Blood Type Antibody Screen Crossmatch 02/25/19 02/25/19 02/26/19 19:29 21:03 00:13 WBC RBC Hgb Hct MCV MCH MCHC RDW Std Deviation RDW Coeff of Paula Plt Count MPV Immature Gran % (Auto) Neut % (Auto) Lymph % (Auto) [place] % (Auto) Eos % (Auto) Baso % (Auto) Immature Gran # (Auto) Neut # (Auto) Lymph # (Auto) [place] # (Auto) Eos # (Auto) Baso # (Auto) RBC Morphology PT INR APTT PTT Ratio Heparin Anti-Xa, LM Wt Specimen Type Sample Site Art Line Patient Temperature POC pH 7.47 H POC pCO2 30 L POC pO2 99 H POC HCO3 22 POC Total CO2 23 L POC Base Excess -2.0 O2 Sat Pulse Oximetry ABG pH (Temp Correct) 7.479 H ABG pCO2 (Temp Corrct 29 L POC ABG pO2 at Pt Temp 97 POC ABG O2 Sat 98.0 H Dav Test NA O2 Delivery Device Ventilator POC O2 Rate 12 Minute Ventilation Vent Mode Tidal Volume 500 End Tidal CO2 PEEP 5 Sodium Potassium Chloride Carbon Dioxide Anion Gap BUN Creatinine Est Cr Clr Drug Dosing Est GFR ( Amer) Est GFR (Non-Af Amer) BUN/Creatinine Ratio Glucose POC Glucose (other) 118 H 121 H Estimat Average Glucose Hemoglobin A1c Lactate Calcium Ionized Calcium Phosphorus Magnesium Total Bilirubin AST ALT Alkaline Phosphatase Total Protein Albumin Globulin Albumin/Globulin Ratio Blood Type Antibody Screen Crossmatch 02/26/19 02/26/19 02/26/19 02:30 04:07 04:10 WBC RBC Hgb Hct MCV MCH MCHC RDW Std Deviation RDW Coeff of Paula Plt Count MPV Immature Gran % (Auto) Neut % (Auto) Lymph % (Auto) [place] % (Auto) Eos % (Auto) Baso % (Auto) Immature Gran # (Auto) Neut # (Auto) Lymph # (Auto) [place] # (Auto) Eos # (Auto) Baso # (Auto) RBC Morphology PT INR APTT PTT Ratio Heparin Anti-Xa, LM Wt Specimen Type Sample Site Art Line Patient Temperature POC pH 7.44 POC pCO2 37 POC pO2 115 H POC HCO3 25 H POC Total CO2 26 POC Base Excess 1.0 O2 Sat Pulse Oximetry ABG pH (Temp Correct) ABG pCO2 (Temp Corrct POC ABG pO2 at Pt Temp POC ABG O2 Sat 99.0 H Dav Test NA O2 Delivery Device Ventilator POC O2 Rate 12 Minute Ventilation 6 Vent Mode Tidal Volume 500 End Tidal CO2 PEEP 5 Sodium Potassium Chloride Carbon Dioxide Anion Gap BUN Creatinine Est Cr Clr Drug Dosing Est GFR ( Amer) Est GFR (Non-Af Amer) BUN/Creatinine Ratio Glucose POC Glucose (other) 109 H Estimat Average Glucose 123 Hemoglobin A1c 5.9 H Lactate Calcium Ionized Calcium Phosphorus Magnesium Total Bilirubin AST ALT Alkaline Phosphatase Total Protein Albumin Globulin Albumin/Globulin Ratio Blood Type Antibody Screen Crossmatch 02/26/19 02/26/19 02/26/19 04:10 04:10 04:10 WBC 23.74 H RBC 2.38 L Hgb 7.7 L D Hct 21.2 L MCV 89.1 MCH 32.4 MCHC 36.3 H RDW Std Deviation 49.4 H RDW Coeff of Paula 15.2 H Plt Count 185 MPV 9.2 Immature Gran % (Auto) 0.8 Neut % (Auto) 93.2 Lymph % (Auto) 3.0 [place] % (Auto) 2.9 Eos % (Auto) 0.0 Baso % (Auto) 0.1 Immature Gran # (Auto) 0.20 H Neut # (Auto) 22.09 H Lymph # (Auto) 0.72 L [place] # (Auto) 0.70 H Eos # (Auto) 0.01 Baso # (Auto) 0.02 RBC Morphology Unremarkable PT 11.5 INR 1.1 APTT 43.9 H PTT Ratio 1.6 Heparin Anti-Xa, LM Wt Specimen Type Sample Site Patient Temperature POC pH POC pCO2 POC pO2 POC HCO3 POC Total CO2 POC Base Excess O2 Sat Pulse Oximetry ABG pH (Temp Correct) ABG pCO2 (Temp Corrct POC ABG pO2 at Pt Temp POC ABG O2 Sat Dav Test O2 Delivery Device POC O2 Rate Minute Ventilation Vent Mode Tidal Volume End Tidal CO2 PEEP Sodium 137 Potassium 3.3 L Chloride 101 Carbon Dioxide 31 Anion Gap 5.0 BUN 31 H Creatinine 0.92 Est Cr Clr Drug Dosing 78.5 Est GFR ( Amer) 93.3 Est GFR (Non-Af Amer) 80.5 BUN/Creatinine Ratio 33.7 H Glucose 108 H POC Glucose (other) Estimat Average Glucose Hemoglobin A1c Lactate Calcium 7.1 L Ionized Calcium Phosphorus 2.1 L Magnesium 2.6 H Total Bilirubin 2.6 H AST 21 ALT 19 Alkaline Phosphatase 28 L Total Protein 3.8 L Albumin 1.8 L Globulin 2.0 L Albumin/Globulin Ratio 0.9 Blood Type Antibody Screen Crossmatch Medications Administered Home Medications Macular Health Formula 1 cap PO [facility] 01/03/19 [History Confirmed 02/17/19] cholecalciferol (vitamin D3) [Vitamin D3] 2,000 unit PO [facility] 01/03/19 [History Confirmed 02/17/19] cyanocobalamin (vitamin B-12) [Vitamin B-12] 500 mcg PO [facility] 01/03/19 [History Confirmed 02/17/19] ferrous sulfate [Iron (ferrous sulfate)] 325 mg PO [facility] 01/03/19 [History Confirmed 02/17/19] folic acid 0.8 mg PO [facility] 01/03/19 [History Confirmed 02/17/19] levothyroxine 88 mcg PO 01/03/19 [History Confirmed 02/17/19] ranitidine HCl 150 mg PO HS 01/03/19 [History Confirmed 02/17/19] calcium carbonate [Calcium 600] 600 mg PO DAILY 02/17/19 [History Confirmed 02/17/19] Active Medications Dextrose (Dextrose 50%) 25 - 50 ml IV UD PRN; Protocol PRN Reason: Hypoglycemia Protocol Stop: 03/27/19 08:59 Enoxaparin Sodium (Lovenox) 40 mg SQ QAM PRIYANK Stop: 03/20/19 08:59 Last Admin: 02/25/19 08:58 Dose: 40 mg Documented by: Fentanyl Citrate (Fentanyl Citrate) 100 mcg IV Q1H PRN PRN Reason: Severe Pain (7,8,9,10) Stop: 03/10/19 18:22 Last Admin: 02/26/19 04:42 Dose: 100 mcg Documented by: Glucagon (Glucagen) 1 mg IM UD PRN; Protocol PRN Reason: Hypoglycemia Protocol Stop: 03/27/19 08:59 Glucose (Glucose 40%) 15 - 30 gm PO UD PRN; Protocol PRN Reason: Hypoglycemia Protocol Stop: 03/27/19 08:59 Glucose (Dex4 Glucose) 4 - 8 tabs PO UD PRN; Protocol PRN Reason: Hypoglycemia Protocol Stop: 03/27/19 08:59 Levothyroxine Sodium 44 mcg/ (Syringe) 2.2 mls @ 2 mls/min IV [facility] Stop: 03/23/19 20:59 Last Admin: 02/25/19 21:25 Dose: 2 mls/min Documented by: Parenteral Electrolytes (Normosol-R) 1,000 mls @ 100 mls/hr IV .Q10H [facility] Stop: 03/24/19 10:14 Last Infusion: 02/26/19 07:10 Dose: 80 mls/hr Documented by: Piperacillin Sod/Tazobactam (Sod 4.5 gm/ Dextrose) 120 mls @ 30 mls/hr IV Q8H PRIYANK; Protocol Stop: 03/01/19 19:59 Last Infusion: 02/26/19 07:10 Dose: 30 mls/hr Documented by: Caspofungin 50 mg/ Sodium (Chloride) 260 mls @ 260 mls/hr IV DAILY@1200 PRIYANK; Protocol Stop: 03/27/19 11:59 Last Infusion: 02/25/19 13:10 Dose: Infused Documented by: Epinephrine HCl 4 mg/ Dextrose 254 mls @ 0 mls/hr IV .Q0M [facility]; Protocol Stop: 03/26/19 18:22 Last Titration: 02/25/19 13:10 Dose: Infused Documented by: Norepinephrine Bitartrate 8 mg (/ Dextrose) 508 mls @ 16.54 mls/hr IV .Q24H [facility]; Protocol Stop: 03/26/19 18:22 Last Titration: 02/26/19 07:10 Dose: 0.05 mcg/kg/min, 16.5 mls/hr Documented by: Acetaminophen ([facility]) 1,000 mg in 100 mls @ 400 mls/hr IV Q8H [facility] Stop: 03/26/19 18:59 Last Infusion: 02/26/19 02:55 Dose: Infused Documented by: Thiamine HCl 100 mg/ Syringe 10 mls @ 2 mls/min IV QAM [facility] Stop: 03/27/19 08:59 Last Admin: 02/25/19 08:59 Dose: 2 mls/min Documented by: Ascorbic Acid 1,500 mg/ Sodium (Chloride) 103 mls @ 206 mls/hr IV QAM [facility] Stop: 03/27/19 08:59 Last Infusion: 02/25/19 10:39 Dose: Infused Documented by: Famotidine 20 mg/ Syringe 5 mls @ 2.5 mls/min IV DAILY [facility] Stop: 03/28/19 08:59 Albumin Human (Albumin 25%) 50 mls @ 50 mls/hr IV Q6H [facility] Stop: 03/01/19 00:59 Last Infusion: 02/26/19 07:10 Dose: Infused Documented by: Potassium Phosphate 15 mmol/ (Sodium Chloride) 255 mls @ 88 mls/hr IV ONE ONE Stop: 02/26/19 09:08 Last Infusion: 02/26/19 07:10 Dose: 88 mls/hr Documented by: Sodium Chloride (Nss) 250 mls @ 15 mls/hr IV .[id number] PRN PRN Reason: For Transfusion Stop: 03/28/19 06:16 Potassium Chloride (K Ezequiel / Wtr) 10 meq in 100 mls @ 100 mls/hr IV Q1H [facility] Stop: 02/26/19 10:14 Insulin Aspart (Novolog Flexpen) 0 units SC Q6 [facility]; Protocol Stop: 03/28/19 11:59 Ioversol (Optiray 320 100ml) 94 ml IV ONCE PRN PRN Reason: Interaction Checking Stop: 02/26/19 08:53 Last Admin: 02/22/19 08:55 Dose: 94 ml Documented by: Midazolam HCl (Versed) 2 mg IV Q2H PRN PRN Reason: agitation/anxiety Stop: 03/26/19 18:22 Last Admin: 02/26/19 04:42 Dose: 2 mg Documented by: Miscellaneous (Carbohydrates For Hypoglycemia) 15 - 30 gm PO PRN PRN PRN Reason: Hypoglycemia Treatment Stop: 03/27/19 08:59 Miscellaneous Information (Consult) 1 ea N/A UD PRN PRN Reason: Consult Stop: 03/24/19 14:02 Miscellaneous Information (Consult Glycemic Management Pharmacy) 1 ea N/A UD PRN PRN Reason: Consult Stop: 03/27/19 08:57 Morphine Sulfate (Morphine Sulfate) 1 - 2 mg IV Q1H PRN PRN Reason: Shortness Of Breath Stop: 03/07/19 22:24 Last Admin: 02/24/19 03:51 Dose: 2 mg Documented by: Ondansetron HCl (Zofran) 4 mg IV Q4 PRN PRN Reason: Nausea Stop: 03/20/19 00:00 PG Care Time/CCT Critical Care Time: Yes Total Critical Care Time: 85
[2019-02-26 08:43] LABS: iSTAT Art Bld Gas pCO2 Correct 36 mmHg (35-46); iSTAT Art Bld Gas pH Corrected 7.485 (7.35-7.45); iSTAT Arterial Blood Gas HCO3 27 meg/L (19-24); iSTAT Arterial Blood Gas pCO2 37 mmHg (35-46); iSTAT Arterial Blood Gas pH 7.48 (7.35-7.45); iSTAT Carbon Dioxide 28 mEq/l (24-31); iSTAT FiO2 35 %; iSTAT Site Art Line
[2019-02-26] MEDS ORDERED: FAMOTIDINE 20 MG in SYRINGE 3 ML IV SCH ×2 (09:00→21:00)
[2019-02-26] MEDS: ASCORBIC ACID 1,500 MG in 0.9 % SODIUM CHLORIDE 100 ML IV SCH (09:01)
[2019-02-26] MEDS: POTASSIUM CHLORIDE / WTR 10 MEQ/100 ML PLCT IV SCH ×2 (09:01→09:55)
[2019-02-26] MEDS: THIAMINE HCL 100 MG in SYRINGE 9 ML IV SCH (09:02)
[2019-02-26] MEDS: ENOXAPARIN INJ 40 MG/0.4 ML SYR SQ SCH (09:03)
[2019-02-26] MEDS ORDERED: PEPTAMEN 1.5 CAL 1,000 ML BAG JT SCH (09:15)
--- NOTE | 2019-02-26 09:28 | Pharmacy Report ---
Pharmacy Glycemic Short Note 2 - Date of Service February 26, 2019 - Glycemic Short BSG Results (Last 24 hours): 02/25/19 02/25/19 02/25/19 10:29 11:52 13:11 Glucose POC Glucose (other) 263 H 208 H 177 H 02/25/19 02/25/19 02/25/19 14:00 15:05 15:59 Glucose 121 H POC Glucose (other) 160 H 139 H 02/25/19 02/25/19 02/25/19 16:07 17:06 17:26 Glucose POC Glucose (other) 124 H 109 H 106 H 02/25/19 02/25/19 02/25/19 18:02 18:41 19:29 Glucose POC Glucose (other) 109 H 111 H 118 H 02/26/19 02/26/19 02/26/19 00:13 04:07 04:10 Glucose 108 H POC Glucose (other) 121 H 109 H 02/26/19 08:10 Glucose POC Glucose (other) 111 H Outpatient Anti-diabetic Regimen: * None * A1c = 5.9% on 02/26/19 The patient is currently receiving: * Novolog SC q4h * Goal Range: Low 110 mg/dL - High 160 mg/dL * Correction Factor: 25 mg/dL/unit * Nutritional / Prandial insulin per carb ratio of 1 unit per 8 grams CHO consumed Risk Factors for Insulin Resistance: * Steroids: methylprednisolone 80 mg IV x1 overriden in OR 02/24 * Infection: GI - on Zosyn and caspofungin * Pressors: norepinephrine and epinephrine * Recent Surgery: POD 2 s/p significant intra-abdominal surgery * Diet: Peptamen @ 10 mL/hr * Mechanical Ventilation: Yes ASSESSMENT: * 78 yo M with HbA1c indicative of pre-diabetes on no antihyperglycemic medications at home with stress-induced hyperglycemia. Patient is critically ill in ICU. * Insulin drip discontinued yesterday evening for BSG's <140 mg/dL. BSG's since that time ranged 109-121 mg/dL with no insulin administered. OK to decrease checks from q4h to q6h * Peptamen trickle feeds @ 10 mL/hr (no titration) ordered - if rate stays low, no need to cover CHO. PLAN FOR INPATIENT GLYCEMIC CONTROL: * Bolus insulin * NovoLog per scale ACHS or Q6hrs while NPO * Goal Range: Low 110 mg/dL - High 160 mg/dL * Correction Factor: 25 mg/dL/unit * Nutritional / Prandial insulin per carb ratio of 1 unit per 8 grams CHO consumed PLAN FOR DISCHARGE: * Follow-up as outpatient for HbA1c indicative of pre-diabetes. May benefit from metformin.
[2019-02-26] MEDS: NOREPINEPHRINE BIT INJ 8 MG in DEXTROSE 5% 500 ML IV SCH ×2 (11:37→17:21)
[2019-02-26] MEDS: CASPOFUNGIN 50 MG in SODIUM CHLORIDE 0.9% 250 ML IV SCH (12:04)
[2019-02-26 14:50] LABS: Hematocrit (blood only) 24.6 % (42-52); Hemoglobin 8.7 g/dL (14.0-18.0)
[2019-02-26 15:04] LABS: Potassium 3.7 mmol/L (3.5-5.1)
[2019-02-26 15:09] LABS: Phosphorus 2.4 mg/dl (2.5-4.9)
--- NOTE | 2019-02-26 15:38 | Progress Note ---
DATE: 02/26/2019 SUBJECTIVE: The patient is postop day 2 for thoracoscopy, thoracotomy, laparotomy with resection of distal esophagus and upper stomach due to a perforation. OBJECTIVE: VITAL SIGNS: The patient has normal vital signs. Today, he is afebrile. GENERAL: He is on mechanical ventilator. ASSESSMENT AND PLAN: At this point, his care is surgical and intensive care. There is no active GI problem at this time that needs our attention, but we will be available if needed. Please contact us for further GI input if and when needed.
--- NOTE | 2019-02-26 19:12 | Progress Note ---
DATE: 02/26/2019 Mr. Stern looks great. He is extubated. He is essentially on room air. A-line has been discontinued. He is making good urine. I had a long talk with Mr. Stern and explained to him what happened in the operating room. I have also been having multiple conversations each day with the patient's 2 sons and his . This patient may require a colon interposition. I have explained to the patient and his family that in this particular circumstance, I would not be comfortable offering him that. I have spoken to Dr. Jacob Viveros from [facility] in [place] who has experience with cases such as this. Dr. Viveros has kindly agreed to accept this patient. We did place a small NG tube into his esophageal sac to prevent him from aspirating. I have discussed this case in detail with Dr. Viveros. The patient is going to require an esophagostomy. Dr. Viveros would like to perform this as he will be the one reestablishing enteric continuity in the future. How long that is is still not quite clear. At this point, we are going to send the patient to [facility] when a bed is available and Dr. Viveros will be performing an esophagostomy in the near future if all goes well. MADINA
[2019-02-26] MEDS: LEVOTHYROXINE SODIUM 44 MCG in SYRINGE 0 ML IV SCH ×2 (20:05→20:10)
[2019-02-27] MEDS: fentaNYL citrate 100 MCG/2 ML VIAL IV PRN (00:34)
--- NOTE | 2019-02-27 03:40 | Discharge Summary ---
DATE OF ADMISSION: 02/17/2019 DATE OF DISCHARGE: 02/26/2019 DISCHARGE DIAGNOSES: 1. 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 2. Status post robotic repair of large paraesophageal hernia with a floppy Naomi fundoplication and reinforcement of crural repair using bioabsorbable mesh. 3. Atrial fibrillation. 4. ST elevation but no myocardial infarction and has clean coronaries. 5. Questionable history of celiac disease. 6. Hypothyroidism. 7. Anemia. 8. Carpal tunnel syndrome. 9. Small bowel bacterial overgrowth. HOSPITAL COURSE: Cale Stern is a delightful 78-year-old male who had a longstanding history of the hiatal hernia. The patient had signs and symptoms suggestive of a torsion and on 02/17/2019, the patient was brought in and underwent uncomplicated robotic repair. He had a very large sac, but I removed the sac. I was quite happy and it did not appear the esophagus was under any tension, it was definitely long enough. The crural repair was effected without difficulty and I patch this OviTex just over the repair. I did have a bit of trouble endoscoping him on the table, but we were able to get the scope in and I was pleased with the fact that it did not appear he had a perforation as we insufflated with CO2. Overnight, the patient did well initially but then we did do a barium swallow which showed no evidence of perforation, but he still had a large sac which is a bit surprising to me. There is also a question about whether his repair had ruptured; however, I simply did not feel that was the case. He was able to drink clear liquids and had no reflux. He complained of terrible problems with breathing and it appeared he may be having a STEMI and was taken to the cardiac catheterization lab 2 days postop, however, he had no evidence of any coronary artery disease and his LV function appeared to be quite good, may appear to be preserved. He also had atrial fibrillation which he did not tolerate well. He converted quite quickly with chemical conversion with amiodarone. I watched the patient for several days and I simply could not find a reason to take him back to the operating room and had daily discussions with his family. Finally, he had a very large mediastinal space and I put a catheter in on postoperative day #5 and drained about 1500 mL of what appeared to be serous fluid consistent with the mediastinal space; however, even though the amylase was only 14, he did grow out a Serratia and I was concerned about this. For this reason, I scheduled him for the OR and I was going to do simply a wide debridement as I would treat the mediastinitis; however, when we did a CT scan, we see there was contrast in this cavity and it appeared we had an esophageal perforation. It should be noted although he did not move his bowels, he was not really having problems with signs of obstructive symptoms or ileus. It should be noted that I did do a gastropexy as his stomach was quite large. On postoperative day #7, when the CT scan showed contrast in this sac, I took him back to the operating room, initially did a thoracoscopy; however, upon entering the sac, could be seen that this was not the stomach. The patient developed rapid atrial fibrillation, did not tolerate it well. I ended up doing a thoracotomy to clean out his chest completely. However, it appeared the esophagus was intact from the very distal aspect which was quite inflamed. I was quite concerned about this, and I was concerned about my table endoscopy which showed what appeared to be necrosis of part of the stomach. For this reason, we opened the abdomen. Dr. Daniel Sun scrubbed in and kindly assisted. We took down the repair and it appeared that the patient actually had incarcerated a portion of his fundus through the esophageal hiatus anteriorly and into the left. It is bit surprised as it appeared the hiatus was tight at the time of surgery and in fact it appeared tight when we examined it on our reoperation. At any rate, after taking down all the sutures and taking this down, it could be seen that his gastric fundus and perhaps his distal esophagus have been involved in this. It is difficult to tell due to the inflammation and our dissection. At any rate, the patient was in dire straits in the operating room. His pressure was in the 40s and he was in rapid atrial fibrillation on an amiodarone drip with boluses and we could not convert him. I thought he would arrest on the table. For this reason, I stapled across the esophagus just below the azygos and then we removed the distal esophagus and a portion of the fundus. Dr. Sun quickly placed a G-tube and a J-tube and we closed the chest. Upon turning the patient back over, I had considered doing an esophagostomy but he was too unstable. For this reason, we closed and take him back to the ICU where he progressively improved over the night. He was able to be extubated on postoperative day 2 and had his inotropes weaned off. I have had multiple discussions every day with the patient's 2 sons and his . They all understand. I have explained our problems now. First and foremost, he has a blind esophageal pouch and may not swallow anything. We did place a small NG tube after he was extubated. This will hopefully prevent him from aspirating. In addition, the patient may require a colon interposition. It is unclear to me from how much stomach is left if we will be able to pull this up to the esophagus; however, I would not be comfortable doing a colon interposition. I did feel that the patient would require an esophagostomy and was prepared to offer this to him and then we would see about perhaps using his stomach or his colon at a later date to reestablish enteric continuity. The patient's family of course understand and were concerned about this. For this reason, I called Dr. Jacob Viveros who is a thoracic surgeon for [facility] at [facility]. We had a long discussion and Dr. Viveros agreed to accept this patient to transfer. He will perform the esophagostomy as he would like to preserve as much length as possible and would like to see the patient if he is going to be reestablishing his enteric continuity in the future. The patient appears quite stable now. He is only on 2 liters of O2. He is awake and alert. I have had multiple discussions with the patient's family. I will be glad to help facilitate anything with this patient's future care including doing anything is necessary here in [place] and prevent him from going to [place] except for his surgery. The family understands. I have given them my cell number. I will be in touch with Dr. Viveros about how this proceeds. [facility]OSPITALMarta
--- NOTE | 2019-02-27 08:21 | Operative Report ---
Post Operative Report Pre & Post Diagnosis Operation Date: 02/17/19 13:00 Pre-Op Diagnosis: Hiatal Hernia Post-Op Diagnosis: Hiatal Hernia Operation Date: 02/19/19 08:00 <No data on this case meets the specified criteria> Operation Date: 02/24/19 16:25 Pre-Op Diagnosis: Esophageal perforation Post-Op Diagnosis: Esophageal/gastric perforation with recurrent fundal herniation Procedure Operation Date: 02/17/19 13:00 Actual Procedures p Robotic-assisted Laparoscopic Naomi Fundoplication, Repair of Hiatal Hernia with a Bioabsorbable Patch, Gastropexy - Watson Cole MD, FACS s Esophagogastroduodenoscopy - Watson Cole MD, FACS Operation Date: 02/19/19 08:00 Actual Procedures p Cath, Left with Cors and Vent - Ayan Bruce MD s Cineradiography w/Routine Exam - Ayan Bruce MD Operation Date: 02/24/19 16:25 Actual Procedures p p Right Video Assisted Thoracoscopy with Drainage of Mediastinal Fluid, , Laparotomy, Resection of Distal Esophagus and Fundus - Watson Cole MD, FACS s Esophagogastroduodenoscopy, Esophagoscopy Takedown of Lysis of Adhesion - Watson Cole MD, FACS Surgeon Daniel Sun MD Patient had undergone takedown of the distal esophagus and ischemic gastric fundus patient had a thoracoscopy thoracotomy and an open midline incision in the abdomen from the xiphoid to above the umbilicus and assisted Dr. Cole performed gastrostomy tube and PEG jejunostomy tube the patient fundus was resected using a NINA stapler x2 in the proximal one quarter of the stomach and 18 Trinidadian 5 cc Hughes catheter was brought up onto the field through a stab wound to left upper quadrant we positioned to pursestring of 3-0 silk in the body of the stomach and inserted the Hughes kind on the pursestrings and tacking the around the insertion site to the anterior abdominal wall with 3-0 silk sutures similarly we brought up the small bowel proximal and the foot from the ligament of Treitz were pursestring of 3-0 silk was placed a 14 Trinidadian red rubber catheter was brought up on the field distal tip cut few extra holes positioned through a stab wound inferior to the gastrostomy tube with position feeding tube into the small bowel tying the pursestring then we with fluid for about an inch and a half with 3 interrupted silk this area was then positioned to the anterior abdominal wall with 3-0 silk interrupted sutures tacking the jejunum to the anterior abdominal wall to keep it from rotating the Hughes catheter and the feeding tube were then attached to skin edge with 2-0 silk suture and I closed the abdominal wall with #1 PDS starting one cephalad one caudad tied in the middle few interrupted subcu buried tension sutures were placed the wound was then closed with staplers this was performed with with 4 was closing the thoracotomy incision Continuous Wave Operator Camila ALCALA Estimated Blood Loss 500 Findings Consistent with Post-Op Diagnosis Specimens esophagus and stomach Description of Procedure merda I attest to the content of the Intraoperative Record and any orders documented therein. Any exceptions are noted below.
[2019-02-28 09:43] LABS: iSTAT Arterial Blood Gas HCO3 26 meg/L (19-24); iSTAT Arterial Blood Gas pCO2 53 mmHg (35-46); iSTAT Carbon Dioxide 28 mEq/l (24-31)
[2019-02-28 09:43] LABS: iSTAT Arterial Blood Gas HCO3 25 meg/L (19-24); iSTAT Arterial Blood Gas pCO2 56 mmHg (35-46); iSTAT Arterial Blood Gas pH 7.27 (7.35-7.45); iSTAT Carbon Dioxide 27 mEq/l (24-31)
[2019-02-28 09:43] LABS: iSTAT Creatinine 0.7 mg/dl (0.6-1.3); iSTAT Hemoglobin 10.2 g/dl (14.0-18.0); iSTAT Ionized Calcium 1.1 mmol/l (1.12-1.32); iSTAT Potassium 3.6 mEq/L (3.3-5.0)
== END 2019-02-27 01:07 | disposition short-term general hospital (02) | DRG 326 ==
LOC: ASU 10:52 → 3N 10:52 → 1E 02-19 09:03 → 2S 02-20 14:49 → 1E 02-22 09:14

== ENCOUNTER 2021-12-29 14:01 | Inpatient (IN) ==
[2021-12-29] MEDS ORDERED: SODIUM CHLORIDE 0.9% 500 ML IV STA (14:13)
--- NOTE | 2021-12-29 14:32 | XRay Report ---
XR chest 1V portable HISTORY: 81 years-old Male weak acute weakness with elevated creatinine COMPARISON: Chest radiograph 01/07/2021 TECHNIQUE: Portable AP view of the chest FINDINGS: The cardiac silhouette is enlarged. Probable emphysema. Chronic blunting of the costophrenic angles. Chronic interstitial coarsening without pneumothorax, large pleural effusion, airspace consolidation or overt pulmonary edema. Severe osteoarthritis of the glenohumeral joints. IMPRESSION: Chronic findings without acute process. ACT 112: Negative or not required by law. The above report was generated using voice recognition software. It may contain grammatical, syntax o r spelling errors. Electronically signed by: Garrick Caceres M.D. 12/29/2021 2:30 PM
--- NOTE | 2021-12-29 14:51 | Emergency Department Note ---
Impression & Plan JESSE (acute kidney injury), Anemia ED Provider Note NAME: KULWANT ODELL AGE: 81 SEX: M : 1940 ARRIVES VIA: Walk-In INFORMANT: Patient, ED PROVIDER(S): Sathya Montelongo DO CHIEF COMPLAINT: Weakness HPI: The patient is a 81-year-old male who presented to the emergency department for an evaluation of weakness. The patient has been describing generalized weakness and not feeling well. He states his symptoms are mild. He went to see his primary substance abuse technician. He had laboratory studies done yesterday. He was called today and told to go to the emergency department for admission. He was told his renal function was abnormal and higher than baseline. The patient states he has had some urinary frequency but denies having any fever. He denies having any back pain or abdominal pain. He denies having any chest pain or difficulty breathing. The patient states his symptoms are mild. He is not been seen by his family doctor recently. ROS: See above HPI for pertinent positives & negatives. A total of 10 systems reviewed and were otherwise negative. PAST MEDICAL HISTORY: See Below PAST SURGICAL HISTORY: See Below FAMILY HISTORY: See Below SOCIAL HISTORY: See Below HOME MEDICATIONS: See Below ALLERGIES: See Below VITALS: See Below PHYSICAL EXAMINATION: GENERAL: Patient is awake alert in no acute distress patient is resting comfortably and showing no signs of anxiety EYES: The conjunctivae are clear. The pupils are round and reactive. EARS, NOSE, MOUTH AND THROAT: The nose is without any evidence of any deformity. NECK: The neck is nontender and supple. RESPIRATORY: Normal respiratory effort is noted there is no evidence of wheezing rhonchi or rales CARDIOVASCULAR: Regular rate and rhythm noted there no murmurs rubs or gallops normal S1 normal S2. GASTROINTESTINAL: The abdomen is soft. Abdomen is nontender. MUSCULOSKELETAL/EXTREMITIES: There is no evidence of gross deformity full range of motion is noted in the hips and shoulders. SKIN: There is no obvious evidence of any rash. There are no petechiae, pallor or cyanosis noted. NEUROLOGIC: Patient is awake alert and oriented x3 MEDICAL DECISION MAKING: The patient is a 81-year-old male who has a history of chronic renal insufficiency who presented to the emergency department because his creatinine had gone above its baseline. The patient has a primary substance abuse technician. He was seen yesterday and had laboratory studies drawn. He was called today and told to go to the emergency department for admission. The patient did not have any hypotension. I discussed the patient's laboratory and radiographic studies with him. He was found to have anemia greater than baseline. I discussed his condition with the on-call [facility] hospitalist. They have agreed to evaluate the patient in the emergency department for further management and disposition. Triage Nursing notes reviewed. Prior medical records reviewed Vital Signs: reviewed and remarkable for no significant abnormalities Differential diagnosis: Infection, dehydration, metabolic abnormality, hypo/hyperglycemia, electrolyte disturbance, anemia, hypoxia, cardiac sources, intracerebral event, toxicologic, neurologic, as well as other pathologies. ER treatment provided: See below Diagnostics interpreted by me: ECG: EKG was obtained in the emergency department. My interpretation is normal sinus rhythm at 62 bpm. There is no ectopy. There is no acute ST segment abnormalities noted. This was compared to a tracing from November 29, 2020. No changes were noted. Cardiac Monitoring: An order was placed for continuous cardiac monitoring. The monitor shows a rate of 61 bpm with sinus rhythm. Laboratory studies: As stated above and show below. Imaging studies: See below Consultation(s): I discussed this case with Dr. Terry who is on-call for the [facility] hospitalist group. He will evaluate the patient in the emergency department for further management and disposition. Past Med/Surg History Medical History Acute diastolic CHF (congestive heart failure) Anemia Arrhythmia Atrial fibrillation with rapid ventricular response Bowel obstruction Carpal tunnel syndrome Celiac disease Depression Esophageal fistula Gastric perforation GERD (gastroesophageal reflux disease) History of colon polyps HTN (hypertension) Hx of hiatal hernia Hypothyroidism Kidney stones Nephrolithiasis Respiratory failure following surgery Surgical History History of carpal tunnel surgery of right wrist History of colonoscopy (06/12/17) History of esophagogastroduodenoscopy (EGD) (06/12/17) History of hammertoe correction bilt feet History of tooth extraction History of umbilical hernia repair Family History Father Dementia Mother Breast cancer Grandfather (Maternal) Stroke Family/Other Hypercholesterolemia Other No family history of adverse response to anesthesia Denies family history of Ovarian cancer Prostate cancer Myocardial infarction Colorectal cancer Social History Smoking Status: Never smoker Second Hand Exposure: No; Hx Alcohol Use: No Hx Substance Use: No Preferred Language: Armenian Communication Ability: Effective Visual Impairment: Partially Limited Build Manager Required: No Beliefs That Will Affect Care: None marital status: Current Living Situation: Spouse current occupational status: retired 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 Feels Safe at Home: Yes Childhood Exposure to Second-Hand Smoke: No Dental Care, Regularly: Yes Physical Activity Frequency: 1-2 Times per Week Seatbelt Use: always Sunscreen Use: No Assistive Devices: Glasses Allergies Allergies Allergy/AdvReac Type Severity Reaction Status Date / Time gluten Allergy Mild Gastrointestinal Verified 12/29/21 13:32 Upset Home Meds Home Medications Medication Instructions Recorded Confirmed [id number] 5 mg-zeaxanth 1 cap PO DAILY cap 05/24/21 12/29/21 1 mg-bilberry 7.5 mg-herbal capsule (Macular Health Formula) cholecalciferol (vitamin D3) 25 25 mcg PO DAILY 07/05/21 12/29/21 mcg (1,000 unit) capsule sertraline 100 mg tablet 50 mg PO DAILY tab 12/06/21 12/29/21 cyanocobalamin (vitamin B-12) 1,000 mcg PO DAILY 12/29/21 12/29/21 1,000 mcg tablet (Vitamin B-12) Previous Rx's Medication Instructions Recorded ferrous sulfate 325 mg (65 mg 325 mg PO DAILY #30 tab 02/22/21 iron) tablet multivitamin (Daily Multi-Vitamin) 1 tab PO DAILY #30 tab 02/22/21 apixaban 2.5 mg tablet (Eliquis) 2.5 mg PO BID #180 tab 04/14/21 sodium bicarbonate 650 mg tablet 650 mg PO BID #180 tab 12/06/21 levothyroxine 100 mcg tablet 100 mcg PO DAILY #90 tab 12/19/21 Results & Data (ED) Vital Signs Vital Signs - 24 hr 12/29/21 14:03 12/29/21 15:02 12/29/21 15:23 Temperature 36.2 C L Temperature Source Temporal Artery Scan Pulse Rate 87 Pulse Rate [Apical] 60 Respiratory Rate 16 20 Respiratory Effort / Characteristics Non-Labored Non-Labored Spontaneous Respiratory Depth Normal Normal Respiratory Pattern Regular Blood Pressure 132/73 Blood Pressure [Left Arm] 131/80 Blood Pressure Mean 92 Blood Pressure Mean [Left Arm] 97 Pulse Oximetry 96 96 Oxygen Delivery Method Room Air Room Air Sepsis Recent Fever Within 48 Hours No Sepsis New/Unexplained Change in Mental Status No Sepsis Action Taken by Nursing No Action Required 12/29/21 16:27 12/29/21 17:04 Temperature Temperature Source Pulse Rate Pulse Rate [Apical] 66 61 Respiratory Rate 20 20 Respiratory Effort / Characteristics Non-Labored Spontaneous Non-Labored Spontaneous Respiratory Depth Normal Normal Respiratory Pattern Regular Regular Blood Pressure Blood Pressure [Left Arm] 141/91 H 139/77 Blood Pressure Mean Blood Pressure Mean [Left Arm] 107 97 Pulse Oximetry 99 100 Oxygen Delivery Method Room Air Room Air Sepsis Recent Fever Within 48 Hours Sepsis New/Unexplained Change in Mental Status Sepsis Action Taken by Longterm Medications Current Medication List: was personally reviewed by me Laboratory Data Attestation: I reviewed the patient's lab results. Result diagrams: 12/29/21 14:16 12/29/21 14:16 Lab Results 12/29/21 12/29/21 12/29/21 Range/Units 14:16 14:16 14:16 WBC 5.30 (4.8-10.8) K/uL RBC 2.35 L (4.7-6.1) M/uL Hgb 8.0 L (14.0-18.0) g/dL Hct 23.1 L (42-52) % MCV 98.3 (80-100) fL MCH 34.0 (25-34) pg MCHC 34.6 (32-36) g/dL RDW Std Deviation 51.2 H (36.4-46.3) fL RDW Coeff of Paula 14.2 (11.5-14.5) % Plt Count 203 (130-400) K/uL MPV 9.4 (7.4-10.4) fL Immature Gran % (Auto) 0.2 % Neut % (Auto) 66.7 % Lymph % (Auto) 18.7 % [place] % (Auto) 12.3 % Eos % (Auto) 1.5 % Baso % (Auto) 0.6 % Neut # (Auto) 3.54 (1.4-6.5) K/uL Lymph # (Auto) 0.99 L (1.2-3.4) K/uL [place] # (Auto) 0.65 H (0.11-0.59) K/uL Eos # (Auto) 0.08 (0-0.5) K/uL Baso # (Auto) 0.03 (0-0.2) K/uL Immature Gran # (Auto) 0.01 (0.00-0.02) K/uL PT 11.5 (9.0-12.0) Seconds INR 1.1 (0.9-1.1) APTT 32.2 H (21.0-31.0) Seconds PTT Ratio 1.2 Sodium (136-145) mmol/L Potassium (3.5-5.1) mmol/L Chloride (98-107) mmol/L Carbon Dioxide (21-32) mmol/L Anion Gap (3-11) BUN (6-23) mg/dl Creatinine (0.6-1.4) mg/dl Est Cr Clr Drug Dosing ml/min Est GFR ( Amer) ml/min Est GFR (Non-Af Amer) ml/min BUN/Creatinine Ratio (10-20) Glucose (70-99(Fasting)) mg/dl Calcium (8.5-10.1) mg/dl Iron (35-175) mcg/dl Unsaturated IBC (155-355) mcg/dl Ferritin (8-388) ng/ml Total Bilirubin (0.2-1.0) mg/dl AST (13-39) U/L ALT (7-52) U/L Alkaline Phosphatase (34-104) U/L Troponin I High Sens 12.7 (0-20) pg/ml Total Protein (6.0-8.3) gm/dl Albumin (3.4-5.0) gm/dl Globulin (2.5-4.0) gm/dl Albumin/Globulin Ratio (0.9-2) Lipase (11-82) U/L Urine Color Urine Appearance (Clear) Urine pH (4.5-7.5) Ur Specific [place] (1.000-1.030) Urine Protein (Negative) Urine Glucose (UA) (Negative) Urine Ketones (Negative) Urine Blood (Negative) Urine Nitrite (Negative) Urine Bilirubin (Negative) Urine Urobilinogen (Negative) Ur Leukocyte Esterase (Negative) Urine WBC (Auto) (0-5) /hpf Urine RBC (Auto) (0-4) /hpf U Hyaline Cast (Auto) (0-5) /lpf U Epithel Cells (Auto) (0-5) /lpf Urine Bacteria (Auto) (Negative) SARS-CoV-2, RNA, NAAT (NEGATIVE) 12/29/21 12/29/21 12/29/21 Range/Units 14:16 14:36 16:40 WBC (4.8-10.8) K/uL RBC (4.7-6.1) M/uL Hgb (14.0-18.0) g/dL Hct (42-52) % MCV (80-100) fL MCH (25-34) pg MCHC (32-36) g/dL RDW Std Deviation (36.4-46.3) fL RDW Coeff of Paula (11.5-14.5) % Plt Count (130-400) K/uL MPV (7.4-10.4) fL Immature Gran % (Auto) % Neut % (Auto) % Lymph % (Auto) % [place] % (Auto) % Eos % (Auto) % Baso % (Auto) % Neut # (Auto) (1.4-6.5) K/uL Lymph # (Auto) (1.2-3.4) K/uL [place] # (Auto) (0.11-0.59) K/uL Eos # (Auto) (0-0.5) K/uL Baso # (Auto) (0-0.2) K/uL Immature Gran # (Auto) (0.00-0.02) K/uL PT (9.0-12.0) Seconds INR (0.9-1.1) APTT (21.0-31.0) Seconds PTT Ratio Sodium 138 (136-145) mmol/L Potassium 4.3 (3.5-5.1) mmol/L Chloride 108 H (98-107) mmol/L Carbon Dioxide 19 L (21-32) mmol/L Anion Gap 11 (3-11) BUN 68 H (6-23) mg/dl Creatinine 5.11 H* (0.6-1.4) mg/dl Est Cr Clr Drug Dosing 11.0 ml/min Est GFR ( Amer) 11.5 ml/min Est GFR (Non-Af Amer) 9.9 ml/min BUN/Creatinine Ratio 13.3 (10-20) Glucose 98 (70-99(Fasting)) mg/dl Calcium 7.7 L (8.5-10.1) mg/dl Iron (35-175) mcg/dl Unsaturated IBC (155-355) mcg/dl Ferritin (8-388) ng/ml Total Bilirubin 0.4 (0.2-1.0) mg/dl AST 17 (13-39) U/L ALT 13 (7-52) U/L Alkaline Phosphatase 54 (34-104) U/L Troponin I High Sens (0-20) pg/ml Total Protein 5.9 L (6.0-8.3) gm/dl Albumin 3.7 (3.4-5.0) gm/dl Globulin 2.2 L (2.5-4.0) gm/dl Albumin/Globulin Ratio 1.7 (0.9-2) Lipase 24 (11-82) U/L Urine Color Yellow Urine Appearance Clear (Clear) Urine pH 5.0 (4.5-7.5) Ur Specific [place] 1.010 (1.000-1.030) Urine Protein Trace H (Negative) Urine Glucose (UA) Negative (Negative) Urine Ketones Negative (Negative) Urine Blood Trace H (Negative) Urine Nitrite Negative (Negative) Urine Bilirubin Negative (Negative) Urine Urobilinogen Negative (Negative) Ur Leukocyte Esterase Negative (Negative) Urine WBC (Auto) 5-10 H (0-5) /hpf Urine RBC (Auto) 0-4 (0-4) /hpf U Hyaline Cast (Auto) 1-5 (0-5) /lpf U Epithel Cells (Auto) 5-10 H (0-5) /lpf Urine Bacteria (Auto) Negative (Negative) SARS-CoV-2, RNA, NAAT NEGATIVE (NEGATIVE) 12/29/21 Range/Units Unknown WBC (4.8-10.8) K/uL RBC (4.7-6.1) M/uL Hgb (14.0-18.0) g/dL Hct (42-52) % MCV (80-100) fL MCH (25-34) pg MCHC (32-36) g/dL RDW Std Deviation (36.4-46.3) fL RDW Coeff of Paula (11.5-14.5) % Plt Count (130-400) K/uL MPV (7.4-10.4) fL Immature Gran % (Auto) % Neut % (Auto) % Lymph % (Auto) % [place] % (Auto) % Eos % (Auto) % Baso % (Auto) % Neut # (Auto) (1.4-6.5) K/uL Lymph # (Auto) (1.2-3.4) K/uL [place] # (Auto) (0.11-0.59) K/uL Eos # (Auto) (0-0.5) K/uL Baso # (Auto) (0-0.2) K/uL Immature Gran # (Auto) (0.00-0.02) K/uL PT (9.0-12.0) Seconds INR (0.9-1.1) APTT (21.0-31.0) Seconds PTT Ratio Sodium (136-145) mmol/L Potassium (3.5-5.1) mmol/L Chloride (98-107) mmol/L Carbon Dioxide (21-32) mmol/L Anion Gap (3-11) BUN (6-23) mg/dl Creatinine (0.6-1.4) mg/dl Est Cr Clr Drug Dosing ml/min Est GFR ( Amer) ml/min Est GFR (Non-Af Amer) ml/min BUN/Creatinine Ratio (10-20) Glucose (70-99(Fasting)) mg/dl Calcium (8.5-10.1) mg/dl Iron 75 (35-175) mcg/dl Unsaturated IBC 178 (155-355) mcg/dl Ferritin 76.5 (8-388) ng/ml Total Bilirubin (0.2-1.0) mg/dl AST (13-39) U/L ALT (7-52) U/L Alkaline Phosphatase (34-104) U/L Troponin I High Sens (0-20) pg/ml Total Protein (6.0-8.3) gm/dl Albumin (3.4-5.0) gm/dl Globulin (2.5-4.0) gm/dl Albumin/Globulin Ratio (0.9-2) Lipase (11-82) U/L Urine Color Urine Appearance (Clear) Urine pH (4.5-7.5) Ur Specific [place] (1.000-1.030) Urine Protein (Negative) Urine Glucose (UA) (Negative) Urine Ketones (Negative) Urine Blood (Negative) Urine Nitrite (Negative) Urine Bilirubin (Negative) Urine Urobilinogen (Negative) Ur Leukocyte Esterase (Negative) Urine WBC (Auto) (0-5) /hpf Urine RBC (Auto) (0-4) /hpf U Hyaline Cast (Auto) (0-5) /lpf U Epithel Cells (Auto) (0-5) /lpf Urine Bacteria (Auto) (Negative) SARS-CoV-2, RNA, NAAT (NEGATIVE) Administered Medications Discontinued Medications Sodium Chloride (Nss) 500 mls @ 999 mls/hr IV .Q31M STA Stop: 12/29/21 14:43 Last Infusion: 12/29/21 15:51 Dose: 0 mls/hr Documented by: [id number] Admin: 12/29/21 15:24 Dose: 999 mls/hr Documented by: [id number] Imaging Data Radiologist's Impression: Chest X-Ray 12/29/21 14:14 XR chest 1V portable HISTORY: 81 years-old Male weak acute weakness with elevated creatinine COMPARISON: Chest radiograph 01/07/2021 TECHNIQUE: Portable AP view of the chest FINDINGS: The cardiac silhouette is enlarged. Probable emphysema. Chronic blunting of the costophrenic angles. Chronic interstitial coarsening without pneumothorax, large pleural effusion, airspace consolidation or overt pulmonary edema. Severe osteoarthritis of the glenohumeral joints. IMPRESSION: Chronic findings without acute process. ACT 112: Negative or not required by law. The above report was generated using voice recognition software. It may contain grammatical, syntax or spelling errors. Electronically signed by: Garrick Caceres M.D. 12/29/2021 2:30 PM Discharge Plan Visit Data Chief Complaint: Referred by Doctor Stated Complaint: CREATINE LEVEL IS LOW, NEEDS CHECKED ED Provider: Sathya Montelongo Discharge Problem: JESSE (acute kidney injury), Anemia Patient Disposition: Admitted As Inpatient Forms Stand Alone Forms: [facility] vidCoin Prescriptions Prescriptions: No Action ferrous sulfate 325 mg (65 mg iron) tablet 325 mg PO DAILY Qty: 30 RF: 5 multivitamin [Daily Multi-Vitamin] Tablet 1 tab PO DAILY Qty: 30 RF: 5 Eliquis 2.5 mg tablet 2.5 mg PO BID Qty: 180 RF: 3 levothyroxine 100 mcg tablet 100 mcg PO DAILY Qty: 90 RF: 3 Macular Health Formula 5-1-7.5 mg capsule 1 cap PO DAILY RF: 0 cholecalciferol (vitamin D3) 25 mcg (1,000 unit) capsule 25 mcg PO DAILY RF: 0 sertraline 100 mg tablet 50 mg PO DAILY RF: 0 sodium bicarbonate 650 mg tablet 650 mg PO BID Qty: 180 RF: 3 cyanocobalamin (vitamin B-12) [Vitamin B-12] 1,000 mcg Tablet 1,000 mcg PO DAILY RF: 0 Referrals Referrals: Sathya Padron MD [Primary Care Provider] -
[2021-12-29 14:59] LABS: Basophils # (auto) 0.03 K/uL (0-0.2); Basophils % (auto) 0.6 %; Eosinophils # (auto) 0.08 K/uL (0-0.5); Eosinophils % (auto) 1.5 %; Hematocrit (blood only) 23.1 % (42-52); Immature Granulocytes # (auto) 0.01 K/uL (0.00-0.02); Immature Granulocytes % (auto) 0.2 %; Lymphocytes # (auto) 0.99 K/uL (1.2-3.4); Lymphocytes % (auto) 18.7 %; Mean Corpuscular Hgb Conc 34.6 g/dL (32-36); Mean Corpuscular Volume 98.3 fL (80-100); Mean Platelet Volume 9.4 fL (7.4-10.4); Monocytes # (auto) 0.65 K/uL (0.11-0.59); Monocytes % (auto) 12.3 %; Neutrophils # (auto) 3.54 K/uL (1.4-6.5); Neutrophils % (auto) 66.7 %; Platelet Count 203 K/uL (130-400); RDW Coefficient of Variation 14.2 % (11.5-14.5); RDW Standard Deviation 51.2 fL (36.4-46.3); Red Blood Count 2.35 M/uL (4.7-6.1)
[2021-12-29 15:15] LABS: Albumin Globulin Ratio 1.7 (0.9-2); Albumin Level 3.7 gm/dl (3.4-5.0); BUN Creatinine Ratio 13.3 (10-20); Bilirubin,Total 0.4 mg/dl (0.2-1.0); Calcium 7.7 mg/dl (8.5-10.1); Est GFR (African American) 11.5 ml/min; Est GFR (Non-African American) 9.9 ml/min; Globulin 2.2 gm/dl (2.5-4.0); Potassium 4.3 mmol/L (3.5-5.1); Total Protein 5.9 gm/dl (6.0-8.3)
[2021-12-29 15:29] LABS: INR 1.1 (0.9-1.1); Partial Thromboplastin Ratio 1.2; Partial Thromboplastin Time 32.2 Seconds (21.0-31.0); Prothrombin Time 11.5 Seconds (9.0-12.0)
[2021-12-29] MEDS ORDERED: ONDANSETRON INJ 2 MG/ML 2 ML VIAL IV PRN (16:26)
[2021-12-29] MEDS ORDERED: ACETAMINOPHEN 325 MG TAB PO PRN (16:26)
--- NOTE | 2021-12-29 16:34 | History & Physical Report ---
Date of Service December 29, 2021 Assessment & Plan (1) JESSE (acute kidney injury): Plan: Patient admitted for worsening creatinine. will place on IVF. will consult nephrology. will recheck BMP in AM. Currently creatinine is above 5. may require HD if no improvement. will obtain US of kidney (2) Anemia: Plan: Hemoglobin has dropped to 8.0 checked iron studies, does not appear to be iron def. anemia Likely Anemia of chronic disease. (3) Chronic kidney disease, stage III (moderate): Plan: as above. (4) Celiac disease: Plan: Patient has celiac disease. will place on gluten free diet (5) Hypothyroidism: Plan: resume home levothyroxine dose (6) GERD (gastroesophageal reflux disease): Plan: resume PPI (7) DVT (deep venous thrombosis): Plan: one episode of provoked DVT about 3 years ago D/W Dr. Padron. Will stop eliquis. No need to restart at discharge. History of Present Illness Chief Complaint: abnormal labwork Primary Care Provider: Sathya Padron MD 81 yo male presents to the [facility] with abnormal blood work. Patient reports no new symptoms, only generalized malaise and mild weakness. Due to his rising creatinine, his grout machine tender recommended he come in to the hospital. Allergies Allergy/AdvReac Type Severity Reaction Status Date / Time gluten Allergy Mild Gastrointestinal Verified 12/29/21 13:32 Upset Home Medications Medication Instructions Recorded Confirmed Type ferrous sulfate 325 mg (65 mg 325 mg PO DAILY #30 tab 02/22/21 12/29/21 Rx iron) tablet multivitamin (Daily Multi-Vitamin) 1 tab PO DAILY #30 tab 02/22/21 12/29/21 Rx apixaban 2.5 mg tablet (Eliquis) 2.5 mg PO BID #180 tab 04/14/21 12/29/21 Rx [id number]-[id number] 5 mg-zeaxanth 1 cap PO DAILY cap 05/24/21 12/29/21 History 1 mg-bilberry 7.5 mg-herbal capsule (Macular Health Formula) cholecalciferol (vitamin D3) 25 25 mcg PO DAILY 07/05/21 12/29/21 History mcg (1,000 unit) capsule sertraline 100 mg tablet 50 mg PO DAILY tab 12/06/21 12/29/21 History sodium bicarbonate 650 mg tablet 650 mg PO BID #180 tab 12/06/21 12/29/21 Rx levothyroxine 100 mcg tablet 100 mcg PO DAILY #90 tab 12/19/21 12/29/21 Rx cyanocobalamin (vitamin B-12) 1,000 mcg PO DAILY 12/29/21 12/29/21 History 1,000 mcg tablet (Vitamin B-12) Past Med/Surg History Medical History Acute diastolic CHF (congestive heart failure) Anemia Arrhythmia Atrial fibrillation with rapid ventricular response Bowel obstruction Carpal tunnel syndrome Celiac disease Depression Esophageal fistula Gastric perforation GERD (gastroesophageal reflux disease) History of colon polyps HTN (hypertension) Hx of hiatal hernia Hypothyroidism Kidney stones Nephrolithiasis Respiratory failure following surgery Surgical History History of carpal tunnel surgery of right wrist History of colonoscopy (06/12/17) History of esophagogastroduodenoscopy (EGD) (06/12/17) History of hammertoe correction bilt feet History of tooth extraction History of umbilical hernia repair Family History Father Dementia Mother Breast cancer Grandfather (Maternal) Stroke Family/Other Hypercholesterolemia Other No family history of adverse response to anesthesia Denies family history of Ovarian cancer Prostate cancer Myocardial infarction Colorectal cancer Social History Smoking Status: Never smoker Second Hand Exposure: No; Hx Alcohol Use: No Hx Substance Use: No Preferred Language: Mauritanian Communication Ability: Effective Visual Impairment: Partially Limited Supervisor Dock Required: No Beliefs That Will Affect Care: None marital status: Current Living Situation: Spouse current occupational status: retired 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 Other Information That Helps Us Care for You: No Feels Safe at Home: Yes Safety Concerns: Feels Safe At This Time Childhood Exposure to Second-Hand Smoke: No Dental Care, Regularly: Yes Physical Activity Frequency: 1-2 Times per Week Seatbelt Use: always Sunscreen Use: No Assistive Devices: Glasses Review of Systems Constitutional: no fever Eyes: no blind spots Ear, Nose, Mouth, Throat: no ear pain Respiratory: no cough Cardiovascular: no chest pain Gastrointestinal: no abdominal pain Genitourinary: no dysuria Musculoskeletal: no back pain Integumentary: no acne Neurologic: no gait abnormality Psychiatric: no behavioral changes Endocrine: + fatigue Hematologic / Lymphatic: + easy bleeding Allergy / Immunological: no GI upset with certain foods Physical Exam Constitutional: WD/WN, vitals as above Eyes: PERRL, conjunctivae normal, anicteric sclerae ENMT: external ear and nose normal, oropharynx normal Neck: trachea midline, no thyromegaly Respiratory: normal respiratory effort, lungs clear to auscultation Cardiovascular: RRR, no murmur, no edema Gastrointestinal (Abdomen): normal bowel sounds, soft, nontender, no hepatosplenomegaly Musculoskeletal: no cyanosis or clubbing, extremities motor strength 5/5 Neurologic: PERRL, EOMI, accommodation nl, no face palsy, no dysarthria Psychiatric: A+Ox3, euthymic affect Lymphatic: no cervical or axillary lymphadenopathy Results & Data Results & Data ([facility]) Vital Signs (Past 12 Hours) Vital Signs Temp Pulse Pulse Resp BP BP Pulse Ox 12/29/21 15:23 60 20 131/80 96 12/29/21 14:03 36.2 C L 87 16 132/73 96 PG Care Time/CCT Total # of Minutes Spent Total Time Spent with Patient: Total time spent is greater than 50% in coordination of care (as documented) at patient's floor/unit and/or counseling patient: Coding Level of Care Code 33735 Initial Inpt Care Lvl 3 Diagnoses JESSE (acute kidney injury) N17.9 Anemia D64.9 Anemia type: unspecified type Chronic kidney disease, stage III (moderate) N18.30 Celiac disease K90.0 Hypothyroidism E03.9 GERD (gastroesophageal reflux disease) K21.9 DVT (deep venous thrombosis) I82.409 (1) Anemia Anemia type: unspecified type Qualified Code(s): D64.9 - Anemia, unspecified
[2021-12-29 17:19] LABS: Appearance Urine Clear (Clear); Bacteria Urine Automated Negative (Negative); Bilirubin Urine Negative (Negative); Blood Urine Trace (Negative); Color Urine Yellow; Glucose Urine UA Negative (Negative); Ketones Urine Negative (Negative); Leukocyte Esterase Urine Negative (Negative); Nitrite Urine Negative (Negative); Protein Urine Trace (Negative); RBC Urine Automated 0-4 /hpf (0-4); Urobilinogen Urine Negative (Negative)
[2021-12-29 17:25] LABS: Ferritin 76.5 ng/ml (8-388)
[2021-12-29] MEDS: HEPARIN SOD 5,000 UNIT/0.5 ML VIAL SQ SCH (22:10)
[2021-12-29] MEDS: SODIUM BICARBONATE 650 MG TAB PO SCH (22:11)
[2021-12-29] MEDS ORDERED: SODIUM CHLORIDE 0.9% 1000ML 1,000 ML IV SCH (22:30)
[2021-12-30] MEDS: LEVOTHYROXINE SODIUM 100 MCG TABLET PO SCH (05:53)
[2021-12-30 06:31] LABS: Hematocrit (blood only) 23.2 % (42-52); Hemoglobin 7.7 g/dL (14.0-18.0); Mean Corpuscular Hemoglobin 32.5 pg (25-34); Mean Corpuscular Hgb Conc 33.2 g/dL (32-36); Mean Corpuscular Volume 97.9 fL (80-100); Mean Platelet Volume 9.8 fL (7.4-10.4); Platelet Count 203 K/uL (130-400); Red Blood Count 2.37 M/uL (4.7-6.1); White Blood Count 5.18 K/uL (4.8-10.8)
[2021-12-30 06:38] LABS: Calcium 7.6 mg/dl (8.5-10.1); Creatinine Clr Calc Pharmacy 11.4 ml/min; Est GFR (Non-African American) 10.4 ml/min; Potassium 3.8 mmol/L (3.5-5.1)
--- NOTE | 2021-12-30 08:12 | Ultrasound Report ---
RENAL ULTRASOUND HISTORY: worsening creatinine COMPARISON: Abdomen and pelvis CT 10/14/2021. FINDINGS: Right kidney: 10.9 cm. No hydronephrosis. The kidney is echogenic. There are few small cysts measurin g up to 9 mm. Mild urothelial thickening within the right renal pelvis, unchanged. Left kidney: 10.7 cm. No hydronephrosis. The kidney is echogenic. A 2.3 cm parapelvic cyst. Bladder: The bladder is distended. The bilateral ureteral jets are identified. Multiple bladder diver ticula are noted. There is mobile debris within the bladder lumen. Mild prominence of the distal uret ers measuring 3 mm on the right and 5 mm on the left. The prostate gland is enlarged. IMPRESSION: 1. Echogenic kidneys consistent medical renal disease. 2. No hydronephrosis. 3. Distended gallbladder containing multiple diverticula. 4. Prostatomegaly. 5. Urothelial thickening within the right renal pelvis, unchanged. Recommend correlation with urinaly sis. ACT 112: Negative or not required by law. Electronically signed by: Fitz Martin M.D. 12/30/2021 8:11 AM
[2021-12-30] MEDS: CHOLECALCIFEROL 1,000 UNITS 25 MCG TAB PO SCH (08:47)
[2021-12-30] MEDS: CYANOCOBALAMIN (B-12) 500 MCG TABLET PO SCH (08:47)
[2021-12-30] MEDS: SODIUM BICARBONATE 650 MG TAB PO SCH ×2 (08:47→20:13)
[2021-12-30] MEDS: SERTRALINE HCL 50 MG TABLET PO SCH (08:47)
[2021-12-30] MEDS: HEPARIN SOD 5,000 UNIT/0.5 ML VIAL SQ SCH ×2 (08:47→20:13)
[2021-12-30] MEDS: MULTIVITAMIN TAB PO SCH (08:47)
[2021-12-30] MEDS: FERROUS SULFATE 325 MG TAB PO SCH (08:47)
[2021-12-30] MEDS ORDERED: NON-FORMULARY MEDICATION (Mv-Mn-Lutein-Zeax-Bilber-Hb277 [Macular Health Formula] 5-1-7.5 PO SCH (09:00)
[2021-12-30] MEDS ORDERED: EPOETIN ALFA 40,000 UNITS/ML VIAL IV STA (09:21)
[2021-12-30] MEDS: IRON SUCROSE 200 MG in 0.9 % SODIUM CHLORIDE 100 ML IV SCH (10:33)
[2021-12-30] MEDS ORDERED: EPOETIN ALFA 40,000 UNITS/ML VIAL SQ ONE (11:00)
--- NOTE | 2021-12-30 11:24 | Nephrology Consultation ---
Date of Consultation December 30, 2021 Assessment & Plan (1) JESSE (acute kidney injury): (2) Chronic kidney disease, stage 4 (severe): (3) Anemia: (4) Metabolic acidosis: (5) Hypocalcemia: (6) HTN (hypertension): 81-year-old gentlemen with rapid progressive worsening of renal function within a short period of time of 6-8 months with prior normal renal function. Creatinine now up to 5.0 which seems to be just the of rapid progression of underlying renal impairment. urinalysis with low-grade proteinuria, hematuria and pyuria. Renal ultrasound without postrenal obstruction. Had complicated surgical history over last 3 years but otherwise low risk for CKD as no history of coronary artery disease, diabetes or smoking and has history of pretty well- controlled hypertension. Unclear etiology for this rapid worsening of renal function over just few months. Started on IV fluid since admission however so far renal function is staying relatively stable. Blood pressure, volume status acceptable. Hemoglobin low with iron deficiency -- okay to continue on IV fluid, encourage p.o. intake, however if no significant change in renal function in next 24 hours, would discontinue IV fluid as there is no clear indication that he is volume depleted -- will order serology -- dose medications for GFR less than 10, avoid nephrotoxic medications, left arm nephrology precaution for possible future need for vascular access. -- Epogen 01674 units x 1 dose and start on Venofer -- no indication for renal replacement therapy at this time Will follow. Thank you for allowing me to participate in your patient's care. It was a pleasure to see Evans. History of Present Illness Reason for Consultation: Acute kidney injury with rapid decline in kidney function over 6 months.. Attending Physician: Dean Batista MD History of Present Illness Mr. Stern Is a 81-year-old gentleman with past medical history significant for stage IIIB/ 4 CKD, hypertension, history of complicated esophageal surgery and upper extremity DVT admitted to the hospital with acute kidney injury. Nephrology consult was requested for further management of JESSE and metabolic acidosis. EMR records are reviewed in detail during patient's visit. Evans was admitted to hospital yesterday after outpatient lab showed acute kidne y injury with creatinine 5.1 associated with metabolic acidosis, anemia and hypocalcemia. He has been otherwise feeling well and has been at his baseline health. Denies any recent acute illness, dizziness, lightheadedness, nausea, vomiting, diarrhea or volume depletion. No recent changes in medication, no antibiotic or nephrotoxic medication exposure. He has been voiding normally, appetite has been normal. Denies any flank pain, gross hematuria, dysuria. No skin rash, arthralgia. On admission creatinine was 5.0, metabolic acidosis with bicarb 18, potassium normal. Hemoglobin has been dropping over last few weeks and on admission hemoglobin was 7 point 7 further dropped from 04/14 days ago. Recent iron study showed iron deficiency with ferritin of 76. urinalysis showed low-grade proteinuria, hematuria and pyuria. Recent 24 hour urine showed proteinuria of 330 mg. renal ultrasound showed bilateral echogenic kidney but otherwise normal size, right kidney 10.9, multiple simple cysts largest 9 mm. Left kidney 10.7 cm with 2.3 cm parapelvic cyst, no nephrolithiasis. He was empirically started on IV normal saline at 80 mL/hour and oral sodium bicarbonate. There is no significant change in renal function or bicarbonate compared to yesterday. He continues to be asymptomatic and otherwise feels well. Voiding normally. Blood pressure has been stable. He had normal renal function until March 2021 when his creatinine was 0.8-0.9 although previously had several episodes of mild JESSE with creatinine 1.4 in the setting of multiple hospitalizations surgery but kidney function would recover quickly and went back to baseline. Starting March 2021 his renal function slowly started to decline initially creatinine was 1.2 but continuously and rather rapidly declining over last 8 months and recently in October his creatinine was up to 3.8. Lab on showed creatinine of 5.1 which stayed relatively stable over last 2 days. Non smoker, retired from [employer]. Had complicated surgical history over last 3 years. 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 In August 2019 he had gastric pull-up anastomosis and pyeloplasty. Since then he has been having some dumping symptoms. In February 2020 he was having dysphagia and had EGD with removal of food bezoar and dilatation of esophagus. In November 2020 he again presented to ER with SOB, transferred to [facility], had exploratory laparotomy and small-bowel volvulus resection on 11/30/2020. Postoperative course was complicated by hemoperitoneum and he had repeat exploratory laparotomy on 12/10/2020 and eventually discharged on 12/28/2020. Hospitalization was complicated by upper extremity DVT and he has been on Eliquis since then. Allergies Allergy/AdvReac Type Severity Reaction Status Date / Time gluten Allergy Mild Gastrointestinal Verified 12/29/21 13:32 Upset Home Medications Medication Instructions Recorded Confirmed Type ferrous sulfate 325 mg (65 mg 325 mg PO DAILY #30 tab 02/22/21 12/29/21 Rx iron) tablet multivitamin (Daily Multi-Vitamin) 1 tab PO DAILY #30 tab 02/22/21 12/29/21 Rx apixaban 2.5 mg tablet (Eliquis) 2.5 mg PO BID #180 tab 04/14/21 12/29/21 Rx aywqpxcm-kou-ocmwmh 5 mg-zeaxanth 1 cap PO DAILY cap 05/24/21 12/29/21 History 1 mg-bilberry 7.5 mg-herbal capsule ([facility] Formula) cholecalciferol (vitamin D3) 25 25 mcg PO DAILY 07/05/21 12/29/21 History mcg (1,000 unit) capsule sertraline 100 mg tablet 50 mg PO DAILY tab 12/06/21 12/29/21 History sodium bicarbonate 650 mg tablet 650 mg PO BID #180 tab 12/06/21 12/29/21 Rx levothyroxine 100 mcg tablet 100 mcg PO DAILY #90 tab 12/19/21 12/29/21 Rx cyanocobalamin (vitamin B-12) 1,000 mcg PO DAILY 12/29/21 12/29/21 History 1,000 mcg tablet (Vitamin B-12) Patient History Medical History (Updated 12/30/21 @ 11:18 by Tana Mcclellan MD) Acute diastolic CHF (congestive heart failure) Anemia Arrhythmia Atrial fibrillation with rapid ventricular response Bowel obstruction Carpal tunnel syndrome Celiac disease Chronic kidney disease, stage 4 (severe) Depression Esophageal fistula Gastric perforation GERD (gastroesophageal reflux disease) History of colon polyps HTN (hypertension) Hx of hiatal hernia Hypocalcemia Hypothyroidism Kidney stones Metabolic acidosis Nephrolithiasis Respiratory failure following surgery Surgical History History of carpal tunnel surgery of right wrist History of colonoscopy (06/12/17) History of esophagogastroduodenoscopy (EGD) (06/12/17) History of hammertoe correction bilt feet History of tooth extraction History of umbilical hernia repair Family History Father Dementia Mother Breast cancer Grandfather (Maternal) Stroke Family/Other Hypercholesterolemia Other No family history of adverse response to anesthesia Denies family history of Ovarian cancer Prostate cancer Myocardial infarction Colorectal cancer Social History Smoking Status: Never smoker Second Hand Exposure: No; Hx Alcohol Use: No Hx Substance Use: No Preferred Language: Armenian Communication Ability: Effective Visual Impairment: Partially Limited Carpenter Prototype Required: No Beliefs That Will Affect Care: None marital status: Current Living Situation: Spouse current occupational status: retired 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 Other Information That Helps Us Care for You: No Feels Safe at Home: Yes Safety Concerns: Feels Safe At This Time Childhood Exposure to Second-Hand Smoke: No Dental Care, Regularly: Yes Physical Activity Frequency: 1-2 Times per Week Seatbelt Use: always Sunscreen Use: No Assistive Devices: Glasses Review of Systems Review of Systems: detailed review of system was otherwise unremarkable. Physical Exam Constitutional: WD/WN, vitals as above no acute distress Eyes: + anicteric sclerae ENMT: Ears: no hearing impairment Neck: normal visual inspection Respiratory: no respiratory distress and no cough Auscultation: lungs clear to auscultation bilaterally Cardiovascular: Rate/Rhythm: regular rate and regular rhythm Extremities: no edema Gastrointestinal (Abdomen): Inspection/Auscultation: normal bowel sounds Percussion/Palpation: abdomen soft; abdomen nontender Musculoskeletal: Extremities: extremities normal to inspection Skin: no rashes Neurologic: no focal motor deficits Psychiatric: Orientation: alert and oriented x 3 Affect: euthymic affect Results & Data ([facility]) Vital Signs (Past 12 Hours) Vital Signs Temp Pulse Pulse Resp BP Pulse Ox 12/30/21 07:31 36.6 C 65 18 129/71 98 12/30/21 07:06 64 12/30/21 06:41 36.8 C 56 L 18 145/75 H 99 12/30/21 03:35 36.7 C 63 18 122/65 98 PG Care Time/CCT Total # of Minutes Spent Total Time Spent with Patient: Total time spent is greater than 50% in coordination of care (as documented) at patient's floor/unit and/or counseling patient: Coding Level of Care Code 70103 Inpt Consult Level 5 Diagnoses JESSE (acute kidney injury) N17.9 Chronic kidney disease, stage 4 (severe) N18.4 Anemia D64.9 Anemia type: unspecified type Metabolic acidosis E87.2 Hypocalcemia E83.51 HTN (hypertension) I10 (1) Anemia Anemia type: unspecified type Qualified Code(s): D64.9 - Anemia, unspecified
--- NOTE | 2021-12-30 11:49 | Hospitalist Progress Note ---
Date of Service December 30, 2021 Assessment & Plan (1) JESSE (acute kidney injury): Plan: Patient admitted for worsening creatinine. - On IVF. - Consulted nephrology - Discussed today. Unclear cause. Given the rapid decline over 6 months, it seems less likely to be simple microvascular disease. Continue IV fluids for now. Serologies sent by nephrology. No urgent need for HD, so no plan for vascular consult or tunneled-line at this time. (2) Anemia: Plan: Hemoglobin has dropped to 8.0. Does not appear to be iron def. anemia. Likely Anemia of chronic disease. - Stable today; monitor. (3) Chronic kidney disease, stage III (moderate): Plan: as above. (4) Celiac disease: Plan: Patient has celiac disease. will place on gluten free diet (5) Hypothyroidism: Plan: TSH was 0.4 in 10/2021. - home levothyroxine dose (6) GERD (gastroesophageal reflux disease): Plan: resume PPI (7) DVT (deep venous thrombosis): Plan: one episode of provoked DVT about 3 years ago Admitter D/W Dr. Davis Will stop eliquis. No need to restart at discharge. - Heparin 5,000 units SQ BID for VTE ppx Admission and Anticipated Discharge Date Admission Date: December 29, 2021 Subjective Stable today. Is urinating quite a bit. Reports no fevers/chills, chest pain, shortness of breath, abdominal pain, nausea, or vomiting. Physical Exam Constitutional: WD/WN, vitals as above Eyes: EOM intact bilaterally; no conjunctival abnormality ENMT: external ear and nose normal, oropharynx normal Neck: trachea midline, no thyromegaly normal visual inspection Respiratory: normal respiratory effort, lungs clear to auscultation no respiratory distress Cardiovascular: RRR, no murmur, no edema Gastrointestinal (Abdomen): Inspection/Auscultation: abdomen normal to inspection; abdomen not distended Musculoskeletal: no cyanosis or clubbing, extremities motor strength 5/5 Skin: no rashes, warm and dry Neurologic: moves all extremities and awake Psychiatric: Orientation: alert, oriented to person and cooperative Results & Data Results & Data ([facility]) Vital Signs (Past 12 Hours) Vital Signs Temp Pulse Pulse Resp BP Pulse Ox 12/30/21 07:31 36.6 C 65 18 129/71 98 12/30/21 07:06 64 12/30/21 06:41 36.8 C 56 L 18 145/75 H 99 12/30/21 03:35 36.7 C 63 18 122/65 98 PG Care Time/CCT Total # of Minutes Spent Total Time Spent with Patient: Total time spent is greater than 50% in coordination of care (as documented) at patient's floor/unit and/or counseling patient: Coding Level of Care Code 38658 Subseq Hosp Care Lvl 2 Diagnoses JESSE (acute kidney injury) N17.9 Anemia D64.9 Anemia type: unspecified type Chronic kidney disease, stage III (moderate) N18.30 Celiac disease K90.0 Hypothyroidism E03.9 GERD (gastroesophageal reflux disease) K21.9 DVT (deep venous thrombosis) I82.409 (1) Anemia Anemia type: unspecified type Qualified Code(s): D64.9 - Anemia, unspecified
--- NOTE | 2021-12-30 17:57 | Electrocardiogram Report ---
Test Reason : Blood Pressure : / mmHG Vent. Rate : 062 BPM Atrial Rate : 062 BPM P-R Int : 168 ms QRS Dur : 106 ms QT Int : 410 ms P-R-T Axes : 062 -06 009 degrees QTc Int : 416 ms Normal sinus rhythm Normal ECG When compared with ECG of 07-JAN-2021 20:58, QT has shortened Confirmed by Silas Fisher ([id number]) on 12/30/2021 5:56:43 PM Referred By: Sathya Padron Confirmed By:Anselmo Fisher
[2021-12-30] MEDS ORDERED: traMADol HCL 50 MG TABLET PO STA (23:06)
[2021-12-31] MEDS: LEVOTHYROXINE SODIUM 100 MCG TABLET PO SCH (05:27)
[2021-12-31 08:12] LABS: Hematocrit (blood only) 22.7 % (42-52); Hemoglobin 7.6 g/dL (14.0-18.0); Mean Corpuscular Hemoglobin 33.2 pg (25-34); Mean Corpuscular Hgb Conc 33.5 g/dL (32-36); Mean Corpuscular Volume 99.1 fL (80-100); Mean Platelet Volume 9.6 fL (7.4-10.4); Platelet Count 194 K/uL (130-400); RDW Coefficient of Variation 13.8 % (11.5-14.5); Red Blood Count 2.29 M/uL (4.7-6.1); White Blood Count 4.92 K/uL (4.8-10.8)
[2021-12-31] MEDS: CYANOCOBALAMIN (B-12) 500 MCG TABLET PO SCH (08:29)
[2021-12-31] MEDS: FERROUS SULFATE 325 MG TAB PO SCH (08:29)
[2021-12-31] MEDS: CHOLECALCIFEROL 1,000 UNITS 25 MCG TAB PO SCH (08:29)
[2021-12-31] MEDS: HEPARIN SOD 5,000 UNIT/0.5 ML VIAL SQ SCH ×2 (08:29→20:34)
[2021-12-31] MEDS: SODIUM BICARBONATE 650 MG TAB PO SCH ×2 (08:30→20:33)
[2021-12-31] MEDS: MULTIVITAMIN TAB PO SCH (08:30)
[2021-12-31] MEDS: SERTRALINE HCL 50 MG TABLET PO SCH (08:30)
[2021-12-31 08:56] LABS: Albumin Level 3.5 gm/dl (3.4-5.0); Calcium 7.9 mg/dl (8.5-10.1); Est GFR (African American) 11.5 ml/min; Magnesium 1.4 mg/dl (1.7-2.4); Phosphorus 6.5 mg/dl (2.5-4.9); Potassium 4.2 mmol/L (3.5-5.1)
[2021-12-31] MEDS: IRON SUCROSE 200 MG in 0.9 % SODIUM CHLORIDE 100 ML IV SCH (08:58)
--- NOTE | 2021-12-31 09:57 | Nephrology Progress Note ---
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 Creatinine now up to 5.0 which seems to be just the of rapid progression of underlying renal impairment. urinalysis with low-grade proteinuria, hematuria and pyuria. Renal ultrasound without postrenal obstruction. Had complicated surgical history over last 3 years but otherwise low risk for CKD as no history of coronary artery disease, diabetes or smoking and has history of pretty well-controlled hypertension. Unclear etiology for this rapid worsening of renal function over just few months. Started on IV fluid since admission however so far renal function is staying relatively stable without any further improvement. Has multiple electrolyte abnormalities suggestive of advanced/ end-stage kidney disease. Blood pressure, volume status acceptable. Hemoglobin low with iron deficiency. waiting on serology which may take a week to come back -- discontinue IV fluid, encouraged to maintain p.o. intake -- start on Tums 1 tab 3 times with meal as a phosphate binder, start on magnesium supplement 1 tab twice a day. -- dose medications for GFR less than 10, avoid nephrotoxic medications, left arm nephrology precaution for possible future need for vascular access. -- Epogen 51351 units x 1 dose Given on 12/30/2021, continue on Venofer -- no indication for renal replacement therapy at this time however he has all stigmata of end-stage kidney disease and Lucille need renal replacement therapy in next few weeks to next few months. Discussed in detail with different options including dialysis versus common conservative management of advanced CKD. Discussed briefly about dialysis axis and how outpatient dialysis works. He will think about it and discuss with his . His will be here tomorrow at 10 for further discussion. -- If electrolyte improvement renal function stay otherwise stable, tentatively plan for discharge tomorrow afternoon and then follow closely with outpatient lab monitoring at [facility]. Will follow. Admission and Anticipated Discharge Date Admission Date: December 29, 2021 Justin Krueger Was seen and evaluated in his room this morning. Overall he feels well, asymptomatic, has been voiding normally, no shortness of breath, nausea, vomiting, loss of appetite . has been voiding normally however reports feeling of incomplete voiding and frequent urination. blood pressure has been acceptable. No change in renal function, has multiple electrolyte abnormalities including metabolic acidosis, hypocalcemia and hyper fossa team as well as hypomagnesemia., Review of Systems Review of Systems: detailed review of system was otherwise unremarkable. Physical Exam Constitutional: WD/WN, vitals as above no acute distress Eyes: + anicteric sclerae Respiratory: no respiratory distress Auscultation: lungs clear to auscultation bilaterally Cardiovascular: Rate/Rhythm: regular rate and regular rhythm Extremities: no edema Musculoskeletal: Extremities: extremities normal to inspection Skin: no rashes Neurologic: no focal motor deficits Psychiatric: Orientation: alert and oriented x 3 Affect: euthymic affect Results & Data ([facility]) Vital Signs (Past 12 Hours) Vital Signs Temp Pulse Pulse Resp BP BP Pulse Ox 12/31/21 09:25 36.8 C 60 16 158/75 H 98 12/31/21 08:52 36.8 C 57 L 16 149/73 H 97 12/31/21 07:38 60 12/31/21 07:20 36.9 C 63 18 138/75 96 12/31/21 02:41 36.9 C 62 18 135/71 95 12/30/21 23:04 37.1 C 65 16 133/76 96 12/30/21 22:19 64 PG Care Time/CCT Total # of Minutes Spent Total Time Spent with Patient: Total time spent is greater than 50% in coordination of care (as documented) at patient's floor/unit and/or counseling patient: Coding Level of Care Code 51464 Subseq Hosp Care Lvl 3 Diagnoses JESSE (acute kidney injury) N17.9 Chronic kidney disease, stage 4 (severe) N18.4 Anemia D64.9 Anemia type: unspecified type Metabolic acidosis E87.2 Hypocalcemia E83.51 HTN (hypertension) I10 Hypomagnesemia E83.42 Hyperphosphatemia E83.39 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
[2021-12-31] MEDS: MAGNESIUM CHLORIDE W/CALCIUM 64MG DELAYED REL TAB PO SCH ×2 (10:58→20:34)
--- NOTE | 2021-12-31 11:20 | Hospitalist Progress Note ---
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: Plan: Patient admitted on account of worsening kidney function over the past several months Initially thought to have an JESSE component Serum Cr around 5, however, did not improve with IV Fluids, which has been discontinued No evidence of obstructive uropathy Some other labs pending Patient will think about dialysis and let us know tomorrow, hopefully in the p resence of his Has been started on Phosphate binder, magnesium Appreciate nephrology recs (2) JESSE (acute kidney injury): Plan: No improvement in renal function after IV Fluids (3) Anemia: Plan: Transfused Iron Recehck hb tomorrow (4) Celiac disease: Plan: Patient has celiac disease. will place on gluten free diet (5) Hypothyroidism: Plan: TSH was 0.4 in 10/2021. - home levothyroxine dose (6) GERD (gastroesophageal reflux disease): Plan: resume PPI (7) DVT (deep venous thrombosis): Plan: one episode of provoked DVT about 3 years ago Admitter D/W Dr. Davis Will stop eliquis. No need to restart at discharge. - Heparin 5,000 units SQ BID for VTE ppx (8) Chronic kidney disease, stage III (moderate): Plan: as above. Plan: possible discharge tomorrow for outpatient follow up with Nephrology Admission and Anticipated Discharge Date Admission Date: December 29, 2021 Subjective Patient seen and examined this morning. denies any new complaints. was updated by Nephrology regarding the general plan Review of Systems Review of Systems: All systems reviewed are negative, apart from the ones contained in the history. Physical Exam Physical Exam: The patient is awake, alert and oriented 3, well developed and well nourished, normocephalic and atraumatic, lying in bed and in no acute distress. HEENT--PERRL, EOMI, mucous membranes and oropharynx mildly dry Neck--supple. No JVD. No bruits. Thyroid normal, trachea midline, no adenopathy. Heart--normal S1 and S2. No murmurs, rubs or gallops. Lungs--clear bilaterally, no respiratory distress, no accessory muscle use. Abdomen--normal bowel sounds and soft. Mild epigastric and left sided abdominal pain Extremities--no cyanosis or clubbing. No edema. Dermatologic--normal skin turgor, normal color, no abnormal lymph nodes, no rash. Neurologic--cranial nerves II through XII grossly intact. Rheumatologic--normal range of motion. Psychiatric--normal affect. Results & Data Results & Data ([facility]) Vital Signs (Past 12 Hours) Vital Signs Temp Pulse Pulse Resp BP BP Pulse Ox 12/31/21 09:25 98.2 F 60 16 158/75 H 98 12/31/21 08:52 98.2 F 57 L 16 149/73 H 97 12/31/21 07:38 60 12/31/21 07:20 98.4 F 63 18 138/75 96 12/31/21 02:41 98.4 F 62 18 135/71 95 Laboratory Results Laboratory Results - last 24 hr 12/30/21 12/31/21 12/31/21 14:16 07:41 07:41 WBC RBC Hgb Hct MCV MCH MCHC RDW Std Deviation RDW Coeff of Paula Plt Count MPV Sodium 140 Potassium 4.2 Chloride 110 H Carbon Dioxide 20 L Anion Gap 10 BUN 61 H Creatinine 5.09 H* Est Cr Clr Drug Dosing 11.0 Est GFR ( Amer) 11.5 Est GFR (Non-Af Amer) 10.0 BUN/Creatinine Ratio 12.0 Glucose 71 Calcium 7.9 L Phosphorus 6.5 H Magnesium 1.4 L Total Protein (PEP) Pending Albumin 3.5 Albumin (PEP) Pending Bcxgg-0-Leooeowfm Pending Ktszr-1-Jaxilmfbo Pending Atbn-1-Anxphbow Pending Shgm-4-Gdylaywa Pending Gamma Globulins Pending Monoclonal Peak 3 Pending Ser Monoclonl Protein Pending Ser Monoclonal Prot 2 Pending PEP Interpretation Pending U Random Total Protein Pending Ur Creatinine mg/dL Pending Protein/Creatinin Ratio Pending Urine Albumin (%) Pending U Fwkah-9-Ppyxplqg (%) Pending U Wfatl-6-Obwepgep (%) Pending U Beta Globulin (%) Pending U Gamma Globulin (%) Pending U Abnormal Prot Band 1 Pending U Abnormal Prot Band 2 Pending U Abnormal Prot Band 3 Pending Urine PEP Interpret Pending 12/31/21 07:41 WBC 4.92 RBC 2.29 L Hgb 7.6 L Hct 22.7 L MCV 99.1 MCH 33.2 MCHC 33.5 RDW Std Deviation 50.0 H RDW Coeff of Paula 13.8 Plt Count 194 MPV 9.6 Sodium Potassium Chloride Carbon Dioxide Anion Gap BUN Creatinine Est Cr Clr Drug Dosing Est GFR ( Amer) Est GFR (Non-Af Amer) BUN/Creatinine Ratio Glucose Calcium Phosphorus Magnesium Total Protein (PEP) Albumin Albumin (PEP) Kgpkn-7-Opnnegeea Nyedk-8-Zexwfvdhd Wtku-2-Kuhpwznw Onfm-1-Cjdikmui Gamma Globulins Monoclonal Peak 3 Ser Monoclonl Protein Ser Monoclonal Prot 2 PEP Interpretation U Random Total Protein Ur Creatinine mg/dL Protein/Creatinin Ratio Urine Albumin (%) U Ooffh-5-Jedeflvf (%) U Rsokb-8-Wpwbgpja (%) U Beta Globulin (%) U Gamma Globulin (%) U Abnormal Prot Band 1 U Abnormal Prot Band 2 U Abnormal Prot Band 3 Urine PEP Interpret PG Care Time/CCT Total # of Minutes Spent Total Time Spent with Patient: Total time spent is greater than 50% in coordination of care (as documented) at patient's floor/unit and/or counseling patient: Coding Level of Care Code 46371 Subseq Hosp Care Lvl 2 Diagnoses JESSE (acute kidney injury) N17.9 Anemia D64.9 Anemia type: unspecified type Chronic kidney disease, stage III (moderate) N18.30 Celiac disease K90.0 Hypothyroidism E03.9 GERD (gastroesophageal reflux disease) K21.9 DVT (deep venous thrombosis) I82.409 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
[2021-12-31] MEDS: CALCIUM CARBONATE 500 MG CHEWABLE TAB PO SCH ×2 (11:52→16:57)
[2022-01-01] MEDS: LEVOTHYROXINE SODIUM 100 MCG TABLET PO SCH (05:34)
[2022-01-01] MEDS: CALCIUM CARBONATE 500 MG CHEWABLE TAB PO SCH ×2 (08:05→12:29)
[2022-01-01] MEDS: CHOLECALCIFEROL 1,000 UNITS 25 MCG TAB PO SCH (08:07)
[2022-01-01] MEDS: HEPARIN SOD 5,000 UNIT/0.5 ML VIAL SQ SCH (08:07)
[2022-01-01] MEDS: FERROUS SULFATE 325 MG TAB PO SCH (08:07)
[2022-01-01] MEDS: CYANOCOBALAMIN (B-12) 500 MCG TABLET PO SCH (08:07)
[2022-01-01] MEDS: MAGNESIUM CHLORIDE W/CALCIUM 64MG DELAYED REL TAB PO SCH (08:08)
[2022-01-01] MEDS: SERTRALINE HCL 50 MG TABLET PO SCH (08:08)
[2022-01-01] MEDS: MULTIVITAMIN TAB PO SCH (08:08)
[2022-01-01] MEDS: SODIUM BICARBONATE 650 MG TAB PO SCH (08:08)
[2022-01-01 09:25] LABS: Hematocrit (blood only) 26.5 % (42-52); Hemoglobin 8.9 g/dL (14.0-18.0); Mean Corpuscular Hemoglobin 33.2 pg (25-34); Mean Corpuscular Hgb Conc 33.6 g/dL (32-36); Mean Corpuscular Volume 98.9 fL (80-100); Mean Platelet Volume 10.1 fL (7.4-10.4); Platelet Count 216 K/uL (130-400); RDW Standard Deviation 50.4 fL (36.4-46.3); Red Blood Count 2.68 M/uL (4.7-6.1); White Blood Count 5.76 K/uL (4.8-10.8)
[2022-01-01 09:32] LABS: Albumin Level 3.4 gm/dl (3.4-5.0); BUN Creatinine Ratio 11.3 (10-20); Calcium 7.9 mg/dl (8.5-10.1); Creatinine Clr Calc Pharmacy 10.9 ml/min; Est GFR (African American) 11.5 ml/min; Est GFR (Non-African American) 9.9 ml/min; Potassium 3.9 mmol/L (3.5-5.1)
[2022-01-01] MEDS: IRON SUCROSE 200 MG in 0.9 % SODIUM CHLORIDE 100 ML IV SCH (09:57)
--- NOTE | 2022-01-01 10:38 | Nephrology Progress Note ---
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 Creatinine now up to 5.0 which seems to be just the of rapid progression of underlying renal impairment. urinalysis with low-grade proteinuria, hematuria and pyuria. Renal ultrasound without postrenal obstruction. Had complicated surgical history over last 3 years but otherwise low risk for CKD as no history of coronary artery disease, diabetes or smoking and has history of pretty well-controlled hypertension. Unclear etiology for this rapid worsening of renal function over just few months. Started on IV fluid since admission however so far renal function is staying relatively stable without any further improvement. Has multiple electrolyte abnormalities suggestive of advanced/ end-stage kidney disease. Blood pressure, volume status acceptable. Hemoglobin low with iron deficiency. waiting on serology which may take a week to come back. -- continue on Tums 1 tab 3 times with meal as a phosphate binder, sodium bicarb 650 mg 2 tab bid on discharge -- dose medications for GFR less than 10, avoid nephrotoxic medications, left arm nephrology precaution for possible future need for vascular access. -- keep well hydrated, avoid high K food, avoid NSAID -- Epogen 61857 units x 1 dose Given on 12/30/2021, continue on Venofer -- discussed in detail with his and Sons regarding the current status of his renal function, management of ESKD including different dialysis modality, vascular access, dialysis procedure and how outpatient dialysis works as well as conservative management. He is leaning toward conservative management but no final decision was made. Currently no indication for renal replacement therapy at this time however he has all stigmata of end-stage kidney disease and Lucille need renal replacement therapy in next few weeks to next few months. -- Ok to discharge today, lab in 2 days and 7 to 10 days f/u with Dr. [facility]. Will follow. Admission and Anticipated Discharge Date Admission Date: December 29, 2021 Justin Krueger was seen and evaluated in his room this morning, while his Svitlana was at bedside and his Sons Philip and Luis Antonio was on the phone on speaker.. Overall he feels well, asymptomatic, has been voiding normally, no shortness of breath, nausea, vomiting, loss of appetite . Has been voiding normally, postvoid residual was around 150 ml yesterday. blood pressure has been acceptable. No change in renal function, has multiple electrolyte abnormalities including metabolic acidosis, hypocalcemia and hyperphosphatemia as well as hypomagnesemia., Review of Systems Review of Systems: detailed review of system was otherwise unremarkable. Physical Exam Constitutional: WD/WN, vitals as above no acute distress Eyes: + anicteric sclerae Respiratory: no respiratory distress Auscultation: lungs clear to ausculta tion bilaterally Cardiovascular: Rate/Rhythm: regular rate and regular rhythm Extremities: no edema Musculoskeletal: Extremities: extremities normal to inspection Skin: no rashes Neurologic: no focal motor deficits Psychiatric: Orientation: alert and oriented x 3 Affect: euthymic affect Results & Data ([facility]) Vital Signs (Past 12 Hours) Vital Signs Temp Pulse Pulse Resp BP BP Pulse Ox 01/01/22 10:00 36.9 C 65 16 157/84 H 99 01/01/22 07:27 58 L 01/01/22 06:41 36.7 C 60 18 139/76 96 01/01/22 03:28 36.8 C 61 18 127/70 97 12/31/21 22:51 36.9 C 64 20 137/77 97 PG Care Time/CCT Total # of Minutes Spent Total Time Spent with Patient: Total time spent is greater than 50% in coordination of care (as documented) at patient's floor/unit and/or counseling patient: Coding Level of Care Code 26611 Subseq Hosp Care Lvl 3 Diagnoses JESSE (acute kidney injury) N17.9 Chronic kidney disease, stage 4 (severe) N18.4 Anemia D64.9 Anemia type: unspecified type Metabolic acidosis E87.2 Hypocalcemia E83.51 HTN (hypertension) I10 Hypomagnesemia E83.42 Hyperphosphatemia E83.39 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
--- NOTE | 2022-01-01 12:03 | Discharge Summary ---
Date of Service January 01, 2022 Admission HPI Per Admitting Provider 81 yo male presents to the [facility] with abnormal blood work. Patient reports no new symptoms, only generalized malaise and mild weakness. Due to his rising creatinine, his oil field pumper recommended he come in to the hospital. Upon admission, Nephrology was consulted and after a coulpe of day monitoring his renal function, there was no improvement and a discussion with the patients available revealed he was yet not mentally ready for Dialysis. He was ok to be discharged by Nephrology. He was asked to follow up with Nephrology as outpatient Principal Diagnosis CKD 5 Discharge Exam The patient is awake, alert and oriented 3, well developed and well nourished, normocephalic and atraumatic, lying in bed and in no acute distress. HEENT--PERRL, EOMI, mucous membranes and oropharynx mildly dry Neck--supple. No JVD. No bruits. Thyroid normal, trachea midline, no adenopathy. Heart--normal S1 and S2. No murmurs, rubs or gallops. Lungs--clear bilaterally, no respiratory distress, no accessory muscle use. Abdomen--normal bowel sounds and soft. Mild epigastric and left sided abdominal pain Extremities--no cyanosis or clubbing. No edema. Dermatologic--normal skin turgor, normal color, no abnormal lymph nodes, no rash. Neurologic--cranial nerves II through XII grossly intact. Rheumatologic--normal range of motion. Psychiatric--normal affect. Discharge Data Allergies Allergy/AdvReac Type Severity Reaction Status Date / Time gluten Allergy Mild Gastrointestinal Verified 12/29/21 13:32 Upset Consultations 12/29/21 16:05 ED Decision to Admit Stat 12/29/21 16:26 Consult Nephrology Routine Ordered Studies 12/29/21 22:42 US renal/blad retro comp Routine Hospital Course (1) Stage 5 chronic kidney disease not on chronic dialysis: Patient admitted on account of worsening kidney function over the past several months Initially thought to have an JESSE component Serum Cr around 5, however, did not improve with IV Fluids, which has been discontinued No evidence of obstructive uropathy Some other labs pending Patient still not made up his mind about Dialysis, will follow up with Nephrology outpatient Has been started on Phosphate binder, magnesium Appreciate nephrology recs (2) JESSE (acute kidney injury): No improvement in renal function after IV Fluids (3) Anemia: Transfused Iron Recehck hb tomorrow (4) Celiac disease: Patient has celiac disease. will place on gluten free diet (5) Hypothyroidism: TSH was 0.4 in 10/2021. - home levothyroxine dose (6) GERD (gastroesophageal reflux disease): resume PPI (7) DVT (deep venous thrombosis): one episode of provoked DVT about 3 years ago Admitter D/W Dr. Padron. Will stop eliquis. No need to restart at discharge. - Heparin 5,000 units SQ BID for VTE ppx (8) Chronic kidney disease, stage III (moderate): as above. Discharge home. for outpatient follow up with Nephrology Total Time Total Time Spent Total Time Spent (In Minutes): 35 Discharge Plan Discharge Items Patient Disposition: Home - Self-Care Reason For Visit: ANEMIA/ JESSE Discharge Diagnosis: CKD stage 5 Activity: Resume your previous activity Non-emergency contact: Primary Care Provider and Hydrogen Treater Call non-emergency contact if: you have any medication questions and your sympto ms worsen Follow-up/Referrals: Sathya Padron MD [Primary Care Provider] - 01/11/22 2:00 pm Diet: Dialysis Renal Addtl Attending Provider Instructions: please make appointment to follow up with your Hydrogen Treater Pending Studies at Discharge: Yes Stand-Alone Forms: My [facility] [employer], Smoking Cessation Medications and DC Order Prescriptions: New sodium bicarbonate 650 mg Tablet 1,300 mg PO BID 30 Days Qty: 120 RF: 0 calcium carbonate [Tums] 200 mg calcium (500 mg) Tablet,Chewable 500 mg PO TIDM 30 Days Qty: 75 RF: 0 Continued ferrous sulfate 325 mg (65 mg iron) tablet 325 mg PO DAILY Qty: 30 RF: 5 multivitamin [Daily Multi-Vitamin] Tablet 1 tab PO DAILY Qty: 30 RF: 5 Eliquis 2.5 mg tablet 2.5 mg PO BID Qty: 180 RF: 3 levothyroxine 100 mcg tablet 100 mcg PO DAILY Qty: 90 RF: 3 Macular Health Formula 5-1-7.5 mg capsule 1 cap PO DAILY RF: 0 cholecalciferol (vitamin D3) 25 mcg (1,000 unit) capsule 25 mcg PO DAILY RF: 0 sertraline 100 mg tablet 50 mg PO DAILY RF: 0 cyanocobalamin (vitamin B-12) [Vitamin B-12] 1,000 mcg Tablet 1,000 mcg PO DAILY RF: 0 Discontinued sodium bicarbonate 650 mg tablet 650 mg PO BID Qty: 180 RF: 3 Discharge Orders: Discharge Order (Routine); Ordered 01/01/22 Ordered By: Stevenson Joyner Admission Data Admit Date/Time: 12/29/21 16:26 Attending Provider: Stevenson Joyner Admit Provider: Pedrito Terry Primary Care Provider: Sathya Padron Other Providers: Willard Flores ; Dean Batista Coding Level of Care Code D/C DAY MANAGEMENT >30 MINS Diagnoses Stage 5 chronic kidney disease not on chronic dialysis N18.5 JESSE (acute kidney injury) N17.9 Anemia D64.9 Anemia type: unspecified type Celiac disease K90.0 Hypothyroidism E03.9 GERD (gastroesophageal reflux disease) K21.9 DVT (deep venous thrombosis) I82.409 Chronic kidney disease, stage III (moderate) N18.30 Time Spent (min) 35
[2022-01-01] MEDS ORDERED: SODIUM BICARBONATE 650 MG TAB PO SCH (21:00)
[2022-01-03 05:31] LABS: Creatinine Ur 40 mg/dL (20-320); Protein, Urine Random 28 mg/dL (5-25); Ur Protein/Creat Ratio mg/g 700 mg/g creat (22-128); Urine Abnormal Protein Band 1 DNR mg/dL (NONE DETECTED); Urine Abnormal Protein Band 2 DNR mg/dL (NONE DETECTED); Urine Abnormal Protein Band 3 DNR mg/dL (NONE DETECTED)
[2022-01-03 18:21] LABS: Albumin 3.3 g/dL (3.8-4.8); Alpha 1 Globulin 0.2 g/dL (0.2-0.3); Alpha 2 Globulin 0.7 g/dL (0.5-0.9); Beta-1-Globulin 0.3 g/dL (0.4-0.6); Beta-2-Globulin 0.2 g/dL (0.2-0.5); Gamma Globulin 0.5 g/dL (0.8-1.7); Monoclonal Protein Band 1 DNR g/dL (NONE DETECTED); Monoclonal Protein Band 2 DNR g/dL (NONE DETECTED); Monoclonal Protein Band 3 DNR g/dL (NONE DETECTED); Total Protein 5.2 g/dL (6.1-8.1)
[2022-01-07 02:52] LABS: ANCA Screen Negative (Negative); Alpha 1 Globulin 0.2 g/dL (0.2-0.3); Alpha 2 Globulin 0.7 g/dL (0.5-0.9); Anti Nuclear Antibody Screen NEGATIVE (NEGATIVE); Beta-1-Globulin 0.3 g/dL (0.4-0.6); Beta-2-Globulin 0.2 g/dL (0.2-0.5); Complement C3 72 mg/dL (82-185); Free Kappa/Lambda Ratio 1.97 (0.26-1.65); Free Lambda 28.4 mg/L (5.7-26.3); Gamma Globulin 0.4 g/dL (0.8-1.7); Monoclonal Protein Band 1 DNR g/dL (NONE DETECTED); Monoclonal Protein Band 2 DNR g/dL (NONE DETECTED); Monoclonal Protein Band 3 DNR g/dL (NONE DETECTED); Myeloperoxidase Ab <1.0 AI (<1.0); Proteinase-3 AB <1.0 AI (<1.0); Total Protein 4.8 g/dL (6.1-8.1)
== END 2022-01-01 13:36 | disposition home or self-care (01) | DRG 683 ==
LOC: ED 14:01 → SUATTDRO 16:26 → 2N 16:26
DX: K21.9 Gastro-esophageal reflux disease without esophagitis; N18.5 Chronic kidney disease, stage 5; I13.2 Hypertensive heart and chronic kidney disease with heart failure and with stage 5 chronic kidney disease, or end stage renal disease; E87.2 Acidosis; I50.32 Chronic diastolic (congestive) heart failure; E83.51 Hypocalcemia; E83.39 Other disorders of phosphorus metabolism; N17.9 Acute kidney failure, unspecified; D64.9 Anemia, unspecified; K90.0 Celiac disease; E03.9 Hypothyroidism, unspecified

== ENCOUNTER 2023-10-16 16:10 | Observation (INO) ==
--- NOTE | 2023-10-16 16:57 | ED Triage Note ---
Date of Service October 16, 2023 Provider in Triage Author: Ruthann Mohan History of Present Illness This patient was briefly evaluated while in triage. An abbreviated physical exam was performed. This patient is a 83-year-old Male who presents to the ED for evaluation of "not having it all together." The patient lives at [facility] and states the doctor there recommended he come here for testing. Symptoms have been gradually worsening over the past month, but more severe over the past 5-6 days. He has had some periods of confusion, but describes it as feeling like his body doesn't listen. He did have a cervical fracture a few months ago and has had several falls. His describes this as episodes which occur intermittently and last 15-20 minutes. Last episode was this afternoon. Physical Exam GENERAL: Non-toxic and in no acute distress. HEENT: Pupils equal. No obvious scleral icterus. HEART: Regular rate and rhythm. LUNGS: Clear to auscultation. No accessory muscle use. NEURO: Alert and oriented. No obvious neurological deficits on quick neuro exam. MUSCULOSKELETAL: Slow, unsteady gait, uses a walker. Initial orders for labs and / or imaging were placed and patient was placed in the waiting area until a bed is available. Please see further documentation for the full ED course.
[2023-10-16 17:38] LABS: Basophils # (auto) 0.07 K/uL (0.00-0.20); Basophils % (auto) 0.8 %; Eosinophils % (auto) 1.2 %; Hematocrit (blood only) 35.7 % (42.0-52.0); Hemoglobin 11.7 g/dl (14.0-18.0); Immature Granulocytes # (auto) 0.02 K/uL (0.01-0.20); Immature Granulocytes % (auto) 0.2 %; Lymphocytes # (auto) 1.75 K/uL (1.20-3.40); Lymphocytes % (auto) 20.6 %; Mean Corpuscular Hemoglobin 34.2 pg (25.0-34.0); Mean Corpuscular Hgb Conc 32.8 g/dL (32.0-36.0); Mean Corpuscular Volume 104.4 fL (80.0-100.0); Mean Platelet Volume 9.7 fL (9.4-12.4); Monocytes # (auto) 0.95 K/uL (0.11-0.59); Monocytes % (auto) 11.2 %; Neutrophils # (auto) 5.59 K/uL (1.40-6.50); Platelet Count 234 K/uL (130-400); RDW Coefficient of Variation 14.2 % (11.5-14.5); RDW Standard Deviation 54.8 fL (36.4-46.3); Red Blood Count 3.42 M/uL (4.70-6.10); White Blood Count 8.48 K/ul (4.8-10.8)
--- NOTE | 2023-10-16 17:38 | XRay Report ---
XR chest 1V portable HISTORY: 83 years-old Male weakness acute weakness COMPARISON: Chest CT 07/21/2023 TECHNIQUE: PA view chest FINDINGS: Cardiac silhouette is enlarged. Dual-lumen right IJ hemodialysis catheter. Small pleural effusions. E sophagectomy changes with pull-through redemonstrated. No pneumothorax or overt pulmonary edema. Bone s appear grossly intact. IMPRESSION: 1. Cardiomegaly without pulmonary edema. 2. Small pleural effusions. ACT 112: Negative or not required by law. The above report was generated using voice recognition software. It may contain grammatical, syntax o r spelling errors. Electronically signed by: Garrick Caceres M.D. 10/16/2023 5:37 PM
[2023-10-16 17:51] LABS: Alanine Aminotransferase 16 U/L (7-52); Albumin Globulin Ratio 1.6 (0.9-2); Albumin Level 4.4 gm/dl (3.4-5.0); Alkaline Phosphatase 70 U/L (34-104); Anion Gap 8 (3-11); BUN Creatinine Ratio 8.5 (10-20); Bilirubin,Total 0.6 mg/dl (0.2-1.0); Blood Urea Nitrogen 33 mg/dl (6-23); Calcium 9.3 mg/dl (8.6-10.3); Carbon Dioxide 30 mmol/L (21-32); Chloride 101 mmol/L (98-107); Creatinine Clr Calc Pharmacy 12.4 ml/min; Est GFR (African American) 15.9 ml/min; Est GFR (Non-African American) 13.7 ml/min; Globulin 2.7 gm/dl (2.5-4.0); Glucose 128 mg/dl (70-99(Fasting)); Magnesium 2.1 mg/dl (1.7-2.4); Sodium 139 mmol/L (136-145); Total Protein 7.1 gm/dl (6.0-8.3)
--- NOTE | 2023-10-16 20:00 | CT Scan Report ---
Exam(s): CT HEAD Without Contrast EXAM: CT Head Without Intravenous Contrast CLINICAL HISTORY: Reason for exam: episodes of confusion. TECHNIQUE: Axial computed tomography images of the head/brain without intravenous contrast. CTDI is 62.5 mGy and DLP is 1098.96 mGy-cm. Automated exposure control was utilized for the study. A dose lowering technique was utilized adhering to the principles of ALARA. COMPARISON: No relevant prior studies available. FINDINGS: No acute intracranial hemorrhage. No midline shift or mass effect. The territorial parmar-white matter differentiation is maintained throughout. Age-related cerebral volume loss. Periventricular and subcortical white matter hypoattenuation, consistent with chronic microangiopathy. The visualized orbits appear grossly unremarkable. The calvarium is intact. The visualized paranasal sinuses and mastoid air cells are grossly clear. IMPRESSION: No acute intracranial hemorrhage, midline shift, or mass effect. Electronically signed by: René Johns MD 10/16/23 20:00 PM
[2023-10-16 21:16] LABS: Potassium 4.3 mmol/L (3.5-5.1)
--- NOTE | 2023-10-16 21:48 | Emergency Department Note ---
Impression & Plan Acute confusion, Elevated troponin, Odontoid fracture, Closed T4 spinal fracture ED Provider Note CHIEF COMPLAINT: Confusion HISTORY OF PRESENTING ILLNESS: This 83-year-old male patient presents to the emergency department with his for evaluation of confusion. The patient has a history of a cervical fracture in Jul 2023 from a fall with a St. George J cervical collar intact. He is following with Dr. Alanis and is scheduled for repeat imaging in 1 week with follow up with Dr. Alanis the next. He feels like his neck is doing well and has had no pain in his neck since they put the brace on. The patient states that he has been having some periods where he feels very confused and like he does not have everything together. He also feels like he might pass out, but he never actually passes out. Feels like his head is "muddled." He can hear what his says, but can't process the information or follow directions. He states that he tries to do things, but is unable to do them. Has had 3 episodes over the past 6 days. The patient's states that he has had progressively worsening confusion and difficulty responding to commands over the past month. Denies any weakness of his arms and able to move his arms well. Has PT/OT at home that he is doing well with. Denies chest pain, but has felt more SOB with the symptoms recently. He was having some low blood pressures and the doctor at [facility] started him on new BP medication about 4 weeks ago that seems to be helping. He was to have a carotid US done today, but they wouldn't do it with his neck brace on. He is on Dialysis on [facility] and feels like dialysis has been going well. The patient lives in [facility]. He denies having a pacemaker or any metal in his body. He is not sure if he has had an MRI before. He is not on any blood thinners. He had 2 new falls about 1 week ago, but denies any significant pain or symptoms from the falls. He has a healing abrasion to the right elbow, but no pain of the elbow. Denies any new pain of his neck or back from the fall. REVIEW OF SYSTEMS: See HPI for pertinent positives and pertinent negatives. ALLERGIES: Gluten MEDICATIONS: See below PAST MEDICAL HISTORY: See below PHYSICAL EXAM: VITALS: Vitals are noted on the nurse's note and reviewed by myself. GENERAL: No acute distress, non-diaphoretic. SKIN: Capillary reflex less than 2 seconds. HEAD: No scalp tenderness. No step-offs felt. EARS: Bilateral external auditory canals clear. Bilateral tympanic membranes pearly parmar without erythema or effusion. No hemotympanum. No conte sign. No mastoid tenderness. EYES: Pupils equal round and reactive to light and accommodation. Conjunctivae without injection, sclerae without icterus. Extraocular movements intact without pain. NOSE: Patent, turbinates without inflammation or discharge. No sinus tenderness. No septal hematoma or bleeding. FACE: No facial bone tenderness. Full range of motion of the jaw without tenderness. No facial droop. MOUTH: Mucous membranes moist. Uvula midline. Airway patent. Tongue does not deviate. NECK: The patient is in a St. George J cervical collar. Cervical spine is nontender. HEART: Regular rate and rhythm without murmurs gallops or rubs. LUNGS: Clear to auscultation bilaterally without wheezes, rales or rhonchi. No retractions or accessory muscle use. No chest wall tenderness. ABDOMEN: Positive bowel sounds x 4. Normal tympanic percussion. Soft, nontender, without masses or organomegaly. No guarding or rebound tenderness. MUSCULOSKELETAL: No tenderness of the thoracic or lumbar spine or paraspinal muscles. Strength 5/5 and equal bilaterally in the upper and lower extremities. NEURO: Patient was alert and oriented to person place and time. Normal mental status exam. Normal sensation to light and sharp touch. Negative Romberg and pronator drift. Cerebellar function intact. No focal neurological deficits. DIFFERENTIAL DIAGNOSIS: Differential diagnosis includes benign positional vertigo, dehydration, hypovolemia, anemia, tumor, infection, hypoglycemia, electrolyte abnormalities, cardiac sources, intracerebral event, toxicologic, neurologic, as well as other pathologies. ED COURSE AND MEDICAL DECISION MAKING: HISTORY FROM INDEPENDENT HISTORIAN: Additional history was obtained from the patient's . MONITOR: Continuous bus monitor: Order was placed for continuous bus monitor. Patient was placed on the bus monitor and continuous pulse ox. Patient was noted to be in normal sinus rhythm at an initial rate of 70 bpm per my interpretation. EKG: EKG was interpreted by myself as normal sinus rhythm at 65 bpm with some nonspecific T wave abnormalities and inverted T waves. No acute significant ST or T wave changes. Repeat EKG was interpreted by myself as sinus bradycardia at 59 bpm with no acute abnormalities compared to his previous EKG. MEDICATIONS GIVEN: 500 mL normal saline solution bolus. The patient declined midodrine that was ordered. INTERPRETATION OF LABS: I interpreted the labs with full lab results as below in the lab section of this note. White blood cell count normal 8.48. Hemoglobin low at 11.7. Platelet count normal at 234. BUN and creatinine elevated at 33 and 3.86, but stable. Glucose 128. CMP otherwise without significant abnormalities. High-sensitivity troponin elevated at 38.7 and increased to 40.9 on repeat. Urinalysis with 2+ protein, trace glucose, and 10-20 epithelial cells, but no signs of infection. INTERPRETATION OF IMAGING: Imaging studies were interpreted by myself and read by radiology as per the imaging section of this note. Chest x-ray with cardiomegaly and small pleural effusions, but no other acute cardiopulmonary etiology. CT scan of the head without contrast showed no acute intracranial abnormalities. MRI of the brain without contrast showed no acute abnormalities. MRI of the cervical spine without contrast showed a remote nonunited odontoid fracture as well as an acute single column fracture of the T4 vertebral body with moderate bone marrow edema. EXTERNAL RECORDS REVIEWED: I reviewed the patient's previous records including his previous imaging from his odontoid fracture. CONSULTATIONS: On-call hospitalist MDM SUMMARY: The patient was seen during a time of extreme volume and extreme acuity. Nursing triage protocols were initiated with IV lock, labs, and/or imaging studies conducted by protocol in the triage area. The patient was initially evaluated in a triage room and then re-examined once they were taken back to an exam room. The patient is in a St. George J collar due to an odontoid fracture that he sustained in July 2023. The patient has been following with Dr. Alanis of spinal surgery. However, over the past month he has been having periods of confusion. He had 3 more significant episodes over the past 6 days and the patient and his became concerned. Currently he is alert and oriented with no focal neurological deficits on exam. CT scan of the head without contrast was negative for acute abnormalities. The patient is on dialysis with elevated BUN and creatinine and cannot have IV contrast. Therefore, MRI of the brain without contrast was obtained and was unremarkable. Laboratory studies as above. The patient's high-sensitivity troponins were elevated with a slight increase on repeat without significant changes seen on his EKGs. However, the patient denies any chest pain. No other significant laboratory abnormalities. The patient's blood pressure became elevated while in the emergency department. The patient stated that he missed his noon and 5 PM dose of his midodrine. A dose of midodrine was ordered in the ER, but the patient declined this medication. MRI of the cervical spine without contrast showed the nonunited odontoid fraction and also showed a fracture of the T4 vertebral body with moderate bone marrow edema. The patient has no tenderness to palpation over his thoracic spine or paraspinal muscles. The patient did have 2 falls recently, but denies any pain or symptoms after the falls. The patient did not have any thoracic spine imaging available in our system to see if these were truly acute or chronic. I had a meaningful discussion about this patient with Dr. Chaves who agrees with my assessment and the treatment plan. Initially a consult call was placed to Dr. Alanis of spinal surgery. However, after talking to the on-call hospitalist, they will just consult him in the morning. I spoke with the on- call hospitalist who agrees to admit the patient for further evaluation and treatment of the confusion, elevated troponins, and MRI findings. Please refer to their dictation for further details. The patient's care was transferred in stable condition. DIAGNOSIS: Confusion Elevated troponin Odontoid fracture T4 fracture Past Med/Surg History Medical History Dialysis AV fistula malfunction CKD (chronic kidney disease), stage V CAD (coronary artery disease) Mild to moderate nonobstructive per 2019 cath Diastolic CHF EF 65-70% 08/2022 echo Dialysis patient SUNDAY/SUNDAY/SUNDAY THRU CATHETER RIGHT CHEST DVT (deep venous thrombosis) Hx- 2019- PE and DVT to left LE- s/p esophageal perforation surgery Was on Eliquis until last month - d/c'ed secondary to DVT being provoked- on AC x 1 year Hyperphosphatemia Hypomagnesemia Hypocalcemia Hx of hiatal hernia HTN (hypertension) Depression Respiratory failure Post op from esophageal perforation in 2019 No issues with subsequent surgery- no current breathing issues Atrial fibrillation with rapid ventricular response 2019- s/p pericarditis with volume overload (later dx'ed with esophageal perforation) Follows only with PCP- no AC No recurrence per patient Kidney stones No recent issues GERD (gastroesophageal reflux disease) Well controlled and stable Celiac disease Hypothyroidism Anemia Hgb ranges 7-10 Surgical History History of surgery Left Upper Extremity Fistulogram AVF (arteriovenous fistula) LUE AVF creation History of cardiac cath 2018- mild to moderate nonobstructive CAD History of repair of hiatal hernia PERFORATED OGYMKGUAN-8-2 SUBSEQUENT SURGERIES TO REPAIR, ETC (Had thoracotomy for hernia repair, esophagogastrectomy, GJ tube placement) History of carpal tunnel surgery of right wrist History of hammertoe correction bilt feet History of esophagogastroduodenoscopy (EGD) (06/12/17) History of colonoscopy (06/12/17) History of umbilical hernia repair History of tooth extraction Family History Father Dementia Mother Breast cancer Grandfather (Maternal) Stroke Family/Other Hypercholesterolemia Other No family history of adverse response to anesthesia Denies family history of Ovarian cancer Prostate cancer Myocardial infarction Colorectal cancer Social History Smoking Status: Never smoker Second Hand Exposure: No; Do You Dip or Chew Tobacco: No; Hx Alcohol Use: No Hx Substance Use: No Preferred Language: Faroese Communication Ability: Effective Visual Impairment: Partially Limited Director Behavioral Health Required: No Beliefs That Will Affect Care: None marital status: Current Living Situation: Spouse current occupational status: retired 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 Other Information That Helps Us Care for You: No Feels Safe at Home: Yes Safety Concerns: Feels Safe At This Time Childhood Exposure to Second-Hand Smoke: No Dental Care, Regularly: Yes Physical Activity Frequency: 1-2 Times per Week Seatbelt Use: always Sunscreen Use: No Assistive Devices: Walker Assistive Devices Comment: roller walker Allergies Allergies Allergy/AdvReac Type Severity Reaction Status Date / Time gluten Allergy Intermediate CELIAC Verified 10/16/23 22:24 DISEASE--Gastrointestinal Upset Home Meds Home Medications Medication Instructions Recorded Confirmed cyanocobalamin (vitamin B-12) 1,000 mcg PO HS 12/29/21 10/16/23 1,000 mcg tablet (Vitamin B-12) vitamin B comp no.3-folic acid 1 1 tab PO QAM 02/17/22 10/16/23 mg-vit C 60 mg-biotin 300 mcg tablet ([facility]) calcium acetate(phosphat bind) 667 667 mg PO TID 06/13/22 10/16/23 mg tablet [id number] 5 mg-zeaxanth 1 cap PO HS 06/13/22 10/16/23 1 mg-bilberry 7.5 mg-herbal capsule (Macular Health Formula) acetaminophen 500 mg tablet 1,000 mg PO BID PRN Pain 08/23/22 10/16/23 rosuvastatin 5 mg tablet 5 mg PO DAILY 07/21/23 10/16/23 midodrine 10 mg tablet 10 mg PO TID 10/16/23 10/16/23 vit B,C-folic ac 800 mcg-zinc 12.5 1 tab PO DAILY 10/16/23 10/16/23 mg-selen-D3 2,000 unit-vit E tablet (RenaPlex-D) Previous Rx's Medication Instructions Recorded levothyroxine 100 mcg tablet 100 mcg PO QAM #90 tabs 11/27/22 sertraline 100 mg tablet (Zoloft) 100 mg PO QPM #90 tabs 06/11/23 Results & Data (ED) Vital Signs Vital Signs - 24 hr 10/16/23 16:53 10/16/23 20:12 10/16/23 20:13 Temperature 36.5 C Temperature Source Temporal Artery Scan Pulse Rate 68 Pulse Rate [Finger] 66 Pulse Rhythm Regular Pulse Rhythm [Finger] Pulse Strength [Finger] Respiratory Rate 20 18 Respiratory Effort / Characteristics Non-Labored Spontaneous Respiratory Depth Normal Blood Pressure 114/71 Blood Pressure [Left Arm] 170/115 H Blood Pressure Mean 85 Blood Pressure Mean [Left Arm] 133 Blood Pressure Position [Left Arm] Pulse Oximetry 98 97 Oxygen Delivery Method Room Air Room Air Sepsis Recent Fever Within 48 Hours No Sepsis New/Unexplained Change in Mental Status No Sepsis Action Taken by Nursing No Action Required 10/16/23 22:45 10/17/23 00:02 10/17/23 00:40 Temperature Temperature Source Pulse Rate Pulse Rate [Finger] 63 59 L 61 Pulse Rhythm Pulse Rhythm [Finger] Regular Pulse Strength [Finger] Normal Respiratory Rate 16 16 20 Respiratory Effort / Characteristics Non-Labored Spontaneous Non-Labored Spontaneous Respiratory Depth Normal Normal Blood Pressure Blood Pressure [Left Arm] 196/103 H 204/103 H 208/105 H Blood Pressure Mean Blood Pressure Mean [Left Arm] 134 136 139 Blood Pressure Position [Left Arm] Semi-fowlers Pulse Oximetry 93 99 98 Oxygen Delivery Method Room Air Room Air Room Air Sepsis Recent Fever Within 48 Hours Sepsis New/Unexplained Change in Mental Status Sepsis Action Taken by Nursing Laboratory Data 10/16/23 17:09 10/16/23 20:25 Lab Results 10/16/23 10/16/23 10/16/23 Range/Units 17:09 19:21 20:25 WBC 8.48 (4.8-10.8) K/ul RBC 3.42 L (4.70-6.10) M/uL Hgb 11.7 L (14.0-18.0) g/dl Hct 35.7 L (42.0-52.0) % MCV 104.4 H (80.0-100.0) fL MCH 34.2 H (25.0-34.0) pg MCHC 32.8 (32.0-36.0) g/dL RDW Std Deviation 54.8 H (36.4-46.3) fL RDW Coeff of Paula 14.2 (11.5-14.5) % Plt Count 234 (130-400) K/uL MPV 9.7 (9.4-12.4) fL Immature Gran % (Auto) 0.2 % Neut % (Auto) 66.0 % Lymph % (Auto) 20.6 % Maury % (Auto) 11.2 % Eos % (Auto) 1.2 % Baso % (Auto) 0.8 % Neut # (Auto) 5.59 (1.40-6.50) K/uL Lymph # (Auto) 1.75 (1.20-3.40) K/uL Maury # (Auto) 0.95 H (0.11-0.59) K/uL Eos # (Auto) 0.10 (0.00-0.50) K/uL Baso # (Auto) 0.07 (0.00-0.20) K/uL Immature Gran # (Auto) 0.02 (0.01-0.20) K/uL Sodium 139 (136-145) mmol/L Potassium TNP TNP 4.3 Chloride 101 (98-107) mmol/L Carbon Dioxide 30 (21-32) mmol/L Anion Gap 8 (3-11) BUN 33 H (6-23) mg/dl Creatinine 3.86 H (0.6-1.4) mg/dl Est Cr Clr Drug Dosing 12.4 ml/min Est GFR ( Amer) 15.9 ml/min Est GFR (Non-Af Amer) 13.7 ml/min BUN/Creatinine Ratio 8.5 L (10-20) Glucose 128 H (70-99(Fasting)) mg/dl Calcium 9.3 (8.6-10.3) mg/dl Magnesium 2.1 (1.7-2.4) mg/dl Total Bilirubin 0.6 (0.2-1.0) mg/dl AST TNP TNP 21 ALT 16 (7-52) U/L Alkaline Phosphatase 70 (34-104) U/L Troponin I High Sens 38.7 H (0-20) pg/ml Total Protein 7.1 (6.0-8.3) gm/dl Albumin 4.4 (3.4-5.0) gm/dl Globulin 2.7 (2.5-4.0) gm/dl Albumin/Globulin Ratio 1.6 (0.9-2) Urine Color Urine Appearance (Clear) Urine pH (4.5-7.5) Ur Specific Heartwell (1.000-1.030) Urine Protein (Negative) Urine Glucose (UA) (Negative) Urine Ketones (Negative) Urine Blood (Negative) Urine Nitrite (Negative) Urine Bilirubin (Negative) Urine Urobilinogen (Negative) Ur Leukocyte Esterase (Negative) Urine WBC (Auto) (0-5) /hpf Urine RBC (Auto) (0-4) /hpf U Hyaline Cast (Auto) (0-5) /lpf U Epithel Cells (Auto) (0-5) /lpf Urine Bacteria (Auto) (Negative) 10/17/23 10/17/23 Range/Units 00:00 00:50 WBC (4.8-10.8) K/ul RBC (4.70-6.10) M/uL Hgb (14.0-18.0) g/dl Hct (42.0-52.0) % MCV (80.0-100.0) fL MCH (25.0-34.0) pg MCHC (32.0-36.0) g/dL RDW Std Deviation (36.4-46.3) fL RDW Coeff of Paula (11.5-14.5) % Plt Count (130-400) K/uL MPV (9.4-12.4) fL Immature Gran % (Auto) % Neut % (Auto) % Lymph % (Auto) % Maury % (Auto) % Eos % (Auto) % Baso % (Auto) % Neut # (Auto) (1.40-6.50) K/uL Lymph # (Auto) (1.20-3.40) K/uL Maury # (Auto) (0.11-0.59) K/uL Eos # (Auto) (0.00-0.50) K/uL Baso # (Auto) (0.00-0.20) K/uL Immature Gran # (Auto) (0.01-0.20) K/uL Sodium (136-145) mmol/L Potassium Chloride (98-107) mmol/L Carbon Dioxide (21-32) mmol/L Anion Gap (3-11) BUN (6-23) mg/dl Creatinine (0.6-1.4) mg/dl Est Cr Clr Drug Dosing ml/min Est GFR ( Amer) ml/min Est GFR (Non-Af Amer) ml/min BUN/Creatinine Ratio (10-20) Glucose (70-99(Fasting)) mg/dl Calcium (8.6-10.3) mg/dl Magnesium (1.7-2.4) mg/dl Total Bilirubin (0.2-1.0) mg/dl AST ALT (7-52) U/L Alkaline Phosphatase (34-104) U/L Troponin I High Sens 40.9 H (0-20) pg/ml Total Protein (6.0-8.3) gm/dl Albumin (3.4-5.0) gm/dl Globulin (2.5-4.0) gm/dl Albumin/Globulin Ratio (0.9-2) Urine Color Yellow Urine Appearance Clear (Clear) Urine pH >= 9.0 H (4.5-7.5) Ur Specific Heartwell 1.014 (1.000-1.030) Urine Protein 2+ H (Negative) Urine Glucose (UA) Trace H (Negative) Urine Ketones Negative (Negative) Urine Blood Negative (Negative) Urine Nitrite Negative (Negative) Urine Bilirubin Negative (Negative) Urine Urobilinogen Negative (Negative) Ur Leukocyte Esterase Negative (Negative) Urine WBC (Auto) 1-5 (0-5) /hpf Urine RBC (Auto) 0-4 (0-4) /hpf U Hyaline Cast (Auto) 1-5 (0-5) /lpf U Epithel Cells (Auto) 10-20 H (0-5) /lpf Urine Bacteria (Auto) Negative (Negative) Administered Medications Discontinued Medications Sodium Chloride (Nss) 500 mls @ 999 mls/hr IV .Q31M ONE Stop: 10/16/23 22:34 Last Infusion: 10/17/23 00:40 Dose: Infused Documented By: Admin: 10/17/23 00:02 Dose: 999 mls/hr Documented By: NATANAEL Midodrine (Midodrine Hcl 10 Mg Tab) 10 mg PO NOW STA Stop: 10/17/23 00:24 Last Admin: 10/17/23 00:37 Dose: Not Given Documented By: NATANAEL Imaging Data Radiologist's Impression: Chest X-Ray 10/16/23 16:58 XR chest 1V portable HISTORY: 83 years-old Male weakness acute weakness COMPARISON: Chest CT 07/21/2023 TECHNIQUE: PA view chest FINDINGS: Cardiac silhouette is enlarged. Dual-lumen right IJ hemodialysis catheter. Small pleural effusions. Esophagectomy changes with pull-through redemonstrated. No pneumothorax or overt pulmonary edema. Bones appear grossly intact. IMPRESSION: 1. Cardiomegaly without pulmonary edema. 2. Small pleural effusions. ACT 112: Negative or not required by law. The above report was generated using voice recognition software. It may contain grammatical, syntax or spelling errors. Electronically signed by: Garrick Caceres M.D. 10/16/2023 5:[address] 10/16/23 16:58 Exam(s): CT HEAD Without Contrast EXAM: CT Head Without Intravenous Contrast CLINICAL HISTORY: Reason for exam: episodes of confusion. TECHNIQUE: Axial computed tomography images of the head/brain without intravenous contrast. CTDI is 62.5 mGy and DLP is 1098.96 mGy-cm. Automated exposure control was utilized for the study. A dose lowering technique was utilized adhering to the principles of ALARA. COMPARISON: No relevant prior studies available. FINDINGS: No acute intracranial hemorrhage. No midline shift or mass effect. The territorial parmar-white matter differentiation is maintained throughout. Age-related cerebral volume loss. Periventricular and subcortical white matter hypoattenuation, consistent with chronic microangiopathy. The visualized orbits appear grossly unremarkable. The calvarium is intact. The visualized paranasal sinuses and mastoid air cells are grossly clear. IMPRESSION: No acute intracranial hemorrhage, midline shift, or mass effect. Electronically signed by: René Johns MD 10/16/23 20:00 PM Brain MRI 10/16/23 22:04 Exam(s): MRI HEAD Without Contrast EXAM: MR Head Without Intravenous Contrast CLINICAL HISTORY: Reason for exam: Confusion, change in mental status. TECHNIQUE: Magnetic resonance images of the head/brain without intravenous contrast in multiple planes. COMPARISON: No relevant prior studies available. FINDINGS: No acute territorial infarct. No acute intracranial hemorrhage. No midline shift or mass effect. The territorial parmar-white matter differentiation is maintained throughout. Age-related cerebral volume loss. Periventricular and subcortical white matter T2 signal intensity, consistent with chronic microangiopathy. The visualized orbits appear grossly unremarkable. The calvarium is intact. The visualized paranasal sinuses and mastoid air cells are grossly clear. IMPRESSION: No acute territorial infarct. No acute intracranial hemorrhage. No midline shift or mass effect. Electronically signed by: René Johns MD 10/16/23 23:27 PM Cervical Spine MRI 10/16/23 22:04 CR Exam(s): MRI C SPINE EXAM: MR Cervical Spine Without Intravenous Contrast CLINICAL HISTORY: Reason for exam: Mental status changes, history of cervical fractur. TECHNIQUE: Magnetic resonance images of the cervical spine without intravenous contrast in multiple planes. COMPARISON: Comparison made to prior CT scan of the cervical spine from July 28, 2023. FINDINGS: Vertebrae: There are 7 cervical type vertebral bodies with a mild generalized curvature of the left and a hyper cervical lordosis. There is a loud odontoid fracture deformity with persistent fluid cleft. There is no acute single column fracture of the T4 vertebral body with moderate pulmonary edema. Spinal cord: The cord has normal size, shape and signal characteristics. The craniocervical junction is normal without evidence of Chiari malformation. Soft tissues: The cervical flow voids are intact. DISCS/SPINAL CANAL/NEURAL FORAMINA: C2-C3: Moderate disc degeneration with annular disc bulge flattening the ventral thecal sac. Mild to moderate facet arthropathy with advanced right and mild left synovitis with bone marrow edema and inflammation of the soft tissues. C3-C4: Advanced disc degeneration with annular disc bulge flattening the ventral thecal sac. Mild to moderate facet arthropathy with mild synovitis. C4-C5: Partial ankylosis across the segments without stenosis or impingement. The facet joints are ankylosed. C5-C6: Moderate disc degeneration with annular disc bulge flight of the thecal sac. Mild to moderate facet arthropathy with mild synovitis. C6-C7: Advanced disc degeneration with annular disc bulge flattening of the thecal sac. There is mild facet arthropathy with mild synovitis. C7-T1: Moderate disc degeneration with annular disc bulge flattening the thecal sac. Advanced facet arthropathy with mild synovitis. IMPRESSION: No evidence of acute cervical spine pathology. There is an acute single column fracture of the T4 vertebral body with moderate bone marrow edema. Remote nonunited odontoid fracture. Communications: Verify Receipt Electronically signed by: Karissa Tran MD 10/17/23 00:24 AM Discharge Plan Visit Data Chief Complaint: Confusion Stated Complaint: CONFUSION ED Provider: Sarah Chaves ED Midlevel Provider: Alanna Bhardwaj Discharge Problem: Acute confusion, Elevated troponin, Odontoid fracture, Closed T4 spinal fracture Patient Disposition: Admitted As Inpatient Condition: Good Discharge Instructions Interventions: ED Discharge Assessment Last Done: 10/17/23 03:10 Discharge Problem: Odontoid fracture Qualifiers: Encounter type: subsequent encounter Fracture type: closed Fracture healing: w ith nonunion Qualified Code(s): S12.100K - Unspecified displaced fracture of second cervical vertebra, subsequent encounter for fracture with nonunion Closed T4 spinal fracture Qualifiers: Encounter type: initial encounter Fracture morphology: unspecified fracture morphology Qualified Code(s): S22.049A - Unspecified fracture of fourth thoracic vertebra, initial encounter for closed fracture
--- NOTE | 2023-10-16 22:04 | Emergency Department Note ---
ED Visit Note I was consulted by the Advanced Practice Provider, Alanna Bhardwaj PA-C. I performed a substantive portion of the visit. This includes aspects of: History: Patient is an 83-year-old male presenting with episodes of confusion. He is reportedly been having transient episodes of confusion over the last 6 days. reports that they last up to 20 minutes at a time. He apparently has been having difficulties responding to commands from [place]. He is an ESRD patient. MDM: - Laboratory workup interpreted by myself showed normal WBC; stable electrolytes; ESRD (Cr 3.86); elevated troponin (38.7) - Repeat troponin risen to 40.9 - CXR negative for pneumonia, per my interpretation. Radiology read cardiomegaly and small pleural effusions - Given patient's renal failure and his intermittent confusion in the setting of a cervical spine fracture, concern for possible stroke or further etiology not seen on CT scans. Decision was made to obtain MRIs as we are not able to obtain angiograms given his renal failure. MRI of the brain was negative for acute pathology. MRI cervical spine showed no acute pathology but noted to have an acute single column fracture of the T4 vertebrae with moderate bone marrow edema. - UA negative for infection - EKG interpreted by myself showed normal sinus rhythm. Rate 65 bpm. QT 428. No acute ischemic changes.
[2023-10-16 23:10] LABS: Troponin I High Sensitivity 38.7 pg/ml (0-20)
--- NOTE | 2023-10-16 23:27 | Magnetic Resonance Report ---
Exam(s): MRI HEAD Without Contrast EXAM: MR Head Without Intravenous Contrast CLINICAL HISTORY: Reason for exam: Confusion, change in mental status. TECHNIQUE: Magnetic resonance images of the head/brain without intravenous contrast in multiple planes. COMPARISON: No relevant prior studies available. FINDINGS: No acute territorial infarct. No acute intracranial hemorrhage. No midline shift or mass effect. The territorial parmar-white matter differentiation is maintained throughout. Age-related cerebral volume loss. Periventricular and subcortical white matter T2 signal intensity, consistent with chronic microangiopathy. The visualized orbits appear grossly unremarkable. The calvarium is intact. The visualized paranasal sinuses and mastoid air cells are grossly clear. IMPRESSION: No acute territorial infarct. No acute intracranial hemorrhage. No midline shift or mass effect. Electronically signed by: René Johns MD 10/16/23 23:27 PM
[2023-10-17] MEDS: SODIUM CHLORIDE 0.9% 500 ML IV ONE (00:02)
--- NOTE | 2023-10-17 00:25 | Magnetic Resonance Report ---
Exam(s): MRI C SPINE EXAM: MR Cervical Spine Without Intravenous Contrast CLINICAL HISTORY: Reason for exam: Mental status changes, history of cervical fractur. TECHNIQUE: Magnetic resonance images of the cervical spine without intravenous contrast in multiple planes. COMPARISON: Comparison made to prior CT scan of the cervical spine from July 28, 2023. FINDINGS: Vertebrae: There are 7 cervical type vertebral bodies with a mild generalized curvature of the left and a hyper cervical lordosis. There is a loud odontoid fracture deformity with persistent fluid cleft. There is no acute single column fracture of the T4 vertebral body with moderate pulmonary edema. Spinal cord: The cord has normal size, shape and signal characteristics. The craniocervical junction is normal without evidence of Chiari malformation. Soft tissues: The cervical flow voids are intact. DISCS/SPINAL CANAL/NEURAL FORAMINA: C2-C3: Moderate disc degeneration with annular disc bulge flattening the ventral thecal sac. Mild to moderate facet arthropathy with advanced right and mild left synovitis with bone marrow edema and inflammation of the soft tissues. C3-C4: Advanced disc degeneration with annular disc bulge flattening the ventral thecal sac. Mild to moderate facet arthropathy with mild synovitis. C4-C5: Partial ankylosis across the segments without stenosis or impingement. The facet joints are ankylosed. C5-C6: Moderate disc degeneration with annular disc bulge flight of the thecal sac. Mild to moderate facet arthropathy with mild synovitis. C6-C7: Advanced disc degeneration with annular disc bulge flattening of the thecal sac. There is mild facet arthropathy with mild synovitis. C7-T1: Moderate disc degeneration with annular disc bulge flattening the thecal sac. Advanced facet arthropathy with mild synovitis. IMPRESSION: No evidence of acute cervical spine pathology. There is an acute single column fracture of the T4 vertebral body with moderate bone marrow edema. Remote nonunited odontoid fracture. Communications: Verify Receipt Electronically signed by: Karissa Tran MD 10/17/23 00:24 AM
[2023-10-17] MEDS: MIDODRINE HCL 10 MG TAB PO STA (00:37)
[2023-10-17 01:14] LABS: Appearance Urine Clear (Clear); Bacteria Urine Automated Negative (Negative); Bilirubin Urine Negative (Negative); Blood Urine Negative (Negative); Color Urine Yellow; Glucose Urine UA Trace (Negative); Ketones Urine Negative (Negative); Leukocyte Esterase Urine Negative (Negative); Nitrite Urine Negative (Negative); RBC Urine Automated 0-4 /hpf (0-4); Specific Gravity Urine 1.014 (1.000-1.030); Urobilinogen Urine Negative (Negative); pH Urine >= 9.0 (4.5-7.5)
[2023-10-17 01:20] LABS: Protein Urine 2+ (Negative)
--- NOTE | 2023-10-17 05:14 | History & Physical Report ---
Date of Service October 17, 2023 Assessment & Plan (1) Acute confusion: Plan: - short episodes of acute confusion and unable to follow commands during - Differential hypotension vs neurologic (TIA) vs carotid stenosis vs arrhythmia - CT Head/MRI brain without acute findings - Head MRA pending; carotid US if ortho clears him to take off collar- otherwise could consider - will monitor of telemetry - will get orthostatic vitals (2) Closed T4 spinal fracture: Plan: - no acute pain, denies recent fall - consult ortho spine - NPO pending ortho spine eval (3) Odontoid fracture: Plan: - continue with cervical collar - consult ortho spine (4) Elevated troponin: Plan: - trop=38 in the setting of ESRD on HD - denies acute chest pain/dyspnea - EKG without ischemic changes - low suspicion for ACS at this time (5) Celiac disease: Plan: - gluten free diet (6) End stage renal disease: Plan: - consult nephrology - HD on MWF (7) HTN (hypertension): Plan: - has been having issues with blood pressure control - has put on midodrine, hold for now in the setting of HTN - states that his PCP at [facility] has been adjusting medications (8) Hypothyroidism: Plan: - continue levothyroxine (9) HLD (hyperlipidemia): Plan: - continue statin Plan Diet: NPO pending ortho eval VTE Prophylaxis: SCD, held chemical pending ortho eval History of Present Illness Primary Care Provider: [facility] 83 year old male with a past medical history of ESRD on HD, celiac disease, GERD, NC, CHF, DVT, a fib, HTN presenting with concern for episodes of confusion. States that they have been occurring intermittently for the past month. History of odontoid fracture 08/04 and has been following with ortho spine, has been wearing cervical collar. He has been having episodes of lightheadedness, confusion, pre-syncope, but has never had LOC during these events. Has had 3 episodes in the past week. Lives at [facility] with and has been working with PT/OT. Denies weakness, sensory changes. Denies neck/back pain. Denies chest pain, dyspnea. ED work-up significant for acute single column fracture of the T4 vertebral body with moderate bone marrow edema. Trop= 38. Allergies Allergy/AdvReac Type Severity Reaction Status Date / Time gluten Allergy Intermediate CELIAC Verified 10/16/23 22:24 DISEASE--Gastrointestinal Upset Home Medications Medication Instructions Recorded Confirmed Type cyanocobalamin (vitamin B-12) 1,000 mcg PO HS 12/29/21 10/16/23 History 1,000 mcg tablet (Vitamin B-12) vitamin B comp no.3-folic acid 1 1 tab PO QAM 02/17/22 10/16/23 History mg-vit C 60 mg-biotin 300 mcg tablet ([facility]) calcium acetate(phosphat bind) 667 667 mg PO TID 06/13/22 10/16/23 History mg tablet [id number] 5 mg-zeaxanth 1 cap PO HS 06/13/22 10/16/23 History 1 mg-bilberry 7.5 mg-herbal capsule ([facility]) acetaminophen 500 mg tablet 1,000 mg PO BID PRN Pain 08/23/22 10/16/23 History levothyroxine 100 mcg tablet 100 mcg PO QAM #90 tabs 11/27/22 10/16/23 Rx sertraline 100 mg tablet (Zoloft) 100 mg PO QPM #90 tabs 06/11/23 10/16/23 Rx rosuvastatin 5 mg tablet 5 mg PO DAILY 07/21/23 10/16/23 History midodrine 10 mg tablet 10 mg PO TID 10/16/23 10/16/23 History vit B,C-folic ac 800 mcg-zinc 12.5 1 tab PO DAILY 10/16/23 10/16/23 History mg-selen-D3 2,000 unit-vit E tablet ([facility]-D) Past Med/Surg History Medical History (Updated 10/17/23 @ 09:26 by Jose Roberto Boucher DO) CKD (chronic kidney disease), stage V CAD (coronary artery disease) Mild to moderate nonobstructive per 2019 cath Diastolic CHF EF 65-70% 08/2022 echo Dialysis patient SUNDAY/SUNDAY/SUNDAY THRU CATHETER RIGHT CHEST DVT (deep venous thrombosis) Hx- 2019- PE and DVT to left LE- s/p esophageal perforation surgery Was on Eliquis until last month - d/c'ed secondary to DVT being provoked- on AC x 1 year Hyperphosphatemia Hx of hiatal hernia HTN (hypertension) Depression Respiratory failure Post op from esophageal perforation in 2019 No issues with subsequent surgery- no current breathing issues Atrial fibrillation with rapid ventricular response 2019- s/p pericarditis with volume overload (later dx'ed with esophageal perforation) Follows only with PCP- no AC No recurrence per patient Kidney stones No recent issues GERD (gastroesophageal reflux disease) Well controlled and stable Celiac disease Hypothyroidism Anemia Hgb ranges 7-10 Surgical History History of surgery Left Upper Extremity Fistulogram AVF (arteriovenous fistula) LUE AVF creation History of cardiac cath 2019- mild to moderate nonobstructive CAD History of repair of hiatal hernia PERFORATED [id number] SUBSEQUENT SURGERIES TO REPAIR, ETC (Had thoracotomy for hernia repair, esophagogastrectomy, GJ tube placement) History of carpal tunnel surgery of right wrist History of hammertoe correction bilt feet History of esophagogastroduodenoscopy (EGD) (06/12/17) History of colonoscopy (06/12/17) History of umbilical hernia repair History of tooth extraction Family History Father Dementia Mother Breast cancer Grandfather (Maternal) Stroke Family/Other Hypercholesterolemia Other No family history of adverse response to anesthesia Denies family history of Ovarian cancer Prostate cancer Myocardial infarction Colorectal cancer Social History Smoking Status: Never smoker Second Hand Exposure: No; Do You Dip or Chew Tobacco: No; Hx Alcohol Use: No Hx Substance Use: No Preferred Language: Eritrean Communication Ability: Effective Visual Impairment: Partially Limited Senior Mortgage Underwriter Required: No Beliefs That Will Affect Care: None marital status: Current Living Situation: Spouse current occupational status: retired 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 Feels Safe at Home: Yes Childhood Exposure to Second-Hand Smoke: No Dental Care, Regularly: Yes Physical Activity Frequency: 1-2 Times per Week Seatbelt Use: always Sunscreen Use: No Assistive Devices: Walker Review of Systems Review of Systems: As per above Physical Exam Physical Exam: Constitutional: well-appearing, no acute distress HEENT: NCAT, no conjunctival injection, cervical color in place CV: regular rhythm, no murmur appreciated, extremities well-perfused, no LE edema Resp: CTABL, no wheezes/rales/rhonchi appreciated, no increased work of breathing GI: soft, nondistended, nontender, BS normoactive MSK: no gross deformities appreciated Skin: warm, dry, no rash appreciated Neuro: alert, oriented, no focal neurologic deficit appreciated, CN II-XII intact, strength 5/5 in UE and LE B/L Results & Data Results & Data Vital Signs (Past 12 Hours) Vital Signs Temp Pulse Pulse Resp BP BP Pulse Ox 10/17/23 00:40 61 20 208/105 H 98 10/17/23 00:02 59 L 16 204/103 H 99 10/16/23 22:45 63 16 196/103 H 93 10/16/23 20:13 10/16/23 20:12 66 18 170/115 H 97 10/16/23 16:53 36.5 C 68 20 114/71 98 O2 Del Method 10/17/23 00:40 Room Air 10/17/23 00:02 Room Air 10/16/23 22:45 Room Air 10/16/23 20:13 Room Air 10/16/23 20:12 10/16/23 16:53 Room Air Supervising Physician Co-Signing Physician Notes Attending addendum: I have physically seen this patient, have supervised the medical residents activities, and agree with the H&P unless as otherwise noted. Assessment and Plan: Confusion- Admit to PCU CT head without contrast negative MRI brain without contrast negative Order MRA of head Carotid Dopplers after cleared to take collar off Likely initially with orthostatic hypotension, check vitals, continue midodrine Did receive 500 cc NSS bolus from the ED Closed T4 spinal fracture- No pain noted No history of fall Odontoid fracture- Cervical: Has been followed by orthopedic spine surgery, who will be consulted ESRD on HD- Consult nephrology HD on Sunday, Sunday and Sunday Resident Activity Tracking Resident Involvement: Resident Care Provided Care Provided: Adult Hospital Medicine (2) Closed T4 spinal fracture Encounter type: initial encounter Fracture morphology: unspecified fracture morphology Qualified Code(s): S22.049A - Unspecified fracture of fourth thoracic vertebra, initial encounter for closed fracture (3) Odontoid fracture Encounter type: subsequent encounter Fracture healing: with nonunion Fracture type: closed Qualified Code(s): S12.100K - Unspecified displaced fracture of second cervical vertebra, subsequent encounter for fracture with nonunion
[2023-10-17] MEDS: LEVOTHYROXINE SODIUM 100 MCG TABLET PO SCH (06:30)
--- NOTE | 2023-10-17 06:45 | Magnetic Resonance Report ---
Exam(s): MRA HEAD Without Contrast EXAM: MR Angiography Head Without Intravenous Contrast CLINICAL HISTORY: Reason for exam: Altered Mental Status. TECHNIQUE: Magnetic resonance angiography images of the head without intravenous contrast. COMPARISON: Prior MRI head 10/16/2023, CT had 10/16/2023 FINDINGS: Right internal carotid artery: No acute findings. Intracranial segment is patent with no significant stenosis. No aneurysm. Right anterior cerebral artery: Unremarkable. No occlusion or significant stenosis. No aneurysm. Right middle cerebral artery: Unremarkable. No occlusion or significant stenosis. No aneurysm. Right posterior cerebral artery: Unremarkable. No occlusion or significant stenosis. No aneurysm. Right vertebral artery: Unremarkable as visualized. Left internal carotid artery: No acute findings. Intracranial segment is patent with no significant stenosis. No aneurysm. Left anterior cerebral artery: Unremarkable. No occlusion or significant stenosis. No aneurysm. Left middle cerebral artery: Unremarkable. No occlusion or significant stenosis. No aneurysm. Left posterior cerebral artery: Unremarkable. No occlusion or significant stenosis. No aneurysm. Left vertebral artery: Unremarkable as visualized. Basilar artery: Unremarkable. No occlusion or significant stenosis. No aneurysm. IMPRESSION: No large vessel occlusion or severe stenosis. No aneurysm. Electronically signed by: Elizabeth Daniels M.D. 10/17/23 06:44 AM
--- NOTE | 2023-10-17 08:00 | Electrocardiogram Report ---
Test Reason : Blood Pressure : / mmHG Vent. Rate : 065 BPM Atrial Rate : 065 BPM P-R Int : 162 ms QRS Dur : 098 ms QT Int : 428 ms P-R-T Axes : 053 -27 -08 degrees QTc Int : 445 ms Normal sinus rhythm Moderate voltage criteria for LVH, may be normal variant ( R in aVL , [place] product ) Nonspecific T wave abnormality Anterolateral leads Abnormal ECG When compared with ECG of 23-FEB-2022 11:07, Nonspecific T wave abnormality now evident in Anterolateral leads Confirmed by Rad Gilmore ([id number]) on 10/17/2023 7:59:59 AM Referred By: Laron Montemayor Confirmed By:Rad Gilmore
--- NOTE | 2023-10-17 08:14 | Electrocardiogram Report ---
Test Reason : Blood Pressure : / mmHG Vent. Rate : 059 BPM Atrial Rate : 059 BPM P-R Int : 160 ms QRS Dur : 102 ms QT Int : 454 ms P-R-T Axes : 064 -15 001 degrees QTc Int : 449 ms Sinus bradycardia Minimal voltage criteria for LVH, may be normal variant ( R in aVL ) Nonspecific T wave abnormality Anterior leads Abnormal ECG When compared with ECG of 16-OCT-2023 17:01, No significant change was found Confirmed by Rad Gilmore ([id number]) on 10/17/2023 8:13:54 AM Referred By: Laron [facility] Confirmed By:Rad Gilmore
[2023-10-17] MEDS: ROSUVASTATIN CALCIUM 5 MG TAB PO SCH (08:17)
[2023-10-17] MEDS: NEPHROCAPS PO SCH (08:17)
[2023-10-17] MEDS: CALCIUM ACETATE 667 MG CAP/TAB PO SCH (08:17)
--- NOTE | 2023-10-17 08:29 | Hospitalist Progress Note ---
Date of Service October 17, 2023 Assessment & Plan (1) Acute confusion: Plan: 83 y/o with ESRD on hemodialysis and started on midodrine since Aug 2023 admitted with recurrent episodes of confusion - short episodes of acute confusion and unable to follow commands during these episodes - CT Head/MRI brain without acute findings, MRA head/neck without intracranial or carotid/vertebral stenoses - TTE reviewed 09/18/23 - EF 55-60% mild AR - no evidence of infectious process based on history, exam, and admission evaluation including CBC, CMP, CXR, UA - has ESRD and recent significant difficulty with labile blood pressures, hypotension requiring prescription for midodrine with dose adjustments Aug-Sep this year, hypertensive in ED. Likely having orthostatic episodes that are triggering this presentation. No evidence of acute delirium. No intra/extracranial stenoses to aggravate this. Not on hypotensive/orthostatic or delirogenic meds. Standing BP today dropped 64 points from supine. - continue tele monitoring however presentation atypical for arrhythmia. consider ambulatory monitor - monitor BP, PT/OT eval, daily orthostatic vital signs - midodrine has been ineffective and has supine hypertension, held for now. Discussed with Dr. Boucher - will start trial of fludrocortisone - no convincing history of such but could be partial seizures - ordered EEG (2) Closed T4 spinal fracture: Plan: osteoporotic age-related T4 compression fracture - only one column affected - no acute pain, denies recent fall - consult ortho spine - PT/OT (3) Odontoid fracture: Plan: Occurred 07/2023, stable on neck CT with nonunion - continue with cervical collar - consult ortho spine - discuss when collar can be removed, could carotid pressure/neck position be triggering bradycardia episodes? 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 Boucher (7) HTN (hypertension): Plan: History of hypertension, labile blood pressures, hypertensive in ED however recent hypotension and prescribed midodrine - see above -see above (8) Hypothyroidism: Plan: - continue levothyroxine (9) HLD (hyperlipidemia): Plan: - continue statin Plan VTE ppx: SQ heparin Admission and Anticipated Discharge Date Admission Date: October 17, 2023 Subjective Seen on HD midday No neck or back pain, no leg or arm weakness or numbness Has been having recurrent episodes of decreased responsiveness, seems confused, staring. these last about 10 minutes then resolve. Multiple episodes this month per his . He reports they all have occurred when standing (never lying down or sitting) and usually tries to sit down right away if he or his notice these coming on. Has had several falls but these were all mechanical and not related to these spells. Never had LOC. saw some limb shaking one time but not typically. No palpitations or chest pain with these. No history or seizure or arrhythmia. No incontinence. Urinates several times a day but very small volumes. Trial of midodrine did not help symptoms. Standing BP always much lower measured regularly at HD but not symptomatic at those times. Completely AOx4 and reading the economist, excellent historian. Physical Exam 2 Physical Exam: PHYSICAL EXAMINATION Last 24h vital signs reviewed, see documentation in flowsheet General: comfortable appearing, no distress, very pleasant articulate gentleman HEENT: Normocephalic, atraumatic, pupils round and equal, sclerae anicteric, no conjunctival injection, moist mucus membranes Wearing c-collar Lungs: Normal respiratory effort. Clear to auscultation bilaterally. No RRW Heart: Regular rate and rhythm, no murmurs. No JVD Tunneled HD catheter right upper chest which is in use Abdomen: Soft, nontender, nondistended. Bowel sounds present. Extremities: Warm, dry, well-perfused. No extremity edema. Neuro: Alert and oriented x 4, face symmetric, moves 4 extremities well Psych: Normal affect and behavior Results & Data Results & Data Vital Signs (Past 12 Hours) Vital Signs Pulse Pulse Resp BP Pulse Ox O2 Del Method 10/17/23 07:45 56 L 10/17/23 05:34 63 10/17/23 05:20 60 18 179/88 H 96 Room Air 10/17/23 03:02 62 20 97 Room Air 10/17/23 00:40 61 20 208/105 H 98 Room Air 10/17/23 00:02 59 L 16 204/103 H 99 Room Air 10/16/23 22:45 63 16 196/103 H 93 Room Air Laboratory Results 10/16/23 17:09 10/16/23 20:25 Diagnostic Findings Chest X-Ray 10/16/23 16:58 XR chest 1V portable HISTORY: 83 years-old Male weakness acute weakness COMPARISON: Chest CT 07/21/2023 TECHNIQUE: PA view chest FINDINGS: Cardiac silhouette is enlarged. Dual-lumen right IJ hemodialysis catheter. Small pleural effusions. Esophagectomy changes with pull-through redemonstrated. No pneumothorax or overt pulmonary edema. Bones appear grossly intact. IMPRESSION: 1. Cardiomegaly without pulmonary edema. 2. Small pleural effusions. ACT 112: Negative or not required by law. The above report was generated using voice recognition software. It may contain grammatical, syntax or spelling errors. Electronically signed by: Garrick Caceres M.D. 10/16/2023 5:[address] 10/16/23 16:58 Exam(s): CT HEAD Without Contrast EXAM: CT Head Without Intravenous Contrast CLINICAL HISTORY: Reason for exam: episodes of confusion. TECHNIQUE: Axial computed tomography images of the head/brain without intravenous contrast. CTDI is 62.5 mGy and DLP is 1098.96 mGy-cm. Automated exposure control was utilized for the study. A dose lowering technique was utilized adhering to the principles of ALARA. COMPARISON: No relevant prior studies available. FINDINGS: No acute intracranial hemorrhage. No midline shift or mass effect. The territorial parmar-white matter differentiation is maintained throughout. Age-related cerebral volume loss. Periventricular and subcortical white matter hypoattenuation, consistent with chronic microangiopathy. The visualized orbits appear grossly unremarkable. The calvarium is intact. The visualized paranasal sinuses and mastoid air cells are grossly clear. IMPRESSION: No acute intracranial hemorrhage, midline shift, or mass effect. Electronically signed by: René Johns MD 10/16/23 20:00 PM Brain MRI 10/16/23 22:04 Exam(s): MRI HEAD Without Contrast EXAM: MR Head Without Intravenous Contrast CLINICAL HISTORY: Reason for exam: Confusion, change in mental status. TECHNIQUE: Magnetic resonance images of the head/brain without intravenous contrast in multiple planes. COMPARISON: No relevant prior studies available. FINDINGS: No acute territorial infarct. No acute intracranial hemorrhage. No midline shift or mass effect. The territorial parmar-white matter differentiation is maintained throughout. Age-related cerebral volume loss. Periventricular and subcortical white matter T2 signal intensity, consistent with chronic microangiopathy. The visualized orbits appear grossly unremarkable. The calvarium is intact. The visualized paranasal sinuses and mastoid air cells are grossly clear. IMPRESSION: No acute territorial infarct. No acute intracranial hemorrhage. No midline shift or mass effect. Electronically signed by: René Johns MD 10/16/23 23:27 PM Cervical Spine MRI 10/16/23 22:04 CR Exam(s): MRI C SPINE EXAM: MR Cervical Spine Without Intravenous Contrast CLINICAL HISTORY: Reason for exam: Mental status changes, history of cervical fractur. TECHNIQUE: Magnetic resonance images of the cervical spine without intravenous contrast in multiple planes. COMPARISON: Comparison made to prior CT scan of the cervical spine from July 28, 2023. FINDINGS: Vertebrae: There are 7 cervical type vertebral bodies with a mild generalized curvature of the left and a hyper cervical lordosis. There is a loud odontoid fracture deformity with persistent fluid cleft. There is no acute single column fracture of the T4 vertebral body with moderate pulmonary edema. Spinal cord: The cord has normal size, shape and signal characteristics. The craniocervical junction is normal without evidence of Chiari malformation. Soft tissues: The cervical flow voids are intact. DISCS/SPINAL CANAL/NEURAL FORAMINA: C2-C3: Moderate disc degeneration with annular disc bulge flattening the ventral thecal sac. Mild to moderate facet arthropathy with advanced right and mild left synovitis with bone marrow edema and inflammation of the soft tissues. C3-C4: Advanced disc degeneration with annular disc bulge flattening the ventral thecal sac. Mild to moderate facet arthropathy with mild synovitis. C4-C5: Partial ankylosis across the segments without stenosis or impingement. The facet joints are ankylosed. C5-C6: Moderate disc degeneration with annular disc bulge flight of the thecal sac. Mild to moderate facet arthropathy with mild synovitis. C6-C7: Advanced disc degeneration with annular disc bulge flattening of the thecal sac. There is mild facet arthropathy with mild synovitis. C7-T1: Moderate disc degeneration with annular disc bulge flattening the thecal sac. Advanced facet arthropathy with mild synovitis. IMPRESSION: No evidence of acute cervical spine pathology. There is an acute single column fracture of the T4 vertebral body with moderate bone marrow edema. Remote nonunited odontoid fracture. Communications: Verify Receipt Electronically signed by: Karissa Tran MD 10/17/23 00:24 AM Head MRA 10/17/23 02:21 Exam(s): MRA HEAD Without Contrast EXAM: MR Angiography Head Without Intravenous Contrast CLINICAL HISTORY: Reason for exam: Altered Mental Status. TECHNIQUE: Magnetic resonance angiography images of the head without intravenous contrast. COMPARISON: Prior MRI head 10/16/2023, CT had 10/16/2023 FINDINGS: Right internal carotid artery: No acute findings. Intracranial segment is patent with no significant stenosis. No aneurysm. Right anterior cerebral artery: Unremarkable. No occlusion or significant stenosis. No aneurysm. Right middle cerebral artery: Unremarkable. No occlusion or significant stenosis. No aneurysm. Right posterior cerebral artery: Unremarkable. No occlusion or significant stenosis. No aneurysm. Right vertebral artery: Unremarkable as visualized. Left internal carotid artery: No acute findings. Intracranial segment is patent with no significant stenosis. No aneurysm. Left anterior cerebral artery: Unremarkable. No occlusion or significant stenosis. No aneurysm. Left middle cerebral artery: Unremarkable. No occlusion or significant stenosis. No aneurysm. Left posterior cerebral artery: Unremarkable. No occlusion or significant stenosis. No aneurysm. Left vertebral artery: Unremarkable as visualized. Basilar artery: Unremarkable. No occlusion or significant stenosis. No aneurysm. IMPRESSION: No large vessel occlusion or severe stenosis. No aneurysm. Electronically signed by: Elizabeth Daniels M.D. 10/17/23 06:44 AM PG Care Time/CCT Total # of Minutes Spent Total Time Spent with Patient: Total time spent is greater than 50% in coordination of care (as documented) at patient's floor/unit and/or counseling patient: Coding Level of Care Code 06114 SUB INP/OBS CARE 2/35MIN Diagnoses Acute confusion R41.0 Closed T4 spinal fracture S22.049A Encounter type: initial encounter Fracture morphology: unspecified fracture morphology Odontoid fracture S12.100K Encounter type: subsequent encounter Fracture healing: with nonunion Fracture type: closed Elevated troponin R79.89 Celiac disease K90.0 End stage renal disease N18.6 HTN (hypertension) I10 Hypothyroidism E03.9 HLD (hyperlipidemia) E78.5 (2) Closed T4 spinal fracture Encounter type: initial encounter Fracture morphology: unspecified fracture morphology Qualified Code(s): S22.049A - Unspecified fracture of fourth thoracic vertebra, initial encounter for closed fracture (3) Odontoid fracture Encounter type: subsequent encounter Fracture healing: with nonunion F racture type: closed Qualified Code(s): S12.100K - Unspecified displaced fracture of second cervical vertebra, subsequent encounter for fracture with nonunion
--- NOTE | 2023-10-17 09:10 | Nephrology Consultation ---
Date of Consultation October 17, 2023 Assessment & Plan (1) ESRD (end stage renal disease) on dialysis: ESKD attributed to microvascular disease. Maintained on IHD MWF. Orders for HD today have been entered into the EHR and communicated to the try on baster. Outpatient Rx: 3.25 hours, 180 optiflux, 400/800, 3K 140Na 37HCO3. EDW 71.5 kg. Evans has been down to 70.7 kg recently. R TDC has been functioning well. Medications are currently appropriately dosed for IHD. Renal diet. (2) Secondary hyperparathyroidism: Maintained on calcitriol 1 mcg QHD. (3) Anemia: Maintained on Micera 75 mcg Q 4 weeks. ANTHONY held today -- Hgb acceptable. (4) Hyperphosphatemia: Renal diet. Phoslo QAC. (5) Orthostatic hypotension: BP accelerated this AM. Suggest dose adjustment or hold parameters on midodrine. History of Present Illness Reason for Consultation: ESRD on HD Requesting Physician: Yris Cloud MD Attending Physician: Yris Cloud MD History of Present Illness Cale Stern is an 83 year-old male with ESKD attributed to microvascular disease. He is maintained on IHD at [facility] under the care of Dr. Flores. Evans completed his last HD treatment on October 14. Dialysis has been without complications. His Rx is MWF x 3/25 hrs -- 180 optiflux, 400/800, 3K 140Na 37HCO3. EDW 71.5 kg. Evans left HD at 70.7 kg on Sunday. He dialyzes via a RIJ TDC. AVF ligated in the past. He receives calcitriol 1 mcg QHD and Micera 75 mcg Q 4 weeks. Recent medical history includes a Odontoid fracture suffered in July. Evans has been struggling with orthostatic lightheadedness for which he was recently placed on midodrine 10 mg TID. He has imaging evidence of T4 fracture. Medical history also notable for hypothyroidism, CAD, hypertension, and history of esophageal perforation treated with thoracotomy and esophagogastrectomy. There is also a documented history of paroxysmal atrial fibrillation. Evans presented to the ER at [facility] yesterday with waxing and waning mental status changes. No acute CVA appreciated on imaging. Allergies Allergy/AdvReac Type Severity Reaction Status Date / Time gluten Allergy Intermediate CELIAC Verified 10/16/23 22:24 DISEASE--Gastrointestinal Upset Home Medications Medication Instructions Recorded Confirmed Type cyanocobalamin (vitamin B-12) 1,000 mcg PO HS 12/29/21 10/16/23 History 1,000 mcg tablet (Vitamin B-12) vitamin B comp no.3-folic acid 1 1 tab PO QAM 02/17/22 10/16/23 History mg-vit C 60 mg-biotin 300 mcg tablet ([facility]) calcium acetate(phosphat bind) 667 667 mg PO TID 06/13/22 10/16/23 History mg tablet [id number] 5 mg-zeaxanth 1 cap PO HS 06/13/22 10/16/23 History 1 mg-bilberry 7.5 mg-herbal capsule ([employer] [facility] Formula) acetaminophen 500 mg tablet 1,000 mg PO BID PRN Pain 08/23/22 10/16/23 History levothyroxine 100 mcg tablet 100 mcg PO QAM #90 tabs 11/27/22 10/16/23 Rx sertraline 100 mg tablet (Zoloft) 100 mg PO QPM #90 tabs 06/11/23 10/16/23 Rx rosuvastatin 5 mg tablet 5 mg PO DAILY 07/21/23 10/16/23 History midodrine 10 mg tablet 10 mg PO TID 10/16/23 10/16/23 History vit B,C-folic ac 800 mcg-zinc 12.5 1 tab PO DAILY 10/16/23 10/16/23 History mg-selen-D3 2,000 unit-vit E tablet ([facility]-D) Patient History Medical History (Updated 10/17/23 @ 09:26 by Jose Roberto Boucher DO) CKD (chronic kidney disease), stage V CAD (coronary artery disease) Mild to moderate nonobstructive per 2019 cath Diastolic CHF EF 65-70% 08/2022 echo Dialysis patient SUNDAY/SUNDAY/SUNDAY THRU CATHETER RIGHT CHEST DVT (deep venous thrombosis) Hx- 2019- PE and DVT to left LE- s/p esophageal perforation surgery Was on Eliquis until last month - d/c'ed secondary to DVT being provoked- on AC x 1 year Hyperphosphatemia Hx of hiatal hernia HTN (hypertension) Depression Respiratory failure Post op from esophageal perforation in 2019 No issues with subsequent surgery- no current breathing issues Atrial fibrillation with rapid ventricular response 2019- s/p pericarditis with volume overload (later dx'ed with esophageal perforation) Follows only with PCP- no AC No recurrence per patient Kidney stones No recent issues GERD (gastroesophageal reflux disease) Well controlled and stable Celiac disease Hypothyroidism Anemia Hgb ranges 7-10 Surgical History History of surgery Left Upper Extremity Fistulogram AVF (arteriovenous fistula) LUE AVF creation History of cardiac cath 2019- mild to moderate nonobstructive CAD History of repair of hiatal hernia PERFORATED MEGBBRBGH-3-4 SUBSEQUENT SURGERIES TO REPAIR, ETC (Had thoracotomy for hernia repair, esophagogastrectomy, GJ tube placement) History of carpal tunnel surgery of right wrist History of hammertoe correction bilt feet History of esophagogastroduodenoscopy (EGD) (06/12/17) History of colonoscopy (06/12/17) History of umbilical hernia repair History of tooth extraction Family History Father Dementia Mother Breast cancer Grandfather (Maternal) Stroke Family/Other Hypercholesterolemia Other No family history of adverse response to anesthesia Denies family history of Ovarian cancer Prostate cancer Myocardial infarction Colorectal cancer Social History Smoking Status: Never smoker Second Hand Exposure: No; Do You Dip or Chew Tobacco: No; Hx Alcohol Use: No Hx Substance Use: No Preferred Language: Malaysian Communication Ability: Effective Visual Impairment: Partially Limited Storage Consultant Required: No Beliefs That Will Affect Care: None marital status: Current Living Situation: Spouse current occupational status: retired 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 Other Information That Helps Us Care for You: No Feels Safe at Home: Yes Safety Concerns: Feels Safe At This Time Childhood Exposure to Second-Hand Smoke: No Dental Care, Regularly: Yes Physical Activity Frequency: 1-2 Times per Week Seatbelt Use: always Sunscreen Use: No Assistive Devices: Walker Assistive Devices Comment: israel kasper Review of Systems Review of Systems: All systems reviewed & are unremarkable except as noted in HPI & below Physical Exam Constitutional: well developed and + frail appearing; no acute distress Eyes: + anicteric sclerae; no corneal abnormal ity ENMT: Mouth: oral mucous membranes not dry Neck: normal visual inspection and trachea midline IJ TDC Respiratory: normal respiratory effort Auscultation: lungs clear to auscultation bilaterally Cardiovascular: Rate/Rhythm: regular rate Heart Sounds: normal S1 and normal S2 Extremities: no edema Musculoskeletal: Extremities: no cyanosis and no clubbing Skin: normal turgor; no jaundice Neurologic: Motor/Sensory: no tremor and no asterixis Psychiatric: Orientation: alert and oriented x 3 Results & Data Vital Signs (Past 12 Hours) Vital Signs Pulse Pulse Resp BP Pulse Ox O2 Del Method 10/17/23 07:45 56 L 10/17/23 05:34 63 10/17/23 05:20 60 18 179/88 H 96 Room Air 10/17/23 03:02 62 20 97 Room Air 10/17/23 00:40 61 20 208/105 H 98 Room Air 10/17/23 00:02 59 L 16 204/103 H 99 Room Air 10/16/23 22:45 63 16 196/103 H 93 Room Air Laboratory Results Laboratory Results - last 24 hr 10/16/23 10/16/23 10/16/23 17:09 19:21 20:25 WBC 8.48 RBC 3.42 L Hgb 11.7 L Hct 35.7 L MCV 104.4 H MCH 34.2 H MCHC 32.8 RDW Std Deviation 54.8 H RDW Coeff of Paula 14.2 Plt Count 234 MPV 9.7 Immature Gran % (Auto) 0.2 Neut % (Auto) 66.0 Lymph % (Auto) 20.6 [place] % (Auto) 11.2 Eos % (Auto) 1.2 Baso % (Auto) 0.8 Neut # (Auto) 5.59 Lymph # (Auto) 1.75 [place] # (Auto) 0.95 H Eos # (Auto) 0.10 Baso # (Auto) 0.07 Immature Gran # (Auto) 0.02 Sodium 139 Potassium TNP TNP 4.3 Chloride 101 Carbon Dioxide 30 Anion Gap 8 BUN 33 H Creatinine 3.86 H Est Cr Clr Drug Dosing 12.4 Est GFR ( Amer) 15.9 Est GFR (Non-Af Amer) 13.7 BUN/Creatinine Ratio 8.5 L Glucose 128 H Calcium 9.3 Magnesium 2.1 Total Bilirubin 0.6 AST TNP TNP 21 ALT 16 Alkaline Phosphatase 70 Troponin I High Sens 38.7 H Total Protein 7.1 Albumin 4.4 Globulin 2.7 Albumin/Globulin Ratio 1.6 Urine Color Urine Appearance Urine pH Ur Specific [place] Urine Protein Urine Glucose (UA) Urine Ketones Urine Blood Urine Nitrite Urine Bilirubin Urine Urobilinogen Ur Leukocyte Esterase Urine WBC (Auto) Urine RBC (Auto) U Hyaline Cast (Auto) U Epithel Cells (Auto) Urine Bacteria (Auto) Nasal Screen MRSA (PCR) 10/17/23 10/17/23 10/17/23 00:00 00:50 04:40 WBC RBC Hgb Hct MCV MCH MCHC RDW Std Deviation RDW Coeff of Paula Plt Count MPV Immature Gran % (Auto) Neut % (Auto) Lymph % (Auto) [place] % (Auto) Eos % (Auto) Baso % (Auto) Neut # (Auto) Lymph # (Auto) [place] # (Auto) Eos # (Auto) Baso # (Auto) Immature Gran # (Auto) Sodium Potassium Chloride Carbon Dioxide Anion Gap BUN Creatinine Est Cr Clr Drug Dosing Est GFR ( Amer) Est GFR (Non-Af Amer) BUN/Creatinine Ratio Glucose Calcium Magnesium Total Bilirubin AST ALT Alkaline Phosphatase Troponin I High Sens 40.9 H Total Protein Albumin Globulin Albumin/Globulin Ratio Urine Color Yellow Urine Appearance Clear Urine pH >= 9.0 H Ur Specific [place] 1.014 Urine Protein 2+ H Urine Glucose (UA) Trace H Urine Ketones Negative Urine Blood Negative Urine Nitrite Negative Urine Bilirubin Negative Urine Urobilinogen Negative Ur Leukocyte Esterase Negative Urine WBC (Auto) 1-5 Urine RBC (Auto) 0-4 U Hyaline Cast (Auto) 1-5 U Epithel Cells (Auto) 10-20 H Urine Bacteria (Auto) Negative Nasal Screen MRSA (PCR) Negative 10/17/23 06:14 WBC RBC Hgb Hct MCV MCH MCHC RDW Std Deviation RDW Coeff of Paula Plt Count MPV Immature Gran % (Auto) Neut % (Auto) Lymph % (Auto) [place] % (Auto) Eos % (Auto) Baso % (Auto) Neut # (Auto) Lymph # (Auto) [place] # (Auto) Eos # (Auto) Baso # (Auto) Immature Gran # (Auto) Sodium Potassium Chloride Carbon Dioxide Anion Gap BUN Creatinine Est Cr Clr Drug Dosing Est GFR ( Amer) Est GFR (Non-Af Amer) BUN/Creatinine Ratio Glucose Calcium Magnesium Total Bilirubin AST ALT Alkaline Phosphatase Troponin I High Sens 36.9 H Total Protein Albumin Globulin Albumin/Globulin Ratio Urine Color Urine Appearance Urine pH Ur Specific [place] Urine Protein Urine Glucose (UA) Urine Ketones Urine Blood Urine Nitrite Urine Bilirubin Urine Urobilinogen Ur Leukocyte Esterase Urine WBC (Auto) Urine RBC (Auto) U Hyaline Cast (Auto) U Epithel Cells (Auto) Urine Bacteria (Auto) Nasal Screen MRSA (PCR) Diagnostic Findings XR chest 1V portable COMPARISON: Chest CT 07/21/2023 FINDINGS: Cardiac silhouette is enlarged. Dual-lumen right IJ hemodialysis catheter. Small pleural effusions. Esophagectomy changes with pull-through redemonstrated. No pneumothorax or overt pulmonary edema. Bones appear grossly intact. IMPRESSION: 1. Cardiomegaly without pulmonary edema. 2. Small pleural effusions. PG Care Time/CCT Total # of Minutes Spent Total Time Spent with Patient: Total time spent is greater than 50% in coordination of care (as documented) at patient's floor/unit and/or counseling patient: Coding Level of Care Code 63763 IN/OBS CONSULT LVL 5,80M Diagnoses ESRD (end stage renal disease) on dialysis N18.6; Z99.2 Secondary hyperparathyroidism N25.81 Anemia D64.9 Anemia type: unspecified type Hyperphosphatemia E83.39 Orthostatic hypotension I95.1 (3) Anemia Anemia type: unspecified type Qualified Code(s): D64.9 - Anemia, unspecified
[2023-10-17] MEDS: FLUDROCORTISONE ACETATE 0.1 MG TAB PO SCH (17:07)
--- NOTE | 2023-10-17 19:48 | Billing Data ---
Date of Service October 17, 2023 Coding Level of Care Code 67744 INT INP/OBS CARE
[2023-10-17] MEDS: SERTRALINE HCL 100 MG TABLET PO SCH (20:19)
[2023-10-17] MEDS: CYANOCOBALAMIN (B-12) 500 MCG TABLET PO SCH (20:19)
[2023-10-17] MEDS: HEPARIN SOD 5,000 UNIT/0.5 ML VIAL SQ SCH (20:21)
[2023-10-17] MEDS ORDERED: NON-FORMULARY MEDICATION (Mv-Mn-Lutein-Zeax-Bilber-Hb277 [Macular Health Formula] 5-1-7.5 PO SCH (21:00)
--- NOTE | 2023-10-18 08:16 | Hospitalist Progress Note ---
Date of Service October 18, 2023 Assessment & Plan (1) Acute confusion: Plan: 83 y/o with ESRD on hemodialysis and started on midodrine since Aug 2023 admitted with recurrent episodes of confusion - short episodes of acute confusion and unable to follow commands during these episodes - CT Head/MRI brain without acute findings, MRA head/neck without intracranial or carotid/vertebral stenoses - TTE reviewed 09/18/23 - EF 55-60% mild AR - no evidence of infectious process based on history, exam, and admission evaluation including CBC, CMP, CXR, UA - has ESRD and recent significant difficulty with labile blood pressures, hypotension requiring prescription for midodrine with dose adjustments Aug-Sep this year, hypertensive in ED. Likely having orthostatic episodes that are triggering this presentation. No evidence of acute delirium. No intra/extracranial stenoses to aggravate this. Not on hypotensive/orthostatic or delirogenic meds. Standing BP today dropped 64 points from supine. - continue tele monitoring however presentation atypical for arrhythmia. Mr Stern had one of his stereotypical episodes witnessed 10/16 by his nurse when taking orthostatic VS. supine BP 150, standing 90 and onset of decreased LOC while standing, was alert but completely "out of it", followed commands, resolved -trial florinef 0.1 mg started 10/16, resumed midodrine 2.5 tid, will need to tolerate hypertension to maintain some standing BP, discussed with Dr. Boucher -TSH 09/14 on Sep 20, will check AM cortisol -this may continue to be a very difficult management problem -episode this afternoon different since was reclining in bed. Has already had all components of a TIA workup as outlined above, will add 81 mg aspirin though not clearcut TIA. Reviewed MAR and no sedating/delirogenic meds. Hospital delirium is always a possibility. 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 Alanis consulted, ok to start weaning collar - can remove for about an hour for mealtimes (4) Elevated troponin: Plan: - trop minimally elevated with flat/downtrend around 40 in the setting of ESRD on HD - no acute chest pain/dyspnea - EKG without ischemic changes - not consistent with ACS (5) Celiac disease: Plan: - gluten free diet (6) End stage renal disease: Plan: - has dialysis line for access - HD on MWF - consulted nurse discharge, discussed with Dr. Boucher (7) HTN (hypertension): Plan: History of hypertension, labile blood pressures, hypertensive in ED however recent hypotension and prescribed midodrine - see above -see above (8) Hypothyroidism: Plan: - continue levothyroxine (9) HLD (hyperlipidemia): Plan: - continue statin Plan VTE ppx: SQ heparin I spent over 35 minutes additional time at second bedside this afternoon discussing findings and plan of care with patient, his at bedside and two sons on speakerphone 10/17 Admission and Anticipated Discharge Date Admission Date: October 17, 2023 Subjective Feels ok, no neck or back pain Had 60 point drop in standing bp with physical therapist but was not symptomatic at bedside reports transient episode of confusion this afternoon (this was when reclining in bed) when his speech seemed garbled, which resolved She says all the other episodes occurred while standing. Once she found him standing in corner in kitchen trembling but does not sound tonic-clonic and was alert Physical Exam 2 Physical Exam: PHYSICAL EXAMINATION Last 24h vital signs reviewed, see documentation in flowsheet General: comfortable appearing, no distress, sitting in chair HEENT: Normocephalic, atraumatic, pupils round and equal, sclerae anicteric, no conjunctival injection, moist mucus membranes Wearing c-collar Lungs: Normal respiratory effort. Clear to auscultation bilaterally. No RRW Heart: Regular rate and rhythm, no murmurs. No JVD Tunneled HD catheter right upper chest Abdomen: Soft, nontender, nondistended. Bowel sounds present. Extremities: Warm, dry, well-perfused. No extremity edema. Neuro: Alert and oriented x 4, face symmetric, moves 4 extremities well, no tremor or bradykinesia Psych: Normal affect and behavior Results & Data Results & Data Vital Signs (Past 12 Hours) Vital Signs Temp Pulse Pulse Resp BP Pulse Ox O2 Del Method 10/18/23 08:08 36.7 C 69 18 172/96 H 97 Room Air 10/18/23 06:02 68 10/18/23 03:43 36.6 C 65 18 174/87 H 97 Room Air 10/17/23 23:08 36.2 C L 76 18 166/91 H 97 Room Air 10/17/23 23:05 70 Laboratory Results 10/16/23 17:09 10/16/23 20:25 PG Care Time/CCT Prolonged Care Time Prolonged Care Time: Yes I spent over 35 minutes additional time at second bedside this afternoon discussing findings and plan of care with patient, his at bedside and two sons on speakerphone 10/17 Coding Level of Care Code 72540 SUB INP/OBS CARE 50MIN (25 - SIGNIFICANT, SEPARATELY IDENTIFIABLE ) Diagnoses Acute confusion R41.0 Closed T4 spinal fracture S22.049A Encounter type: initial encounter Fracture morphology: unspecified fracture morphology Odontoid fracture S12.100K Encounter type: subsequent encounter Fracture healing: with nonunion Fracture type: closed Elevated troponin R79.89 Celiac disease K90.0 End stage renal disease N18.6 HTN (hypertension) I10 Hypothyroidism E03.9 HLD (hyperlipidemia) E78.5 Additional Codes Prolonged Care Time - Prolonged Care Time: Yes ([id number]) (2) Closed T4 spinal fracture Encounter type: initial encounter Fracture morphology: unspecified fracture morphology Qualified Code(s): S22.049A - Unspecified fracture of fourth thoracic vertebra, initial encounter for closed fracture (3) Odontoid fracture Encounter type: subsequent encounter Fracture healing: with nonunion F racture type: closed Qualified Code(s): S12.100K - Unspecified displaced fracture of second cervical vertebra, subsequent encounter for fracture with nonunion
--- NOTE | 2023-10-18 08:26 | Orthopedic Consultation ---
Date of Consultation October 18, 2023 Assessment & Plan (1) Closed T4 spinal fracture: Assessment healing odontoid fracture with incidental finding of a T4 fracture. Plan at this time he is asymptomatic. I discussed with him beginning the weaning process from his cervical collar. Will start with removing his collar for up to an hour at a time during meals. Will see him in the office for follow-up in the next few weeks. History of Present Illness Reason for Consultation: Status post odontoid fracture Attending Physician: Yris Cloud MD History of Present Illness This is a very pleasant 83-year-old male that presents with multimedical issues. He sustained a knot on toyed fracture in July 2023. He was initially man aged at [facility]. He is wearing a cervical collar since the injury. Upon admission it was determined he had a T4 compression fracture. Today he states he has no neck or upper thoracic back pain denies any numbness or tingling the upper extremities. He states he has not removed his collar since it was placed initially. Allergies Allergy/AdvReac Type Severity Reaction Status Date / Time gluten Allergy Intermediate CELIAC Verified 10/16/23 22:24 DISEASE--Gastrointestinal Upset Home Medications Medication Instructions Recorded Confirmed Type cyanocobalamin (vitamin B-12) 1,000 mcg PO HS 12/29/21 10/16/23 History 1,000 mcg tablet (Vitamin B-12) vitamin B comp no.3-folic acid 1 1 tab PO QAM 02/17/22 10/16/23 History mg-vit C 60 mg-biotin 300 mcg tablet ([facility]) calcium acetate(phosphat bind) 667 667 mg PO TID 06/13/22 10/16/23 History mg tablet mankqjta-yrd-mzuyox 5 mg-zeaxanth 1 cap PO HS 06/13/22 10/16/23 History 1 mg-bilberry 7.5 mg-herbal capsule (Macular Health Formula) acetaminophen 500 mg tablet 1,000 mg PO BID PRN Pain 08/23/22 10/16/23 History levothyroxine 100 mcg tablet 100 mcg PO QAM #90 tabs 11/27/22 10/16/23 Rx sertraline 100 mg tablet (Zoloft) 100 mg PO QPM #90 tabs 06/11/23 10/16/23 Rx rosuvastatin 5 mg tablet 5 mg PO DAILY 07/21/23 10/16/23 History midodrine 10 mg tablet 10 mg PO TID 10/16/23 10/16/23 History vit B,C-folic ac 800 mcg-zinc 12.5 1 tab PO DAILY 10/16/23 10/16/23 History mg-selen-D3 2,000 unit-vit E tablet ([facility]-D) Patient History Medical History (Updated 10/17/23 @ 09:26 by Jose Roberto Boucher DO) CKD (chronic kidney disease), stage V CAD (coronary artery disease) Mild to moderate nonobstructive per 2019 cath Diastolic CHF EF 65-70% 08/2022 echo Dialysis patient SUNDAY/SUNDAY/SUNDAY THRU CATHETER RIGHT CHEST DVT (deep venous thrombosis) Hx- 2019- PE and DVT to left LE- s/p esophageal perforation surgery Was on Eliquis until last month - d/c'ed secondary to DVT being provoked- on AC x 1 year Hyperphosphatemia Hx of hiatal hernia HTN (hypertension) Depression Respiratory failure Post op from esophageal perforation in 2019 No issues with subsequent surgery- no current breathing issues Atrial fibrillation with rapid ventricular response 2019- s/p pericarditis with volume overload (later dx'ed with esophageal perforation) Follows only with PCP- no AC No recurrence per patient Kidney stones No recent issues GERD (gastroesophageal reflux disease) Well controlled and stable Celiac disease Hypothyroidism Anemia Hgb ranges 7-10 Surgical History History of surgery Left Upper Extremity Fistulogram AVF (arteriovenous fistula) LUE AVF creation History of cardiac cath 2019- mild to moderate nonobstructive CAD History of repair of hiatal hernia PERFORATED [id number] SUBSEQUENT SURGERIES TO REPAIR, ETC (Had thoracotomy for hernia repair, esophagogastrectomy, GJ tube placement) History of carpal tunnel surgery of right wrist History of hammertoe correction bilt feet History of esophagogastroduodenoscopy (EGD) (06/12/17) History of colonoscopy (06/12/17) History of umbilical hernia repair History of tooth extraction Family History Father Dementia Mother Breast cancer Grandfather (Maternal) Stroke Family/Other Hypercholesterolemia Other No family history of adverse response to anesthesia Denies family history of Ovarian cancer Prostate cancer Myocardial infarction Colorectal cancer Social History Smoking Status: Never smoker Second Hand Exposure: No; Do You Dip or Chew Tobacco: No; Hx Alcohol Use: No Hx Substance Use: No Preferred Language: Thai Communication Ability: Effective Visual Impairment: Partially Limited Fact Checker Required: No Beliefs That Will Affect Care: None marital status: Current Living Situation: Spouse current occupational status: retired 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 Feels Safe at Home: Yes Childhood Exposure to Second-Hand Smoke: No Dental Care, Regularly: Yes Physical Activity Frequency: 1-2 Times per Week Seatbelt Use: always Sunscreen Use: No Assistive Devices: Walker Physical Exam Physical Exam: Patient is sitting up in bed. He is comfortable. He has no pain palpation of the upper thoracic spine. He has excellent strength testing upper extremities. Results & Data Vital Signs (Past 12 Hours) Vital Signs Temp Pulse Pulse Resp BP Pulse Ox O2 Del Method 10/18/23 08:08 36.7 C 69 18 172/96 H 97 Room Air 10/18/23 06:02 68 10/18/23 03:43 36.6 C 65 18 174/87 H 97 Room Air 10/17/23 23:08 36.2 C L 76 18 166/91 H 97 Room Air 10/17/23 23:05 70 (1) Closed T4 spinal fracture Encounter type: initial encounter Fracture morphology: unspecified fracture morphology Qualified Code(s): S22.049A - Unspecified fracture of fourth thoracic vertebra, initial encounter for closed fracture
--- NOTE | 2023-10-18 16:02 | Nephrology Progress Note ---
Date of Service October 18, 2023 Assessment & Plan (1) ESRD (end stage renal disease) on dialysis: Plan: ESKD attributed to microvascular disease. Maintained on IHD MWF. Volume status is acceptable. Next HD tomorrow. Outpatient Rx: 3.25 hours, 180 optiflux, 400/800, 3K 140Na 37HCO3. EDW 71.5 kg. Evans has been down to 70.7 kg recently. Aggressive UF avoided due to orthostatic hypotension and history of falls. R TDC has been functioning well. Medications are currently appropriately dosed for IHD. Renal diet. (2) Secondary hyperparathyroidism: Plan: Maintained on calcitriol 1 mcg QHD. (3) Anemia: Plan: Maintained on Micera 75 mcg Q 4 weeks. ANTHONY held today -- Hgb acceptable. Repeat H/H prior to HD tomorrow. (4) Hyperphosphatemia: Plan: Renal diet. Phoslo QAC. (5) Orthostatic hypotension: Plan: Florinef added. Midodrine dose reduced. Compression stockings encouraged. PT consulted. Plan of care reviewed with Dr. Cloud. Admission and Anticipated Discharge Date Admission Date: October 17, 2023 Justin Krueger was seen and evaluated with his at the bedside this afternoon. His sons were updated by phone. I reviewed information and discussed the plan of care with Dr. Cloud following my conversation with the patient and his family. Evans unfortunately continues to demonstrate mental status changes. Specifically, he has difficulty completing sentences. He expressed frustration when trying to convey his thoughts. He also repeated information previously shared without realizing that the information was already discussed. This information included detailed documentation of orthostatic changes in his blood pressure. His confirmed that cognition is not at baseline and that he clearly remains confused. He continues to have difficulty standing. He denies pain. He is not experiencing any numbness or tingling or radicular sym ptoms. He tolerated HD well yesterday. No complications with treatment. Review of Systems Review of Systems: All systems reviewed & are unremarkable except as noted in HPI & below Physical Exam Constitutional: well developed and + frail appearing; no acute distress Eyes: + anicteric sclerae; no corneal abnormal ity ENMT: Mouth: oral mucous membranes not dry Neck: normal visual inspection and trachea midline Respiratory: normal respiratory effort Auscultation: lungs clear to auscultation bilaterally Cardiovascular: Rate/Rhythm: regular rate Heart Sounds: normal S1 and normal S2 Extremities: no edema Musculoskeletal: Extremities: no cyanosis and no clubbing Skin: normal turgor; no jaundice Neurologic: Motor/Sensory: no tremor and no asterixis Psychiatric: Orientation: alert and oriented x 3 Results & Data Vital Signs (Past 12 Hours) Vital Signs Temp Pulse Pulse Resp BP Pulse Ox O2 Del Method 10/18/23 14:40 72 10/18/23 11:58 36.8 C 72 17 132/84 98 Room Air 10/18/23 08:08 36.7 C 69 18 172/96 H 97 Room Air 10/18/23 06:02 68 PG Care Time/CCT Total # of Minutes Spent Total Time Spent with Patient: Total time spent is greater than 50% in coordination of care (as documented) at patient's floor/unit and/or counseling patient: Coding Level of Care Code 35350 SUB INP/OBS CARE 3/50MIN Diagnoses ESRD (end stage renal disease) on dialysis N18.6; Z99.2 Secondary hyperparathyroidism N25.81 Anemia D64.9 Anemia type: unspecified type Hyperphosphatemia E83.39 Orthostatic hypotension I95.1 (3) Anemia Anemia type: unspecified type Qualified Code(s): D64.9 - Anemia, unspecified
[2023-10-18] MEDS: MIDODRINE HCL 2.5 MG TAB PO SCH (18:11)
[2023-10-19 07:37] LABS: Hemoglobin 10.8 g/dl (14.0-18.0); Mean Corpuscular Hemoglobin 34.3 pg (25.0-34.0); Mean Corpuscular Hgb Conc 33.8 g/dL (32.0-36.0); Mean Corpuscular Volume 101.6 fL (80.0-100.0); Mean Platelet Volume 9.5 fL (9.4-12.4); Platelet Count 187 K/uL (130-400); RDW Coefficient of Variation 13.2 % (11.5-14.5); RDW Standard Deviation 49.2 fL (36.4-46.3); Red Blood Count 3.15 M/uL (4.70-6.10); White Blood Count 6.57 K/ul (4.8-10.8)
[2023-10-19 07:54] LABS: BUN Creatinine Ratio 8.9 (10-20); Calcium 8.8 mg/dl (8.6-10.3); Creatinine Clr Calc Pharmacy 11.7 ml/min; Est GFR (Non-African American) 12.9 ml/min; Potassium 3.9 mmol/L (3.5-5.1)
[2023-10-19] MEDS: ASPIRIN 81 MG CHEW PO SCH (08:23)
--- NOTE | 2023-10-19 10:53 | Nephrology Progress Note ---
Date of Service October 19, 2023 Assessment & Plan (1) ESRD (end stage renal disease) on dialysis: Plan: ESKD attributed to microvascular disease. Maintained on IHD MWF. Orders for HD today entered into the EHR and reviewed with tool and production planner. Evans was seen and evaluated during treatment. He is tolerating dialysis well. Outpatient Rx: 3.25 hours, 180 optiflux, 400/800, 3K 140Na 37HCO3. EDW 71.5 kg. Evans recently 70 kg recently. Aggressive UF avoided due to orthostatic hypotension and history of falls. Minimal UF with treatment. R TDC has been functioning well. Medications are currently appropriately dosed for IHD. Renal diet. (2) Secondary hyperparathyroidism: Plan: Maintained on calcitriol 1 mcg QHD. (3) Anemia: Plan: Maintained on Micera 75 mcg Q 4 weeks. ANTHONY held today -- Hgb acceptable. Repeat H/H prior to HD Sunday. (4) Hyperphosphatemia: Plan: Renal diet. Phoslo QAC. (5) Orthostatic hypotension: Plan: Florinef added yesterday. Midodrine 2.5 mg TID. Compression stockings encouraged. PT consulted. Admission and Anticipated Discharge Date Admission Date: October 17, 2023 Subjective No acute events overnight. Evans was seen and evaluated during hemodialysis this AM. He is tolerating treatment well. BP acceptable. Qb at goal. Review of Systems Review of Systems: All systems reviewed & are unremarkable except as noted in HPI & below Physical Exam Constitutional: well developed and + frail appearing; no acute distress Eyes: + anicteric sclerae; no corneal abnormal ity ENMT: Mouth: oral mucous membranes not dry Neck: normal visual inspection and trachea midline Respiratory: normal respiratory effort Auscultation: lungs clear to auscultation bilaterally Cardiovascular: Rate/Rhythm: regular rate Heart Sounds: normal S1 and normal S2 Extremities: no edema Musculoskeletal: Extremities: no cyanosis and no clubbing Skin: normal turgor; no jaundice Neurologic: Motor/Sensory: no tremor and no asterixis Psychiatric: Orientation: alert and oriented x 3 Results & Data Vital Signs (Past 12 Hours) Vital Signs Temp Pulse Pulse Pulse Resp BP BP 10/19/23 10:30 63 133/83 10/19/23 10:00 68 124/84 10/19/23 09:42 36.5 C 81 10/19/23 07:13 36.6 C 97 H 18 148/81 H 10/19/23 06:00 62 10/19/23 03:44 170/89 H 10/19/23 03:43 165/131 H 10/19/23 03:01 36.6 C 66 18 10/18/23 23:13 36.7 C 68 18 174/96 H 10/18/23 23:00 66 Pulse Ox O2 Del Method 10/19/23 10:30 10/19/23 10:00 10/19/23 09:42 10/19/23 07:13 94 Room Air 10/19/23 06:00 10/19/23 03:44 10/19/23 03:43 10/19/23 03:01 96 Room Air 10/18/23 23:13 96 Room Air 10/18/23 23:00 Laboratory Results Laboratory Results - last 24 hr 10/19/23 07:00 WBC 6.57 RBC 3.15 L Hgb 10.8 L Hct 32.0 L MCV 101.6 H MCH 34.3 H MCHC 33.8 RDW Std Deviation 49.2 H RDW Coeff of Paula 13.2 Plt Count 187 MPV 9.5 Sodium 136 Potassium 3.9 Chloride 104 Carbon Dioxide 25 Anion Gap 7 BUN 36 H Creatinine 4.06 H Est Cr Clr Drug Dosing 11.7 Est GFR ( Amer) 15.0 Est GFR (Non-Af Amer) 12.9 BUN/Creatinine Ratio 8.9 L Glucose 79 Calcium 8.8 Cortisol AM Sample 10.58 PG Care Time/CCT Total # of Minutes Spent Total Time Spent with Patient: Total time spent is greater than 50% in coordination of care (as documented) at patient's floor/unit and/or counseling patient: Coding Level of Care Code 32729 SUB INP/OBS CARE 3/50MIN Diagnoses ESRD (end stage renal disease) on dialysis N18.6; Z99.2 Secondary hyperparathyroidism N25.81 Anemia D64.9 Anemia type: unspecified type Hyperphosphatemia E83.39 Orthostatic hypotension I95.1 (3) Anemia Anemia type: unspecified type Qualified Code(s): D64.9 - Anemia, unspecified
--- NOTE | 2023-10-19 15:46 | Hospitalist Progress Note ---
Date of Service October 19, 2023 Assessment & Plan (1) Acute confusion: Plan: 83 y/o with ESRD on hemodialysis and started on midodrine since Aug 2023 admitted with recurrent episodes of confusion - short episodes of acute confusion and unable to follow commands during these episodes, all associated with standing - CT Head/MRI brain without acute findings, MRA head/neck without intracranial or carotid/vertebral stenoses - TTE reviewed 09/18/23 - EF 55-60% mild AR - no evidence of infectious process based on history, exam, and admission evaluation including CBC, CMP, CXR, UA - has ESRD and recent significant difficulty with labile blood pressures, hypotension requiring prescription for midodrine with dose adjustments Aug-Sep this year, hypertensive in ED. Appears to be having orthostatic episodes that are triggering this presentation. No evidence of acute delirium. No intra/extracranial stenoses to aggravate this. Not on hypotensive/orthostatic or delirogenic meds. Standing BP day after admission dropped 64 points from supine. - continue tele monitoring however presentation atypical for arrhythmia. tele reviewed 10/18 - few PVCs but nothing to account for episodes Mr Stern had one of his stereotypical episodes witnessed 10/16 by his nurse when taking orthostatic VS. supine BP 150, standing 90 and onset of decreased LOC while standing, was alert but completely "out of it", followed commands, resolved -trial florinef 0.1 mg started 10/16, resumed midodrine 2.5 tid, will need to tolerate hypertension to maintain some standing BP -TSH 2/2 on Sep 8, AM cortisol normal at 10.5 (was also recently normal as outpatient per PCP) -this may continue to be a very difficult management problem -episode this afternoon different since was reclining in bed. Has already had all components of a TIA workup as outlined above, will add 81 mg aspirin though not clearcut TIA. Reviewed MAR and no sedating/delirogenic meds. Hospital delirium is always a possibility. -will obtain EEG though seems unlikely to be revealing -likewise, arrange ambulatory monitoring tech on discharge as planned by his PCP -discussed plan of care with his PCP Dr. 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 Alanis consulted, ok to start weaning collar - can remove for about an hour for mealtimes (4) Elevated troponin: Plan: - trop minimally elevated and flat trend around 30-40 in the setting of ESRD on HD - no acute chest pain/dyspnea - EKG without ischemic changes - not consistent with ACS - had /10 L sided CP episode 10/18 - obtained EKG - personally reviewed tracing, sinus, LVH, nonspecific ST abnormality, unchanged from prior, no acute changes. Trop remains unchanged and minimally elevated (5) Celiac disease: Plan: - gluten free diet (6) End stage renal disease: Plan: - has dialysis line for access - HD on MWF - tolerated HD well on 10/18 - consulted lap regulator, discussed with Dr. 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 No further confusion episodes since yesterday afternoon. Had PT yest afternoon without symptoms and standing BP was more acceptable, has ambulated to commode several times since without lightheadedness or confusion, no dyspnea episodes Physical Exam 2 Physical Exam: PHYSICAL EXAMINATION Last 24h vital signs reviewed, see documentation in flowsheet General: comfortable appearing, no distress, on dialysis Exam unchanged 10/18 HEENT: Normocephalic, atraumatic, pupils round and equal, sclerae anicteric, no conjunctival injection, moist mucus membranes Wearing c-collar Lungs: Normal respiratory effort. Clear to auscultation bilaterally. No RRW Heart: Regular rate and rhythm, no murmurs. No JVD Tunneled HD catheter right upper chest Abdomen: Soft, nontender, nondistended. Bowel sounds present. Extremities: Warm, dry, well-perfused. No extremity edema. Neuro: Alert and oriented x 4, face symmetric, moves 4 extremities well, no tremor or bradykinesia Psych: Normal affect and behavior Results & Data Results & Data Vital Signs (Past 12 Hours) Vital Signs Temp Pulse Pulse Resp BP BP Pulse Ox 10/19/23 14:04 83 10/19/23 13:10 36.5 C 67 156/60 H 10/19/23 13:00 69 125/74 10/19/23 12:30 68 134/90 10/19/23 12:00 68 151/98 H 10/19/23 11:30 64 167/101 H 10/19/23 11:00 61 136/96 10/19/23 10:30 63 133/83 10/19/23 10:00 68 124/84 10/19/23 09:42 36.5 C 81 10/19/23 07:13 36.6 C 97 H 18 148/81 H 94 10/19/23 06:00 62 10/19/23 03:44 170/89 H 10/19/23 03:43 165/131 H O2 Del Method 10/19/23 14:04 10/19/23 13:10 10/19/23 13:00 10/19/23 12:30 10/19/23 12:00 10/19/23 11:30 10/19/23 11:00 10/19/23 10:30 10/19/23 10:00 10/19/23 09:42 10/19/23 07:13 Room Air 10/19/23 06:00 10/19/23 03:44 10/19/23 03:43 Laboratory Results 10/19/23 07:00 10/19/23 07:00 cortisol 10.5 PG Care Time/CCT Total # of Minutes Spent Total Time Spent with Patient: Total time spent is greater than 50% in coordination of care (as documented) at patient's floor/unit and/or counseling patient: Coding Level of Care Code 75717 SUB INP/OBS CARE 2/35MIN Diagnoses Acute confusion R41.0 Closed T4 spinal fracture S22.049A Encounter type: initial encounter Fracture morphology: unspecified fracture morphology Odontoid fracture S12.100K Encounter type: subsequent encounter Fracture healing: with nonunion Fracture type: closed Elevated troponin R79.89 Celiac disease K90.0 End stage renal disease N18.6 HTN (hypertension) I10 Hypothyroidism E03.9 HLD (hyperlipidemia) E78.5 (2) Closed T4 spinal fracture Encounter type: initial encounter Fracture morphology: unspecified fracture morphology Qualified Code(s): S22.049A - Unspecified fracture of fourth thoracic vertebra, initial encounter for closed fracture (3) Odontoid fracture Encounter type: subsequent encounter Fracture healing: with nonunion F racture type: closed Qualified Code(s): S12.100K - Unspecified displaced fracture of second cervical vertebra, subsequent encounter for fracture with nonunion
--- NOTE | 2023-10-19 16:37 | Electrocardiogram Report ---
Test Reason : Blood Pressure : / mmHG Vent. Rate : 078 BPM Atrial Rate : 078 BPM P-R Int : 170 ms QRS Dur : 110 ms QT Int : 412 ms P-R-T Axes : 053 -35 078 degrees QTc Int : 469 ms Normal sinus rhythm Incomplete right bundle branch block Left axis deviation Voltage criteria for left ventricular hypertrophy Nonspecific T wave abnormality Anterior leads Prolonged QT Abnormal ECG When compared with ECG of 17-OCT-2023 00:55, No significant change was found Confirmed by Rad Gilmore [id number]) on 10/19/2023 4:37:08 PM Referred By: Laron Montemayor Confirmed By:Rad Gilmore
--- NOTE | 2023-10-20 08:50 | Nephrology Progress Note ---
Date of Service October 20, 2023 Assessment & Plan (1) ESRD (end stage renal disease) on dialysis: Plan: * ESKD attributed to microvascular disease. Maintained on IHD MWF. * Outpatient Rx: 3.25 hours, 180 optiflux, 400/800, 3K 140Na 37HCO3 EDW 70.5 kg * Volume status and electrolyte balance are acceptable. No acute indication for HD today * Will increase EDW to 71.5 as patient is clinically euvolemic and experiencing syncopal events * Monitor PRP, BP (2) Orthostatic hypotension: Plan: * Continue Midodrine, Florinef and compression stockings * Will raise EDW on HD to 71.5 kg * PT consultation for strengthening (3) Anemia: Plan: * Maintained on Micera 75 mcg Q 4 weeks (4) Secondary hyperparathyroidism: Plan: * Maintained on calcitriol 1 mcg QHD (5) Hyperphosphatemia: Plan: * Renal diet. [facility]. Admission and Anticipated Discharge Date Admission Date: October 17, 2023 Subjective Mr. Stern was evaluated in his hospital room this morning. He did report a near syncopal event while ambulating back from the this morning. He did not injure himself. He voiced no other concerns Review of Systems Constitutional: no fever Eyes: no worsening vision Ear, Nose, Mouth, Throat: no problem reported Respiratory: no cough and no dyspnea Cardiovascular: no chest pain Gastrointestinal: no abdominal pain, no nausea, no vomiting and no diarrhea/loose stools Genitourinary: no dysuria Integumentary: no rash Neurologic: + falls Physical Exam Constitutional: + thin and + frail appearing; not in dis tress Eyes: PERRL, conjunctivae normal, anicteric sclerae ENMT: external ear and nose normal, oropharynx normal Neck: c-collar in place Respiratory: normal respiratory effort, lungs clear to auscultation Cardiovascular: RRR, no murmur, no edema Gastrointestinal (Abdomen): normal bowel sounds, soft, nontender, no hepatosplenomegaly Skin: no rashes, warm and dry + turgor decreased Neurologic: Speech / Cognition: normal speech and normal cognition Psychiatric: Affect: euthymic affect Results & Data Vital Signs (Past 12 Hours) Vital Signs Temp Pulse Pulse Resp BP BP Pulse Ox 10/20/23 08:18 36.3 C L 65 18 163/89 H 98 10/20/23 07:36 63 10/20/23 04:24 36.6 C 66 18 148/77 H 96 10/19/23 23:30 36.8 C 61 18 157/86 H 95 10/19/23 22:21 74 O2 Del Method 10/20/23 08:18 Room Air 10/20/23 07:36 10/20/23 04:24 Room Air 10/19/23 23:30 Room Air 10/19/23 22:21 Laboratory Results Laboratory Results - last 24 hr 10/19/23 10/19/23 14:51 22:39 Troponin I High Sens 30.3 H 35.0 H Laboratory Results - last 24 hr 10/19/23 10/19/23 10/20/23 14:51 22:39 09:14 WBC 5.73 RBC 3.14 L Hgb 10.8 L Hct 32.2 L MCV 102.5 H MCH 34.4 H MCHC 33.5 RDW Std Deviation 50.0 H RDW Coeff of Paula 13.2 Plt Count 203 MPV 9.7 Sodium 135 L Potassium 3.7 Chloride 104 Carbon Dioxide 22 Anion Gap 9 BUN 32 H Creatinine 3.68 H D Est Cr Clr Drug Dosing 12.9 Est GFR ( Amer) 16.9 Est GFR (Non-Af Amer) 14.5 BUN/Creatinine Ratio 8.7 L Glucose 128 H Calcium 8.5 L Troponin I High Sens 30.3 H 35.0 H PG Care Time/CCT Total # of Minutes Spent Total Time Spent with Patient: Total time spent is greater than 50% in coordination of care (as documented) at patient's floor/unit and/or counseling patient: Coding Level of Care Code 89903 SUB INP/OBS CARE 3/50MIN Diagnoses ESRD (end stage renal disease) on dialysis N18.6; Z99.2 Orthostatic hypotension I95.1 Anemia D64.9 Anemia type: unspecified type Secondary hyperparathyroidism N25.81 Hyperphosphatemia E83.39 (3) Anemia Anemia type: unspecified type Qualified Code(s): D64.9 - Anemia, unspecified
[2023-10-20 09:44] LABS: Hematocrit (blood only) 32.2 % (42.0-52.0); Hemoglobin 10.8 g/dl (14.0-18.0); Mean Corpuscular Hemoglobin 34.4 pg (25.0-34.0); Mean Corpuscular Hgb Conc 33.5 g/dL (32.0-36.0); Mean Corpuscular Volume 102.5 fL (80.0-100.0); Mean Platelet Volume 9.7 fL (9.4-12.4); Platelet Count 203 K/uL (130-400); RDW Coefficient of Variation 13.2 % (11.5-14.5); Red Blood Count 3.14 M/uL (4.70-6.10); White Blood Count 5.73 K/ul (4.8-10.8)
[2023-10-20 09:55] LABS: BUN Creatinine Ratio 8.7 (10-20); Calcium 8.5 mg/dl (8.6-10.3); Creatinine Clr Calc Pharmacy 12.9 ml/min; Est GFR (African American) 16.9 ml/min; Est GFR (Non-African American) 14.5 ml/min; Potassium 3.7 mmol/L (3.5-5.1)
--- NOTE | 2023-10-20 12:25 | Hospitalist Progress Note ---
Date of Service October 20, 2023 Assessment & Plan (1) Acute confusion: Plan: 83 y/o with ESRD on hemodialysis and started on midodrine since Aug 2023 admitted with recurrent episodes of confusion - short episodes of acute confusion and unable to follow commands during these episodes, all associated with standing - CT Head/MRI brain without acute findings, MRA head/neck without intracranial or carotid/vertebral stenoses - TTE reviewed 09/18/23 - EF 55-60% mild AR - no evidence of infectious process based on history, exam, and admission evaluation including CBC, CMP, CXR, UA - has ESRD and recent significant difficulty with labile blood pressures, hypotension requiring prescription for midodrine with dose adjustments Aug-Sep this year, hypertensive in ED. Appears to be having orthostatic episodes that are triggering this presentation. No evidence of acute delirium. No intra/extracranial stenoses to aggravate this. Not on hypotensive/orthostatic or delirogenic meds. Standing BP day after admission dropped 64 points from supine. - continue tele monitoring however presentation atypical for arrhythmia. tele reviewed 10/19 - few PVCs but nothing to account for episodes Mr Stern had one of his stereotypical episodes witnessed 10/16 by his nurse when taking orthostatic VS. supine BP 150, standing 90 and onset of decreased LOC while standing, was alert but completely "out of it", followed commands, resolved -trial florinef 0.1 mg started 10/16, resumed midodrine increase to 5 mg tid, will need to tolerate hypertension to maintain some standing BP -TSH 2/2 on Sep 8, AM cortisol normal at 10.5 (was also recently normal as outpatient per PCP) -added ASA 81 mg in case of TIA ( reported episode of confusion and speech disturbance afternoon of 10/17 while reclining in bed), has already had all components of a TIA workup as outlined above -this may continue to be a very difficult management problem -ordered EEG but has not been able to be done, seems unlikely to be revealing however -likewise, arrange ambulatory quality assurance monitor on discharge as planned by his PCP -discussed plan of care with his PCP Dr. 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 Alanis consulted, ok to start weaning collar - can remove for about an hour for mealtimes - follow up with Dr. Alanis in about 2 weeks (4) Elevated troponin: Plan: - trop minimally elevated and flat trend around 30-40 in the setting of ESRD on HD - no acute chest pain/dyspnea episodes until brief episode nonradiating L chest discomfort pm 10/18, troponins unchanged in 30s - EKG without ischemic changes, reviewed EKG pm 10/18 unchanged - not consistent with ACS (5) Celiac disease: Plan: - gluten free diet (6) End stage renal disease: Plan: - has dialysis line for access - HD on MWF - tolerated HD well on 10/18 - consulted repair supervisor (7) HTN (hypertension): Plan: History of hypertension, labile blood pressures, hypertensive in ED however recent hypotension and prescribed midodrine - see above -see above (8) Hypothyroidism: Plan: - continue levothyroxine (9) HLD (hyperlipidemia): Plan: - continue statin Plan VTE ppx: SQ heparin discussed findings and plan of care with patient, his at bedside and two sons on speakerphone 10/17 dispo - planned for [facility] unit Sunday or Sunday Admission and Anticipated Discharge Date Admission Date: October 17, 2023 Subjective Generally has done well last 24h, tolerated HD well yesterday AM. No confusion episodes reported. Last night got up from commode unassisted and fell onto his knees. No injury. Said he thought he tripped but then also said he was lightheaded when he stool up. Physical Exam 2 Physical Exam: PHYSICAL EXAMINATION Last 24h vital signs reviewed, see documentation in flowsheet General: comfortable appearing, no distress, lying in bed Exam unchanged 10/18 HEENT: Normocephalic, atraumatic, pupils round and equal, sclerae anicteric, no conjunctival injection, moist mucus membranes Wearing c-collar Lungs: Normal respiratory effort. Clear to auscultation bilaterally. No RRW Heart: Regular rate and rhythm, no murmurs. No JVD Tunneled HD catheter right upper chest Abdomen: Soft, nontender, nondistended. Bowel sounds present. Extremities: Warm, dry, well-perfused. No extremity edema. Neuro: Alert and oriented x 4, face symmetric, moves 4 extremities well Psych: Normal affect and behavior Results & Data Results & Data Vital Signs (Past 12 Hours) Vital Signs Temp Pulse Pulse Resp BP Pulse Ox O2 Del Method 10/20/23 11:34 36.7 C 62 18 124/76 92 Room Air 10/20/23 08:18 36.3 C L 65 18 163/89 H 98 Room Air 10/20/23 07:36 63 10/20/23 04:24 36.6 C 66 18 148/77 H 96 Room Air Laboratory Results 10/20/23 09:14 10/20/23 09:14 PG Care Time/CCT Total # of Minutes Spent Total Time Spent with Patient: Total time spent is greater than 50% in coordination of care (as documented) at patient's floor/unit and/or counseling patient: Coding Level of Care Code 20016 SUB INP/OBS CARE 2/35MIN Diagnoses Acute confusion R41.0 Closed T4 spinal fracture S22.049A Encounter type: initial encounter Fracture morphology: unspecified fracture morphology Odontoid fracture S12.100K Encounter type: subsequent encounter Fracture healing: with nonunion Fracture type: closed Elevated troponin R79.89 Celiac disease K90.0 End stage renal disease N18.6 HTN (hypertension) I10 Hypothyroidism E03.9 HLD (hyperlipidemia) E78.5 (2) Closed T4 spinal fracture Encounter type: initial encounter Fracture morphology: unspecified fracture morphology Qualified Code(s): S22.049A - Unspecified fracture of fourth thoracic vertebra, initial encounter for closed fracture (3) Odontoid fracture Encounter type: subsequent encounter Fracture healing: with nonunion F racture type: closed Qualified Code(s): S12.100K - Unspecified displaced fracture of second cervical vertebra, subsequent encounter for fracture with nonunion
[2023-10-20] MEDS: MIDODRINE HCL 2.5 MG TAB PO SCH (18:00)
[2023-10-20] MEDS: ACETAMINOPHEN 500 MG TAB PO PRN (20:17)
[2023-10-21 06:22] LABS: BUN Creatinine Ratio 10.7 (10-20); Calcium 8.9 mg/dl (8.6-10.3); Creatinine Clr Calc Pharmacy 10.8 ml/min; Est GFR (African American) 13.6 ml/min; Est GFR (Non-African American) 11.8 ml/min; Potassium 3.8 mmol/L (3.5-5.1)
[2023-10-21 06:24] LABS: Hematocrit (blood only) 31.9 % (42.0-52.0); Hemoglobin 10.7 g/dl (14.0-18.0); Mean Corpuscular Hemoglobin 34.3 pg (25.0-34.0); Mean Corpuscular Hgb Conc 33.5 g/dL (32.0-36.0); Mean Corpuscular Volume 102.2 fL (80.0-100.0); Mean Platelet Volume 9.9 fL (9.4-12.4); Platelet Count 206 K/uL (130-400); RDW Coefficient of Variation 12.8 % (11.5-14.5); RDW Standard Deviation 48.1 fL (36.4-46.3); Red Blood Count 3.12 M/uL (4.70-6.10); White Blood Count 6.84 K/ul (4.8-10.8)
--- NOTE | 2023-10-21 09:11 | Nephrology Progress Note ---
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 Maintained on IHD MWF. * Outpatient Rx: 3.25 hours, 180 optiflux, 400/800, 3K 140Na 37HCO3 EDW 70.5 kg * Volume status and electrolyte balance are acceptable. No acute indication for HD today * I have called [facility] HD unit and increased EDW to 71.5 kg. Hopefully this will reduce his incidence of orthostasis/near syncope * Monitor PRP, BP (2) Orthostatic hypotension: Plan: * Continue Midodrine, Florinef and compression stockings * HD EDW has been increased to 71.5 kg * PT consultation for strengthening (3) Anemia: Plan: * Maintained on Micera 75 mcg Q 4 weeks (4) Secondary hyperparathyroidism: Plan: * Maintained on calcitriol 1 mcg QHD (5) Hyperphosphatemia: Plan: * Renal diet. [facility]. Admission and Anticipated Discharge Date Admission Date: October 17, 2023 Subjective Mr. Stern was evaluated in his hospital room this morning. He was up to the BR this morning and suffered no orthostasis. Mr. Stern is anxious to return home. He voiced no new medical concerns Review of Systems Constitutional: no fever Eyes: no worsening vision Ear, Nose, Mouth, Throat: no problem reported Respiratory: no cough and no dyspnea Cardiovascular: no chest pain Gastrointestinal: no abdominal pain, no nausea, no vomiting and no diarrhea/loose stools Genitourinary: no dysuria Integumentary: no rash Neurologic: + falls Physical Exam Constitutional: + thin and + frail appearing; not in dis tress Eyes: PERRL, conjunctivae normal, anicteric sclerae ENMT: external ear and nose normal, oropharynx normal Respiratory: normal respiratory effort, lungs clear to auscultation Cardiovascular: RRR, no murmur, no edema Gastrointestinal (Abdomen): normal bowel sounds, soft, nontender, no hepatosplenomegaly Skin: no rashes, warm and dry + turgor decreased Neurologic: Speech / Cognition: normal speech and normal cognition Psychiatric: Affect: euthymic affect Results & Data Vital Signs (Past 12 Hours) Vital Signs Temp Pulse Pulse Resp BP BP Pulse Ox 10/21/23 08:08 36.6 C 83 18 178/94 H 96 03/10/24 07:10 58 L 10/21/23 03:35 36.6 C 61 18 159/85 H 97 10/20/23 22:55 36.6 C 69 18 170/101 H 97 10/20/23 21:56 66 O2 Del Method 10/21/23 08:08 Room Air 10/21/23 07:10 10/21/23 03:35 Room Air 10/20/23 22:55 Room Air 10/20/23 21:56 Laboratory Results Laboratory Results - last 24 hr 10/20/23 10/21/23 09:14 05:19 WBC 5.73 6.84 RBC 3.14 L 3.12 L Hgb 10.8 L 10.7 L Hct 32.2 L 31.9 L MCV 102.5 H 102.2 H MCH 34.4 H 34.3 H MCHC 33.5 33.5 RDW Std Deviation 50.0 H 48.1 H RDW Coeff of Paula 13.2 12.8 Plt Count 203 206 MPV 9.7 9.9 Sodium 135 L 134 L Potassium 3.7 3.8 Chloride 104 104 Carbon Dioxide 22 20 L Anion Gap 9 10 BUN 32 H 47 H Creatinine 3.68 H D 4.39 H D Est Cr Clr Drug Dosing 12.9 10.8 Est GFR ( Amer) 16.9 13.6 Est GFR (Non-Af Amer) 14.5 11.8 BUN/Creatinine Ratio 8.7 L 10.7 Glucose 128 H 81 Calcium 8.5 L 8.9 PG Care Time/CCT Total # of Minutes Spent Total Time Spent with Patient: Total time spent is greater than 50% in coordination of care (as documented) at patient's floor/unit and/or counseling patient: Coding Level of Care Code 27412 SUB INP/OBS CARE 3/50MIN Diagnoses ESRD (end stage renal disease) on dialysis N18.6; Z99.2 Orthostatic hypotension I95.1 Anemia D64.9 Anemia type: unspecified type Secondary hyperparathyroidism N25.81 Hyperphosphatemia E83.39 (3) Anemia Anemia type: unspecified type Qualified Code(s): D64.9 - Anemia, unspecified
--- NOTE | 2023-10-21 13:44 | Hospitalist Progress Note ---
Date of Service October 21, 2023 Assessment & Plan (1) Acute confusion: Plan: 83 y/o with ESRD on hemodialysis and started on midodrine since Aug 2023 admitted with recurrent episodes of confusion - short episodes of acute confusion and unable to follow commands during these episodes, all associated with standing - CT Head/MRI brain without acute findings, MRA head/neck without intracranial or carotid/vertebral stenoses - TTE reviewed 09/18/23 - EF 55-60% mild AR - no evidence of infectious process based on history, exam, and admission evaluation including CBC, CMP, CXR, UA - has ESRD and recent significant difficulty with labile blood pressures, hypotension requiring prescription for midodrine with dose adjustments Aug-Sep this year, hypertensive in ED. Appears to be having orthostatic episodes that are triggering this presentation. No evidence of acute delirium. No intra/extracranial stenoses to aggravate this. Not on hypotensive/orthostatic or delirogenic meds. Standing BP day after admission dropped 64 points from supine. - continue tele monitoring however presentation atypical for arrhythmia. tele reviewed 10/20 - few PVCs but nothing to account for episodes since admission Mr Stern had one of his stereotypical episodes witnessed 10/16 by his nurse when taking orthostatic VS. supine BP 150, standing 90 and onset of decreased LOC while standing, was alert but completely "out of it", followed commands, resolved -trial florinef 0.1 mg started 10/16, continue midodrine 5 mg 3 times daily, dry weight was increased by supervisor paint department, will need to tolerate hypertension to maintain some standing BP -TSH 2/2 on Sep 8, AM cortisol normal at 10.5 (was also recently normal as outpatient per PCP) -added ASA 81 mg in case of TIA ( reported episode of confusion and speech disturbance afternoon of 10/17 while reclining in bed), has already had all components of a TIA workup as outlined above -this may continue to be a very difficult management problem -ordered EEG but has not been able to be done, seems unlikely to be revealing however, can be considered as an outpatient if unable to be done prior to discharge -likewise, arrange ambulatory monitor worker on discharge as planned by his PCP -discussed plan of care with his PCP Dr. 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 Alanis consulted, ok to start weaning collar - can remove for about an hour for mealtimes - follow up with Dr. Alanis in about 2 weeks (4) Elevated troponin: Plan: - trop minimally elevated and flat trend around 30-40 in the setting of ESRD on HD - no acute chest pain/dyspnea episodes until brief episode nonradiating L chest discomfort pm 10/18, troponins unchanged in 30s - EKG without ischemic changes, reviewed EKG pm 10/18 unchanged - not consistent with ACS (5) Celiac disease: Plan: - gluten free diet (6) End stage renal disease: Plan: - has dialysis line for access - HD on MWF - tolerated HD well on 10/18 - consulted supervisor paint department (7) HTN (hypertension): Plan: History of hypertension, labile blood pressures, hypertensive in ED however recent hypotension and prescribed midodrine - see above -see above (8) Hypothyroidism: Plan: - continue levothyroxine (9) HLD (hyperlipidemia): Plan: - continue statin Plan reviewed labs 10/20 notable for stable anemia unchanged hematocrit, electrolytes acceptable VTE ppx: SQ heparin discussed findings and plan of care with patient, his at bedside and two sons on speakerphone 10/17 dispo - planned for [place] unit Sunday Admission and Anticipated Discharge Date Admission Date: October 17, 2023 Subjective doing well last 24 hours no episodes of symptomatic orthostasis, no episodes of decreased level of consciousness or confusion had neck collar off for dinner yesterday tolerated well, was placed back on when he did develop some mild neck soreness no chest pain no dyspnea Physical Exam 2 Physical Exam: PHYSICAL EXAMINATION Last 24h vital signs reviewed, see documentation in flowsheet General: comfortable appearing, no distress, sitting on edge of bed with breakfast tray Exam unchanged 10/18 HEENT: Normocephalic, atraumatic, pupils round and equal, sclerae anicteric, no conjunctival injection, moist mucus membranes Wearing c-collar which I removed for him for breakfast Lungs: Normal respiratory effort. Clear to auscultation bilaterally. No RRW Heart: Regular rate and rhythm, no murmurs. No JVD Tunneled HD catheter right upper chest Abdomen: Soft, nontender, nondistended. Bowel sounds present. Extremities: Warm, dry, well-perfused. No extremity edema. Neuro: Alert and oriented x 4, face symmetric, moves 4 extremities well Psych: Normal affect and behavior Results & Data Results & Data Vital Signs (Past 12 Hours) Vital Signs Temp Pulse Pulse Resp BP BP Pulse Ox 10/21/23 12:01 36.4 C L 79 18 168/90 H 95 10/21/23 08:08 36.6 C 83 18 178/94 H 96 10/21/23 07:10 58 L 10/21/23 03:35 36.6 C 61 18 159/85 H 97 O2 Del Method 10/21/23 12:01 Room Air 10/21/23 08:08 Room Air 10/21/23 07:10 10/21/23 03:35 Room Air Laboratory Results 10/21/23 05:19 10/21/23 05:19 PG Care Time/CCT Total # of Minutes Spent Total Time Spent with Patient: Total time spent is greater than 50% in coordination of care (as documented) at patient's floor/unit and/or counseling patient: Coding Level of Care Code 62788 SUB INP/OBS CARE 2/35MIN Diagnoses Acute confusion R41.0 Closed T4 spinal fracture S22.049A Encounter type: initial encounter Fracture morphology: unspecified fracture morphology Odontoid fracture S12.100K Encounter type: subsequent encounter Fracture healing: with nonunion Fracture type: closed Elevated troponin R79.89 Celiac disease K90.0 End stage renal disease N18.6 HTN (hypertension) I10 Hypothyroidism E03.9 HLD (hyperlipidemia) E78.5 (2) Closed T4 spinal fracture Encounter type: initial encounter Fracture morphology: unspecified fracture morphology Qualified Code(s): S22.049A - Unspecified fracture of fourth thoracic vertebra, initial encounter for closed fracture (3) Odontoid fracture Encounter type: subsequent encounter Fracture healing: with nonunion F racture type: closed Qualified Code(s): S12.100K - Unspecified displaced fracture of second cervical vertebra, subsequent encounter for fracture with nonunion
[2023-10-22] MEDS ORDERED: SODIUM CHLORIDE 0.9% 1,000 ML IV PRN (07:00)
--- NOTE | 2023-10-22 09:02 | Nephrology Progress Note ---
Date of Service October 22, 2023 Assessment & Plan (1) ESRD (end stage renal disease) on dialysis: Plan: * ESKD attributed to microvascular disease. Maintained on IHD MWF. * Outpatient Rx: 3.25 hours, 180 optiflux, 400/800, 3K 140Na 37HCO3 EDW 70.5 kg * Will provide HD today. No UF. EDW has been increased to 71.[address] in EMR and HD RN notified * I have called [facility] HD unit and increased EDW to 71.5 kg. Hopefully this will reduce his incidence of orthostasis/near syncope * Monitor PRP, BP (2) Orthostatic hypotension: Plan: * Continue Midodrine, Florinef and compression stockings * HD EDW has been increased to 71.5 kg * PT consultation for strengthening (3) Anemia: Plan: * Maintained on Micera 75 mcg Q 4 weeks (4) Secondary hyperparathyroidism: Plan: * Maintained on calcitriol 1 mcg QHD (5) Hyperphosphatemia: Plan: * Renal diet. [facility]. Admission and Anticipated Discharge Date Admission Date: October 17, 2023 Subjective Mr. Stern was evaluated in his hospital room this morning. He was awaiting HD. He reports that he was able to ambulate yesterday without orthostasis or near syncope Review of Systems Constitutional: no fever Eyes: no worsening vision Ear, Nose, Mouth, Throat: no problem reported Respiratory: no cough and no dyspnea Cardiovascular: no chest pain Gastrointestinal: no abdominal pain, no nausea, no vomiting and no diarrhea/loose stools Genitourinary: no dysuria Integumentary: no rash Neurologic: + falls Physical Exam Constitutional: + thin and + frail appearing; not in dis tress Eyes: PERRL, conjunctivae normal, anicteric sclerae ENMT: external ear and nose normal, oropharynx normal Respiratory: normal respiratory effort, lungs clear to auscultation Cardiovascular: RRR, no murmur, no edema Gastrointestinal (Abdomen): normal bowel sounds, soft, nontender, no hepatosplenomegaly Skin: no rashes, warm and dry + turgor decreased Neurologic: Speech / Cognition: normal speech and normal cognition Psychiatric: Affect: euthymic affect Results & Data Vital Signs (Past 12 Hours) Vital Signs Temp Pulse Pulse Pulse Resp BP BP 10/22/23 08:34 10/22/23 07:57 36.5 C 61 16 163/89 H 10/22/23 07:16 61 10/22/23 04:00 36.8 C 64 18 153/80 H 10/21/23 23:30 61 10/21/23 23:15 36.8 C 72 18 156/91 H Pulse Ox O2 Del Method 10/22/23 08:34 Room Air 10/22/23 07:57 97 Room Air 10/22/23 07:16 10/22/23 04:00 97 Room Air 10/21/23 23:30 10/21/23 23:15 97 Room Air PG Care Time/CCT Total # of Minutes Spent Total Time Spent with Patient: Total time spent is greater than 50% in coordination of care (as documented) at patient's floor/unit and/or counseling patient: Coding Level of Care Code 76723 SUB INP/OBS CARE 3/50MIN Diagnoses ESRD (end stage renal disease) on dialysis N18.6; Z99.2 Orthostatic hypotension I95.1 Anemia D64.9 Anemia type: unspecified type Secondary hyperparathyroidism N25.81 Hyperphosphatemia E83.39 (3) Anemia Anemia type: unspecified type Qualified Code(s): D64.9 - Anemia, unspecified
[2023-10-22] MEDS: HEPARIN SOD (PORCINE) 1000 UNIT/ML IV ONE (09:29)
[2023-10-22] MEDS: HEPARIN SOD (PORCINE) 1000 UNIT/ML IV SCH (10:16)
--- NOTE | 2023-10-22 17:32 | Discharge Summary ---
Date of Service October 22, 2023 Admission HPI Per Admitting Provider 83 year old male with a past medical history of ESRD on HD, celiac disease, GERD, GA, CHF, DVT, a fib, HTN presenting with concern for episodes of confusion. States that they have been occurring intermittently for the past month. History of odontoid fracture 08/04 and has been following with ortho spine, has been wearing cervical collar. He has been having episodes of lightheadedness, confusion, pre-syncope, but has never had LOC during these events. Has had 3 episodes in the past week. Lives at [facility] with and has been working with PT/OT. Denies weakness, sensory changes. Denies neck/back pain. Denies chest pain, dyspnea. ED work-up significant for acute single column fracture of the T4 vertebral body with moderate bone marrow edema. Trop= 38. Principal Diagnosis Recurrent episodes of transient encephalopathy related to hypoperfusion / severe orthostatic hypotension Discharge Exam PHYSICAL EXAMINATION Last 24h vital signs reviewed, see documentation in flowsheet General: comfortable appearing, no distress, again sitting up for breakfast Exam unchanged 10/21 HEENT: Normocephalic, atraumatic, pupils round and equal, sclerae anicteric, no conjunctival injection, moist mucus membranes Wearing c-collar which I removed for him for breakfast again Lungs: Normal respiratory effort. Clear to auscultation bilaterally. No RRW Heart: Regular rate and rhythm, no murmurs. No JVD Tunneled HD catheter right upper chest Abdomen: Soft, nontender, nondistended. Bowel sounds present. Extremities: Warm, dry, well-perfused. No extremity edema. Neuro: Alert and oriented x 4, face symmetric, moves 4 extremities well Psych: Normal affect and behavior Discharge Data Allergies Allergy/AdvReac Type Severity Reaction Status Date / Time gluten Allergy Intermediate CELIAC Verified 10/16/23 22:24 DISEASE--Gastrointestinal Upset Consultations 10/17/23 01:42 ED Decision to Admit Stat 10/17/23 02:05 ED Decision to Admit Stat 10/17/23 02:12 Consult Nephrology Routine 10/17/23 02:24 Consult Orthopedic Spine Surgery Routine Ordered Studies 10/16/23 16:58 CT head/brain wo con Stat 10/16/23 22:04 MRI Brain [MR brain wo con] Stat MRI Cervical [MR cervical spine wo con] Stat 10/17/23 02:21 MRI Angio Brain [MR angio head wo con] Urgent Chest X-Ray 10/16/23 16:58 XR chest 1V portable HISTORY: 83 years-old Male weakness acute weakness COMPARISON: Chest CT 07/21/2023 TECHNIQUE: PA view chest FINDINGS: Cardiac silhouette is enlarged. Dual-lumen right IJ hemodialysis catheter. Small pleural effusions. Esophagectomy changes with pull-through redemonstrated. No pneumothorax or overt pulmonary edema. Bones appear grossly intact. IMPRESSION: 1. Cardiomegaly without pulmonary edema. 2. Small pleural effusions. ACT 112: Negative or not required by law. The above report was generated using voice recognition software. It may contain grammatical, syntax or spelling errors. Electronically signed by: Garrick Caceres M.D. 10/16/2023 5:[address] 10/16/23 16:58 Exam(s): CT HEAD Without Contrast EXAM: CT Head Without Intravenous Contrast CLINICAL HISTORY: Reason for exam: episodes of confusion. TECHNIQUE: Axial computed tomography images of the head/brain without intravenous contrast. CTDI is 62.5 mGy and DLP is 1098.96 mGy-cm. Automated exposure control was utilized for the study. A dose lowering technique was utilized adhering to the principles of ALARA. COMPARISON: No relevant prior studies available. FINDINGS: No acute intracranial hemorrhage. No midline shift or mass effect. The territorial parmar-white matter differentiation is maintained throughout. Age-related cerebral volume loss. Periventricular and subcortical white matter hypoattenuation, consistent with chronic microangiopathy. The visualized orbits appear grossly unremarkable. The calvarium is intact. The visualized paranasal sinuses and mastoid air cells are grossly clear. IMPRESSION: No acute intracranial hemorrhage, midline shift, or mass effect. Electronically signed by: René Johns MD 10/16/23 20:00 PM Brain MRI 10/16/23 22:04 Exam(s): MRI HEAD Without Contrast EXAM: MR Head Without Intravenous Contrast CLINICAL HISTORY: Reason for exam: Confusion, change in mental status. TECHNIQUE: Magnetic resonance images of the head/brain without intravenous contrast in multiple planes. COMPARISON: No relevant prior studies available. FINDINGS: No acute territorial infarct. No acute intracranial hemorrhage. No midline shift or mass effect. The territorial parmar-white matter differentiation is maintained throughout. Age-related cerebral volume loss. Periventricular and subcortical white matter T2 signal intensity, consistent with chronic microangiopathy. The visualized orbits appear grossly unremarkable. The calvarium is intact. The visualized paranasal sinuses and mastoid air cells are grossly clear. IMPRESSION: No acute territorial infarct. No acute intracranial hemorrhage. No midline shift or mass effect. Electronically signed by: René Johns MD 10/16/23 23:27 PM Cervical Spine MRI 10/16/23 22:04 CR Exam(s): MRI C SPINE EXAM: MR Cervical Spine Without Intravenous Contrast CLINICAL HISTORY: Reason for exam: Mental status changes, history of cervical fractur. TECHNIQUE: Magnetic resonance images of the cervical spine without intravenous contrast in multiple planes. COMPARISON: Comparison made to prior CT scan of the cervical spine from July 28, 2023. FINDINGS: Vertebrae: There are 7 cervical type vertebral bodies with a mild generalized curvature of the left and a hyper cervical lordosis. There is a loud odontoid fracture deformity with persistent fluid cleft. There is no acute single column fracture of the T4 vertebral body with moderate pulmonary edema. Spinal cord: The cord has normal size, shape and signal characteristics. The craniocervical junction is normal without evidence of Chiari malformation. Soft tissues: The cervical flow voids are intact. DISCS/SPINAL CANAL/NEURAL FORAMINA: C2-C3: Moderate disc degeneration with annular disc bulge flattening the ventral thecal sac. Mild to moderate facet arthropathy with advanced right and mild left synovitis with bone marrow edema and inflammation of the soft tissues. C3-C4: Advanced disc degeneration with annular disc bulge flattening the ventral thecal sac. Mild to moderate facet arthropathy with mild synovitis. C4-C5: Partial ankylosis across the segments without stenosis or impingement. The facet joints are ankylosed. C5-C6: Moderate disc degeneration with annular disc bulge flight of the thecal sac. Mild to moderate facet arthropathy with mild synovitis. C6-C7: Advanced disc degeneration with annular disc bulge flattening of the thecal sac. There is mild facet arthropathy with mild synovitis. C7-T1: Moderate disc degeneration with annular disc bulge flattening the thecal sac. Advanced facet arthropathy with mild synovitis. IMPRESSION: No evidence of acute cervical spine pathology. There is an acute single column fracture of the T4 vertebral body with moderate bone marrow edema. Remote nonunited odontoid fracture. Communications: Verify Receipt Electronically signed by: Karissa Tran MD 10/17/23 00:24 AM Head MRA 10/17/23 02:21 Exam(s): MRA HEAD Without Contrast EXAM: MR Angiography Head Without Intravenous Contrast CLINICAL HISTORY: Reason for exam: Altered Mental Status. TECHNIQUE: Magnetic resonance angiography images of the head without intravenous contrast. COMPARISON: Prior MRI head 10/16/2023, CT had 10/16/2023 FINDINGS: Right internal carotid artery: No acute findings. Intracranial segment is patent with no significant stenosis. No aneurysm. Right anterior cerebral artery: Unremarkable. No occlusion or significant stenosis. No aneurysm. Right middle cerebral artery: Unremarkable. No occlusion or significant stenosis. No aneurysm. Right posterior cerebral artery: Unremarkable. No occlusion or significant stenosis. No aneurysm. Right vertebral artery: Unremarkable as visualized. Left internal carotid artery: No acute findings. Intracranial segment is patent with no significant stenosis. No aneurysm. Left anterior cerebral artery: Unremarkable. No occlusion or significant stenosis. No aneurysm. Left middle cerebral artery: Unremarkable. No occlusion or significant stenosis. No aneurysm. Left posterior cerebral artery: Unremarkable. No occlusion or significant stenosis. No aneurysm. Left vertebral artery: Unremarkable as visualized. Basilar artery: Unremarkable. No occlusion or significant stenosis. No aneurysm. IMPRESSION: No large vessel occlusion or severe stenosis. No aneurysm. Electronically signed by: Elizabeth Daniels M.D. 10/17/23 06:44 AM 10/21/23 05:19 10/21/23 05:19 Hospital Course (1) Acute confusion: 83 y/o with ESRD on hemodialysis and started on midodrine since Aug 2023 admitted with recurrent episodes of acute encephalopathy - short episodes of acute confusion and unable to follow commands during these episodes, all associated with standing - CT Head/MRI brain without acute findings, MRA head/neck without intracranial or carotid/vertebral stenoses - TTE reviewed 09/18/23 - EF 55-60% mild AR - no evidence of infectious process based on history, exam, and admission evaluation including CBC, CMP, CXR, UA - has ESRD and recent significant difficulty with labile blood pressures, hypotension requiring prescription for midodrine with dose adjustments Aug-Sep this year, hypertensive in ED. Appears to be having orthostatic episodes that are triggering this presentation. No evidence of acute delirium. No intra/extracranial stenoses to aggravate this. Not on hypotensive/orthostatic or delirogenic meds. Standing BP day after admission dropped 64 points from supine. - presentation atypical for arrhythmia. monitored on telemetry throughout this hospital stay including during one clearcut episode - few PVCs but nothing to account for presentation Mr Stern had one of his stereotypical episodes witnessed 10/16 by his nurse when taking orthostatic VS. supine BP 150, standing 90 and onset of decreased LOC while standing, was alert but completely "out of it", followed commands, resolved -trial florinef 0.1 mg started 10/16, continue midodrine 5 mg 3 times daily, dry weight was increased by architect naval to 71.5 kg and this was communicated to his dialysis center, will need to tolerate hypertension to maintain some standing BP -TSH 2/2 on Sep 20, AM cortisol normal at 10.5 (was also recently normal as outpatient per PCP) -added ASA 81 mg in case of TIA ( reported episode of confusion and speech disturbance afternoon of 10/17 while reclining in bed), has already had all components of a TIA workup as outlined above -thigh high NANCY hose -this may continue to be a very difficult management problem -ordered EEG but was able to be done, seems unlikely to be revealing however, can be considered as an outpatient -likewise, arrange ambulatory threat monitoring analyst on discharge as planned by his PCP - made referral for this -discussed plan of care with his PCP Dr. 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 Alanis consulted, ok to start weaning collar - can remove for about an hour for mealtimes - follow up with Dr. Alanis in about 2 weeks (4) Elevated troponin: - trop minimally elevated and flat trend around 30-40 in the setting of ESRD on HD - no acute chest pain/dyspnea episodes until brief episode nonradiating L chest discomfort pm 10/18, troponins unchanged in 30s - EKG without ischemic changes, reviewed EKG pm 10/18 unchanged - not consistent with ACS (5) Celiac disease: - gluten free diet (6) End stage renal disease: - has dialysis line for access - HD on MWF - tolerated HD well on 10/18, 10/21 - consulted architect naval - Dr. Flores saw him during this admission (7) HTN (hypertension): History of hypertension, labile blood pressures, hypertensive in ED however recent hypotension and prescribed midodrine - see above -not on antihypertensives, see above (8) Hypothyroidism: - continue levothyroxine (9) HLD (hyperlipidemia): - continue statin Total Time Total Time Spent Total Time Spent (In Minutes): I personally spent: 35 minutes today on clinical care activities including: reviewing chart notes and vital signs discussion with manager managed care, bedside RN examining and counseling the patient writing discharge orders and instructions documentation Discharge Plan Discharge Items Patient Disposition: Transfer Long Term Fac Reason For Visit: ALTERED MENTAL STATUS Discharge Diagnosis: orthostatic hypotension Condition on Discharge: Good Activity: Per Instructions section Weightbearing: Full weightbearing Non-emergency contact: Primary Care Provider and Photo Printer Call non-emergency contact if: you have any medication questions and your symptoms worsen Follow-up/Referrals: Laron Montemayor [Primary Care Provider] - Diet: Other - See Diet Comment Addtl Attending Provider Instructions: PT and OT evaluate and treat, WBAT Out of bed with assistance - has severe orthostatic hypotension at baseline Permissive hypertension If confusion or lightheadedness develops, please have him sit/lie down immediately until resolved Continue c-collar. May remove c-collar for up to an hour at a time during meals, per Dr. Alanis. Replace collar if/when neck feels sore Low potassium, normal salt diet, no fluid restriction Please schedule follow up with Dr. Alanis within 2 weeks for ortho spine Continue hemodialysis per usual outpatient schedule. Has tunneled HD line Rt upper chest BMP in 1 week (fludrocortisone initiated) Pending Studies at Discharge: No Stand-Alone Forms: [email or web address] Skilled Items Patient informed of condition?: Yes DNR: Yes Discharge Level of Care: Skilled Communicable Disease: No Discharge Prognosis: Improving Lines: None Urinary Catheter: No Medications and DC Order Prescriptions: New aspirin [Children's Aspirin] 81 mg Tablet,Chewable 81 mg PO QAM Qty: 0 0RF midodrine 2.5 mg Tablet 5 mg PO TID@0800,1200,1700 Qty: 0 0RF fludrocortisone 0.1 mg Tablet 0.1 mg PO QAM Qty: 0 0RF Continued levothyroxine 100 mcg tablet 100 mcg PO QAM Qty: 90 3RF sertraline [Zoloft] 100 mg tablet 100 mg PO QPM Qty: 90 3RF cyanocobalamin (vitamin B-12) [Vitamin B-12] 1,000 mcg Tablet 1,000 mcg PO HS Macular Health Formula 5-1-7.5 mg Capsule 1 cap PO HS calcium acetate(phosphat bind) 667 mg tablet 667 mg PO TID rosuvastatin 5 mg tablet 5 mg PO DAILY Toya-Lena Rx 1-60-300 mg-mg-mcg tablet 1 tab PO QAM acetaminophen 500 mg tablet 1,000 mg PO BID PRN (Reason: Pain) RenaPlex-D 800 mcg-12.5 mg -2,000 unit tablet 1 tab PO DAILY Discontinued midodrine 10 mg tablet 10 mg PO TID Discharge Orders: Discharge Order (Routine); Ordered 10/22/23 Ordered By: Yris Stacy/Other Patient Handouts: Exercises to Prevent Falls, ED Hypotension, Orthostatic Admission Data Admit Date/Time: 10/17/23 01:52 Attending Provider: Yris Cloud Admit Provider: Violet Youngblood Primary Care Provider: Laron Montemayor Other Providers: Buzz Roche; Jose Roberto Boucher; Simon Alanis Other Interventions: Discharge Summary Assessment (RN) Last Done: 10/22/23 15:24 Coding Level of Care Code 06724 INP/OBS DISCH >30 MIN Diagnoses Acute confusion R41.0 Closed T4 spinal fracture S22.049A Encounter type: initial encounter Fracture morphology: unspecified fracture morphology Odontoid fracture S12.100K Encounter type: subsequent encounter Fracture healing: with nonunion Fracture type: closed Elevated troponin R79.89 Celiac disease K90.0 End stage renal disease N18.6 HTN (hypertension) I10 Hypothyroidism E03.9 HLD (hyperlipidemia) E78.5
== END 2023-10-22 15:46 | DRG 312 ==
LOC: ED 16:10 → SUATTDRO 10-17 01:52 → EDINP 10-17 01:52 → INTOOBSV 10-17 01:52 → 2N 10-17 03:10
DX: S12.100K Unspecified displaced fracture of second cervical vertebra, subsequent encounter for fracture with nonunion; M80.08XD Age-related osteoporosis with current pathological fracture, vertebra(e), subsequent encounter for fracture with routine healing; E03.9 Hypothyroidism, unspecified; E78.5 Hyperlipidemia, unspecified; Z99.2 Dependence on renal dialysis; Z79.890 Hormone replacement therapy; Z66 Do not resuscitate; N25.81 Secondary hyperparathyroidism of renal origin; Y92.039 Unspecified place in apartment as the place of occurrence of the external cause; G93.40 Encephalopathy, unspecified; W18.30XD Fall on same level, unspecified, subsequent encounter; K90.0 Celiac disease; I95.1 Orthostatic hypotension; N18.6 End stage renal disease; D64.9 Anemia, unspecified; I13.2 Hypertensive heart and chronic kidney disease with heart failure and with stage 5 chronic kidney disease, or end stage renal disease; R79.89 Other specified abnormal findings of blood chemistry; I50.32 Chronic diastolic (congestive) heart failure; E83.39 Other disorders of phosphorus metabolism; I25.2 Old myocardial infarction; Z79.899 Other long term (current) drug therapy; R41.0 Disorientation, unspecified; Z86.718 Personal history of other venous thrombosis and embolism

== ENCOUNTER 2023-12-08 13:09 | Observation (INO) ==
--- NOTE | 2023-12-08 14:10 | Emergency Department Note ---
History of Present Illness General Chief complaint: Laceration/Cut (Suture/Dermabond) Stated complaint: FALL, LEFT ARM LACERATION Time Seen by Provider: 12/08/23 14:05 History of Present Illness Maximum Pain Intensity: 3 NAME: KULWANT ODELL AGE: 83 SEX: M : 1940 ARRIVES VIA: Walk-In INFORMANT: Patient ED PROVIDER(S): GERBER Brandt, Monty Pulido, The patient is a pleasant 83-year-old male with a PMH of orthostatic hypotension, paroxysmal atrial fibrillation, elevated troponin, STEMI, ESRD on HD, with a current odontoid fracture from a recent fall, who arrives to the emergency department with his for evaluation of a mechanical fall. The patient denies head strike, loss of consciousness, or precipitating events, however he states he is not sure exactly how the event occurred. The patient does report a recent odontoid fracture in July, due to a mechanical fall. He is currently wearing a hard collar, and has a blood soaked abad wrap applied to his left elbow and forearm from a hematoma and skin tear. He denies any chest pain, shortness of breath, or dizziness. He denies taking anticoagulants currently. Home Medications Medication Instructions Recorded Confirmed Type cyanocobalamin (vitamin B-12) 1,000 mcg PO HS 12/29/21 12/08/23 History 1,000 mcg tablet (Vitamin B-12) vitamin B comp no.3-folic acid 1 1 tab PO QAM 02/17/22 12/08/23 History mg-vit C 60 mg-biotin 300 mcg tablet ([facility]) calcium acetate(phosphat bind) 667 667 mg PO TIDM 06/13/22 12/08/23 History mg tablet urkbvgil-ivn-yzclay 5 mg-zeaxanth 1 cap PO HS 06/13/22 12/08/23 History 1 mg-bilberry 7.5 mg-herbal capsule (Macular Health Formula) acetaminophen 500 mg tablet 1,000 mg PO BID PRN Pain 08/23/22 12/08/23 History levothyroxine 100 mcg tablet 100 mcg PO QAM #90 tabs 11/27/22 12/08/23 Rx sertraline 100 mg tablet (Zoloft) 100 mg PO QPM #90 tabs 06/11/23 12/08/23 Rx rosuvastatin 5 mg tablet 5 mg PO DAILY 07/21/23 12/08/23 History vit B,C-folic ac 800 mcg-zinc 12.5 1 tab PO DAILY 10/16/23 12/08/23 History mg-selen-D3 2,000 unit-vit E tablet (RenaPlex-D) fludrocortisone 0.1 mg tablet 0.1 mg PO QAM #0 tabs 10/22/23 12/08/23 Rx aspirin 81 mg tablet,delayed 81 mg PO DAILY 12/08/23 12/08/23 History release midodrine 10 mg tablet 10 mg PO BID 12/08/23 12/08/23 History midodrine 5 mg tablet 5 mg PO DAILY 12/08/23 12/08/23 History polyethylene glycol 3350 17 17 g PO DAILY 12/08/23 12/08/23 History gram/dose oral powder (Miralax) Allergies Allergy/AdvReac Type Severity Reaction Status Date / Time gluten Allergy Intermediate CELIAC Verified 12/08/23 15:37 DISEASE--Gastrointestinal Upset Past Med/Surg History Medical History CKD (chronic kidney disease), stage V CAD (coronary artery disease) Mild to moderate nonobstructive per 2019 cath Diastolic CHF EF 65-70% 08/2022 echo Dialysis patient SUNDAY/SUNDAY/SUNDAY THRU CATHETER RIGHT CHEST DVT (deep venous thrombosis) Hx- 2019- PE and DVT to left LE- s/p esophageal perforation surgery Was on Eliquis until last month - d/c'ed secondary to DVT being provoked- on AC x 1 year Hyperphosphatemia Hx of hiatal hernia HTN (hypertension) Depression Respiratory failure Post op from esophageal perforation in 2019 No issues with subsequent surgery- no current breathing issues Atrial fibrillation with rapid ventricular response 2019- s/p pericarditis with volume overload (later dx'ed with esophageal perforation) Follows only with PCP- no AC No recurrence per patient Kidney stones No recent issues GERD (gastroesophageal reflux disease) Well controlled and stable Celiac disease Hypothyroidism Anemia Hgb ranges 7-10 Surgical History History of surgery Left Upper Extremity Fistulogram AVF (arteriovenous fistula) LUE AVF creation History of cardiac cath 2019- mild to moderate nonobstructive CAD History of repair of hiatal hernia PERFORATED [id number] SUBSEQUENT SURGERIES TO REPAIR, ETC (Had thoracotomy for hernia repair, esophagogastrectomy, GJ tube placement) History of carpal tunnel surgery of right wrist History of hammertoe correction bilt feet History of esophagogastroduodenoscopy (EGD) (06/12/17) History of colonoscopy (06/12/17) History of umbilical hernia repair History of tooth extraction Family History Father Dementia Mother Breast cancer Grandfather (Maternal) Stroke Family/Other Hypercholesterolemia Other No family history of adverse response to anesthesia Denies family history of Ovarian cancer Prostate cancer Myocardial infarction Colorectal cancer Social History Smoking Status: Never smoker Second Hand Exposure: No; Do You Dip or Chew Tobacco: No; Hx Alcohol Use: No Hx Substance Use: No Preferred Language: Cook Islander Communication Ability: Effective Visual Impairment: Partially Limited National Coverage Specialist Required: No Beliefs That Will Affect Care: None marital status: Current Living Situation: Spouse Current Living Situation Comment: lives with giovanna at [facility] in the [facility] current occupational status: retired 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 Feels Safe at Home: Yes Childhood Exposure to Second-Hand Smoke: No Dental Care, Regularly: Yes Physical Activity Frequency: 1-2 Times per Week Seatbelt Use: always Sunscreen Use: No Assistive Devices: Walker Physical Exam Vital Signs Vital Signs - 24 hr 12/08/23 13:17 12/08/23 14:48 12/08/23 15:42 Temperature 36.5 C Temperature Source Temporal Artery Scan Pulse Rate 80 Pulse Rate [Apical] 66 72 Pulse Rhythm Regular Pulse Strength Normal Respiratory Rate 18 18 19 Respiratory Effort / Characteristics Non-Labored Non-Labored Respiratory Depth Normal Normal Respiratory Pattern Regular Regular Blood Pressure 109/66 Blood Pressure [Right Arm] 189/110 H 148/102 H Blood Pressure Mean 80 Blood Pressure Mean [Right Arm] 136 117 Pulse Oximetry 97 98 99 Oxygen Delivery Method Room Air Room Air Room Air Sepsis Recent Fever Within 48 Hours No Sepsis New/Unexplained Change in Mental Status No Sepsis Action Taken by Nursing No Action Required 12/08/23 16:11 Temperature Temperature Source Pulse Rate 71 Pulse Rate [Apical] Pulse Rhythm Pulse Strength Respiratory Rate Respiratory Effort / Characteristics Respiratory Depth Respiratory Pattern Blood Pressure Blood Pressure [Right Arm] Blood Pressure Mean Blood Pressure Mean [Right Arm] Pulse Oximetry Oxygen Delivery Method Sepsis Recent Fever Within 48 Hours Sepsis New/Unexplained Change in Mental Status Sepsis Action Taken by Nursing VITALS: Vitals are noted on the nurse's note and reviewed by myself. Vital signs stable. GENERAL: 83-year-old male, in no acute distress, nondiaphoretic, well-developed well-nourished. SKIN: There is a large area of ecchymosis covering the LUE with multiple hematomas present to the posterior upper arm, elbow, and forearm. Skin tear over the left elbow, bleeding not controlled. HEAD: Normocephalic atraumatic. EARS: External auditory canals clear, tympanic membranes pearly parmar without erythema or effusion bilaterally. EYES: Pupils equal round and reactive to light and accommodation. Conjunctivae without injection, sclerae without icterus. Extraocular movements intact. NOSE: Patent, turbinates without inflammation or discharge. No sinus tenderness. MOUTH: Mucous membranes moist. Tonsils are not enlarged. Pharynx without erythema or exudate. Uvula midline. Airway patent. Tongue does not deviate. NECK: Cervical spine examination deferred, pt wearing hard collar for current fracture. HEART: Regular rate and rhythm without murmurs gallops or rubs. LUNGS: Clear to auscultation bilaterally without wheezes, rales or rhonchi. No retractions or accessory muscle use. ABDOMEN: Positive bowel sounds x 4. Soft, nontender, without masses or organomegaly. Haywood sign negative. No guarding or rebound tenderness. MUSCULOSKELETAL: No muscle erythema, or edema noted. Full range of motion without slight joint tenderness in left elbow. No tenderness to palpation, otherwise. Strength 5/5 throughout. NEURO: Patient was alert and oriented to person place and time. No focal neurological deficits. Course Administered Medications Cyanocobalamin (Cyanocobalamin (B-12) 500 Mcg Tablet) 1,000 mcg PO HS PRIYANK Stop: 01/07/24 20:59 Last Admin: 12/08/23 21:41 Dose: 1,000 mcg Documented By: MG Multivitamins/Minerals (Cerovite Adv Formula Tab) 1 tab PO HS PRIYANK Stop: 01/07/24 20:59 Last Admin: 12/08/23 21:41 Dose: 1 tab Documented By: MG Sertraline HCl (Sertraline Hcl 100 Mg Tablet) 100 mg PO QPM PRIYANK Stop: 01/07/24 20:59 Last Admin: 12/08/23 21:41 Dose: 100 mg Documented By: MG Discontinued Medications Diphtheria/Pertussis/Tetanus Vacc (Diphther/Tetan/Pertus Vaccine (Tdap, Adol/Adult) 0.5ml) 0.5 ml IM .ONCE ONE Stop: 12/08/23 14:11 Last Admin: 12/08/23 14:51 Dose: 0.5 ml Documented By: ALCON Sodium Chloride (Nss) 250 mls @ 999 mls/hr IV .Q16M ONE Stop: 12/08/23 22:49 Last Infusion: 12/08/23 23:30 Dose: Infused Documented By: Admin: 12/08/23 23:10 Dose: 999 mls/hr Documented By: MG Lidocaine (Lidocaine/Epineph/Tetracaine 1 Ea Syr) 1 each EXT NOW STA Stop: 12/08/23 14:11 Last Admin: 12/08/23 15:51 Dose: Not Given Documented By: GOPALW Lidocaine HCl (Xylocaine 1%/Sod Bicarb 20 Ml Vial) 20 ml INFIL NOW ONE Stop: 12/08/23 14:11 Last Admin: 12/08/23 15:50 Dose: Not Given Documented By: ASW Midodrine (Midodrine Hcl 2.5 Mg Tab) 2.5 mg PO NOW ONE Stop: 12/08/23 23:16 Last Admin: 12/08/23 23:23 Dose: 2.5 mg Documented By: MG Ondansetron HCl (Ondansetron Inj 2 Mg/Ml 2 Ml Vial) Confirm Administered Dose 4 mg .ROUTE .STK-MED ONE Stop: 12/08/23 18:06 Last Admin: 12/08/23 18:06 Dose: 4 mg Documented By: GOPALW Potassium Chloride (Potassium Chloride Crtab 20 Meq Tabcr) 40 meq PO NOW STA Stop: 12/08/23 15:33 Last Admin: 12/08/23 15:53 Dose: 40 meq Documented By: GOPALW Medical Decision Making Differential Diagnosis Fracture, dislocation, contusion, intra-abdominal, pneumothorax, intrathoracic, intracranial, neurologic, compartment syndrome, rhabdomyolysis, as well as other pathologies. Medical Records Attestation: I reviewed the patient's medical records. Home Medications Current Medication List: was personally reviewed by me Laboratory Data Attestation: I reviewed the patient's lab results. No leukocytosis, stable hemoglobin and hematocrit, potassium 3.4, troponin 91.1. 12/09/23 02:39 12/09/23 02:39 Lab Results 12/08/23 Range/Units 14:50 WBC 9.25 (4.8-10.8) K/ul RBC 3.64 L (4.70-6.10) M/uL Hgb 12.2 L (14.0-18.0) g/dl Hct 37.2 L (42.0-52.0) % MCV 102.2 H (80.0-100.0) fL MCH 33.5 (25.0-34.0) pg MCHC 32.8 (32.0-36.0) g/dL RDW Std Deviation 52.6 H (36.4-46.3) fL RDW Coeff of Paula 13.9 (11.5-14.5) % Plt Count 240 (130-400) K/uL MPV 9.8 (9.4-12.4) fL Immature Gran % (Auto) 0.4 % Neut % (Auto) 75.2 % Lymph % (Auto) 13.9 % Bowie % (Auto) 9.5 % Eos % (Auto) 0.4 % Baso % (Auto) 0.6 % Neut # (Auto) 6.94 H (1.40-6.50) K/uL Lymph # (Auto) 1.29 (1.20-3.40) K/uL Bowie # (Auto) 0.88 H (0.11-0.59) K/uL Eos # (Auto) 0.04 (0.00-0.50) K/uL Baso # (Auto) 0.06 (0.00-0.20) K/uL Immature Gran # (Auto) 0.04 (0.01-0.20) K/uL Sodium 138 (136-145) mmol/L Potassium 3.4 L (3.5-5.1) mmol/L Chloride 98 (98-107) mmol/L Carbon Dioxide 31 (21-32) mmol/L Anion Gap 9 (3-11) BUN 23 (6-23) mg/dl Creatinine 3.36 H (0.6-1.4) mg/dl Est Cr Clr Drug Dosing 16.3 ml/min Est GFR ( Amer) 18.8 ml/min Est GFR (Non-Af Amer) 16.2 ml/min BUN/Creatinine Ratio 6.8 L (10-20) Glucose 146 H (70-99(Fasting)) mg/dl Calcium 9.8 (8.6-10.3) mg/dl Total Bilirubin 0.7 (0.2-1.0) mg/dl AST 22 (13-39) U/L ALT 16 (7-52) U/L Alkaline Phosphatase 67 (34-104) U/L Troponin I High Sens 91.1 H* (0-20) pg/ml Total Protein 6.7 (6.0-8.3) gm/dl Albumin 4.4 (3.4-5.0) gm/dl Globulin 2.3 L (2.5-4.0) gm/dl Albumin/Globulin Ratio 1.9 (0.9-2) Imaging Data My Impression: Initial x-ray interpretation per myself shows no acute bony abnormality. Will await formal radiology report. Radiologist's Impression: Cervical Spine CT 12/08/23 14:10 CT OF THE CERVICAL SPINE WITHOUT CONTRAST CLINICAL HISTORY: fall COMPARISON STUDY: Cervical spine CT January 09, 2024. TECHNIQUE: Helical axial images of the cervical spine were obtained without IV contrast. Sagittal and coronal reconstructions were viewed. Automated exposure control was utilized for the study. A dose lowering technique was utilized adhering to the principles of ALARA. FINDINGS: Alignment of the cervical spine is unchanged since CT October 31, 2023. A type II odontoid fracture is similar in appearance to CT of November 09, 2023. Fracture remains mildly displaced and posteriorly angulated. Displacement has increased since CT of July 31, 2023. Subacute mild T4 compression fracture is noted. This was shown on CT MRI of October 16, 2023. No additional fractures are identified. Moderate multilevel disc space narrowing and severe facet arthrosis is present. No prevertebral edema. IMPRESSION: 1. No acute cervical spine fracture or subluxation. 2. Type II odontoid fracture, similar in appearance to CT of November 09, 2023. This fracture is mildly displaced and angulated. The findings may reflect a developing malunion. 3. Subacute mild T4 compression fracture. ACT 112: Negative or not required by law. Electronically signed by: Cristian Miller M.D. 12/08/2023 3:[address] 12/08/23 14:10 CT OF THE CHEST WITHOUT IV CONTRAST CLINICAL HISTORY: fall, left anterior rib pain COMPARISON STUDY: Chest CT July 21, 2023. Chest radiograph November 09, 2023. CT DOSE: 446.39 mGy.cm TECHNIQUE: Axial images of the chest were obtained without IV contrast. Images were reviewed in the axial, sagittal, and coronal planes. IV contrast was not administered for this examination. Automated exposure control was utilized for the study. A dose lowering technique was utilized adhering to the principles of ALARA. FINDINGS: There is no pneumothorax or pleural effusion. There are probable acute nondisplaced anterior left fifth and sixth rib fractures. There are multiple old healed bilateral rib fractures. There is a healing anterior left fourth rib fracture. Old T4 and T8 compression fractures are unchanged. Old sternal fracture. Postoperative findings consistent with esophagectomy with anterior gastric pull-up. Linear densities within the lungs represent scarring. There is no consolidation to suggest pneumonia. Thoracic aorta is suboptimally assessed on unenhanced exam but no mediastinal hematoma is present. Extensive coronary artery calcification. A right internal jugular dual lumen catheter is in place. 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 There are lucencies through the posterior glenoids, a new since CT of July 31, 2023. IMPRESSION: 1. No pneumothorax. Probable acute nondisplaced anterior left fifth and sixth rib fractures. Healing anterior left fourth rib fracture. Multiple old bilateral rib fractures. 2. Lucencies through the bilateral posterior glenoids, new since CT of July 21, 2023. These may reflect subacute nondisplaced fractures. 3. Stable postoperative findings following esophagectomy. ACT 112: Negative or not required by law. Electronically signed by: Cristian Miller M.D. 12/08/2023 3:40 PM Forearm X-Ray 12/08/23 14:10 XR forearm LT 2V CLINICAL HISTORY: fall COMPARISON: None FINDINGS: No fracture within the left radius or ulna is identified. A proximal left forearm bandage is present. There is a lucency with sclerotic margins through the scaphoid waist. Severe osteoarthritis of the left first carpometacarpal joint is noted. There is chondrocalcinosis within the TFCC. IMPRESSION: 1. No fractures within the left radius or ulna. 2. Lucency with sclerotic margins through the scaphoid waist. This favors an old nonunited fracture. ACT 112: Negative or not required by law. Electronically signed by: Cristian Miller M.D. 12/08/2023 2:[address] 12/08/23 14:10 CT OF THE HEAD WITHOUT CONTRAST CLINICAL HISTORY: fall COMPARISON STUDY: MRI of the brain October 16, 2023. Head CT November 09, 2023. CT DOSE: 1149.16 mGy.cm TECHNIQUE: Helical axial images of the head were obtained without IV contrast. Automated exposure control was utilized for the study. A dose lowering technique was utilized adhering to the principles of ALARA. FINDINGS: No acute intracranial hemorrhage, midline shift or mass effect is present. The ventricular system is stable. White matter hypodensities are unchanged. The basal cisterns are patent. No extra-axial collections are present. There are no findings to suggest acute dural sinus thrombosis or acute territorial infarct. There is no calvarial fracture. Partial opacification of the left maxillary sinus is unchanged. IMPRESSION: 1. No acute intracranial findings. 2. No calvarial fractures. ACT 112: Negative or not required by law. Electronically signed by: Cristian Miller M.D. 12/08/2023 3:14 PM ECG Data Attestation: I personally reviewed and interpreted this ECG as follows: Indication: + other (fall) Rate (beats per minute): 66 Rhythm: + normal sinus Additional Comments: Abnormal ECG When compared with ECG of 09-NOV-2023 09:36, Nonspecific T wave abnormality has replaced inverted T waves in Inferior leads Blood Pressure Blood Pressure Findings: Elevated blood pressure Blood Pressure Disposition: elevated BP felt to be situational Head Trauma GCS Score: 15 MDM Narrative The patient is a pleasant 83-year-old male who presents to the emergency department with his for the above stated complaint. Upon examination, the patient has significant bleeding from the LUE from injuries sustained from his fall. He is unsure of how the event transpired and is currently in a hard collar for a recent odontoid fracture. The patient has a significant PMH of cardiac and renal failure, as well as increasing falls recently. Cardiac workup was obtained as well as CT imaging of the head, neck, and chest. The patient reports TTP of the anterior left chest which may represent fracture(s) of the ribs. CT imaging of the head shows the current odontoid fracture as well as a subacute T4 compression fracture. CT imaging of the head is negative for ICH, fracture, or abnormality. CT imaging of the chest shows acute nondisplaced anterior left fifth and sixth rib fracture, healing anterior left fourth rib fracture, multiple old bilateral rib fractures. Xr imaging per my initial interpretation, shows, no acute fracture. CBC, shows a stable but low hemoglobin and hematocrit, CMP shows hypokalemia of 3.4, as well as BUN 23, creat of 3.36 consistent with his ESRD. EKG shows NSR at a rate of [address] elevation or ectopy. Troponin resulted at 91.1 which is elevated compared to his baseline between 30-40. The wound on the patients left arm was difficult to control the bleeding without using quick clot. The bandage was changed twice by nursing staff, both times saturated with blood. Quick clot was applied over the wound with a compression dressing. This was ultimately successful. I believe the patient requires admission for evaluation of the elevated troponin as well as ambulatory dysfunction and multiple recent falls. Case management was contacted for assistance with admission. I spoke with Dr. Parkinson, who agreed to assume care of the patient. Please refer to Dr. Parkinson's documentation for further patient care. The patient's case was discussed with Dr. Pulido, who agreed with my evaluation and treatment plan. 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 Patient was placed on the pouch making machine operator. Patient was noted to be in normal sinus rhythm at an initial rate of 80 bpm. Impression & Plan ESRD (end stage renal disease) on dialysis, Odontoid fracture, Closed T4 spinal fracture, Recurrent falls, Laceration of left elbow, Multiple rib fractures, Elevated troponin Discharge Plan Visit Data Chief Complaint: Laceration/Cut (Suture/Dermabond) Stated Complaint: FALL, LEFT ARM LACERATION ED Provider: Monty Pulido ED Midlevel Provider: Renetta Nunez Discharge Problem: ESRD (end stage renal disease) on dialysis, Odontoid fracture, Closed T4 spinal fracture, Recurrent falls, Laceration of left elbow, Multiple rib fractures, Elevated troponin Patient Disposition: Admitted As Inpatient Discharge Instructions Interventions: ED Discharge Assessment Last Done: 12/08/23 19:50
--- NOTE | 2023-12-08 14:35 | XRay Report ---
XR forearm LT 2V CLINICAL HISTORY: fall COMPARISON: None FINDINGS: No fracture within the left radius or ulna is identified. A proximal left forearm bandage is present. There is a lucency with sclerotic margins through the scaphoid waist. Severe osteoarthrit is of the left first carpometacarpal joint is noted. There is chondrocalcinosis within the TFCC. IMPRESSION: 1. No fractures within the left radius or ulna. 2. Lucency with sclerotic margins through the scaphoid waist. This favors an old nonunited fracture. ACT 112: Negative or not required by law. Electronically signed by: Cristian Miller M.D. 12/08/2023 2:34 PM
[2023-12-08] MEDS: DIPHTHER/TETAN/PERTUS Vaccine (Tdap, Adol/Adult) 0.5mL IM ONE (14:51)
[2023-12-08 15:09] LABS: Basophils # (auto) 0.06 K/uL (0.00-0.20); Basophils % (auto) 0.6 %; Eosinophils # (auto) 0.04 K/uL (0.00-0.50); Eosinophils % (auto) 0.4 %; Hematocrit (blood only) 37.2 % (42.0-52.0); Hemoglobin 12.2 g/dl (14.0-18.0); Immature Granulocytes # (auto) 0.04 K/uL (0.01-0.20); Immature Granulocytes % (auto) 0.4 %; Lymphocytes # (auto) 1.29 K/uL (1.20-3.40); Lymphocytes % (auto) 13.9 %; Mean Corpuscular Hemoglobin 33.5 pg (25.0-34.0); Mean Corpuscular Hgb Conc 32.8 g/dL (32.0-36.0); Mean Corpuscular Volume 102.2 fL (80.0-100.0); Mean Platelet Volume 9.8 fL (9.4-12.4); Monocytes # (auto) 0.88 K/uL (0.11-0.59); Monocytes % (auto) 9.5 %; Neutrophils # (auto) 6.94 K/uL (1.40-6.50); Neutrophils % (auto) 75.2 %; Platelet Count 240 K/uL (130-400); RDW Coefficient of Variation 13.9 % (11.5-14.5); RDW Standard Deviation 52.6 fL (36.4-46.3); Red Blood Count 3.64 M/uL (4.70-6.10); White Blood Count 9.25 K/ul (4.8-10.8)
--- NOTE | 2023-12-08 15:16 | CT Scan Report ---
CT OF THE HEAD WITHOUT CONTRAST CLINICAL HISTORY: fall COMPARISON STUDY: MRI of the brain October 16, 2023. Head CT November 09, 2023. CT DOSE: 1149.16 mGy.cm TECHNIQUE: Helical axial images of the head were obtained without IV contrast. Automated exposure con trol was utilized for the study. A dose lowering technique was utilized adhering to the principles o f ALARA. FINDINGS: No acute intracranial hemorrhage, midline shift or mass effect is present. The ventricular system is stable. White matter hypodensities are unchanged. The basal cisterns are patent. No extra-a xial collections are present. There are no findings to suggest acute dural sinus thrombosis or acute territorial infarct. There is no calvarial fracture. Partial opacification of the left maxillary sinu s is unchanged. IMPRESSION: 1. No acute intracranial findings. 2. No calvarial fractures. ACT 112: Negative or not required by law. Electronically signed by: Cristian Miller M.D. 12/08/2023 3:14 PM
[2023-12-08 15:23] LABS: Albumin Globulin Ratio 1.9 (0.9-2); Albumin Level 4.4 gm/dl (3.4-5.0); BUN Creatinine Ratio 6.8 (10-20); Bilirubin,Total 0.7 mg/dl (0.2-1.0); Calcium 9.8 mg/dl (8.6-10.3); Creatinine Clr Calc Pharmacy 16.3 ml/min; Est GFR (African American) 18.8 ml/min; Est GFR (Non-African American) 16.2 ml/min; Globulin 2.3 gm/dl (2.5-4.0); Potassium 3.4 mmol/L (3.5-5.1); Total Protein 6.7 gm/dl (6.0-8.3)
--- NOTE | 2023-12-08 15:23 | CT Scan Report ---
CT OF THE CERVICAL SPINE WITHOUT CONTRAST CLINICAL HISTORY: fall COMPARISON STUDY: Cervical spine CT January 09, 2024. TECHNIQUE: Helical axial images of the cervical spine were obtained without IV contrast. Sagittal a nd coronal reconstructions were viewed. Automated exposure control was utilized for the study. A do se lowering technique was utilized adhering to the principles of ALARA. FINDINGS: Alignment of the cervical spine is unchanged since CT October 31, 2023. A type II odontoid fr acture is similar in appearance to CT of November 09, 2023. Fracture remains mildly displaced and electrician deck iorly angulated. Displacement has increased since CT of July 31, 2023. Subacute mild T4 compressi on fracture is noted. This was shown on CT MRI of October 16, 2023. No additional fractures are identifi ed. Moderate multilevel disc space narrowing and severe facet arthrosis is present. No prevertebral e anjali. IMPRESSION: 1. No acute cervical spine fracture or subluxation. 2. Type II odontoid fracture, similar in appearance to CT of November 09, 2023. This fracture is mildly displaced and angulated. The findings may reflect a developing malunion. 3. Subacute mild T4 compression fracture. ACT 112: Negative or not required by law. Electronically signed by: Cristian Miller M.D. 12/08/2023 3:20 PM
[2023-12-08 15:34] LABS: Troponin I High Sensitivity 91.1 pg/ml (0-20)
--- NOTE | 2023-12-08 15:43 | CT Scan Report ---
CT OF THE CHEST WITHOUT IV CONTRAST CLINICAL HISTORY: fall, left anterior rib pain COMPARISON STUDY: Chest CT July 21, 2023. Chest radiograph November 09, 2023. CT DOSE: 446.39 mGy.cm TECHNIQUE: Axial images of the chest were obtained without IV contrast. Images were reviewed in the axial, sagittal, and coronal planes. IV contrast was not administered for this examination. Automat ed exposure control was utilized for the study. A dose lowering technique was utilized adhering to t he principles of ALARA. FINDINGS: There is no pneumothorax or pleural effusion. There are probable acute nondisplaced anteri or left fifth and sixth rib fractures. There are multiple old healed bilateral rib fractures. There i s a healing anterior left fourth rib fracture. Old T4 and T8 compression fractures are unchanged. Old sternal fracture. Postoperative findings consistent with esophagectomy with anterior gastric pull-up . Linear densities within the lungs represent scarring. There is no consolidation to suggest pneumoni a. Thoracic aorta is suboptimally assessed on unenhanced exam but no mediastinal hematoma is present. Extensive coronary artery calcification. A right internal jugular dual lumen catheter is in place. 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 There are lucencies through the posterior glenoids, a new since CT of July 31, 2023. IMPRESSION: 1. No pneumothorax. Probable acute nondisplaced anterior left fifth and sixth rib fractures. Healing anterior left fourth rib fracture. Multiple old bilateral rib fractures. 2. Lucencies through the bilateral posterior glenoids, new since CT of July 21, 2023. These may re flect subacute nondisplaced fractures. 3. Stable postoperative findings following esophagectomy. ACT 112: Negative or not required by law. Electronically signed by: Cristian Miller M.D. 12/08/2023 3:40 PM
[2023-12-08] MEDS: XYLOCAINE 1%/SOD BICARB 20 ML VIAL INFIL ONE (15:50)
[2023-12-08] MEDS: LIDOCAINE/EPINEPH/TETRACAINE 1 EA SYR EXT STA (15:51)
[2023-12-08] MEDS: POTASSIUM CHLORIDE CRTAB 20 MEQ TABCR PO STA (15:53)
--- NOTE | 2023-12-08 17:22 | History & Physical Report ---
Date of Service December 08, 2023 Assessment & Plan (1) Recurrent falls: Plan: Supportive care. OT and PT assessments (2) Laceration of left elbow: Plan: Wound care nurse consultation requested. Local care. (3) Multiple rib fractures: Plan: Left anterior fifth and sixth rib fractures suffered an most recent fall. Pain control measures. (4) ESRD (end stage renal disease) on dialysis: Plan: Nephrology consultation requested. He normally receives hemodialysis on Sunday and Sunday (5) Odontoid fracture: Plan: Suffered an recent fall. Hard cervical collar in place (6) Elevated troponin: Plan: Telemetry. Serial troponin levels. Repeat EKG in the morning Plan Hopeful return to [facility] on Sunday or Sunday if stable History of Present Illness Chief Complaint: Recurrent mechanical fall Primary Care Provider: [facility] 83-year-old white male who resides at [facility]. He suffered recent mechanical falls and recently had a odontoid fracture and is wearing a hard cervical collar. He apparently fell again while at [facility] now suffering left fifth and sixth anterior rib fractures and a left elbow skin tear that required attention in the ED. He is alert and oriented at the time my examination. He denies chest pain but his troponin level is elevated. No acute EKG changes. He is placed in observation with telemetry for further care and wound nurse assistance for the left elbow laceration. OT and PT assessments have been requested. He denies melena, hematochezia, palpitations, syncope. Allergies Allergy/AdvReac Type Severity Reaction Status Date / Time gluten Allergy Intermediate CELIAC Verified 12/08/23 15:37 DISEASE--Gastrointestinal Upset Home Medications Medication Instructions Recorded Confirmed Type cyanocobalamin (vitamin B-12) 1,000 mcg PO HS 12/29/21 12/08/23 History 1,000 mcg tablet (Vitamin B-12) vitamin B comp no.3-folic acid 1 1 tab PO QAM 02/17/22 12/08/23 History mg-vit C 60 mg-biotin 300 mcg tablet ([facility]) calcium acetate(phosphat bind) 667 667 mg PO TIDM 06/13/22 12/08/23 History mg tablet nsbkiggc-gey-gswzzb 5 mg-zeaxanth 1 cap PO HS 06/13/22 12/08/23 History 1 mg-bilberry 7.5 mg-herbal capsule ([facility] Formula) acetaminophen 500 mg tablet 1,000 mg PO BID PRN Pain 08/23/22 12/08/23 History levothyroxine 100 mcg tablet 100 mcg PO QAM #90 tabs 11/27/22 12/08/23 Rx sertraline 100 mg tablet (Zoloft) 100 mg PO QPM #90 tabs 06/11/23 12/08/23 Rx rosuvastatin 5 mg tablet 5 mg PO DAILY 07/21/23 12/08/23 History vit B,C-folic ac 800 mcg-zinc 12.5 1 tab PO DAILY 10/16/23 12/08/23 History mg-selen-D3 2,000 unit-vit E tablet ([facility]-D) fludrocortisone 0.1 mg tablet 0.1 mg PO QAM #0 tabs 10/22/23 12/08/23 Rx aspirin 81 mg tablet,delayed 81 mg PO DAILY 12/08/23 12/08/23 History release midodrine 10 mg tablet 10 mg PO BID 12/08/23 12/08/23 History midodrine 5 mg tablet 5 mg PO DAILY 12/08/23 12/08/23 History polyethylene glycol 3350 17 17 g PO DAILY 12/08/23 12/08/23 History gram/dose oral powder (Miralax) Past Med/Surg History Medical History CKD (chronic kidney disease), stage V CAD (coronary artery disease) Mild to moderate nonobstructive per 2019 cath Diastolic CHF EF 65-70% 08/2022 echo Dialysis patient SUNDAY/SUNDAY/SUNDAY THRU CATHETER RIGHT CHEST DVT (deep venous thrombosis) Hx- 2018- PE and DVT to left LE- s/p esophageal perforation surgery Was on Eliquis until last month - d/c'ed secondary to DVT being provoked- on AC x 1 year Hyperphosphatemia Hx of hiatal hernia HTN (hypertension) Depression Respiratory failure Post op from esophageal perforation in 2018 No issues with subsequent surgery- no current breathing issues Atrial fibrillation with rapid ventricular response 2019- s/p pericarditis with volume overload (later dx'ed with esophageal perforation) Follows only with PCP- no AC No recurrence per patient Kidney stones No recent issues GERD (gastroesophageal reflux disease) Well controlled and stable Celiac disease Hypothyroidism Anemia Hgb ranges 7-10 Surgical History History of surgery Left Upper Extremity Fistulogram AVF (arteriovenous fistula) LUE AVF creation History of cardiac cath 2018- mild to moderate nonobstructive CAD History of repair of hiatal hernia PERFORATED [id number] SUBSEQUENT SURGERIES TO REPAIR, ETC (Had thoracotomy for hernia repair, esophagogastrectomy, GJ tube placement) History of carpal tunnel surgery of right wrist History of hammertoe correction bilt feet History of esophagogastroduodenoscopy (EGD) (06/12/17) History of colonoscopy (06/12/17) History of umbilical hernia repair History of tooth extraction Family History Father Dementia Mother Breast cancer Grandfather (Maternal) Stroke Family/Other Hypercholesterolemia Other No family history of adverse response to anesthesia Denies family history of Ovarian cancer Prostate cancer Myocardial infarction Colorectal cancer Social History Smoking Status: Never smoker Second Hand Exposure: No; Do You Dip or Chew Tobacco: No; Hx Alcohol Use: No Hx Substance Use: No Preferred Language: R[place] Communication Ability: Effective Visual Impairment: Partially Limited Counter Manager Required: No Beliefs That Will Affect Care: None marital status: Current Living Situation: Spouse current occupational status: retired 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 Feels Safe at Home: Yes Childhood Exposure to Second-Hand Smoke: No Dental Care, Regularly: Yes Physical Activity Frequency: 1-2 Times per Week Seatbelt Use: always Sunscreen Use: No Assistive Devices: Walker Review of Systems 2 Review of Systems: Constitutional-no fever or chills ENT-no blurred vision, no double vision, no epistaxis, no sore throat. Hard cervical collar in place Respiratory-no cough, no wheezing, no shortness of breath Cardiac-no palpitations, no chest pain, no syncope GI-no nausea, vomiting, diarrhea, melena, hematochezia -no urinary retention, no urinary incontinence, no dysuria, no hematuria Musculoskeletal-left anterior rib discomfort and left elbow discomfort Skin-heavily bandaged left elbow with fresh blood noted on bandage Neuro-no isolated weakness, no paresthesia Psych-no depression, no anxiety Physical Exam 2 Physical Exam: General-alert and oriented x3, no fever, no chills HEENT-head atraumatic and normocephalic, pupils equal and reactive to light, extraocular muscles intact Neck-hard cervical collar in place Chest-clear to auscultation. No rales, wheezing or rhonchi. Tunneled right upper chest dialysis catheter in place Cardiac-regular rate and rhythm, normal S1 and S2 Abdomen-normal bowel sounds, no hepatosplenomegaly Extremities-no cyanosis, clubbing, or edema. Left elbow is heavily bandaged with fresh blood noted on the bandage Neuro-cranial nerves II through XII intact, motor and sensory function within normal limits, strength symmetrical with generalized weakness, no focal deficits Psych-normal affect, normal mood Results & Data Results & Data Vital Signs (Past 12 Hours) Vital Signs Temp Pulse Pulse Resp BP BP Pulse Ox 12/08/23 16:11 71 12/08/23 15:42 72 19 148/102 H 99 12/08/23 14:48 66 18 189/110 H 98 12/08/23 13:17 36.5 C 80 18 109/66 97 O2 Del Method 12/08/23 16:11 12/08/23 15:42 Room Air 12/08/23 14:48 Room Air 12/08/23 13:17 Room Air Laboratory Results 12/08/23 14:50 12/08/23 14:50 Code Status & VTE Plan Code Status DNR/DNI PG Care Time/CCT Total # of Minutes Spent Total Time Spent with Patient: Total time spent is greater than 50% in coordination of care (as documented) at patient's floor/unit and/or counseling patient: Coding Level of Care Code 89724 INT INP/OBS CARE 3/75MIN Diagnoses Recurrent falls R29.6 Laceration of left elbow S51.012A Multiple rib fractures S22.49XA ESRD (end stage renal disease) on dialysis N18.6; Z99.2 Odontoid fracture S12.100K Encounter type: subsequent encounter Fracture healing: with nonunion Fracture type: closed Elevated troponin R79.89 (5) Odontoid fracture Encounter type: subsequent encounter Fracture healing: with nonunion F racture type: closed Qualified Code(s): S12.100K - Unspecified displaced fracture of second cervical vertebra, subsequent encounter for fracture with nonunion
[2023-12-08] MEDS: ONDANSETRON INJ 2 MG/ML 2 ML VIAL ONE (18:06)
[2023-12-08] MEDS ORDERED: ONDANSETRON INJ 2 MG/ML 2 ML VIAL IV PRN (20:37)
[2023-12-08] MEDS ORDERED: ACETAMINOPHEN 500 MG TAB PO PRN (20:37)
[2023-12-08] MEDS ORDERED: ACETAMINOPHEN 325 MG TAB PO PRN (20:37)
[2023-12-08] MEDS: SERTRALINE HCL 100 MG TABLET PO SCH (21:41)
[2023-12-08] MEDS: CEROVITE ADV FORMULA TAB PO SCH (21:41)
[2023-12-08] MEDS: CYANOCOBALAMIN (B-12) 500 MCG TABLET PO SCH (21:41)
[2023-12-08 21:49] LABS: BUN Creatinine Ratio 7.5 (10-20); Calcium 9.4 mg/dl (8.6-10.3); Creatinine Clr Calc Pharmacy 15.3 ml/min; Est GFR (African American) 17.4 ml/min; Potassium 4.3 mmol/L (3.5-5.1)
--- NOTE | 2023-12-08 22:43 | Communication Note ---
Date of Service: December 08, 2023 Code Nikhil called at approximally 2230. Getting up out of bed and blood pressure dropped to 80s/40s. LOC for about 15s. Witnessed and did not hit head. Once he laid back down in bed BPs quickly improvement; up to 140/80 by the time I got to room. On exam AAOx4, lungs clear to auscultation B/L, heart with RRR, no focal neurologic deficits. EKG largely unchanged from prior. Repeat trop, CBC, CMP, Mg, VBG. Will cautiously give 250ml bolus, 2.5mg midodrine as he is on at home and did not receive dose tonight.
[2023-12-08 23:00] LABS: Basophils # (auto) 0.06 K/uL (0.00-0.20); Basophils % (auto) 0.5 %; Eosinophils # (auto) 0.01 K/uL (0.00-0.50); Eosinophils % (auto) 0.1 %; Hematocrit (blood only) 34.7 % (42.0-52.0); Hemoglobin 11.3 g/dl (14.0-18.0); Immature Granulocytes # (auto) 0.05 K/uL (0.01-0.20); Immature Granulocytes % (auto) 0.4 %; Lymphocytes # (auto) 1.89 K/uL (1.20-3.40); Lymphocytes % (auto) 15.5 %; Mean Corpuscular Hemoglobin 33.8 pg (25.0-34.0); Mean Corpuscular Hgb Conc 32.6 g/dL (32.0-36.0); Mean Corpuscular Volume 103.9 fL (80.0-100.0); Monocytes # (auto) 1.14 K/uL (0.11-0.59); Monocytes % (auto) 9.4 %; Neutrophils # (auto) 9.03 K/uL (1.40-6.50); Neutrophils % (auto) 74.1 %; Platelet Count 225 K/uL (130-400); RDW Coefficient of Variation 14.1 % (11.5-14.5); RDW Standard Deviation 54.1 fL (36.4-46.3); Red Blood Count 3.34 M/uL (4.70-6.10); White Blood Count 12.18 K/ul (4.8-10.8)
[2023-12-08] MEDS: SODIUM CHLORIDE 0.9% 250 ML IV ONE (23:10)
[2023-12-08 23:17] LABS: Albumin Level 4.1 gm/dl (3.4-5.0); BUN Creatinine Ratio 7.5 (10-20); Bilirubin,Total 0.7 mg/dl (0.2-1.0); Calcium 9.2 mg/dl (8.6-10.3); Creatinine Clr Calc Pharmacy 13.7 ml/min; Est GFR (Non-African American) 13.8 ml/min; Globulin 2.1 gm/dl (2.5-4.0); Magnesium 1.9 mg/dl (1.7-2.4); Potassium 3.8 mmol/L (3.5-5.1); Total Protein 6.2 gm/dl (6.0-8.3)
[2023-12-08] MEDS: MIDODRINE HCL 2.5 MG TAB PO ONE (23:23)
[2023-12-08 23:42] LABS: Troponin I High Sensitivity 86.7 pg/ml (0-20)
[2023-12-08 23:57] LABS: Appearance Urine Clear (Clear); Bacteria Urine Automated None Seen (None Seen); Bilirubin Urine Negative (Negative); Blood Urine Negative (Negative); Cast Urine Automated 0-2 /lpf (0-2); Color Urine Yellow; Epithelial Cell Urine Auto 0-2 /hpf (0-2); Glucose Urine UA Trace (Negative); Ketones Urine Negative (Negative); Leukocyte Esterase Urine Negative (Negative); Nitrite Urine Negative (Negative); Protein Urine 2+ (Negative); RBC Urine Automated 0-2 /hpf (0-2); Specific Gravity Urine 1.012 (1.000-1.030); Urobilinogen Urine Negative (Negative); WBC Urine Automated 0-5 /hpf (0-5); pH Urine 8.5 (4.5-7.5)
[2023-12-09 03:02] LABS: Basophils # (auto) 0.04 K/uL (0.00-0.20); Basophils % (auto) 0.4 %; Eosinophils # (auto) 0.02 K/uL (0.00-0.50); Eosinophils % (auto) 0.2 %; Hematocrit (blood only) 31.3 % (42.0-52.0); Hemoglobin 10.1 g/dl (14.0-18.0); Immature Granulocytes # (auto) 0.01 K/uL (0.01-0.20); Immature Granulocytes % (auto) 0.1 %; Lymphocytes # (auto) 1.25 K/uL (1.20-3.40); Mean Corpuscular Hemoglobin 33.2 pg (25.0-34.0); Mean Corpuscular Hgb Conc 32.3 g/dL (32.0-36.0); Mean Platelet Volume 9.9 fL (9.4-12.4); Monocytes # (auto) 1.08 K/uL (0.11-0.59); Monocytes % (auto) 11.2 %; Neutrophils # (auto) 7.22 K/uL (1.40-6.50); Neutrophils % (auto) 75.1 %; Platelet Count 196 K/uL (130-400); RDW Coefficient of Variation 14.2 % (11.5-14.5); RDW Standard Deviation 53.7 fL (36.4-46.3); Red Blood Count 3.04 M/uL (4.70-6.10); White Blood Count 9.62 K/ul (4.8-10.8)
[2023-12-09 03:10] LABS: BUN Creatinine Ratio 8.9 (10-20); Calcium 8.7 mg/dl (8.6-10.3); Creatinine Clr Calc Pharmacy 14.3 ml/min; Est GFR (African American) 16.7 ml/min; Est GFR (Non-African American) 14.4 ml/min; Potassium 4.1 mmol/L (3.5-5.1)
[2023-12-09] MEDS: LEVOTHYROXINE SODIUM 100 MCG TABLET PO SCH (05:45)
[2023-12-09] MEDS: ROSUVASTATIN CALCIUM 5 MG TAB PO SCH (08:48)
[2023-12-09] MEDS: POLYETHYLENE (MIRALAX) 17 GM PACK PO SCH (08:49)
[2023-12-09] MEDS: CALCIUM ACETATE 667 MG CAP/TAB PO SCH (08:49)
[2023-12-09] MEDS: FLUDROCORTISONE ACETATE 0.1 MG TAB PO SCH (08:49)
[2023-12-09] MEDS: NEPHROCAPS PO SCH (08:49)
[2023-12-09] MEDS: MIDODRINE HCL 10 MG TAB PO SCH ×2 (08:50→10:59)
[2023-12-09] MEDS: ASPIRIN 81 MG ECTAB PO SCH (08:50)
[2023-12-09] MEDS ORDERED: NON-FORMULARY MEDICATION (Vit B,C-Fa-Zinc-Selen-Vit D3-E [Renaplex-D] 800 mcg-12.5 mg -2,0 PO SCH (09:00)
--- NOTE | 2023-12-09 10:22 | Hospitalist Progress Note ---
Date of Service December 09, 2023 Assessment & Plan (1) Recurrent falls: Plan: Multiple falls dating back to 2022. Several falls have led to injury including 08/04 fall with odontoid fracture, T4 fracture in October 2023, and now left anterior rib fractures (5 and 6). Yesterday's fall led to left arm laceration/severe skin tear requiring significant attention in the ER to stop the bleeding. "Quick clot" was utilized along with a compression dressing. Moderate drop in H/H overnight from the left arm bleeding. Falls are presumably due to his severe orthostatic hypotension. This afternoon, despite 10mg of midodrine this am and at noon, he has a 60 point drop in BPs from supine to standing. PT, OT evals. If he remains symptomatic with the current orthostasis may need to titrate florinef, but his supine readings may prohibit this. Of note - previous B12 level wnl. MRI brain 10/2023 without old or new stroke or ICH. (2) Orthostatic hypotension: Plan: SEVERE. Leading to falls. 10/2023 discharge summary reviewed; florinef 0.1mg daily added to midodrine 5mg TID at that time. Cortisol level wnl. Supine HTN may prohibit any titration of florinef. He is wearing TEDS b/l. Given his dyspnea, inability to ambulate that well, prior h/o DVT/PE in 2018, and spells of severe hypotension/near-syncope will obtain CT chest PE protocol in am tomorrow to r/o PE. (3) Laceration of left elbow: Plan: s/p "quick clot" with compression dressing in ER. Wound care nurse consultation requested. The compression dressings (NOAH wrap x 2) were very tight on the left forearm causing severe edema of the distal arm/hand and left elbow pain. I removed these 2 NOAH wraps. There was no active bleeding when the NOAH wraps were taken off. There were [address] I left these intact. Will elevate the left arm to help with swelling. Will place 1 NOAH wrap on the ABDs to keep them in place but will not use sign ificant compression since bleeding has not recurred. Due to left elbow pain checked elbow x-ray -- negative for fractures. (4) Multiple rib fractures: Plan: Left anterior fifth and sixth rib fractures. Pain meds or lidoderm prn. Schedule tylenol 1gm TID. (5) ESRD (end stage renal disease) on dialysis: Plan: [facility] Nephrology consultation requested. HD schedule on Sunday and Sunday. (6) Odontoid fracture: Plan: 07/2023 fall, initially hospitalized at [facility] for such. Has been in [place] J collar since then. C-spine CT findings from last pm noted. Patient denies any pain, weakness, or paresthesias of either arm. Will d/w ortho-spine tomorrow. (7) Elevated troponin: Plan: Peak HS troponin 94.9. Patient saw CARI Shane - [facility] Cardiology - in the cardiology clinic. Mr Yaritza had been planning dobutamine stress echo due to recent dyspnea on exertion as well as known CAD. (8) Acute blood loss anemia: Plan: 2nd to bleeding from #3. 2 gram drop in hemoglobin. follow carefully; repeat H/H am. (9) Paroxysmal atrial fibrillation: Plan: in NSR since admission. monitor carefully. (10) Closed T4 spinal fracture: Plan: seen during prior admission in 10/2023. non-operative Rx recommended at that time. (11) Celiac disease: Plan: gluten free diet (12) Hypothyroidism: Plan: most recent TSH wnl cont synthroid (13) Glenoid fracture of shoulder: Plan: incidentally seen on chest CT last pm. b/l, nondisplaced. will d/w orthopedics. he has no shoulder pain b/l. (14) CAD (coronary artery disease): Plan: 2018 heart cath, [facility] - Findings: LM: Calcified, luminal irregularities LAD: Moderate caliber vessel, heavily calcified, 30-40% mid segment disease, distal luminal irregularities LCx: Moderate caliber, mild diffuse disease. RCA: Dominant, proximal to mid luminal irregularities, 20-30% late-mid to distal stenosis. RPDA without significant disease Is on aspirin & statin daily. Not on beta neil due to severe orthostatic hypotension. Plan will update his later today Admission and Anticipated Discharge Date Admission Date: December 08, 2023 Subjective patient resting in bed comfortably has [place] J collar in place has been wearing such faithfully since 07/2023 when he was dx with an odontoid type 2 fracture (hospitalized at [facility] for such) he complains of left elbow pain only he has developed significant swelling over the left hand distal to 2 NOAH wraps overlying the L elbow he denies any pain in any other location except the left chest with deep breaths only he reports another fall yesterday he has had several falls over the last 6 months denies pains in his legs denies substernal chest pain or dyspnea at rest he does admit with any activity he has had shortness of breath for some time Review of Systems Review of Systems: gen - no fevers cv - see HPI pulm - no cough GI - no abd pain or N/V musculo - left elbow pain only Physical Exam Physical Exam: gen - lying flat in bed, NAD neck - [place] J collar in place mouth - MMM heart - RRR, s1 s2, 1-2/6 [place] LSB lungs - CTA b/l abd - soft NT ND BS+; incisional hernia present lower abdominal wall ext - no ankle/foot edema, pulses 2+ b/l musculo - left elbow - able to place the entire elbow through flexion/extension without difficult; supination/pronation causes pain in the elbow, however skin - there is a large dressing present on the forearm just distal to the left elbow; I removed both NOAH wraps; there is a considerable amount of old blood pr esent on the NOAH wraps and the dressings underneath; the current dressings are a pressure type dressing for bleeding; I did not remove these; distal L arm with considerable edema and ecchymoses on the hand psych - a/o x 3 Results & Data Results & Data Vital Signs (Past 12 Hours) Vital Signs Temp Pulse Pulse Pulse Resp BP Pulse Ox 12/09/23 09:52 12/09/23 07:28 36.8 C 66 18 151/91 H 96 12/09/23 07:26 69 12/09/23 02:48 36.4 C L 74 20 152/95 H 96 12/08/23 23:32 81 123/77 12/08/23 22:35 37.4 C 93 H 20 142/82 H 96 12/08/23 22:34 104/66 12/08/23 22:30 70/38 L O2 Del Method 12/09/23 09:52 Room Air 12/09/23 07:28 Room Air 12/09/23 07:26 04/28/24 02:48 Room Air 12/08/23 23:32 12/08/23 22:35 Room Air 12/08/23 22:34 12/08/23 22:30 Laboratory Results Laboratory Results - last 24 hr 12/08/23 12/08/23 12/08/23 17:27 21:08 22:30 WBC Cancelled RBC Cancelled Hgb Cancelled Hct Cancelled MCV Cancelled MCH Cancelled MCHC Cancelled RDW Std Deviation Cancelled RDW Coeff of Paula Cancelled Plt Count Cancelled MPV Cancelled Immature Gran % (Auto) Cancelled Neut % (Auto) Cancelled Lymph % (Auto) Cancelled [place] % (Auto) Cancelled Eos % (Auto) Cancelled Baso % (Auto) Cancelled Neut # (Auto) Cancelled Lymph # (Auto) Cancelled [place] # (Auto) Cancelled Eos # (Auto) Cancelled Baso # (Auto) Cancelled Immature Gran # (Auto) Cancelled Absolute Nucleated RBC Cancelled Nucleated RBC % (auto) Cancelled Neutrophils % (Manual) Cancelled Band Neutrophils % Cancelled Lymphocytes % (Manual) Cancelled Prolymphocyte % Cancelled Reactive Lymphs % (Man) Cancelled Monocytes % (Manual) Cancelled Eosinophils % (Manual) Cancelled Basophils % (Manual) Cancelled Metamyelocytes % (Man) Cancelled Myelocytes % (Man) Cancelled Promyelocytes % (Man) Cancelled Blast Cells % (Manual) Cancelled Plasma Cell % (Manual) Cancelled Other Cells % Cancelled Nucleated RBC % Cancelled Neutrophils # (Manual) Cancelled Band Neutrophils # Cancelled Total Absolute Neuts Cancelled Lymphocytes # (Manual) Cancelled Prolymphocyte # Cancelled Reactive Lymphs # Cancelled Total Abs Lymphocytes Cancelled Monocytes # (Manual) Cancelled Eosinophils # (Manual) Cancelled Basophils # (Manual) Cancelled Metamyelocytes # (Man) Cancelled Myelocytes # (Manual) Cancelled Promyelocytes # (Man) Cancelled Blast Cells # (Man) Cancelled Plasma Cell # (Manual) Cancelled Other Cells # Cancelled Nucleated RBCs # (Man) Cancelled Hypersegmented Neuts Cancelled Hyposegmented Neuts Cancelled Hypogranular Neuts Cancelled Large Granular Lymphs Cancelled # Lrg Granular Lymphs Cancelled Hairy Cells Cancelled Smudge Cells Cancelled Toxic Granulation Cancelled Toxic Vacuolation Cancelled Dohle Bodies Cancelled Jacey Rods Cancelled Platelet Estimate Cancelled Hypogranular Platelets Cancelled Giant Platelets Cancelled Platelet Satelliting Cancelled RBC Morphology Cancelled Polychromasia Cancelled Hypochromasia Cancelled Poikilocytosis Cancelled Basophilic Stippling Cancelled Anisocytosis Cancelled Microcytosis Cancelled Macrocytosis Cancelled Spherocytes Cancelled Pappenheimer Bodies Cancelled Sickle Cells Cancelled Target Cells Cancelled Tear Drop Cells Cancelled Ovalocytes Cancelled Stomatocytes Cancelled [place] Bodies Cancelled Echinocytes Cancelled Acanthocytes (Spur) Cancelled Rouleaux Cancelled RBC Agglutinates Cancelled Schistocytes Cancelled Sezary Cell Cancelled Sodium 139 Potassium 4.3 D Chloride 100 Carbon Dioxide 29 Anion Gap 10 BUN 27 H Creatinine 3.59 H Est Cr Clr Drug Dosing 15.3 Est GFR ( Amer) 17.4 Est GFR (Non-Af Amer) 15.0 BUN/Creatinine Ratio 7.5 L Glucose 123 H POC Glucose 184 H Calcium 9.4 Magnesium Total Bilirubin AST ALT Alkaline Phosphatase Troponin I High Sens 94.9 H* Cancelled Total Protein Albumin Globulin Albumin/Globulin Ratio Urine Color Urine Appearance Urine pH Ur Specific [place] Urine Protein Urine Glucose (UA) Urine Ketones Urine Blood Urine Nitrite Urine Bilirubin Urine Urobilinogen Ur Leukocyte Esterase Urine WBC (Auto) Urine RBC (Auto) U Hyaline Cast (Auto) U Epithel Cells (Auto) Urine Bacteria (Auto) Nasal Screen MRSA (PCR) Blood Parasites ID Cancelled 12/08/23 12/08/23 12/08/23 22:41 22:42 23:25 WBC 12.18 H RBC 3.34 L Hgb 11.3 L Hct 34.7 L MCV 103.9 H MCH 33.8 MCHC 32.6 RDW Std Deviation 54.1 H RDW Coeff of Paula 14.1 Plt Count 225 MPV 10.0 Immature Gran % (Auto) 0.4 Neut % (Auto) 74.1 Lymph % (Auto) 15.5 [place] % (Auto) 9.4 Eos % (Auto) 0.1 Baso % (Auto) 0.5 Neut # (Auto) 9.03 H Lymph # (Auto) 1.89 [place] # (Auto) 1.14 H Eos # (Auto) 0.01 Baso # (Auto) 0.06 Immature Gran # (Auto) 0.05 Absolute Nucleated RBC Nucleated RBC % (auto) Neutrophils % (Manual) Band Neutrophils % Lymphocytes % (Manual) Prolymphocyte % Reactive Lymphs % (Man) Monocytes % (Manual) Eosinophils % (Manual) Basophils % (Manual) Metamyelocytes % (Man) Myelocytes % (Man) Promyelocytes % (Man) Blast Cells % (Manual) Plasma Cell % (Manual) Other Cells % Nucleated RBC % Neutrophils # (Manual) Band Neutrophils # Total Absolute Neuts Lymphocytes # (Manual) Prolymphocyte # Reactive Lymphs # Total Abs Lymphocytes Monocytes # (Manual) Eosinophils # (Manual) Basophils # (Manual) Metamyelocytes # (Man) Myelocytes # (Manual) Promyelocytes # (Man) Blast Cells # (Man) Plasma Cell # (Manual) Other Cells # Nucleated RBCs # (Man) Hypersegmented Neuts Hyposegmented Neuts Hypogranular Neuts Large Granular Lymphs # Lrg Granular Lymphs Hairy Cells Smudge Cells Toxic Granulation Toxic Vacuolation Dohle Bodies Jacey Rods Platelet Estimate Hypogranular Platelets Giant Platelets Platelet Satelliting RBC Morphology Polychromasia Hypochromasia Poikilocytosis Basophilic Stippling Anisocytosis Microcytosis Macrocytosis Spherocytes Pappenheimer Bodies Sickle Cells Target Cells Tear Drop Cells Ovalocytes Stomatocytes [place] Bodies Echinocytes Acanthocytes (Spur) Rouleaux RBC Agglutinates Schistocytes Sezary Cell Sodium 140 Potassium 3.8 Chloride 102 Carbon Dioxide 27 Anion Gap 11 BUN 29 H Creatinine 3.85 H Est Cr Clr Drug Dosing 13.7 Est GFR ( Amer) 16.0 Est GFR (Non-Af Amer) 13.8 BUN/Creatinine Ratio 7.5 L Glucose 180 H POC Glucose Calcium 9.2 Magnesium 1.9 Total Bilirubin 0.7 AST 20 ALT 15 Alkaline Phosphatase 62 Troponin I High Sens 86.7 H* Total Protein 6.2 Albumin 4.1 Globulin 2.1 L Albumin/Globulin Ratio 2.0 Urine Color Yellow Urine Appearance Clear Urine pH 8.5 H Ur Specific [place] 1.012 Urine Protein 2+ H Urine Glucose (UA) Trace H Urine Ketones Negative Urine Blood Negative Urine Nitrite Negative Urine Bilirubin Negative Urine Urobilinogen Negative Ur Leukocyte Esterase Negative Urine WBC (Auto) 0-5 Urine RBC (Auto) 0-2 U Hyaline Cast (Auto) 0-2 U Epithel Cells (Auto) 0-2 Urine Bacteria (Auto) None Seen Nasal Screen MRSA (PCR) Negative Blood Parasites ID 12/09/23 12/09/23 02:39 07:37 WBC 9.62 RBC 3.04 L Hgb 10.1 L Hct 31.3 L MCV 103.0 H MCH 33.2 MCHC 32.3 RDW Std Deviation 53.7 H RDW Coeff of Paula 14.2 Plt Count 196 MPV 9.9 Immature Gran % (Auto) 0.1 Neut % (Auto) 75.1 Lymph % (Auto) 13.0 [place] % (Auto) 11.2 Eos % (Auto) 0.2 Baso % (Auto) 0.4 Neut # (Auto) 7.22 H Lymph # (Auto) 1.25 [place] # (Auto) 1.08 H Eos # (Auto) 0.02 Baso # (Auto) 0.04 Immature Gran # (Auto) 0.01 Absolute Nucleated RBC Nucleated RBC % (auto) Neutrophils % (Manual) Band Neutrophils % Lymphocytes % (Manual) Prolymphocyte % Reactive Lymphs % (Man) Monocytes % (Manual) Eosinophils % (Manual) Basophils % (Manual) Metamyelocytes % (Man) Myelocytes % (Man) Promyelocytes % (Man) Blast Cells % (Manual) Plasma Cell % (Manual) Other Cells % Nucleated RBC % Neutrophils # (Manual) Band Neutrophils # Total Absolute Neuts Lymphocytes # (Manual) Prolymphocyte # Reactive Lymphs # Total Abs Lymphocytes Monocytes # (Manual) Eosinophils # (Manual) Basophils # (Manual) Metamyelocytes # (Man) Myelocytes # (Manual) Promyelocytes # (Man) Blast Cells # (Man) Plasma Cell # (Manual) Other Cells # Nucleated RBCs # (Man) Hypersegmented Neuts Hyposegmented Neuts Hypogranular Neuts Large Granular Lymphs # Lrg Granular Lymphs Hairy Cells Smudge Cells Toxic Granulation Toxic Vacuolation Dohle Bodies Jacey Rods Platelet Estimate Hypogranular Platelets Giant Platelets Platelet Satelliting RBC Morphology Polychromasia Hypochromasia Poikilocytosis Basophilic Stippling Anisocytosis Microcytosis Macrocytosis Spherocytes Pappenheimer Bodies Sickle Cells Target Cells Tear Drop Cells Ovalocytes Stomatocytes [place] Bodies Echinocytes Acanthocytes (Spur) Rouleaux RBC Agglutinates Schistocytes Sezary Cell Sodium 139 Potassium 4.1 Chloride 103 Carbon Dioxide 28 Anion Gap 8 BUN 33 H Creatinine 3.70 H Est Cr Clr Drug Dosing 14.3 Est GFR ( Amer) 16.7 Est GFR (Non-Af Amer) 14.4 BUN/Creatinine Ratio 8.9 L Glucose 97 POC Glucose Calcium 8.7 Magnesium Total Bilirubin AST ALT Alkaline Phosphatase Troponin I High Sens 87.0 H* 84.5 H* Total Protein Albumin Globulin Albumin/Globulin Ratio Urine Color Urine Appearance Urine pH Ur Specific [place] Urine Protein Urine Glucose (UA) Urine Ketones Urine Blood Urine Nitrite Urine Bilirubin Urine Urobilinogen Ur Leukocyte Esterase Urine WBC (Auto) Urine RBC (Auto) U Hyaline Cast (Auto) U Epithel Cells (Auto) Urine Bacteria (Auto) Nasal Screen MRSA (PCR) Blood Parasites ID PG Care Time/CCT Total # of Minutes Spent Total Time Spent with Patient: Total time spent is greater than 50% in coordination of care (as documented) at patient's floor/unit and/or counseling patient: Coding Level of Care Code 94337 SUB INP/OBS CARE 3/50MIN Diagnoses Recurrent falls R29.6 Orthostatic hypotension I95.1 Laceration of left elbow S51.012A Multiple rib fractures S22.49XA ESRD (end stage renal disease) on dialysis N18.6; Z99.2 Odontoid fracture S12.110A Elevated troponin R79.89 Acute blood loss anemia D62 Paroxysmal atrial fibrillation I48.0 Closed T4 spinal fracture S22.049A Celiac disease K90.0 Hypothyroidism E03.9 Glenoid fracture of shoulder S42.143A; S42.153A Coronary artery disease involving [place] coronary artery of [place] heart, unspecified whether angina present I25.10 Coronary Disease-Associated Artery/Lesion type: [place] artery [place] vs. transplanted heart: [place] heart Associated angina: unspecified whether angina present (14) CAD (coronary artery disease) Coronary Disease-Associated Artery/Lesion type: [place] artery [place] vs. transplanted heart: mi[place]kmaq heart Associated angina: unspecified whether angina present Qualified Code(s): I25.10 - Atherosclerotic heart disease of [place]kmaq coronary artery without angina pectoris
--- NOTE | 2023-12-09 10:46 | Electrocardiogram Report ---
Test Reason : Blood Pressure : / mmHG Vent. Rate : 066 BPM Atrial Rate : 066 BPM P-R Int : 158 ms QRS Dur : 102 ms QT Int : 444 ms P-R-T Axes : 044 -35 039 degrees QTc Int : 465 ms Normal sinus rhythm Left axis deviation Incomplete right bundle branch block Moderate voltage criteria for LVH, may be normal variant ( R in aVL ) Abnormal ECG When compared with ECG of 09-NOV-2023 09:36, Nonspecific T wave abnormality has replaced inverted T waves in Inferior leads Nonspecific T wave abnormality no longer evident in Anterior leads Confirmed by Sathya Jenkins ([id number]) on 12/09/2023 10:46:07 AM Referred By: Laron Montemayor Confirmed By:Sathya Jenkins
--- NOTE | 2023-12-09 10:47 | Electrocardiogram Report ---
Test Reason : Blood Pressure : / mmHG Vent. Rate : 070 BPM Atrial Rate : 070 BPM P-R Int : 134 ms QRS Dur : 100 ms QT Int : 432 ms P-R-T Axes : -27 -38 053 degrees QTc Int : 466 ms Normal sinus rhythm Left axis deviation Minimal voltage criteria for LVH, may be normal variant ( R in aVL ) Nonspecific ST abnormality Abnormal ECG When compared with ECG of 08-DEC-2023 14:32, (unconfirmed) No significant change was found Confirmed by Sathya Jenkins ([id number]) on 12/09/2023 10:47:15 AM Referred By: Laron Montemayor Confirmed By:Sathya Jenkins
--- NOTE | 2023-12-09 10:50 | Electrocardiogram Report ---
Test Reason : Blood Pressure : / mmHG Vent. Rate : 092 BPM Atrial Rate : 092 BPM P-R Int : 154 ms QRS Dur : 094 ms QT Int : 368 ms P-R-T Axes : 059 -33 -06 degrees QTc Int : 455 ms Normal sinus rhythm with sinus arrhythmia Left axis deviation Voltage criteria for left ventricular hypertrophy Nonspecific ST abnormality Abnormal ECG When compared with ECG of 08-DEC-2023 15:49, (unconfirmed) No significant change was found Confirmed by Sathya Jenkins ([id number]) on 12/09/2023 10:50:02 AM Referred By: Laron Monetmayor Confirmed By:Sathya Jenkins
--- NOTE | 2023-12-09 10:52 | Electrocardiogram Report ---
Test Reason : Blood Pressure : / mmHG Vent. Rate : 070 BPM Atrial Rate : 070 BPM P-R Int : 152 ms QRS Dur : 098 ms QT Int : 458 ms P-R-T Axes : 064 -31 -13 degrees QTc Int : 494 ms Normal sinus rhythm Left axis deviation Moderate voltage criteria for LVH, may be normal variant Nonspecific ST abnormality Prolonged QT Abnormal ECG When compared with ECG of 08-DEC-2023 22:35, (unconfirmed) No significant change was found Confirmed by Sathya Jenkins ([id number]) on 12/09/2023 10:51:38 AM Referred By: Laron Montemayor Confirmed By:Sathya Jenkins
[2023-12-09] MEDS: ACETAMINOPHEN 500 MG TAB PO SCH (10:56)
--- NOTE | 2023-12-09 11:03 | XRay Report ---
XR elbow LT min 3V routine CLINICAL HISTORY: fall, severe L elbow pain COMPARISON STUDY: Left forearm 12/08/2023. FINDINGS: Overlying tape/bandages slightly obscures the left elbow. There is diffuse soft tissue swel ling. No definite elbow effusion. No acute fracture or dislocation. IMPRESSION: Diffuse soft tissue swelling within the left elbow. No acute fractures. ACT 112: Negative or not required by law. Electronically signed by: Fitz Martin M.D. 12/09/2023 11:01 AM
--- NOTE | 2023-12-09 11:44 | Nephrology Consultation ---
Date of Consultation December 09, 2023 Assessment & Plan (1) ESRD (end stage renal disease) on dialysis: (2) Secondary hyperparathyroidism: (3) Recurrent falls: (4) Laceration of left elbow: (5) Multiple rib fractures: (6) Anemia: Plan End-stage kidney disease on hemodialysis Sunday, Sunday, Sunday via right IJ tunneled dialysis catheter, went to the hospital with recurrent fall, bleeding from laceration in left arm and multiple rib fracture. Hemoglobin slightly dropped to 10.1 from 11.3 on admission although no active bleeding from left arm. Electrolyte acceptable. Blood pressure variable. Volume status seems acceptable. -- Plan for dialysis tomorrow as regular schedule, if CTA planned for evaluation for PE, recommend scheduling first thing in the morning before dialysis tomorrow -- Dose medications for EGFR less than 10 -- Epogen with dialysis tomorrow -- Continue Nephrocaps daily, PhosLo with meals -- midodrine with dialysis if blood pressure remains low Thank you for allowing me to participate in your patient's care. It was a pleasure to see Evans History of Present Illness Reason for Consultation: ESKD on HD, admitted with fall. Attending Physician: Guille Doherty MD History of Present Illness Mr. Stern Is a 83-year-old gentleman with past medical history significant for ESKD on HD, hypertension, history of recurrent fall admitted after a fall and bleeding from left arm with laceration after fall. Nephrology consult was requested for management of hemodialysis while inpatient. EMR records were reviewed in detail during patient's visit. Evans was admitted to hospital yesterday after he had a day mechanical falls and bleeding from laceration injury to left arm. He recently had a odontoid fracture after fall and is wearing a hard cervical collar. Imaging including CT head and CT cervical spine without any acute fracture. Although he was noted to have left fifth and sixth rib fracture. Hemoglobin was 11.3 on admission, dropped to 10.1 this morning. Electrolyte was acceptable. Blood pressure has been variable but generally he has history of hypertension. Has ESKD secondary to microvascular disease, has been on IHD since 2021 at [facility] under the care of Dr. Flores. He had full dialysis treatment last Sunday, on MWF x 3/25 hrs -- 180 optiflux, 400/800, 3K 140Na 37HCO3. He dialyzes via a RIJ TDC. Left arm AVF ligated in the past. Recent medical history includes a Odontoid fracture suffered in July. Has been having orthostatic lightheadedness, on midodrine 10 mg TID. He has imaging evidence of T4 fracture. Medical history also notable for hypothyroidism, CAD, hypertension, and history of esophageal perforation in 2018 treated with thoracotomy and esophagogastrectomy after he had surgery for paraesophageal hernia and had prolonged hospitalization for several months. In August 2019 he had gastric pull-up anastomosis and pyeloplasty. Since then he has been having some dumping symptoms. In February 2020 he was having dysphagia and had EGD with removal of food bezoar and dilatation of esophagus. In November 2020 he again presented to ER with SOB, transferred to [facility], had exploratory laparotomy and small-bowel volvulus resection on 11/30/2020. Postoperative course was complicated by hemoperitoneum and he had repeat exploratory laparotomy. Hospitalization was complicated by upper extremity DVT and he has been on Eliquis since then. There is also a documented history of paroxysmal atrial fibrillation. Non smoker, retired from [employer]. He denied any significant pain in his left arm this morning. Denies shortness of breath. Allergies Allergy/AdvReac Type Severity Reaction Status Date / Time gluten Allergy Intermediate CELIAC Verified 12/08/23 15:37 DISEASE--Gastrointestinal Upset Home Medications Medication Instructions Recorded Confirmed Type cyanocobalamin (vitamin B-12) 1,000 mcg PO HS 12/29/21 12/08/23 History 1,000 mcg tablet (Vitamin B-12) vitamin B comp no.3-folic acid 1 1 tab PO QAM 02/17/22 12/08/23 History mg-vit C 60 mg-biotin 300 mcg tablet ([facility]) calcium acetate(phosphat bind) 667 667 mg PO TIDM 06/13/22 12/08/23 History mg tablet [id number] 5 mg-zeaxanth 1 cap PO HS 06/13/22 12/08/23 History 1 mg-bilberry 7.5 mg-herbal capsule (Macular Health Formula) acetaminophen 500 mg tablet 1,000 mg PO BID PRN Pain 08/23/22 12/08/23 History levothyroxine 100 mcg tablet 100 mcg PO QAM #90 tabs 11/27/22 12/08/23 Rx sertraline 100 mg tablet (Zoloft) 100 mg PO QPM #90 tabs 06/11/23 12/08/23 Rx rosuvastatin 5 mg tablet 5 mg PO DAILY 07/21/23 12/08/23 History vit B,C-folic ac 800 mcg-zinc 12.5 1 tab PO DAILY 10/16/23 12/08/23 History mg-selen-D3 2,000 unit-vit E tablet (RenaPlex-D) fludrocortisone 0.1 mg tablet 0.1 mg PO QAM #0 tabs 10/22/23 12/08/23 Rx aspirin 81 mg tablet,delayed 81 mg PO DAILY 12/08/23 12/08/23 History release midodrine 10 mg tablet 10 mg PO BID 12/08/23 12/08/23 History midodrine 5 mg tablet 5 mg PO DAILY 12/08/23 12/08/23 History polyethylene glycol 3350 17 17 g PO DAILY 12/08/23 12/08/23 History gram/dose oral powder (Miralax) Patient History Medical History CKD (chronic kidney disease), stage V CAD (coronary artery disease) Mild to moderate nonobstructive per 2019 cath Diastolic CHF EF 65-70% 08/2022 echo Dialysis patient SUNDAY/SUNDAY/SUNDAY THRU CATHETER RIGHT CHEST DVT (deep venous thrombosis) Hx- 2018- PE and DVT to left LE- s/p esophageal perforation surgery Was on Eliquis until last month - d/c'ed secondary to DVT being provoked- on AC x 1 year Hyperphosphatemia Hx of hiatal hernia HTN (hypertension) Depression Respiratory failure Post op from esophageal perforation in 2018 No issues with subsequent surgery- no current breathing issues Atrial fibrillation with rapid ventricular response 2019- s/p pericarditis with volume overload (later dx'ed with esophageal perforation) Follows only with PCP- no AC No recurrence per patient Kidney stones No recent issues GERD (gastroesophageal reflux disease) Well controlled and stable Celiac disease Hypothyroidism Anemia Hgb ranges 7-10 Surgical History History of surgery Left Upper Extremity Fistulogram AVF (arteriovenous fistula) LUE AVF creation History of cardiac cath 2019- mild to moderate nonobstructive CAD History of repair of hiatal hernia PERFORATED [id number] SUBSEQUENT SURGERIES TO REPAIR, ETC (Had thoracotomy for hernia repair, esophagogastrectomy, GJ tube placement) History of carpal tunnel surgery of right wrist History of hammertoe correction bilt feet History of esophagogastroduodenoscopy (EGD) (06/12/17) History of colonoscopy (06/12/17) History of umbilical hernia repair History of tooth extraction Family History Father Dementia Mother Breast cancer Grandfather (Maternal) Stroke Family/Other Hypercholesterolemia Other No family history of adverse response to anesthesia Denies family history of Ovarian cancer Prostate cancer Myocardial infarction Colorectal cancer Social History Smoking Status: Never smoker Second Hand Exposure: No; Do You Dip or Chew Tobacco: No; Hx Alcohol Use: No Hx Substance Use: No Preferred Language: Setswana Communication Ability: Effective Visual Impairment: Partially Limited Drier Tender Required: No Beliefs That Will Affect Care: None marital status: Current Living Situation: Spouse Current Living Situation Comment: lives with giovanna at [facility] the [facility] current occupational status: retired 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 Feels Safe at Home: Yes Childhood Exposure to Second-Hand Smoke: No Dental Care, Regularly: Yes Physical Activity Frequency: 1-2 Times per Week Seatbelt Use: always Sunscreen Use: No Assistive Devices: Walker Review of Systems Review of Systems: Detailed review of system was done and pertinent positives and negatives are mentioned above. Physical Exam Constitutional: WD/WN, vitals as above + ill appearing; no acute distress Eyes: + anicteric sclerae Neck: normal visual inspection Cervical collar in place Respiratory: normal respiratory effort; no respiratory distress and no cough Auscultation: lungs clear to auscultation bilaterally Cardiovascular: Rate/Rhythm: regular rate and regular rhythm Heart Sounds: normal S1 and normal S2 Extremities: + edema (left arm ) and + vascular access device (rt IJ TDC) Gastrointestinal (Abdomen): Inspection/Auscultation: abdomen normal to inspection Musculoskeletal: Extremities: extremities normal to inspection Skin: + lesion (left arm laceration and bleedi ng, swelling) Neurologic: no focal motor deficits Psychiatric: Orientation: alert and oriented x 3 Affect: euthymic affect Results & Data Vital Signs (Past 12 Hours) Vital Signs Temp Pulse Pulse Resp BP Pulse Ox O2 Del Method 12/09/23 11:22 36.8 C 69 18 183/94 H 96 Room Air 12/09/23 09:52 Room Air 12/09/23 07:28 36.8 C 66 18 151/91 H 96 Room Air 12/09/23 07:26 69 12/09/23 02:48 36.4 C L 74 20 152/95 H 96 Room Air PG Care Time/CCT Total # of Minutes Spent Total Time Spent with Patient: Total time spent is greater than 50% in coordination of care (as documented) at patient's floor/unit and/or counseling patient: Coding Level of Care Code 21036 INT INP/OBS CARE 3/75MIN Diagnoses ESRD (end stage renal disease) on dialysis N18.6; Z99.2 Secondary hyperparathyroidism N25.81 Recurrent falls R29.6 Laceration of left elbow S51.012A Multiple rib fractures S22.49XA Anemia D64.9 Anemia type: unspecified type (6) Anemia Anemia type: unspecified type Qualified Code(s): D64.9 - Anemia, unspecified
[2023-12-10 03:36] LABS: Basophils # (auto) 0.05 K/uL (0.00-0.20); Basophils % (auto) 0.5 %; Eosinophils # (auto) 0.15 K/uL (0.00-0.50); Eosinophils % (auto) 1.4 %; Hematocrit (blood only) 28.3 % (42.0-52.0); Hemoglobin 9.4 g/dl (14.0-18.0); Immature Granulocytes # (auto) 0.04 K/uL (0.01-0.20); Immature Granulocytes % (auto) 0.4 %; Lymphocytes # (auto) 1.55 K/uL (1.20-3.40); Lymphocytes % (auto) 14.9 %; Mean Corpuscular Hemoglobin 33.6 pg (25.0-34.0); Mean Corpuscular Hgb Conc 33.2 g/dL (32.0-36.0); Mean Corpuscular Volume 101.1 fL (80.0-100.0); Mean Platelet Volume 10.2 fL (9.4-12.4); Monocytes # (auto) 1.19 K/uL (0.11-0.59); Monocytes % (auto) 11.5 %; Neutrophils # (auto) 7.39 K/uL (1.40-6.50); Neutrophils % (auto) 71.3 %; Platelet Count 190 K/uL (130-400); RDW Coefficient of Variation 13.8 % (11.5-14.5); RDW Standard Deviation 51.4 fL (36.4-46.3); White Blood Count 10.37 K/ul (4.8-10.8)
[2023-12-10] MEDS: LIDOCAINE 5% 1 PATCH TD SCH (08:05)
--- NOTE | 2023-12-10 09:49 | Nephrology Progress Note ---
Date of Service December 10, 2023 Assessment & Plan (1) ESRD (end stage renal disease) on dialysis: (2) Secondary hyperparathyroidism: (3) Recurrent falls: (4) Laceration of left elbow: (5) Multiple rib fractures: (6) Anemia: Plan End-stage kidney disease on hemodialysis Sunday, Sunday, Sunday via right IJ tunneled dialysis catheter, went to the hospital with recurrent fall, bleeding from laceration in left arm and multiple rib fracture. Hemoglobin slightly dropped to 10.1 from 11.3 on admission although no active bleeding from left arm. Electrolyte acceptable. Blood pressure variable. Volume status seems acceptable. Electrolyte acceptable. Otherwise asymptoma tic. -- Plan for dialysis today as regular schedule, after CTA planned for evaluation for PE. -- Dose medications for eGFR less than 10 -- Epogen with dialysis tomorrow -- Continue Nephrocaps daily, PhosLo with meals -- midodrine with dialysis if blood pressure remains low Admission and Anticipated Discharge Date Admission Date: December 08, 2023 Justin Krueger was seen and evaluated this am. He reports feeling well. Left arm bleeding stopped. Blood pressure slightly elevated this morning. Hemoglobin 9.4. Electrolyte acceptable. Due for dialysis today. Review of Systems Review of Systems: Detailed review of system was otherwise unremarkable. Physical Exam Constitutional: WD/WN, vitals as above no acute distress Eyes: + anicteric sclerae Neck: normal visual inspection Respiratory: Auscultation: lungs clear to auscultation bilaterally Cardiovascular: Rate/Rhythm: regular rate and regular rhythm Heart Sounds: normal S1 and normal S2 Extremities: + vascular access device (rt IJ TDC) Musculoskeletal: Extremities: extremities normal to inspection Skin: + turgor decreased and + ecchymosis Neurologic: no focal motor deficits Psychiatric: Orientation: alert and oriented x 3 Affect: euthymic affect Results & Data Vital Signs (Past 12 Hours) Vital Signs Temp Pulse Pulse Resp BP Pulse Ox O2 Del Method 12/10/23 08:07 Room Air 12/10/23 07:47 36.8 C 66 18 167/91 H 96 Room Air 12/10/23 04:10 36.6 C 68 20 180/99 H 97 Room Air 12/09/23 23:57 36.6 C 68 20 189/98 H 95 Room Air 12/09/23 23:05 Room Air 12/09/23 23:04 65 PG Care Time/CCT Total # of Minutes Spent Total Time Spent with Patient: Total time spent is greater than 50% in coordination of care (as documented) at patient's floor/unit and/or counseling patient: Coding Level of Care Code 80617 SUB INP/OBS CARE 2/35MIN Diagnoses ESRD (end stage renal disease) on dialysis N18.6; Z99.2 Secondary hyperparathyroidism N25.81 Recurrent falls R29.6 Laceration of left elbow S51.012A Multiple rib fractures S22.49XA Anemia D64.9 Anemia type: unspecified type (6) Anemia Anemia type: unspecified type Qualified Code(s): D64.9 - Anemia, unspecified
[2023-12-10] MEDS: OPTIRAY 320 125ml IV ONE (11:49)
--- NOTE | 2023-12-10 12:30 | CT Scan Report ---
CT ANGIOGRAM OF THE CHEST CLINICAL HISTORY: Dyspnea COMPARISON STUDY: Chest CT dated 12/08/2023. A chest x-ray dated 11/09/2023. TECHNIQUE: Following the IV administration of 119 cc of Optiray 320, CT angiogram of the chest was pe rformed from the upper abdomen to the thoracic inlet utilizing the pulmonary embolus protocol. Images are reviewed in the axial, sagittal, and coronal planes. 3-D MIPS images are created and assessed. I V contrast was administered without complication. A dose lowering technique was utilized adhering to the principles of ALARA. The examination is degraded by motion artifact, as well as by streak artifa ct from the arms which could not be elevated above the chest. CT DOSE: 811.15 mGy.cm FINDINGS: Thyroid: Atrophic. Thoracic aorta: The thoracic aorta is normal in caliber and demonstrates standard 3-vessel arch anato my. No dissection is seen. Pulmonary vasculature: The main pulmonary arteries are dilated indicating pulmonary artery hypertensi on. There are no filling defects identified in main, lobar, or segmental pulmonary branches to sugges t pulmonary embolus. Heart: A right internal jugular central venous catheter is in place. The heart is enlarged and withou t pericardial effusion. The coronary arteries are densely calcified Lungs and pleural spaces: There are trace pleural effusions. Scarring/atelectasis is noted at both jaci ng bases. There is no airspace consolidation typical for pneumonia. The trachea and central airways a re clear. Diffuse peribronchial thickening is noted. Mediastinum: There is no mediastinal lymphadenopathy. Bianca: Clear. Axillae: There is no axillary lymphadenopathy. Upper abdomen: There is postsurgical change from esophageal resection with gastric pull-through proce dure. There is a 2 mm nonobstructing calculus in the upper pole of left kidney. A punctate nonobstruc ting calculus is seen in the right upper pole. The visualized kidneys demonstrate cortical atrophy. A 2.9 cm left lobe hepatic cyst and a 1.9 cm indeterminate right lobe hepatic hypodensity are unchange d. Moderate fecal retention is noted in the partially imaged left colon. Skeletal structures: The skeletal structures are osteopenic. Degenerative change and hyperkyphosis is noted in the spine. No lytic or blastic bony lesions are seen. Arthritic change is seen in both shou lders with surrounding bursal fluid. There is an acute comminuted fracture of the right posterior 12t h rib. This is new from 12/08/2023. Acute left anterior 6th rib fracture is unchanged. Additional residence manager bria/healed rib fractures are seen bilaterally. There is also chronic posttraumatic deformity of the m anubrium. IMPRESSION: 1. There is no evidence of pulmonary embolus in the main, lobar, or segmental pulmonary arteries. 2. There is an acute comminuted fracture of the right posterior 12th rib. This is new from 12/08/2023. 3. Acute left anterior sixth rib fracture is unchanged, as are additional subacute/chronic fracture. 4. Cardiomegaly with evidence of pulmonary artery hypertension. 5. Trace pleural effusions. 6. Advanced coronary artery atherosclerosis. 7. Bilateral nephrolithiasis. 8. Additional findings as above. ACT 112: Negative or not required by law. Electronically signed by: Steven Mittal M.D. 12/10/2023 12:27 PM
[2023-12-10] MEDS: EPOETIN ALFA 10,000 UNITS/ML VIAL IV ONE (12:47)
--- NOTE | 2023-12-10 18:35 | Hospitalist Progress Note ---
Date of Service December 10, 2023 Assessment & Plan (1) Recurrent falls: Plan: Multiple falls dating back to 2022. Several falls have led to injury including 08/04 fall with odontoid fracture, T4 fracture in October 2023, and now right 12 rib fracture and left anterior rib fractures 5 and 6. Most recent fall also led to left arm laceration/severe skin tear requiring significant attention in the ER to stop the bleeding. "Quick clot" was utilized along with a compression dressing. Moderate drop in H/H from his left arm bleeding since admission. Falls are presumably due to his severe orthostatic hypotension. If he remains symptomatic with the current orthostasis may need to titrate florinef, but his supine readings may prohibit this. Of note - previous B12 level wnl. MRI brain 10/2023 without old or new stroke or ICH. MRA brain without significant occlusion. I do not see CTA neck, MRA neck, or carotid duplex presumably due to the presence of his [place] collar and being unable to obtain 1 of these studies. PT, OT. (2) Orthostatic hypotension: Plan: SEVERE. Leading to falls. 10/2023 discharge summary reviewed; florinef 0.1mg daily added to midodrine 5mg TID at that time. Midodrine has been titrated to 10mg TID since that time. Cortisol level wnl. Supine HTN may prohibit any titration of florinef. He is wearing TEDS b/l. Given his dyspnea, inability to ambulate that well, prior h/o DVT/PE in 2019, and spells of severe hypotension/near-syncope I obtained CT chest PE protocol today -- NO PEs seen. (3) Laceration of left elbow: Plan: s/p "quick clot" with compression dressing in ER. Wound care nurse consultation requested. The compression dressings placed in the ER have been removed overnight (perhaps fell off). elbow x-ray -- negative for fractures. Photo of lac/wound from today, 12/09 - While awaiting formal wound care consultation I placed Adaptic to the open skin tear region, followed by ABD, followed by kerlix, followed by gentle NOAH wrap to keep everything in place. (4) Multiple rib fractures: Plan: Left anterior fifth and sixth rib fractures. CT chest today showed an acute comminuted 12th rib fracture. Cont tylenol 1gm TID. Cont lidoderm patches. (5) ESRD (end stage renal disease) on dialysis: Plan: [facility] [place]. s/p HD today. HD schedule is Sun/Sun/Sunday. Cont phosphate binders, etc. (6) Odontoid fracture: Plan: 07/2023 fall, initially hospitalized at [facility] for such. Has been in [place] J collar since then. C-spine CT findings from this admission noted. Nonunion seen. Patient denies any pain, weakness, or paresthesias of either arm. Will formally consult ortho-spine to ensure the C-spine is stable. Cont collar in meantime. (7) Elevated troponin: Plan: Peak HS troponin 94.9. Patient saw CARI Shane - [facility] [place] [facility] - in the cardiology clinic recently. Mr Vigil had been planning dobutamine stress echo due to recent dyspnea on exertion as well as known CAD. Since supine BP readings are quite elevated at times will pursue a Lexiscan nuc stress tomorrow rather than dobutamine stress echo. NPO after OK tonight for such. (8) Acute blood loss anemia: Plan: 2nd to bleeding from #3. 2+ gram drop in hemoglobin since admission. follow carefully, (9) Paroxysmal atrial fibrillation: Plan: in NSR since admission. monitor carefully. he is not on chronic anticoagulation. (10) Closed T4 spinal fracture: Plan: seen during prior admission in 10/2023. non-operative Rx recommended at that time. (11) Celiac disease: Plan: gluten free diet (12) Hypothyroidism: Plan: most recent TSH wnl cont synthroid (13) Glenoid fracture of shoulder: Plan: incidentally seen on chest CT at time of this admission. b/l, nondisplaced. appear chronic. informal discussion held with on-call orthopedics yesterday. since he is not having any pain no Rx needed. no need for any immobilization. (14) CAD (coronary artery disease): Plan: 2018 heart cath, [facility] - Findings: LM: Calcified, luminal irregularities LAD: Moderate caliber vessel, heavily calcified, 30-40% mid segment disease, distal luminal irregularities LCx: Moderate caliber, mild diffuse disease. RCA: Dominant, proximal to mid luminal irregularities, 20-30% late-mid to distal stenosis. RPDA without significant disease Is on aspirin & statin daily. Not on beta neil due to severe orthostatic hypotension. Nuc stress ordered for Sunday, 12/10 (Lexiscan). Plan left message for pt's on her voicemail this evening Admission and Anticipated Discharge Date Admission Date: December 10, 2023 Subjective tele stable overnight patient underwent CT chest this am, followed by HD session patient reports that when he was out of bed he did not have any dizziness/lightheadedness no near-syncope denies chest pain denies dyspnea at rest no cough no recent illnesses no left elbow pain today when I came to see him all of his dressings from the left arm had fallen off the left elbow skin tear was bleeding a little reports he last saw ortho-spine at [facility] about 1 month ago; instructed to cont using his [place] J collar Review of Systems 2 Review of Systems: gen - eating well cv - no orthopnea GI - no abd pain or N/V Physical Exam 2 Physical Exam: gen - lying flat in bed, NAD neck - [place] J collar in place mouth - MMM heart - RRR, s1 s2, 1-2/6 LE[place] ANN LSB lungs - CTA b/l abd - soft NT ND BS+; incisional hernia present lower abdominal wall, reducible ext - no ankle/foot edema, pulses 2+ b/l musculo - left elbow - no pain with active movement skin - "L" shaped skin tear lateral aspect of L elbow, minimal bleeding, fairly deep, with skip flap; clean, no purulence; hematoma present just proximal to the skin tear; there is a 2nd small hematoma superior to the left elbow (see photo in A/P section) psych - a/o x 3 Results & Data Results & Data Vital Signs (Past 12 Hours) Vital Signs Temp Pulse Pulse Pulse Resp BP BP 12/10/23 15:33 36.5 C 75 164/85 H 12/10/23 15:30 75 163/91 H 12/10/23 15:17 85 12/10/23 15:00 85 138/80 12/10/23 14:30 78 131/84 12/10/23 14:00 72 108/73 12/10/23 13:30 65 161/106 H 12/10/23 13:00 65 173/101 H 12/10/23 12:30 63 165/105 H 12/10/23 12:06 36.5 C 64 12/10/23 08:07 12/10/23 07:47 36.8 C 66 18 167/91 H 12/10/23 07:30 63 Pulse Ox O2 Del Method 12/10/23 15:33 12/10/23 15:30 12/10/23 15:17 12/10/23 15:00 12/10/23 14:30 12/10/23 14:00 12/10/23 13:30 12/10/23 13:00 12/10/23 12:30 12/10/23 12:06 12/10/23 08:07 Room Air 12/10/23 07:47 96 Room Air 12/10/23 07:30 Laboratory Results Laboratory Results - last 24 hr 12/10/23 02:46 WBC 10.37 RBC 2.80 L Hgb 9.4 L Hct 28.3 L MCV 101.1 H MCH 33.6 MCHC 33.2 RDW Std Deviation 51.4 H RDW Coeff of Paula 13.8 Plt Count 190 MPV 10.2 Immature Gran % (Auto) 0.4 Neut % (Auto) 71.3 Lymph % (Auto) 14.9 Buchanan % (Auto) 11.5 Eos % (Auto) 1.4 Baso % (Auto) 0.5 Neut # (Auto) 7.39 H Lymph # (Auto) 1.55 Buchanan # (Auto) 1.19 H Eos # (Auto) 0.15 Baso # (Auto) 0.05 Immature Gran # (Auto) 0.04 PG Care Time/CCT Total # of Minutes Spent Total Time Spent with Patient: Total time spent is greater than 50% in coordination of care (as documented) at patient's floor/unit and/or counseling patient: Coding Level of Care Code 58521 SUB INP/OBS CARE 3/50MIN Diagnoses Recurrent falls R29.6 Orthostatic hypotension I95.1 Laceration of left elbow S51.012A Multiple rib fractures S22.49XA ESRD (end stage renal disease) on dialysis N18.6; Z99.2 Odontoid fracture S12.110A Elevated troponin R79.89 Acute blood loss anemia D62 Paroxysmal atrial fibrillation I48.0 Closed T4 spinal fracture S22.049A Celiac disease K90.0 Hypothyroidism E03.9 Glenoid fracture of shoulder S42.143A; S42.153A Coronary artery disease involving [place] coronary artery of [place] heart, unspecified whether angina present I25.10 Associated angina: unspecified whether angina present Coronary Disease-Associated Artery/Lesion type: [place] artery [place] vs. transplanted heart: [place] heart (14) CAD (coronary artery disease) Associated angina: unspecified whether angina present Coronary Disease- Associated Artery/Lesion type: [place] artery [place] vs. transplanted heart: n ative heart Qualified Code(s): I25.10 - Atherosclerotic heart disease of [place] coronary artery without angina pectoris
[2023-12-11 03:38] LABS: Basophils # (auto) 0.05 K/uL (0.00-0.20); Basophils % (auto) 0.7 %; Eosinophils % (auto) 1.3 %; Hematocrit (blood only) 28.8 % (42.0-52.0); Hemoglobin 9.5 g/dl (14.0-18.0); Immature Granulocytes # (auto) 0.01 K/uL (0.01-0.20); Immature Granulocytes % (auto) 0.1 %; Lymphocytes # (auto) 1.25 K/uL (1.20-3.40); Lymphocytes % (auto) 16.8 %; Mean Corpuscular Hemoglobin 33.7 pg (25.0-34.0); Mean Corpuscular Volume 102.1 fL (80.0-100.0); Mean Platelet Volume 9.9 fL (9.4-12.4); Monocytes # (auto) 1.03 K/uL (0.11-0.59); Monocytes % (auto) 13.9 %; Neutrophils # (auto) 4.98 K/uL (1.40-6.50); Neutrophils % (auto) 67.2 %; Platelet Count 172 K/uL (130-400); RDW Standard Deviation 52.1 fL (36.4-46.3); Red Blood Count 2.82 M/uL (4.70-6.10); White Blood Count 7.42 K/ul (4.8-10.8)
[2023-12-11 05:26] LABS: Ferritin 430.2 ng/ml (8-388)
--- NOTE | 2023-12-11 08:19 | Orthopedic Consultation ---
Date of Consultation December 11, 2023 Assessment & Plan (1) Odontoid fracture: Assessment nonunion odontoid fracture with minimal displacement. Plan at this time he will move onto an established nonunion of his type II odontoid fracture. I recommend removing the collar when the patient is at rest or in bed. He should wear it when he is up and ambulating for additional support. His fracture should not interfere with additional procedures and may require throughout his hospital stay. History of Present Illness Reason for Consultation: Odontoid fracture Attending Physician: Yris Cloud MD History of Present Illness This is an 83-year-old male Seen in the past with a history of odontoid fracture. This was been present for approximately 4 months. Initially managed at [facility]. He has been treated in a [place] J collar since the incident. This morning he denies any neck pain arm numbness tingling or weakness. He does have a history of multiple falls to contribute to her concern regarding a developing nonunion. Allergies Allergy/AdvReac Type Severity Reaction Status Date / Time gluten Allergy Intermediate CELIAC Verified 12/08/23 15:37 DISEASE--Gastrointestinal Upset Home Medications Medication Instructions Recorded Confirmed Type cyanocobalamin (vitamin B-12) 1,000 mcg PO HS 12/29/21 12/08/23 History 1,000 mcg tablet (Vitamin B-12) vitamin B comp no.3-folic acid 1 1 tab PO QAM 02/17/22 12/08/23 History mg-vit C 60 mg-biotin 300 mcg tablet (Toya-Lena Rx) calcium acetate(phosphat bind) 667 667 mg PO TIDM 06/13/22 12/08/23 History mg tablet [id number] 5 mg-zeaxanth 1 cap PO HS 06/13/22 12/08/23 History 1 mg-bilberry 7.5 mg-herbal capsule (Macular Health Formula) acetaminophen 500 mg tablet 1,000 mg PO BID PRN Pain 08/23/22 12/08/23 History levothyroxine 100 mcg tablet 100 mcg PO QAM #90 tabs 11/27/22 12/08/23 Rx sertraline 100 mg tablet (Zoloft) 100 mg PO QPM #90 tabs 06/11/23 12/08/23 Rx rosuvastatin 5 mg tablet 5 mg PO DAILY 07/21/23 12/08/23 History vit B,C-folic ac 800 mcg-zinc 12.5 1 tab PO DAILY 10/16/23 12/08/23 History mg-selen-D3 2,000 unit-vit E tablet (RenaPlex-D) fludrocortisone 0.1 mg tablet 0.1 mg PO QAM #0 tabs 10/22/23 12/08/23 Rx aspirin 81 mg tablet,delayed 81 mg PO DAILY 12/08/23 12/08/23 History release midodrine 10 mg tablet 10 mg PO BID 12/08/23 12/08/23 History midodrine 5 mg tablet 5 mg PO DAILY 12/08/23 12/08/23 History polyethylene glycol 3350 17 17 g PO DAILY 12/08/23 12/08/23 History gram/dose oral powder (Miralax) Patient History Medical History CKD (chronic kidney disease), stage V CAD (coronary artery disease) Mild to moderate nonobstructive per 2019 cath Diastolic CHF EF 65-70% 08/2022 echo Dialysis patient SUNDAY/SUNDAY/SUNDAY THRU CATHETER RIGHT CHEST DVT (deep venous thrombosis) Hx- 2019- PE and DVT to left LE- s/p esophageal perforation surgery Was on Eliquis until last month - d/c'ed secondary to DVT being provoked- on AC x 1 year Hyperphosphatemia Hx of hiatal hernia HTN (hypertension) Depression Respiratory failure Post op from esophageal perforation in 2018 No issues with subsequent surgery- no current breathing issues Atrial fibrillation with rapid ventricular response 2018- s/p pericarditis with volume overload (later dx'ed with esophageal perforation) Follows only with PCP- no AC No recurrence per patient Kidney stones No recent issues GERD (gastroesophageal reflux disease) Well controlled and stable Celiac disease Hypothyroidism Anemia Hgb ranges 7-10 Surgical History History of surgery Left Upper Extremity Fistulogram AVF (arteriovenous fistula) LUE AVF creation History of cardiac cath 2019- mild to moderate nonobstructive CAD History of repair of hiatal hernia PERFORATED [id number] SUBSEQUENT SURGERIES TO REPAIR, ETC (Had thoracotomy for hernia repair, esophagogastrectomy, GJ tube placement) History of carpal tunnel surgery of right wrist History of hammertoe correction bilt feet History of esophagogastroduodenoscopy (EGD) (06/12/17) History of colonoscopy (06/12/17) History of umbilical hernia repair History of tooth extraction Family History Father Dementia Mother Breast cancer Grandfather (Maternal) Stroke Family/Other Hypercholesterolemia Other No family history of adverse response to anesthesia Denies family history of Ovarian cancer Prostate cancer Myocardial infarction Colorectal cancer Social History Smoking Status: Never smoker Second Hand Exposure: No; Do You Dip or Chew Tobacco: No; Hx Alcohol Use: No Hx Substance Use: No Preferred Language: French Communication Ability: Effective Visual Impairment: Partially Limited Skip Locator Required: No Beliefs That Will Affect Care: None marital status: Current Living Situation: Spouse Current Living Situation Comment: lives with giovanna at [facility] current occupational status: retired 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 Feels Safe at Home: Yes Childhood Exposure to Second-Hand Smoke: No Dental Care, Regularly: Yes Physical Activity Frequency: 1-2 Times per Week Seatbelt Use: always Sunscreen Use: No Assistive Devices: Walker Physical Exam Physical Exam: On exam he is currently bed. Is alert and oriented. He is cooperative. Appears comfortable. His good strength testing. No sensory deficits noted. Bandages are in place. Results & Data Vital Signs (Past 12 Hours) Vital Signs Temp Pulse Pulse Pulse Resp BP Pulse Ox 12/11/23 08:09 36.9 C 67 17 154/84 H 97 12/11/23 07:35 12/11/23 02:58 36.8 C 66 18 151/83 H 97 12/11/23 00:00 65 12/10/23 23:30 37.0 C 65 20 160/86 H 95 12/10/23 20:18 37.0 C 83 20 126/75 97 O2 Del Method 12/11/23 08:09 Room Air 12/11/23 07:35 Room Air 12/11/23 02:58 Room Air 12/11/23 00:00 12/10/23 23:30 Room Air 12/10/23 20:18 Room Air
--- NOTE | 2023-12-11 10:22 | Nephrology Progress Note ---
Date of Service December 11, 2023 Assessment & Plan (1) ESRD (end stage renal disease) on dialysis: (2) Secondary hyperparathyroidism: (3) Recurrent falls: (4) Laceration of left elbow: (5) Multiple rib fractures: (6) Anemia: Plan End-stage kidney disease on hemodialysis Sunday, Sunday, Sunday via right IJ tunneled dialysis catheter, went to the hospital with recurrent fall, bleeding from laceration in left arm and multiple rib fracture. Hemoglobin slightly dropped to 10.1 from 11.3 on admission although no active bleeding from left arm. Electrolyte acceptable. Blood pressure variable. Volume status seems acceptable. Electrolyte acceptable. Otherwise asymptoma tic. Had HD yesterday. -- dialysis tomorrow. -- Dose medications for eGFR less than 10 -- Epogen with dialysis tomorrow -- Continue Nephrocaps daily, PhosLo with meals Admission and Anticipated Discharge Date Admission Date: December 10, 2023 Justin Krueger was off floor this am. Labs and vitals signs were reviewed, stable. Had HD yesterday. Results & Data Vital Signs (Past 12 Hours) Vital Signs Temp Pulse Pulse Pulse Resp BP Pulse Ox 12/11/23 08:09 36.9 C 67 17 154/84 H 97 12/11/23 07:35 12/11/23 02:58 36.8 C 66 18 151/83 H 97 12/11/23 00:00 65 12/10/23 23:30 37.0 C 65 20 160/86 H 95 O2 Del Method 12/11/23 08:09 Room Air 12/11/23 07:35 Room Air 12/11/23 02:58 Room Air 12/11/23 00:00 12/10/23 23:30 Room Air PG Care Time/CCT Total # of Minutes Spent Total Time Spent with Patient: Total time spent is greater than 50% in coordination of care (as documented) at patient's floor/unit and/or counseling patient: Coding Level of Care Code 04470 SUB INP/OBS CARE 09/06MIN Diagnoses ESRD (end stage renal disease) on dialysis N18.6; Z99.2 Secondary hyperparathyroidism N25.81 Recurrent falls R29.6 Laceration of left elbow S51.012A Multiple rib fractures S22.49XA Anemia D64.9 Anemia type: unspecified type (6) Anemia Anemia type: unspecified type Qualified Code(s): D64.9 - Anemia, unspecified
[2023-12-11] MEDS: REGADENOSON 0.4 MG/5 ML SYR IV ONE (10:59)
--- NOTE | 2023-12-11 15:50 | Hospitalist Progress Note ---
Date of Service December 11, 2023 Assessment & Plan (1) Recurrent falls: Plan: Multiple falls dating back to 2022. Several falls have led to injury including 08/04 fall with odontoid fracture, T4 fracture in October 2023, and now right 12 rib fracture and left anterior rib fractures 5 and 6. Most recent fall also led to left arm laceration/severe skin tear requiring significant attention in the ER to stop the bleeding. "Quick clot" was utilized along with a compression dressing. Moderate drop in H/H from his left arm bleeding since admission. Falls are primarily due to his severe orthostatic hypotension, though generalized weakness and unsteady gait contribute. Reviewed meds - no culprits. B12, AM cortisol (20), TSH recently normal MRI brain 10/2023 without old or new stroke or ICH. MRA brain without significant occlusion. -ordered carotid duplex - ok by ortho spine PT, OT. (2) Orthostatic hypotension: Plan: SEVERE. Leading to falls, see above. 10/2023 discharge summary reviewed; florinef 0.1mg daily added to midodrine 5mg TID at that time. Midodrine has been titrated to 10mg TID since that time. Given his dyspnea, inability to ambulate that well, prior h/o DVT/PE in 2018, and spells of severe hypotension/near-syncope CTA chest on 12/09 - no PE Consider increasing florinef to 0.2 (3) Laceration of left elbow: Plan: s/p "quick clot" with compression dressing in ER. Wound care nurse consultation requested. The compression dressings placed in the ER have been removed overnight (perhaps fell off). elbow x-ray -- negative for fractures. Photo of lac/wound from 12/09 - While awaiting formal wound care consultation I placed Adaptic to the open skin tear region, followed by ABD, followed by kerlix, followed by gentle NOAH wrap to keep everything in place. (4) Multiple rib fractures: Plan: Left anterior fifth and sixth rib fractures. CT chest showed an acute comminuted 12th rib fracture. Cont tylenol 1gm TID. Cont lidoderm patches. (5) ESRD (end stage renal disease) on dialysis: [place] [facility] [place] schedule is Sun/Sun/Sunday. Cont phosphate binders, etc. (6) Odontoid fracture: Plan: 07/2023 fall, initially hospitalized at [facility] for such. Has been in [place] J collar since then. C-spine CT findings from this admission noted. Nonunion seen. Patient denies any pain, weakness, or paresthesias of either arm. Dr. 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 Wear with ambulation for additional support. (7) Elevated troponin: Plan: Peak HS troponin 94.9. Patient saw CARI Shane - [facility] [place] [place] in [place] cardiology clinic recently. Mr Vigil had been planning dobutamine stress echo due to recent dyspnea on exertion as well as known CAD. MPS dine this am, report pending (8) Acute blood loss anemia: Plan: 2nd to bleeding from #3. 2+ gram drop in hemoglobin since admission. follow carefully, (9) Paroxysmal atrial fibrillation: Plan: in NSR since admission. monitor carefully. he is not on chronic anticoagulation. (10) Closed T4 spinal fracture: Plan: seen during prior admission in 10/2023. non-operative Rx recommended at that time. (11) Celiac disease: Plan: gluten free diet (12) Hypothyroidism: Plan: most recent TSH wnl cont synthroid (13) Glenoid fracture of shoulder: Plan: incidentally seen on chest CT at time of this admission. b/l, nondisplaced. appear chronic. informal discussion held with on-call orthopedics since he is not having any pain no Rx needed. no need for any immobilization. (14) CAD (coronary artery disease): Plan: 2018 heart cath, [facility] - Findings: LM: Calcified, luminal irregularities LAD: Moderate caliber vessel, heavily calcified, 30-40% mid segment disease, distal luminal irregularities LCx: Moderate caliber, mild diffuse disease. RCA: Dominant, proximal to mid luminal irregularities, 20-30% late-mid to distal stenosis. RPDA without significant disease Is on aspirin & statin daily. Not on beta neil due to severe orthostatic hypotension. Nuc stress ordered for Sunday, 12/10 (Lexiscan). Plan Last discharge was at the [facility] for some time then moved back to [facility] independent situation. Appears to need to return to [facility] Admission and Anticipated Discharge Date Admission Date: December 10, 2023 Subjective orthostatic spells did improve after last hospitalization but do persist and trigger falls rib fractures do not hurt no dyspnea was not lightheaded with PT/OT Physical Exam 2 Physical Exam: PHYSICAL EXAMINATION Last 24h vital signs reviewed, see documentation in flowsheet General: comfortable appearing, no distress HEENT: Normocephalic, atraumatic, pupils round and equal, sclerae anicteric, no conjunctival injection, moist mucus membranes. wearing [place] J Lungs: Normal respiratory effort. Clear to auscultation bilaterally. No RRW Heart: Regular rate and rhythm, no murmurs. No JVD Rt upper chest tunneled HD line Abdomen: Soft, nontender, nondistended. Bowel sounds present. Extremities: Warm, dry, well-perfused. No extremity edema. Neuro: Alert and oriented x 4, face symmetric, moves 4 extremities well Psych: Normal affect and behavior Results & Data Results & Data Vital Signs (Past 12 Hours) Vital Signs Temp Pulse Pulse Resp BP Pulse Ox O2 Del Method 12/11/23 15:21 82 12/11/23 11:44 36.6 C 70 18 157/83 H 98 Room Air 12/11/23 08:09 36.9 C 67 17 154/84 H 97 Room Air 12/11/23 07:35 Room Air 12/11/23 07:30 85 Laboratory Results 12/11/23 03:13 12/09/23 02:39 PG Care Time/CCT Total # of Minutes Spent Total Time Spent with Patient: Total time spent is greater than 50% in coordination of care (as documented) at patient's floor/unit and/or counseling patient: Coding Level of Care Code 78138 SUB INP/OBS CARE 2/35MIN Diagnoses Recurrent falls R29.6 Orthostatic hypotension I95.1 Laceration of left elbow S51.012A Multiple rib fractures S22.49XA ESRD (end stage renal disease) on dialysis N18.6; Z99.2 Odontoid fracture S12.110A Elevated troponin R79.89 Acute blood loss anemia D62 Paroxysmal atrial fibrillation I48.0 Closed T4 spinal fracture S22.049A Celiac disease K90.0 Hypothyroidism E03.9 Glenoid fracture of shoulder S42.143A; S42.153A Coronary artery disease involving [place] coronary artery of [place] heart, unspecified whether angina present I25.10 Coronary Disease-Associated Artery/Lesion type: [place] artery [place] vs. transplanted heart: [place] heart Associated angina: unspecified whether angina present (14) CAD (coronary artery disease) Coronary Disease-Associated Artery/Lesion type: [place] artery [place] vs. transplanted heart: [place] heart Associated angina: unspecified whether angina present Qualified Code(s): I25.10 - Atherosclerotic heart disease of [place] coronary artery without angina pectoris
--- NOTE | 2023-12-11 19:17 | Ultrasound Report ---
BILATERAL CAROTID DOPPLER STUDY HISTORY: recurrent syncopal episodes. COMPARISON: None. TECHNIQUE: Real-time, grayscale, and color Doppler sonography of the carotid arteries was performed. Imaging reviewed in the transverse and longitudinal planes. All measurements were calculated based on NASCET criteria. FINDINGS: Antegrade flow is seen in the bilateral vertebral arteries. No significant calcified plaque. The peak systolic velocity within the right ICA is 58 cm/s. The right systolic ratio is 0.9. The peak systolic velocity within the left ICA is 48 cm/s. The left systolic ratio is 0.9. IMPRESSION: No hemodynamically significant stenosis seen within the carotid arteries. ACT 112: Negative or not required by law. Electronically signed by: Fitz Martin M.D. 12/11/2023 7:15 PM
--- NOTE | 2023-12-12 07:10 | Hospitalist Progress Note ---
Date of Service December 12, 2023 Assessment & Plan (1) Recurrent falls: Plan: Multiple falls dating back to 2022. Several falls have led to injury including 08/04 fall with odontoid fracture, T4 fracture in October 2023, and now right 12 rib fracture and left anterior rib fractures 5 and 6. Most recent fall also led to left arm laceration/severe skin tear requiring significant attention in the ER to stop the bleeding. "Quick clot" was utilized along with a compression dressing. Moderate drop in H/H from his left arm bleeding since admission. Falls are primarily due to his severe orthostatic hypotension, though generalized weakness and unsteady gait contribute. Reviewed meds - no culprits. B12, AM cortisol (20), TSH recently normal MRI brain 10/2023 without old or new stroke or ICH. MRA brain without significant occlusion. carotid duplex - no significant stenoses, anterograde flow in vertebral arteries PT, OT. (2) Orthostatic hypotension: Plan: SEVERE. Leading to falls, see above. 10/2023 discharge; florinef 0.1mg daily added to midodrine 5mg TID at that time. 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 Midodrine has been titrated to 10mg TID since that time. CTA chest on 12/09 - no PE. Carotid duplex neg. MPS pending 12/11 had 10 sec episode of syncope during HD when he stood up and became hypotensive increased florinef to 0.2 on 12/11, monitor bp/edema (3) Laceration of left elbow: Plan: elbow x-ray -- negative for fractures. wound nurse consulted: "To left arm skin tears/ trauma/hematoma - irrigate with saline using 35cc syringe and 18g blunt needle. Pat dry . Cover with double layer Xeroform, ABD and secure with kerlix. Change every day and as needed for drainage Assess every day for signs of skin necrosis and report to provider [facility] Call for appointment " (4) Multiple rib fractures: Plan: Left anterior fifth and sixth rib fractures. CT chest showed an acute comminuted 12th rib fracture. Cont tylenol 1gm TID. Cont lidoderm patches. -denies pain 12/10, 12/11, no hypoxia (5) ESRD (end stage renal disease) on dialysis: Plan: [facility] [place] HD schedule is Sun/Sun/Sunday. Cont phosphate binders, etc. (6) Odontoid fracture: Plan: 07/2023 fall, initially hospitalized at [facility] for such. Has been in [place] [facility] since then. C-spine CT findings from this admission noted. Nonunion seen. Patient denies any pain, weakness, or paresthesias of either arm. Dr. 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 Wear with ambulation for additional support. (7) Elevated troponin: Plan: Peak HS troponin 94.9. Patient saw CARI Shane - [facility] - in the cardiology clinic recently. Mr Vigil had been planning dobutamine stress echo due to recent dyspnea on exertion as well as known CAD. MPS 12/10 - report still pending (8) Acute blood loss anemia: Plan: 2nd to bleeding from skin tear L elbow Hg dropped from 11.3-->9.5 then remained stable (9) Paroxysmal atrial fibrillation: Plan: in NSR since admission. monitor carefully. he is not on chronic anticoagulation. (10) Closed T4 spinal fracture: Plan: seen during prior admission in 10/2023. non-operative Rx recommended at that time. (11) Celiac disease: Plan: gluten free diet (12) Hypothyroidism: Plan: most recent TSH wnl cont synthroid (13) Glenoid fracture of shoulder: Plan: incidentally seen on chest CT at time of this admission. b/l, nondisplaced. appear chronic. informal discussion held with on-call orthopedics since he is not having any pain no Rx needed. no need for any immobilization. (14) CAD (coronary artery disease): Plan: 2018 heart cath, [facility] - Findings: LM: Calcified, luminal irregularities LAD: Moderate caliber vessel, heavily calcified, 30-40% mid segment disease, distal luminal irregularities LCx: Moderate caliber, mild diffuse disease. RCA: Dominant, proximal to mid luminal irregularities, 20-30% late-mid to distal stenosis. RPDA without significant disease Is on aspirin & statin daily. Not on beta neil due to severe orthostatic hypotension. Nuc stress 12/10 Plan Last discharge was at the [facility] for some time then moved back to [place] independent situation. Appears to need to return to [facility] Admission and Anticipated Discharge Date Admission Date: December 10, 2023 Subjective Feels fine currently eating lunch, however, reports he passed out in dialysis due to low BP RN reports he insisted to stand and urinate during HD then had 10 second syncopal event, was hypotensive at the time Physical Exam 2 Physical Exam: PHYSICAL EXAMINATION Last 24h vital signs reviewed, see documentation in flowsheet General: comfortable appearing, no distress, sitting in bed eating lunch exam unchanged 12/11: HEENT: Normocephalic, atraumatic, pupils round and equal, sclerae anicteric, no conjunctival injection, moist mucus membranes. wearing [place] Lungs: Normal respiratory effort. Clear to auscultation bilaterally. No RRW Heart: Regular rate and rhythm, no murmurs. No JVD Rt upper chest tunneled HD line Abdomen: Soft, nontender, nondistended. Bowel sounds present. Extremities: Warm, dry, well-perfused. No extremity edema. Neuro: Alert and oriented x 4, face symmetric, moves 4 extremities well Psych: Normal affect and behavior Results & Data Results & Data Vital Signs (Past 12 Hours) Vital Signs Temp Pulse Pulse Resp BP Pulse Ox O2 Del Method 12/12/23 06:58 65 12/12/23 02:30 36.8 C 63 18 174/93 H 98 Room Air 12/11/23 23:52 65 12/11/23 23:25 37.0 C 68 18 168/94 H 96 Room Air 12/11/23 22:24 Room Air 12/11/23 19:53 37.3 C 77 18 166/90 H 97 Room Air Laboratory Results 12/11/23 03:13 12/09/23 02:39 PG Care Time/CCT Total # of Minutes Spent Total Time Spent with Patient: Total time spent is greater than 50% in coordination of care (as documented) at patient's floor/unit and/or counseling patient: Coding Level of Care Code 70237 SUB INP/OBS CARE 2/35MIN Diagnoses Recurrent falls R29.6 Orthostatic hypotension I95.1 Laceration of left elbow S51.012A Multiple rib fractures S22.49XA ESRD (end stage renal disease) on dialysis N18.6; Z99.2 Odontoid fracture S12.110A Elevated troponin R79.89 Acute blood loss anemia D62 Paroxysmal atrial fibrillation I48.0 Closed T4 spinal fracture S22.049A Celiac disease K90.0 Hypothyroidism E03.9 Glenoid fracture of shoulder S42.143A; S42.153A Coronary artery disease involving [place] coronary artery of [place] heart, unspecified whether angina present I25.10 Associated angina: unspecified whether angina present Coronary Disease-Associated Artery/Lesion type: [place] artery [place] vs. transplanted heart: [place] heart (14) CAD (coronary artery disease) Associated angina: unspecified whether angina present Coronary Disease- Associated Artery/Lesion type: [place] artery [place] vs. transplanted heart: n ative heart Qualified Code(s): I25.10 - Atherosclerotic heart disease of [place] coronary artery without angina pectoris
[2023-12-12] MEDS: EPOETIN ALFA 10,000 UNITS/ML VIAL IV STA (11:32)
--- NOTE | 2023-12-12 12:20 | Nephrology Progress Note ---
Date of Service December 12, 2023 Assessment & Plan (1) ESRD (end stage renal disease) on dialysis: (2) Secondary hyperparathyroidism: (3) Recurrent falls: (4) Laceration of left elbow: (5) Multiple rib fractures: (6) Anemia: Plan End-stage kidney disease on hemodialysis Sunday, Sunday, Sunday via right IJ tunneled dialysis catheter, went to the hospital with recurrent fall, bleeding from laceration in left arm and multiple rib fracture. Hemoglobin slightly dropped to 10.1 from 11.3 on admission although no active bleeding from left arm. Electrolyte acceptable. Blood pressure variable. Volume status seems acceptable. Electrolyte acceptable. Otherwise asymptomatic . -- tolerating dialysis, aim for UF goal to EDW -- Dose medications for eGFR less than 10 -- Epogen with dialysis -- Continue Nephrocaps daily, PhosLo with meals Admission and Anticipated Discharge Date Admission Date: December 10, 2023 Justin Krueger was seen and evaluated during HD this am. Tolerating dialysis, feeling well. Left arm still having some bleeding. Blood pressure fair. Hemoglobin stable. Review of Systems Review of Systems: Detailed review of system was otherwise unremarkable. Physical Exam Constitutional: WD/WN, vitals as above no acute distress Eyes: + anicteric sclerae Respiratory: Auscultation: lungs clear to auscultation bilaterally Cardiovascular: Rate/Rhythm: regular rate and regular rhythm Heart Sounds: normal S1 and normal S2 Extremities: + vascular access device (rt IJ TDC) Musculoskeletal: Extremities: extremities normal to inspection Skin: + turgor decreased, + lesion and + ecchy mosis Neurologic: no focal motor deficits Psychiatric: Orientation: alert and oriented x 3 Affect: euthymic affect Results & Data Vital Signs (Past 12 Hours) Vital Signs Temp Pulse Pulse Pulse Resp BP BP 12/12/23 11:30 70 156/99 H 12/12/23 11:00 67 146/99 H 12/12/23 10:30 64 162/98 H 12/12/23 10:00 64 151/98 H 12/12/23 09:30 68 141/85 H 12/12/23 09:03 36.5 C 72 12/12/23 07:36 36.6 C 76 18 150/86 H 12/12/23 06:58 65 12/12/23 02:30 36.8 C 63 18 174/93 H Pulse Ox O2 Del Method 12/12/23 11:30 12/12/23 11:00 12/12/23 10:30 12/12/23 10:00 12/12/23 09:30 12/12/23 09:03 12/12/23 07:36 96 Room Air 12/12/23 06:58 12/12/23 02:30 98 Room Air PG Care Time/CCT Total # of Minutes Spent Total Time Spent with Patient: Total time spent is greater than 50% in coordination of care (as documented) at patient's floor/unit and/or counseling patient: Coding Level of Care Code 05186 SUB INP/OBS CARE 235MIN Diagnoses ESRD (end stage renal disease) on dialysis N18.6; Z99.2 Secondary hyperparathyroidism N25.81 Recurrent falls R29.6 Laceration of left elbow S51.012A Multiple rib fractures S22.49XA Anemia D64.9 Anemia type: unspecified type (6) Anemia Anemia type: unspecified type Qualified Code(s): D64.9 - Anemia, unspecified
[2023-12-12] MEDS: FLUDROCORTISONE ACETATE 0.1 MG TAB PO SCH (13:08)
--- NOTE | 2023-12-12 13:17 | Myocardial Perfusion Study ---
Date of Service December 12, 2023 Myocardial Perfusion Study [facility] Myocardial Perfusion Study Report LEXISCAN STRESS MYOCARDIAL PERFUSION IMAGING STUDY Indication: Chest pain Brief description: Rest portion-at 7:35 AM the patient was injected with 10.4 mCi of technetium 99m Cardiolite IV. 1 hour following injection, myocardial perfusion imaging was performed in multiple projections. Stress portion-baseline heart rate, blood pressure, and EKG were obtained. These same parameters were monitored for 3 minutes during infusion and 3 minutes during recovery. They were intermittently recorded. Patient was infused with 0.4 mg Lexiscan IV. This was followed immediately by injection of 32 mCi of technetium 99m Cardiolite IV. 45 minutes following injection, myocardial perfusion imaging was performed in multiple projections identical to those used during the rest portion. No symptoms recorded with infusion. Hemodynamic and electrocardiographic findings: 1. Resting heart rate of 74 bpm bailey to a maximum of 86 bpm with Lexiscan infusion. 2. Baseline blood pressure of 139/90 mmHg dropped to a minimum of 101/59 mmHg following Lexiscan infusion. 3. Baseline EKG demonstrated normal sinus rhythm and voltage criteria for LVH. There were no diagnostic ST segment or T wave changes with Lexiscan infusion. No Lexiscan induced arrhythmias. Myocardial perfusion imaging findings: 1. Raw data analysis demonstrates abnormal area of mild uptake in the substernal area and the patient was imaged with his arms down. Study is adequate for interpretation. 2. Gated myocardial perfusion imaging demonstrates normal size ventricle, low normal EF of 49%, and mild hypokinesis of the inferior and posterior myocardium. 3. There is a small to medium in size, mild intensity, fixed MPI defect involving the inferior and lateral myocardium. 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 No evidence of myocardial ischemia at this time. 4. This is a mildly abnormal stress test. Low risk of myocardial ischemia. No prior study for comparison. [facility] Myocardial perfusion code Indication for Procedure (1) CAD (coronary artery disease): Procedure Code Procedure 1: Myocardial Perfusion Codes: 81414 Cardiovascular Stress Test, multiple Procedure 2: Myocardial Perfusion Codes: 77525 Cardiovascular Stress Test, supervision only Procedure 3: Myocardial Perfusion Codes: 06770 Cardiovascular Stress Test, interpretation and report
--- NOTE | 2023-12-13 13:08 | Discharge Summary ---
Date of Service December 13, 2023 Admission HPI Per Admitting Provider 83-year-old white male who resides at [facility]. He suffered recent mechanical falls and recently had a odontoid fracture and is wearing a hard cervical collar. He apparently fell again while at [facility] now suffering left fifth and sixth anterior rib fractures and a left elbow skin tear that required attention in the ED. He is alert and oriented at the time my examination. He denies chest pain but his troponin level is elevated. No acute EKG changes. He is placed in observation with telemetry for further care and wound nurse assistance for the left elbow laceration. OT and PT assessments have been requested. He denies melena, hematochezia, palpitations, syncope. Principal Diagnosis Rib fractures, severe chronic orthostatic hypotension Discharge Exam PHYSICAL EXAMINATION Last 24h vital signs reviewed, see documentation in flowsheet General: comfortable appearing, no distress, sitting in bed eating breakfast exam unchanged 12/12: HEENT: Normocephalic, atraumatic, pupils round and equal, sclerae anicteric, no conjunctival injection, moist mucus membranes. wearing chicken [place] J Lungs: Normal respiratory effort. Clear to auscultation bilaterally. No RRW Heart: Regular rate and rhythm, no murmurs. No JVD Rt upper chest tunneled HD line Abdomen: Soft, nontender, nondistended. Bowel sounds present. Extremities: Warm, dry, well-perfused. No extremity edema. Neuro: Alert and oriented x 4, face symmetric, moves 4 extremities well Psych: Normal affect and behavior Discharge Data Allergies Allergy/AdvReac Type Severity Reaction Status Date / Time gluten Allergy Intermediate CELIAC Verified 12/08/23 15:37 DISEASE--Gastrointestinal Upset Consultations 12/08/23 15:57 ED Decision to Admit Stat 12/08/23 20:37 Consult Nephrology Routine 12/10/23 18:42 Consult Orthopedic Spine Surgery Routine Ordered Studies 12/08/23 14:10 CT chest diagnostic wo con Stat CT head/brain wo con Stat CT neck [CT cervical spine wo con] Stat 12/10/23 07:00 CT angio chest PE protocol Routine 12/11/23 15:38 US carotid doppler BI Routine Cervical Spine CT 12/08/23 14:10 CT OF THE CERVICAL SPINE WITHOUT CONTRAST CLINICAL HISTORY: fall COMPARISON STUDY: Cervical spine CT January 09, 2024. TECHNIQUE: Helical axial images of the cervical spine were obtained without IV contrast. Sagittal and coronal reconstructions were viewed. Automated exposure control was utilized for the study. A dose lowering technique was utilized adhering to the principles of ALARA. FINDINGS: Alignment of the cervical spine is unchanged since CT October 31, 2023. A type II odontoid fracture is similar in appearance to CT of November 09, 2023. Fracture remains mildly displaced and posteriorly angulated. Displacement has increased since CT of July 31, 2023. Subacute mild T4 compression fracture is noted. This was shown on CT MRI of October 16, 2023. No additional fractures are identified. Moderate multilevel disc space narrowing and severe facet arthrosis is present. No prevertebral edema. IMPRESSION: 1. No acute cervical spine fracture or subluxation. 2. Type II odontoid fracture, similar in appearance to CT of November 09, 2023. This fracture is mildly displaced and angulated. The findings may reflect a developing malunion. 3. Subacute mild T4 compression fracture. ACT 112: Negative or not required by law. Electronically signed by: Cristian Miller M.D. 12/08/2023 3:[address] 12/08/23 14:10 CT OF THE CHEST WITHOUT IV CONTRAST CLINICAL HISTORY: fall, left anterior rib pain COMPARISON STUDY: Chest CT July 21, 2023. Chest radiograph November 09, 2023. CT DOSE: 446.39 mGy.cm TECHNIQUE: Axial images of the chest were obtained without IV contrast. Images were reviewed in the axial, sagittal, and coronal planes. IV contrast was not administered for this examination. Automated exposure control was utilized for the study. A dose lowering technique was utilized adhering to the principles of ALARA. FINDINGS: There is no pneumothorax or pleural effusion. There are probable acute nondisplaced anterior left fifth and sixth rib fractures. There are multiple old healed bilateral rib fractures. There is a healing anterior left fourth rib fracture. Old T4 and T8 compression fractures are unchanged. Old sternal fracture. Postoperative findings consistent with esophagectomy with anterior gastric pull-up. Linear densities within the lungs represent scarring. There is no consolidation to suggest pneumonia. Thoracic aorta is suboptimally assessed on unenhanced exam but no mediastinal hematoma is present. Extensive coronary artery calcification. A right internal jugular dual lumen catheter is in place. 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 There are lucencies through the posterior glenoids, a new since CT of July 31, 2023. IMPRESSION: 1. No pneumothorax. Probable acute nondisplaced anterior left fifth and sixth rib fractures. Healing anterior left fourth rib fracture. Multiple old bilateral rib fractures. 2. Lucencies through the bilateral posterior glenoids, new since CT of July 21, 2023. These may reflect subacute nondisplaced fractures. 3. Stable postoperative findings following esophagectomy. ACT 112: Negative or not required by law. Electronically signed by: Cristian Miller M.D. 12/08/2023 3:40 PM Forearm X-Ray 12/08/23 14:10 XR forearm LT 2V CLINICAL HISTORY: fall COMPARISON: None FINDINGS: No fracture within the left radius or ulna is identified. A proximal left forearm bandage is present. There is a lucency with sclerotic margins through the scaphoid waist. Severe osteoarthritis of the left first carpometacarpal joint is noted. There is chondrocalcinosis within the TFCC. IMPRESSION: 1. No fractures within the left radius or ulna. 2. Lucency with sclerotic margins through the scaphoid waist. This favors an old nonunited fracture. ACT 112: Negative or not required by law. Electronically signed by: Cristian Miller M.D. 12/08/2023 2:[address] 12/08/23 14:10 CT OF THE HEAD WITHOUT CONTRAST CLINICAL HISTORY: fall COMPARISON STUDY: MRI of the brain October 16, 2023. Head CT November 09, 2023. CT DOSE: 1149.16 mGy.cm TECHNIQUE: Helical axial images of the head were obtained without IV contrast. Automated exposure control was utilized for the study. A dose lowering technique was utilized adhering to the principles of ALARA. FINDINGS: No acute intracranial hemorrhage, midline shift or mass effect is present. The ventricular system is stable. White matter hypodensities are unchanged. The basal cisterns are patent. No extra-axial collections are present. There are no findings to suggest acute dural sinus thrombosis or acute territorial infarct. There is no calvarial fracture. Partial opacification of the left maxillary sinus is unchanged. IMPRESSION: 1. No acute intracranial findings. 2. No calvarial fractures. ACT 112: Negative or not required by law. Electronically signed by: Cristian Miller M.D. 12/08/2023 3:14 PM Elbow X-Ray 12/09/23 09:28 XR elbow LT min 3V routine CLINICAL HISTORY: fall, severe L elbow pain COMPARISON STUDY: Left forearm 12/08/2023. FINDINGS: Overlying tape/bandages slightly obscures the left elbow. There is diffuse soft tissue swelling. No definite elbow effusion. No acute fracture or dislocation. IMPRESSION: Diffuse soft tissue swelling within the left elbow. No acute fractures. ACT 112: Negative or not required by law. Electronically signed by: Fitz Martin M.D. 12/09/2023 11:01 AM Chest CTA 12/10/23 07:00 CT ANGIOGRAM OF THE CHEST CLINICAL HISTORY: Dyspnea COMPARISON STUDY: Chest CT dated 12/08/2023. A chest x-ray dated 11/09/2023. TECHNIQUE: Following the IV administration of 119 cc of Optiray 320, CT angiogram of the chest was performed from the upper abdomen to the thoracic inlet utilizing the pulmonary embolus protocol. Images are reviewed in the axial, sagittal, and coronal planes. 3-D MIPS images are created and assessed. IV contrast was administered without complication. A dose lowering technique was utilized adhering to the principles of ALARA. The examination is degraded by motion artifact, as well as by streak artifact from the arms which could not be elevated above the chest. CT DOSE: 811.15 mGy.cm FINDINGS: Thyroid: Atrophic. Thoracic aorta: The thoracic aorta is normal in caliber and demonstrates standard 3-vessel arch anatomy. No dissection is seen. Pulmonary vasculature: The main pulmonary arteries are dilated indicating pulmonary artery hypertension. There are no filling defects identified in main, lobar, or segmental pulmonary branches to suggest pulmonary embolus. Heart: A right internal jugular central venous catheter is in place. The heart is enlarged and without pericardial effusion. The coronary arteries are densely calcified Lungs and pleural spaces: There are trace pleural effusions. Scarring/ atelectasis is noted at both lung bases. There is no airspace consolidation typical for pneumonia. The trachea and central airways are clear. Diffuse peribronchial thickening is noted. Mediastinum: There is no mediastinal lymphadenopathy. Bianca: Clear. Axillae: There is no axillary lymphadenopathy. Upper abdomen: There is postsurgical change from esophageal resection with gastric pull-through procedure. There is a 2 mm nonobstructing calculus in the upper pole of left kidney. A punctate nonobstructing calculus is seen in the right upper pole. The visualized kidneys demonstrate cortical atrophy. A 2.9 cm left lobe hepatic cyst and a 1.9 cm indeterminate right lobe hepatic hypodensity are unchanged. Moderate fecal retention is noted in the partially imaged left colon. Skeletal structures: The skeletal structures are osteopenic. Degenerative change and hyperkyphosis is noted in the spine. No lytic or blastic bony lesions are seen. Arthritic change is seen in both shoulders with surrounding bursal fluid. There is an acute comminuted fracture of the right posterior 12th rib. This is new from 12/08/2023. Acute left anterior 6th rib fracture is unchanged. Additional chronic/healed rib fractures are seen bilaterally. There is also chronic posttraumatic deformity of the manubrium. IMPRESSION: 1. There is no evidence of pulmonary embolus in the main, lobar, or segmental pulmonary arteries. 2. There is an acute comminuted fracture of the right posterior 12th rib. This is new from 12/08/2023. 3. Acute left anterior sixth rib fracture is unchanged, as are additional sub acute/chronic fracture. 4. Cardiomegaly with evidence of pulmonary artery hypertension. 5. Trace pleural effusions. 6. Advanced coronary artery atherosclerosis. 7. Bilateral nephrolithiasis. 8. Additional findings as above. ACT 112: Negative or not required by law. Electronically signed by: Steven Mittal M.D. 12/10/2023 12:27 PM Carotid Doppler Study 12/11/23 15:38 BILATERAL CAROTID DOPPLER STUDY HISTORY: recurrent syncopal episodes. COMPARISON: None. TECHNIQUE: Real-time, grayscale, and color Doppler sonography of the carotid arteries was performed. Imaging reviewed in the transverse and longitudinal planes. All measurements were calculated based on NASCET criteria. FINDINGS: Antegrade flow is seen in the bilateral vertebral arteries. No significant calcified plaque. The peak systolic velocity within the right ICA is 58 cm/s. The right systolic ratio is 0.9. The peak systolic velocity within the left ICA is 48 cm/s. The left systolic ratio is 0.9. IMPRESSION: No hemodynamically significant stenosis seen within the carotid arteries. ACT 112: Negative or not required by law. Electronically signed by: Fitz Martin M.D. 12/11/2023 7:15 PM Hospital Course (1) Orthostatic hypotension: SEVERE. Leading to falls, episodes of acute encephalopathy, syncopal episodes. 10/2023 discharge; florinef 0.1mg daily added to midodrine 5mg TID at that time. Also HD orders changed for less volume removal per cake froster. Midodrine has been titrated to 10mg TID since that time. CTA chest on 12/09 - no PE. Carotid duplex neg. MPS 12/10 read as mildly abnormal low risk study. B12, AM cortisol (20), TSH recently normal MRI brain 10/2023 without old or new stroke or ICH. MRA brain without significant occlusion. carotid duplex - no significant stenoses, anterograde flow in vertebral arteries 12/11 had 10 sec episode of syncope during HD when he stood up and became significantly hypotensive. Staff present, did not fall. increased florinef to 0.2 on 12/11, monitor bp/edema recommend tapering sertaline - is reported to cause orthostatic hypotension - useful table in UpToDate "Side effects of antidepressant medications" Decreased dose to 75 mg. Consider replacing with mirtazapine, however, renal dosing not defined with this agent. Likewise, SNRI dosing not defined in HD (and SNRI can also cause orthostasis based on literature review) consider checking B1 level or empiric replacement - could not add-on today and takes few weeks to result. B1 is possible cause of neuropathy -PT/OT -Disharged to SNF at [facility] -if above measures not helpful may require constant SBA / supervision when standing/ambulating -I updated his by phone 12/12 (2) Recurrent falls: Multiple falls dating back to 2022. Several falls have led to injury including 08/04 fall with odontoid fracture, T4 fracture in October 2023, and now right 12 rib fracture and left anterior rib fractures 5 and 6. Most recent fall also led to left arm laceration/severe skin tear requiring significant attention in the ER to stop the bleeding. "Quick clot" was utilized along with a compression dressing. Moderate drop in H/H from his left arm bleeding since admission. Falls are primarily due to his severe orthostatic hypotension, though generalized weakness and unsteady gait contribute. Reviewed meds - no culprits. See above (3) Laceration of left elbow: elbow x-ray -- negative for fractures. wound nurse consulted: "To left arm skin tears/ trauma/hematoma - irrigate with saline using 35cc syringe and 18g blunt needle. Pat dry . Cover with double layer Xeroform, ABD and secure with kerlix. Change every day and as needed for drainage Assess every day for signs of skin necrosis and report to provider [facility] Call for appointment " (4) Multiple rib fractures: Left anterior fifth and sixth rib fractures. CT chest showed an acute comminuted 12th rib fracture. Cont tylenol 1gm TID. Cont lidoderm patches. -denies pain from these, no hypoxia or dyspnea (5) ESRD (end stage renal disease) on dialysis: [facility] Nephrology consulting HD schedule is Sun/Sun/Sunday. Cont phosphate binders, etc. (6) Odontoid fracture: 07/2023 fall, initially hospitalized at [facility] for such. Has been in [place] J collar since then. C-spine CT findings from this admission noted. Nonunion seen. Patient denies any pain, weakness, or paresthesias of either arm. Dr. 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 Wear with ambulation for additional support. (7) Acute blood loss anemia: 2nd to bleeding from skin tear L elbow Hg dropped from 11.3-->9.5 then remained stable (8) Paroxysmal atrial fibrillation: in NSR since admission. monitor carefully. he is not on chronic anticoagulation. Takes aspirin. (9) Closed T4 spinal fracture: seen during prior admission in 10/2023. non-operative Rx recommended at that time. (10) Celiac disease: gluten free diet (11) Hypothyroidism: most recent TSH wnl cont synthroid (12) Glenoid fracture of shoulder: incidentally seen on chest CT at time of this admission. b/l, nondisplaced. appear chronic. informal discussion held with on-call orthopedics since he is not having any pain no Rx needed. no need for any immobilization. (13) CAD (coronary artery disease): 2019 heart cath, [facility] - Findings: LM: Calcified, luminal irregularities LAD: Moderate caliber vessel, heavily calcified, 30-40% mid segment disease, distal luminal irregularities LCx: Moderate caliber, mild diffuse disease. RCA: Dominant, proximal to mid luminal irregularities, 20-30% late-mid to distal stenosis. RPDA without significant disease Is on aspirin & statin daily. Not on beta neil due to severe orthostatic hypotension. Had mildly elevated troponin this admission which downtrended. No evidence of ACS. Consistent with demand ischemia related to anemia, hypotension, and decreased clearance in ESRD Peak HS troponin 94.9. Patient saw CARI Shane - [facility] - in the cardiology clinic recently. Mr Vigil had been planning dobutamine stress echo due to recent dyspnea on exertion as well as known CAD. MPS 12/10 - reassuring. He does have CAD and lots of vessel calcification but this was interpreted only as mildly abnormal, low risk study. Risks of angiography most likely outweigh the benefits. Follow up with [facility] cardiology. Sent message to [place] Vigil about stress test. Total Time Total Time Spent Total Time Spent (In Minutes): I personally spent: 50 minutes today on clinical care activities including: reviewing chart notes and vital signs reviewing labs communication with outpatient liquor establishment manager discussion with chronic care nurse examining and counseling the patient counseling the patient's family writing orders, discharge instruction documentation Discharge Plan Discharge Items Patient Disposition: Transfer [facility] Reason For Visit: MECHANICAL FALL Discharge Diagnosis: Rib fractures, severe orthostatic hypotension Activity: Resume your previous activity Weightbearing: Full weightbearing Non-emergency contact: Primary Care Provider Call non-emergency contact if: you have any medication questions and your symptoms worsen Follow-up/Referrals: Laron Montemayor [Primary Care Provider] - Sergei Attending Provider Instructions: PT and OT evaluate and treat At high risk for falls and syncope due to severe orthostatic hypotension. Recommend stand-by assist at least when standing/ambulating. Ambulate with walker only. Fludrocortisone dose increased from 0.1 mg to 0.2 mg - monitor BP response Consider checking thiamine (B1) level. Potential cause of neuropathy. Recommend tapering sertraline - can cause orthostasis, dose decreased to 75 mg. Consider replacing with mirtazapine (not reported to cause orthostasis), however renal dosing not defined for this medication. Dr Alanis consulted in hospital for odontoid fracture - "recommend removing the collar when the patient is at rest or in bed. He should wear it when he is up and ambulating for additional support" Wound care nurse recommendations: To left arm skin tears/ trauma/hematoma - irrigate with saline using 35cc syringe and 18g blunt needle. Pat dry . Cover with double layer Xeroform, ABD and secure with kerlix. Change every day and as needed for drainage Assess every day for signs of skin necrosis and report to provider Recommend [facility] with [facility] Call [phone] for appointment Pending Studies at Discharge: No Stand-Alone Forms: My [facility] Skilled Items Patient informed of condition?: Yes DNR: Yes Discharge Level of Care: Skilled Communicable Disease: No Discharge Prognosis: Stable Lines: None Urinary Catheter: No Medications and DC Order Prescriptions: New fludrocortisone 0.1 mg Tablet 0.2 mg PO QAM Qty: 0 0RF sertraline 25 mg tablet 75 mg PO DAILY Qty: 1 0RF lidocaine 5 % Adhesive Patch,Medicated 2 patch transdermal QAM Qty: 0 0RF Continued levothyroxine 100 mcg tablet 100 mcg PO QAM Qty: 90 3RF cyanocobalamin (vitamin B-12) [Vitamin B-12] 1,000 mcg Tablet 1,000 mcg PO HS Macular Health Formula 5-1-7.5 mg Capsule 1 cap PO HS calcium acetate(phosphat bind) 667 mg tablet 667 mg PO TIDM rosuvastatin 5 mg tablet 5 mg PO DAILY Toya-Lena Rx 1-60-300 mg-mg-mcg tablet 1 tab PO QAM acetaminophen 500 mg tablet 1,000 mg PO BID PRN (Reason: Pain) RenaPlex-D 800 mcg-12.5 mg -2,000 unit tablet 1 tab PO DAILY aspirin 81 mg Tablet,Delayed Release (Dr/Ec) 81 mg PO DAILY polyethylene glycol 3350 [Miralax] 17 gram/dose Powder 17 g PO DAILY Changed midodrine 10 mg Tablet 10 mg PO TID Qty: 0 0RF Discontinued sertraline [Zoloft] 100 mg tablet 100 mg PO QPM Qty: 90 3RF fludrocortisone 0.1 mg Tablet 0.1 mg PO QAM Qty: 0 0RF midodrine 5 mg tablet 5 mg PO DAILY Rx Instructions: PT & SPOUSE UNSURE AT WHAT TIME GIVEN Discharge Orders: Discharge Order (Routine); Ordered 12/13/23 Ordered By: Yris Cloud Admission Data Admit Date/Time: 12/10/23 09:55 Attending Provider: Yris Cloud Admit Provider: Jonathan Parkinson Primary Care Provider: Laron Montemayor Other Providers: Jonathan Parkinson; Willard Flores; Marcell Mcclellan Kevin C.; Karissa Cruz; Simon Alanis; IRB Approved Study,Cm Coding Level of Care Code 10906 INP/OBS DISCH >30 MIN Diagnoses Orthostatic hypotension I95.1 Recurrent falls R29.6 Laceration of left elbow S51.012A Multiple rib fractures S22.49XA ESRD (end stage renal disease) on dialysis N18.6; Z99.2 Odontoid fracture S12.110A Acute blood loss anemia D62 Paroxysmal atrial fibrillation I48.0 Closed T4 spinal fracture S22.049A Celiac disease K90.0 Hypothyroidism E03.9 Glenoid fracture of shoulder S42.143A; S42.153A Coronary artery disease involving [place] coronary artery of [place] heart, unspecified whether angina present I25.10 Coronary Disease-Associated Artery/Lesion type: [place] artery [place] vs. transplanted heart: [place] heart Associated angina: unspecified whether angina present
--- NOTE | 2023-12-13 14:51 | Nephrology Progress Note ---
Date of Service December 13, 2023 Assessment & Plan (1) ESRD (end stage renal disease) on dialysis: (2) Secondary hyperparathyroidism: (3) Recurrent falls: (4) Laceration of left elbow: (5) Multiple rib fractures: (6) Anemia: Plan End-stage kidney disease on hemodialysis Sunday, Sunday, Sunday via right IJ tunneled dialysis catheter, went to the hospital with recurrent fall, bleeding from laceration in left arm and multiple rib fracture. Hemoglobin slightly dropped to 10.1 from 11.3 on admission although no active bleeding from left arm. Electrolyte acceptable. Blood pressure variable. Has been persistently orthostatic during hospitalization. Started on Florinef. Volume status seems acceptable. Electrolyte acceptable. Otherwise asymptomatic. Had dialysis yesterday. --Okay to be discharged, will be continued on Sunday, Sunday, Sunday dialysis schedule. -- Dose medications for eGFR less than 10 -- Continue Nephrocaps daily, PhosLo with meals Admission and Anticipated Discharge Date Admission Date: December 10, 2023 Justin Krueger was seen and evaluated this morning. Overall he feels well. He continues to be quite orthostatic whenever he stands up, had an episode of syncope again yesterday for a brief seconds after he tried to stand up. Had dialysis yesterday. Electrolyte acceptable. Review of Systems Review of Systems: Detailed review of system was otherwise unremarkable. Physical Exam Constitutional: WD/WN, vitals as above no acute distress Eyes: + anicteric sclerae Respiratory: Auscultation: lungs clear to auscultation bilaterally Cardiovascular: Rate/Rhythm: regular rate and regular rhythm Heart Sounds: normal S1 and normal S2 Extremities: + vascular access device (rt IJ TDC) Musculoskeletal: Extremities: extremities normal to inspection Skin: + turgor decreased, + lesion and + ecchy mosis Neurologic: no focal motor deficits Neck collar in place. Psychiatric: Orientation: alert and oriented x 3 Affect: euthymic affect Results & Data Vital Signs (Past 12 Hours) Vital Signs Temp Pulse Pulse Pulse Pulse Resp BP 12/13/23 12:56 36.7 C 81 76 63 18 168/92 H 12/13/23 11:42 36.7 C 76 18 168/92 H 12/13/23 08:41 64 12/13/23 08:23 12/13/23 07:59 36.6 C 66 17 157/88 H 12/13/23 03:08 36.8 C 63 18 179/94 H Pulse Ox O2 Del Method 12/13/23 12:56 97 12/13/23 11:42 97 Room Air 12/13/23 08:41 12/13/23 08:23 Room Air 12/13/23 07:59 96 Room Air 12/13/23 03:08 96 Room Air PG Care Time/CCT Total # of Minutes Spent Total Time Spent with Patient: Total time spent is greater than 50% in coordination of care (as documented) at patient's floor/unit and/or counseling patient: Coding Level of Care Code 96248 SUB INP/OBS CARE 2/35MIN Diagnoses ESRD (end stage renal disease) on dialysis N18.6; Z99.2 Secondary hyperparathyroidism N25.81 Recurrent falls R29.6 Laceration of left elbow S51.012A Multiple rib fractures S22.49XA Anemia D64.9 Anemia type: unspecified type (6) Anemia Anemia type: unspecified type Qualified Code(s): D64.9 - Anemia, unspecified
== END 2023-12-13 13:39 | DRG 312 ==
LOC: ED 13:09 → 2W 13:09 → SUATTDRO 17:01 → 2W 19:50 → SUATTDRO 12-10 09:55